=== PATIENT | male | born 1990 | race Hispanic/Latino ===

== ENCOUNTER 2018-09-26 00:15 | Emergency (ER) | payer OTHER ==
[~2018-09-26] VITALS: Ht 167.6 cm; Wt 70.5 kg
[2018-09-26] MEDS ORDERED: DERMABOND TOPICAL SKIN ADHESIVE TOP ONE (02:30)
[2018-09-26 03:08] VITALS: BP 132/82
== END 2018-09-26 03:10 | disposition home or self-care (01) ==
LOC: M ED 00:15
DX: S01.21XA Laceration without foreign body of nose, initial encounter (principal); Y07.9 Unspecified perpetrator of maltreatment and neglect; Y04.8XXA Assault by other bodily force, initial encounter; Y92.018 Other place in single-family (private) house as the place of occurrence of the external cause

== ENCOUNTER 2019-02-16 09:42 | Emergency (ER) | payer OTHER ==
[~2019-02-16] VITALS: Ht 167.6 cm; Wt 67.5 kg
--- NOTE | 2019-02-16 10:18 | REP ---
Left rib series: Five views including PA chest. History: Football injury 6 days prior. Findings: PA chest radiograph is normal. There is no evidence of pneumothorax or hydrothorax. Mediastinum is not widened. Heart size is normal. Lung conley are clear. Multiple views of the left rib cage show no evidence of left rib fracture or incidental bony destructive lesion. Impression: Negative left rib radiographs. Electronically Signed by Mohsen Trejo MD 02/16/2019 10:09 A
[2019-02-16] MEDS ORDERED: KETOROLAC 60 MG/2 ML VIAL (J1885) IM ONE (11:00)
[2019-02-16] MEDS ORDERED: NAPR-837 PO (11:31)
[2019-02-16 11:35] VITALS: BP 133/91
== END 2019-02-16 11:36 | disposition home or self-care (01) ==
LOC: M ED 09:42
DX: S20.20XA Contusion of thorax, unspecified, initial encounter (principal); Y92.9 Unspecified place or not applicable; Y93.61 Activity, american tackle football; Y99.9 Unspecified external cause status
CPT/HCPCS: 71101; 96372; 99283; J1885

== ENCOUNTER 2019-07-17 14:35 | Inpatient (IN) | payer OTHER ==
[~2019-07-17] VITALS: Ht 167.6 cm; Wt 69.8 kg
[~2019-07-17 14:35] MED LIST: NAPR-837 PO
[2019-07-17 16:15] VITALS: BP 161/104
[2019-07-17] MEDS ORDERED: PIPERACILLIN/TAZOBACTAM SOD 4.5 GM in D5W MINI-BAG PLUS 50 ML IV ONE (17:15)
[2019-07-17] MEDS ORDERED: ONDANSETRON 4MG/2ML VIAL IV PRN (17:15)
--- NOTE | 2019-07-17 17:34 | HPEPDOC ---
General Date of Admission Jul 17, 2019 at 16:15 Date of Service: Jul 17, 2019 Chief Complaint The patient is a 29-year-old male admitted with a reason for visit of Choledocholithiasis. 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 He presented there for 3 days history of abdominal pain, nausea and 2 days of diarr hea. He had a CT abdomen done there with contrast which showed acute pancreatitis with CBD dilatation but no cholelithiasis or choledocolithiasis. David says that his pain is constantly present all over the abdomen more in the central part and right upper quadrant , 8/10 in intensity, sensation of tight cramp constantly present with radiation to the back. He was admitted for acute pancreatitis and possible CBD obstruction. Home Medications Scheduled Naproxen (Naprosyn) 500 Mg Tablet, 500 MG PO BID take with food Allergies Coded Allergies: No Known Allergies (Unverified , 09/26/18) Past Medical History Medical History None Surgical History Bilateral mastectomy for gynecomastia Family History Significant Family History: No pertinent family hx discussed with patient Social History * Smoker: Denies Alcohol: heavy (drins 3 to 4 times a week 4 to 6 vodka drinks) Drugs: denies A-FIB/CHADSVASC A-FIB History Current/History of A-Fib/PAF?: No Review of Systems Constitutional: Denies: Chills, Fever, Night Sweats Eyes: Denies: Pain, Vision change ENT: Denies: Head Aches, Ear Pain, Dysphagia Skin: Denies: Rash, Lesions, Breakdown Pulmonary: Denies: Dyspnea, Cough Cardiovascular: Denies: Chest Pain, Palpitations, Orthopnea, Paroxysmal Noc. Dyspnea, Lt Headedness Gastrointestinal: Reports: Nausea, Vomiting, Abdominal Pain, Diarrhea Genitourinary: Denies: Dysuria, Frequency, Incontinence, Retention Hematologic: Denies: Bruising, Bleeding Excessively Musculoskeletal: Reports: Back Pain; Denies: Neck Pain, Joint Pain, Muscle Pain, Spasms Neurological: Denies: Weakness, Numbness, Change in speech, Confusion Physical Examination General Exam: Positive: Alert, Cooperative, No Acute Distress Eye Exam: Positive: PERRLA, Conjunctiva & lids normal, EOMI; Negative: Sclera icteric ENT Exam: Positive: Atraumatic, Mucous membr. moist/pink, Pharynx Normal Neck Exam: Positive: Supple; Negative: JVD, thyromegaly Chest Exam: Positive: Clear to auscultation, Normal air movement Heart Exam: Positive: Rate Normal, Regular Rhythm, Normal S1, Normal S2; Negative: Murmurs, Rubs Abdomen Exam: Positive: BS Hyperactive, Tenderness (in the epigastrium and right upper quadrant, going to the back), Other (guarding in the right upper quadrant.) Extremity Exam: Positive: Normal pulses; Negative: Clubbing, Cyanosis, Edema Skin Exam: Positive: Nl turgor and temperature; Negative: Breakdown, Lesion Neuro Exam: Positive: Normal Speech, Cranial Nerves 3-12 NL, Reflexes 2+ Vital Signs Vital Signs Date Time Temp Pulse Resp B/P (MAP) Pulse Ox O2 Delivery O2 Flow Rate FiO2 07/17/19 16:27 16 07/17/19 16:15 99.2 100 161/104 (123) 98 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 He had a CT abdomen done there with contrast which showed acute pancreatitis with CBD dilatation but no cholelithiasis or choledocolithiasis. Patient says that his pain is constantly present all over the abdomen more in the central part and right upper quadrant , 8/10 in intensity, sensation of tight cramp constantly present with radiation to the back. He was admitted for acute pancreatitis and possible CBD obstruction. Acute pancreatitis significant alcohol use. No Gall stones visualized in CT but CBD is dilated MRCP NPO IVF, morphine, PPI. will give One dose of Zosyn. GI consult. Alcohol use disorder patient on naltrexone to control the craving. has not taken any alcohol for 4 days watch for withdrawal. Plan / VTE VTE Prophylaxis Ordered?: Yes ORQUIDEA HUERTA MD Jul 17, 2019 17:34
[2019-07-17] MEDS ORDERED: EFFE150C2 PO (17:39)
[2019-07-17] MEDS ORDERED: NALT50TA4 PO (17:39)
[2019-07-17] MEDS ORDERED: TRAZ-257 PO (17:39)
[2019-07-17 17:48] LABS: BASO % 0.4 % (0.0-1.0); EOS % 0.3 % (0.0-3.0); HEMATOCRIT 44.1 % (42.0-52.0); HEMOGLOBIN 15.2 g/dl (13.5-17.5); LYMPH # 1.1 10^3/uL (1.5-5.0); LYMPH % 12.3 % (24.0-44.0); MEAN CORPUSCULAR HEMOGLOBIN 32.2 pg (27.0-33.0); MEAN CORPUSCULAR HGB CONC 34.5 g/dl (32.0-36.5); MEAN CORPUSCULAR VOLUME 93.4 fl (80.0-96.0); MONO # 0.5 10^3/uL (0.0-0.8); MONO % 5.1 % (0.0-5.0); NEUTROPHILS # 7.5 10^3/uL (1.5-8.5); NEUTROPHILS % 81.6 % (36.0-66.0); PLATELET COUNT, AUTOMATED 210 10^3/uL (150-450); RED BLOOD COUNT 4.72 10^6/uL (4.30-6.10); WHITE BLOOD COUNT 9.1 10^3/uL (4.0-10.0)
[2019-07-17 18:00] LABS: PROTHROMBIN TIME 12.9 SECONDS (11.8-14.0)
[2019-07-17] MEDS: LR 1,000 ML IV SCH (18:39)
[2019-07-17 18:48] LABS: ALBUMIN 3.8 GM/DL (3.2-5.2); ALT/SGPT 54 U/L (12-78); BILIRUBIN,TOTAL 2.6 MG/DL (0.2-1.0); BLOOD UREA NITROGEN 12 MG/DL (7-18); CALCIUM LEVEL 8.7 MG/DL (8.5-10.1); CARBON DIOXIDE LEVEL 24 MEQ/L (21-32); CHLORIDE LEVEL 100 MEQ/L (98-107); CREATININE FOR GFR 0.96 MG/DL (0.70-1.30); GLOMERULAR FILTRATION RATE > 60.0 (>60); GLUCOSE, FASTING 91 MG/DL (70-100); LIPASE 2987 U/L (73-393); POTASSIUM SERUM 3.9 MEQ/L (3.5-5.1); SODIUM LEVEL 134 MEQ/L (136-145); TOTAL PROTEIN 6.9 GM/DL (6.4-8.2)
--- NOTE | 2019-07-17 18:55 | REPVR ---
PROCEDURE INFORMATION: Exam: MR Abdomen Without Contrast Exam date and time: 07/17/2019 6:28 PM Age: 29 years old Clinical indication: Abdominal pain; Acute; Patient HX: Mrcp; Additional info: Pancreatits, cbd dilatation TECHNIQUE: Imaging protocol: MR of the abdomen without contrast. 3D rendering: MIP and/or 3D reconstructed images were created by the technologist. COMPARISON: No relevant prior studies available. FINDINGS: Liver: No mass. Gallbladder and bile ducts: Unremarkable. No stones. No ductal dilation. Pancreas: There is trace amount of fluid around the pancreatic head Spleen: Unremarkable. No splenomegaly. Adrenals: Unremarkable. No mass. Kidneys and ureters: Unremarkable. No solid mass. No hydronephrosis. Stomach and bowel: Visualized stomach and intestines are unremarkable. Intraperitoneal space: No free fluid. Arteries: No abdominal aortic aneurysm. Bones/joints: Unremarkable. Soft tissues: Unremarkable. IMPRESSION: Trace amount of fluid around the pancreatic head and in right upper quadrant. Findings suspicious for acute pancreatitis. Correlation with lab values. Electronically signed by: Dougie Nation On 07/17/2019 18:54:41 PM
[2019-07-17 19:03] LABS: BILIRUBIN,DIRECT 0.7 MG/DL (0.0-0.2)
[2019-07-17] MEDS: MORPHINE 4 MG/ML 1ML VIAL/SYRINGE (J2270) IV PRN (19:35)
[2019-07-17] MEDS: PANTOPRAZOLE 40MG VIAL (C9113 PER 1) IV SCH (20:16)
[2019-07-17 21:00] VITALS: BP 144/92
[2019-07-17] MEDS ORDERED: OXAZEPAM 10 MG CAP PO PRN (21:30)
[2019-07-17 22:00] VITALS: BP 158/101
[2019-07-17 22:01] VITALS: BP 145/90
[2019-07-18] MEDS: LR 1,000 ML IV SCH ×6 (00:02→23:04)
[2019-07-18] MEDS: PIPERACILLIN/TAZOBACTAM SOD 3.375 GM in D5W MINI-BAG PLUS 50 ML IV SCH ×5 (00:02→23:04)
[2019-07-18] MEDS: MORPHINE 4 MG/ML 1ML VIAL/SYRINGE (J2270) IV PRN ×4 (00:05→18:29)
[2019-07-18 06:00] VITALS: BP 130/80
[2019-07-18 07:08] LABS: BASO % 0.3 % (0.0-1.0); EOS # 0.2 10^3/uL (0.0-0.5); EOS % 2.3 % (0.0-3.0); HEMATOCRIT 37.3 % (42.0-52.0); LYMPH # 0.9 10^3/uL (1.5-5.0); LYMPH % 13.6 % (24.0-44.0); MEAN CORPUSCULAR HEMOGLOBIN 32.9 pg (27.0-33.0); MEAN CORPUSCULAR HGB CONC 34.3 g/dl (32.0-36.5); MEAN CORPUSCULAR VOLUME 95.9 fl (80.0-96.0); MONO # 0.5 10^3/uL (0.0-0.8); NEUTROPHILS # 4.9 10^3/uL (1.5-8.5); NEUTROPHILS % 75.3 % (36.0-66.0); PLATELET COUNT, AUTOMATED 140 10^3/uL (150-450); RED BLOOD COUNT 3.89 10^6/uL (4.30-6.10); WHITE BLOOD COUNT 6.5 10^3/uL (4.0-10.0)
[2019-07-18 07:11] LABS: HEMOGLOBIN 12.8 g/dl (13.5-17.5)
[2019-07-18 07:36] LABS: ALBUMIN 2.9 GM/DL (3.2-5.2); ALT/SGPT 82 U/L (12-78); BILIRUBIN,TOTAL 3.1 MG/DL (0.2-1.0); BLOOD UREA NITROGEN 7 MG/DL (7-18); CALCIUM LEVEL 8.1 MG/DL (8.5-10.1); CARBON DIOXIDE LEVEL 30 MEQ/L (21-32); CHLORIDE LEVEL 101 MEQ/L (98-107); CREATININE FOR GFR 1.12 MG/DL (0.70-1.30); GLOMERULAR FILTRATION RATE > 60.0 (>60); GLUCOSE, FASTING 92 MG/DL (70-100); LIPASE 1751 U/L (73-393); POTASSIUM SERUM 3.6 MEQ/L (3.5-5.1); SODIUM LEVEL 138 MEQ/L (136-145); TOTAL PROTEIN 6.1 GM/DL (6.4-8.2)
--- NOTE | 2019-07-18 09:09 | IPNPDOC ---
Text Note Date of Service The patient was seen on 07/18/19. NOTE Subjective: Continues to have severe abdominal pain and distension. Passing fl atus, Required 3 doses of morphine overnight. Liquids worsening the pain. Low grade fever with Tmax of 100.1 last night. Physical Exam: Vitals: As below. General Exam: Positive: Alert, Cooperative, No Acute Distress Eye Exam: Positive: PERRLA, Conjunctiva & lids normal, EOMI; Negative: Sclera icteric ENT Exam: Positive: Atraumatic, Mucous membr. moist/pink, Pharynx Normal Neck Exam: Positive: Supple; Negative: JVD, thyromegaly Chest Exam: Positive: Clear to auscultation, Normal air movement Heart Exam: Positive: Rate Normal, Regular Rhythm, Normal S1, Normal S2; Negative: Murmurs, Rubs Abdomen Exam: Positive: BS Hyperactive, Tenderness (in the epigastrium and right upper quadrant, going to the back), Other (guarding in the right upper quadrant.) Distended, rebound tenderness present. 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 He had a CT abdomen done there with contrast which showed acute pancreatitis with CBD dilatation but no cholelithiasis or choledocholithiasis. He was transferred here for Possible ERCP for CBD dilatation. Patient says that his pain is constantly present all over the abdomen more in the central part and right upper quadrant , 8/10 in intensity, sensation of tight cramp constantly present with radiation to the back associated with distension. He was admitted for acute pancreatitis and possible CBD obstruction. Acute pancreatitis significant alcohol use. MRCP Normal CBD, no stones, acute pancreatitis. clear liquids. IVF, morphine, PPI. Zosyn GI consult. Transaminitis with elevated total bili indirect hyperbilirubinemia No obstruction visualized. GI eval pending. Alcohol use disorder patient on naltrexone adn trazodone to control the craving and help with sleep. has not taken any alcohol for 5 days watch for withdrawal. will place on PRN Serax. DVT prophylaxis in place. VS,Fishbone, I+O VS, Fishbone, I+O Laboratory Tests 07/17/19 17:32 07/18/19 06:56 Vital Signs Date Time Temp Pulse Resp B/P (MAP) Pulse Ox O2 Delivery O2 Flow Rate FiO2 07/18/19 06:00 98.7 97 17 130/80 (97) 97 Room Air I&O- Last 24 Hours up to 6 AM 07/18/19 06:00 Intake Total 2410 ml Output Total 710 ml Balance 1700 ml ORQUIDEA HUERTA MD Jul 18, 2019 09:09
[2019-07-18 14:00] VITALS: BP 140/82
[2019-07-18] MEDS: PANTOPRAZOLE 40MG VIAL (C9113 PER 1) IV SCH (20:42)
[2019-07-18 21:00] VITALS: BP 126/76
[2019-07-18 22:00] VITALS: BP 145/92
[2019-07-19] MEDS: PIPERACILLIN/TAZOBACTAM SOD 3.375 GM in D5W MINI-BAG PLUS 50 ML IV SCH ×4 (05:16→23:16)
[2019-07-19] MEDS: LR 1,000 ML IV SCH (05:16)
[2019-07-19 06:00] VITALS: BP 138/82
[2019-07-19 07:42] LABS: BASO % 0.5 % (0.0-1.0); EOS # 0.2 10^3/uL (0.0-0.5); EOS % 3.1 % (0.0-3.0); HEMATOCRIT 38.2 % (42.0-52.0); HEMOGLOBIN 12.8 g/dl (13.5-17.5); LYMPH % 15.5 % (24.0-44.0); MEAN CORPUSCULAR HEMOGLOBIN 32.7 pg (27.0-33.0); MEAN CORPUSCULAR HGB CONC 33.5 g/dl (32.0-36.5); MEAN CORPUSCULAR VOLUME 97.7 fl (80.0-96.0); MONO # 0.4 10^3/uL (0.0-0.8); MONO % 6.9 % (0.0-5.0); NEUTROPHILS # 4.7 10^3/uL (1.5-8.5); NEUTROPHILS % 73.7 % (36.0-66.0); PLATELET COUNT, AUTOMATED 153 10^3/uL (150-450); RED BLOOD COUNT 3.91 10^6/uL (4.30-6.10); WHITE BLOOD COUNT 6.4 10^3/uL (4.0-10.0)
[2019-07-19 08:19] LABS: ALT/SGPT 67 U/L (12-78); BLOOD UREA NITROGEN 3 MG/DL (7-18); CALCIUM LEVEL 8.4 MG/DL (8.5-10.1); CARBON DIOXIDE LEVEL 30 MEQ/L (21-32); CHLORIDE LEVEL 102 MEQ/L (98-107); CREATININE FOR GFR 0.76 MG/DL (0.70-1.30); GLOMERULAR FILTRATION RATE > 60.0 (>60); GLUCOSE, FASTING 84 MG/DL (70-100); LIPASE 628 U/L (73-393); POTASSIUM SERUM 3.1 MEQ/L (3.5-5.1); SODIUM LEVEL 138 MEQ/L (136-145); TOTAL PROTEIN 6.5 GM/DL (6.4-8.2)
--- NOTE | 2019-07-19 10:34 | IPNPDOC ---
Text Note Date of Service The patient was seen on 07/19/19. NOTE Subjective: Continues to have abdominal pain and distension but says a little better. Passing flatus, did not require any morphine overnight. Received serax last night and slept well did not have any pain. Starting to feel hungry. Physical Exam: Vitals: As below. General Exam: Positive: Alert, Cooperative, No Acute Distress Eye Exam: Positive: PERRLA, Conjunctiva & lids normal, EOMI; Negative: Sclera icteric ENT Exam: Positive: Atraumatic, Mucous membr. moist/pink, Pharynx Normal Neck Exam: Positive: Supple; Negative: JVD, thyromegaly Chest Exam: Positive: Clear to auscultation, Normal air movement Heart Exam: Positive: Rate Normal, Regular Rhythm, Normal S1, Normal S2; Negative: Murmurs, Rubs Abdomen Exam: Positive: BS Hyperactive, Tenderness (in the epigastrium and right upper quadrant, going to the back), Other (guarding in the right upper quadrant.) Distended, rebound tenderness present. 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 He had a CT abdomen done there with contrast which showed acute pancreatitis with CBD dilatation but no cholelithiasis or choledocholithiasis. He was transferred here for Possible ERCP for CBD dilatation. Patient says that his pain is constantly present all over the abdomen more in the central part and right upper quadrant , 8/10 in intensity, sensation of tight cramp constantly present with radiation to the back associated with distension. He was admitted for acute pancreatitis and possible CBD obstruction. Acute pancreatitis significant alcohol use. MRCP Normal CBD, no stones, acute pancreatitis. Full liquids. advance as tolerated. IVF, morphine, PPI. Zosyn Transaminitis with elevated total bili improving. indirect hyperbilirubinemia No obstruction visualized. Alcohol use disorder patient on naltrexone adn trazodone to control the craving and help with sleep. has not taken any alcohol for 5 days watch for withdrawal. will place on PRN Serax. DVT prophylaxis in place. VS,Fishbone, I+O VS, Fishbone, I+O Laboratory Tests 07/19/19 07:00 Vital Signs Date Time Temp Pulse Resp B/P (MAP) Pulse Ox O2 Delivery O2 Flow Rate FiO2 07/19/19 06:00 99.1 92 18 138/82 (100) 98 Room Air I&O- Last 24 Hours up to 6 AM 07/19/19 06:00 Intake Total 6400 ml Output Total 1990 ml Balance 4410 ml ORQUIDEA HUERTA MD Jul 19, 2019 10:34
[2019-07-19] MEDS: POTASSIUM CHLORIDE INJ 40 MEQ in LR 1,000 ML IV SCH ×2 (13:29→23:16)
[2019-07-19 14:00] VITALS: BP 140/93
[2019-07-19] MEDS: PANTOPRAZOLE 40MG VIAL (C9113 PER 1) IV SCH (20:49)
[2019-07-19 21:00] VITALS: BP 142/78
[2019-07-19 22:00] VITALS: BP 140/90
[2019-07-20] MEDS: PIPERACILLIN/TAZOBACTAM SOD 3.375 GM in D5W MINI-BAG PLUS 50 ML IV SCH (05:19)
[2019-07-20 06:00] VITALS: BP 130/90
[2019-07-20 06:35] LABS: BASO % 0.6 % (0.0-1.0); EOS # 0.2 10^3/uL (0.0-0.5); EOS % 4.2 % (0.0-3.0); HEMATOCRIT 36.5 % (42.0-52.0); HEMOGLOBIN 12.1 g/dl (13.5-17.5); LYMPH % 19.3 % (24.0-44.0); MEAN CORPUSCULAR HEMOGLOBIN 32.3 pg (27.0-33.0); MEAN CORPUSCULAR HGB CONC 33.2 g/dl (32.0-36.5); MEAN CORPUSCULAR VOLUME 97.3 fl (80.0-96.0); MONO # 0.4 10^3/uL (0.0-0.8); MONO % 7.4 % (0.0-5.0); NEUTROPHILS # 3.6 10^3/uL (1.5-8.5); NEUTROPHILS % 68.3 % (36.0-66.0); PLATELET COUNT, AUTOMATED 159 10^3/uL (150-450); RED BLOOD COUNT 3.75 10^6/uL (4.30-6.10); WHITE BLOOD COUNT 5.3 10^3/uL (4.0-10.0)
[2019-07-20 06:59] LABS: ALBUMIN 2.8 GM/DL (3.2-5.2); ALT/SGPT 59 U/L (12-78); BLOOD UREA NITROGEN 3 MG/DL (7-18); CALCIUM LEVEL 8.6 MG/DL (8.5-10.1); CARBON DIOXIDE LEVEL 30 MEQ/L (21-32); CHLORIDE LEVEL 105 MEQ/L (98-107); CREATININE FOR GFR 0.82 MG/DL (0.70-1.30); GLOMERULAR FILTRATION RATE > 60.0 (>60); GLUCOSE, FASTING 105 MG/DL (70-100); POTASSIUM SERUM 3.6 MEQ/L (3.5-5.1); SODIUM LEVEL 142 MEQ/L (136-145)
--- NOTE | 2019-07-20 07:51 | IPNPDOC ---
Text Note Date of Service The patient was seen on 07/20/19. NOTE Subjective: Continues to have abdominal pain and distension but says a little better. Had 3 to 4 loose stools yesterday. Pain a little worse than yesterday. Physical Exam: Vitals: As below. General Exam: Positive: Alert, Cooperative, No Acute Distress Eye Exam: Positive: PERRLA, Conjunctiva & lids normal, EOMI; Negative: Sclera icteric ENT Exam: Positive: Atraumatic, Mucous membr. moist/pink, Pharynx Normal Neck Exam: Positive: Supple; Negative: JVD, thyromegaly Chest Exam: Positive: Clear to auscultation, Normal air movement Heart Exam: Positive: Rate Normal, Regular Rhythm, Normal S1, Normal S2; Negative: Murmurs, Rubs Abdomen Exam: Positive: BS Hyperactive, Tenderness (in the epigastrium and right upper quadrant, going to the back), Other (guarding in the right upper quadrant.) Distended, rebound tenderness present. 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 He had a CT abdomen done there with contrast which showed acute pancreatitis with CBD dilatation but no cholelithiasis or choledocholithiasis. He was transferred here for Possible ERCP for CBD dilatation. Patient says that his pain is constantly present all over the abdomen more in the central part and right upper quadrant , 8/10 in intensity, sensation of tight cramp constantly present with radiation to the back associated with distension. He was admitted for acute pancreatitis and possible CBD obstruction. Acute pancreatitis significant alcohol use. MRCP Normal CBD, no stones, acute pancreatitis. Full liquids. advance as tolerated. IVF, morphine, PPI. will dc zosyn No Stones, no cholangitis. Transaminitis with elevated total bili improved. indirect hyperbilirubinemia No obstruction visualized. Alcohol use disorder patient on naltrexone adn trazodone to control the craving and help with sleep. has not taken any alcohol for 5 days watch for withdrawal. will place on PRN Serax. DVT prophylaxis in place. VS,Fishbone, I+O VS, Fishbone, I+O Laboratory Tests 07/20/19 06:21 Vital Signs Date Time Temp Pulse Resp B/P (MAP) Pulse Ox O2 Delivery O2 Flow Rate FiO2 07/20/19 06:00 98.1 81 18 130/90 (103) 99 Room Air I&O- Last 24 Hours up to 6 AM 07/20/19 06:00 Intake Total 3486 ml Output Total 3250 ml Balance 236 ml ORQUIDEA HUERTA MD Jul 20, 2019 07:51
[2019-07-20] MEDS: POTASSIUM CHLORIDE INJ 40 MEQ in LR 1,000 ML IV SCH ×2 (10:31→22:10)
[2019-07-20] MEDS: MORPHINE 2 MG/ML 1ML VIAL (J2270) IV PRN ×2 (12:33→20:20)
[2019-07-20 14:00] VITALS: BP 130/92
[2019-07-20 20:00] VITALS: BP 152/81
[2019-07-20] MEDS: PANTOPRAZOLE 40MG VIAL (C9113 PER 1) IV SCH (20:19)
[2019-07-21 06:00] VITALS: BP 125/72
[2019-07-21] MEDS: POTASSIUM CHLORIDE INJ 40 MEQ in LR 1,000 ML IV SCH (06:19)
[2019-07-21 07:10] LABS: BASO % 0.5 % (0.0-1.0); EOS # 0.1 10^3/uL (0.0-0.5); EOS % 3.3 % (0.0-3.0); HEMATOCRIT 37.4 % (42.0-52.0); HEMOGLOBIN 12.4 g/dl (13.5-17.5); LYMPH # 1.1 10^3/uL (1.5-5.0); LYMPH % 25.3 % (24.0-44.0); MEAN CORPUSCULAR HEMOGLOBIN 32.4 pg (27.0-33.0); MEAN CORPUSCULAR HGB CONC 33.2 g/dl (32.0-36.5); MEAN CORPUSCULAR VOLUME 97.7 fl (80.0-96.0); MONO # 0.4 10^3/uL (0.0-0.8); MONO % 9.1 % (0.0-5.0); NEUTROPHILS # 2.6 10^3/uL (1.5-8.5); NEUTROPHILS % 61.3 % (36.0-66.0); PLATELET COUNT, AUTOMATED 194 10^3/uL (150-450); RED BLOOD COUNT 3.83 10^6/uL (4.30-6.10); WHITE BLOOD COUNT 4.3 10^3/uL (4.0-10.0)
[2019-07-21] MEDS ORDERED: OMEP1CAP73 PO (07:20)
[2019-07-21 07:43] LABS: BLOOD UREA NITROGEN 7 MG/DL (7-18); CALCIUM LEVEL 8.6 MG/DL (8.5-10.1); CARBON DIOXIDE LEVEL 30 MEQ/L (21-32); CHLORIDE LEVEL 104 MEQ/L (98-107); CREATININE FOR GFR 0.72 MG/DL (0.70-1.30); GLOMERULAR FILTRATION RATE > 60.0 (>60); GLUCOSE, FASTING 97 MG/DL (70-100); POTASSIUM SERUM 3.7 MEQ/L (3.5-5.1); SODIUM LEVEL 140 MEQ/L (136-145)
[2019-07-21 07:44] LABS: ALBUMIN 2.9 GM/DL (3.2-5.2); ALT/SGPT 76 U/L (12-78); BILIRUBIN,TOTAL 0.6 MG/DL (0.2-1.0)
--- NOTE | 2019-07-21 14:28 | DS.PDOC ---
Discharge Summary General Date of Admission Jul 17, 2019 at 16:15 Date of Discharge 07/21/19 Discharge Summary PROCEDURES PERFORMED DURING STAY: [None]. DISCHARGE DIAGNOSES: Acute Alcoholic Pancreatitis. COMPLICATIONS/CHIEF COMPLAINT: Choledocholithiasis. 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 He had a CT abdomen done there with contrast which showed acute pancreatitis with CBD dilatation but no cholelithiasis or choledocholithiasis. He was transferred here for Possible ERCP for CBD dilatation. Patient says that his pain is constantly present all over the abdomen more in the central part and right upper quadrant , 8/10 in intensity, sensation of tight cramp constantly present with radiation to the back associated with distension. He was admitted for acute pancreatitis and possible CBD obstruction. Acute pancreatitis presumed to be due to alcohol. MRCP: Normal CBD, no stones, acute pancreatitis. tolerating low fat diet. Transaminitis with elevated total bili improved. indirect hyperbilirubinemia No obstruction visualized in MRCP. Alcohol use disorder patient on naltrexone and trazodone to control the craving and help with sleep. counselled to abstain from alcohol use. continue DISCHARGE MEDICATIONS: Please see below. ALLERGIES: Please see below. PHYSICAL EXAMINATION ON DISCHARGE: VITAL SIGNS: Please see below. General Exam: Positive: Alert, Cooperative, No Acute Distress Eye Exam: Positive: PERRLA, Conjunctiva & lids normal, EOMI; Negative: Sclera icteric ENT Exam: Positive: Atraumatic, Mucous membr. moist/pink, Pharynx Normal Neck Exam: Positive: Supple; Negative: JVD, thyromegaly Chest Exam: Positive: Clear to auscultation, Normal air movement Heart Exam: Positive: Rate Normal, Regular Rhythm, Normal S1, Normal S2; Negative: Murmurs, Rubs Abdomen Exam: Positive: BS Hyperactive, Tenderness (in the epigastrium and right upper quadrant, going to the back), Other (guarding in the right upper quadrant.) Distended, rebound tenderness present. Extremity Exam: Positive: Normal pulses; Negative: Clubbing, Cyanosis, Edema Skin Exam: Positive: Nl turgor and temperature; Negative: Breakdown, Lesion Neuro Exam: Positive: Normal Speech, Cranial Nerves 3-12 NL, Reflexes 2+ LABORATORY DATA: Please see below. IMAGING: MRCP Liver: No mass. Gallbladder and bile ducts: Unremarkable. No stones. No ductal dilation. Pancreas: There is trace amount of fluid around the pancreatic head Spleen: Unremarkable. No splenomegaly. Adrenals: Unremarkable. No mass. Kidneys and ureters: Unremarkable. No solid mass. No hydronephrosis. Stomach and bowel: Visualized stomach and intestines are unremarkable. Intraperitoneal space: No free fluid. Arteries: No abdominal aortic aneurysm. Bones/joints: Unremarkable. Soft tissues: Unremarkable. IMPRESSION: Trace amount of fluid around the pancreatic head and in right upper quadrant. Findings suspicious for acute pancreatitis. Correlation with lab values. ACTIVITY: [As tolerated]. DIET: Low fat, low cholesterol DISPOSITION: 01 Home, Self-Care. DISCHARGE INSTRUCTIONS: follow up at [facility] DISCHARGE CONDITION: [Stable]. TIME SPENT ON DISCHARGE: 35 minutes. Vital Signs/I&Os Vital Signs Date Time Temp Pulse Resp B/P (MAP) Pulse Ox O2 Delivery O2 Flow Rate FiO2 07/21/19 06:00 98.1 69 16 125/72 (89) 98 Room Air I&O- Last 24 Hours up to 6 AM 07/21/19 07:00 Intake Total 3360 ml Output Total 2550 ml Balance 810 ml Laboratory Data Labs 24H Laboratory Tests 2 07/21/19 06:30: Anion Gap 6L, Glomerular Filtration Rate > 60.0, Calcium Level 8.6, Total Bilirubin 0.6, Aspartate Amino Transf (AST/SGOT) 54H, Alanine Aminotransferase (ALT/SGPT) 76, Alkaline Phosphatase 70, Total Protein 6.0L, Albumin 2.9L, Albumin/Globulin Ratio 0.9 07/21/19 06:31: Immature Granulocyte % (Auto) 0.5, Neutrophils (%) (Auto) 61.3, Lymphocytes (%) (Auto) 25.3, Monocytes (%) (Auto) 9.1H, Eosinophils (%) (Auto) 3.3H, Basophils (%) (Auto) 0.5, Neutrophils # (Auto) 2.6, Lymphocytes # (Auto) 1.1L, Monocytes # (Auto) 0.4, Eosinophils # (Auto) 0.1, Basophils # (Auto) 0.0, Nucleated Red Blood Cells % (auto) 0.0 CBC/BMP Laboratory Tests 07/21/19 06:30 07/21/19 06:31 Discharge Medications Scheduled Naltrexone HCl (Naltrexone HCl) 50 Mg Tablet, 50 MG PO DAILY, (Reported) Naproxen (Naprosyn) 500 Mg Tablet, 500 MG PO BID take with food Omeprazole (Omeprazole) 20 Mg Capsule.dr, 1 CAP PO DAILY Venlafaxine HCl (Effexor Xr) 150 Mg Cap.er.24h, 150 MG PO DAILY, (Reported) Scheduled PRN Trazodone HCl (Trazodone HCl) 100 Mg Tablet, 100 MG PO QHS PRN for SLEEP, (Reported) Allergies Coded Allergies: No Known Allergies (Unverified , 09/26/18) ORQUIDEA HUERTA MD Jul 21, 2019 14:28
== END 2019-07-21 11:15 | disposition home or self-care (01) | DRG 440 ==
LOC: M MS5PR 16:15
PROVIDERS: ADMIT Internal Medicine Nephrology; ATTEND Internal Medicine Nephrology
DX: K85.20 Alcohol induced acute pancreatitis without necrosis or infection (principal); F10.10 Alcohol abuse, uncomplicated; R74.0 Nonspecific elevation of levels of transaminase and lactic acid dehydrogenase [LDH]; Z79.1 Long term (current) use of non-steroidal anti-inflammatories (NSAID)

== ENCOUNTER 2019-08-31 10:01 | Inpatient (IN) | payer OTHER ==
[~2019-08-31] VITALS: Ht 167.6 cm; Wt 71.2 kg
[~2019-08-31 10:01] MED LIST changes: +EFFE150C2 PO; +NALT50TA4 PO; +OMEP1CAP73 PO; +TRAZ-257 PO
[2019-08-31] MEDS ORDERED: NS 1,000 ML IV ONE (11:15)
[2019-08-31] MEDS ORDERED: ONDANSETRON 4MG/2ML VIAL IV ONE (11:15)
[2019-08-31] MEDS ORDERED: MORPHINE 4 MG/ML 1ML VIAL/SYRINGE (J2270) IV ONE (11:30)
[2019-08-31] MEDS ORDERED: ISOVUE-370 76% 100ML VIAL As Ordered ONE (11:35)
[2019-08-31 11:41] LABS: BASO % 0.3 % (0.0-1.0); EOS % 0.3 % (0.0-3.0); HEMATOCRIT 46.9 % (42.0-52.0); HEMOGLOBIN 15.7 g/dl (13.5-17.5); LYMPH # 0.9 10^3/uL (1.5-5.0); LYMPH % 8.2 % (24.0-44.0); MEAN CORPUSCULAR HEMOGLOBIN 32.1 pg (27.0-33.0); MEAN CORPUSCULAR HGB CONC 33.5 g/dl (32.0-36.5); MEAN CORPUSCULAR VOLUME 95.9 fl (80.0-96.0); MONO # 0.9 10^3/uL (0.0-0.8); MONO % 8.3 % (0.0-5.0); NEUTROPHILS # 8.7 10^3/uL (1.5-8.5); NEUTROPHILS % 82.6 % (36.0-66.0); PLATELET COUNT, AUTOMATED 256 10^3/uL (150-450); RED BLOOD COUNT 4.89 10^6/uL (4.30-6.10); WHITE BLOOD COUNT 10.5 10^3/uL (4.0-10.0)
[2019-08-31 12:04] LABS: BILIRUBIN,DIRECT 0.5 MG/DL (0.0-0.2); TOTAL PROTEIN 7.7 GM/DL (6.4-8.2)
--- NOTE | 2019-08-31 12:05 | REP ---
Clinical: Abdominal pain with history of pancreatitis. Technique: Axial contrast enhanced images from the lung bases to the pubic symphysis with coronal and sagittal re-formations using 100 ml Isovue 370 intravenous contrast material. Comparison: 07/17/2019. Findings: Moderate peripancreatic inflammatory stranding and small amount of fluid primarily surrounds the pancreatic head/uncinate process and adjacent duodenum with subtle extension into the surrounding mesentery. Associated scattered reactive mesenteric adenopathy noted. Findings are essentially unchanged as compared to prior examination. A small amount of fluid extends into the pelvis. No drainable collection/abscess or pseudocyst identified. Liver, spleen, gallbladder, bilateral adrenal glands and kidneys are normal. The enteric system is without obstruction or acute inflammatory process. Pelvis demonstrates collapsed normal bladder and age appropriate prostate/seminal vesicles. No free air. Abdominal aorta and vasculature normal. Surrounding musculoskeletal structures are intact. Lung bases are clear. Impression: Findings consistent with pancreatitis and essentially unchanged as compared to 07/17/2019. Electronically Signed by Tano Salazar MD 08/31/2019 11:56 A
[2019-08-31] MEDS ORDERED: KETOROLAC 30 MG/ML 1ML VIAL IV ONE (13:45)
--- NOTE | 2019-08-31 14:30 | REP ---
Clinical: Right-sided pain and swelling. Technique: Real time sandoval scale and color Doppler evaluation using linear high frequency transducer. Findings: 2.7 cm right epididymal head cyst is identified and most likely related to the patient's symptoms. The bilateral testicles are symmetric and normal in appearance and vascularity without intratesticular mass lesion, infectious/inflammatory process, or torsion. Few right-sided intratesticular microcalcifications identified. No hydrocele. No varicocele. Right testicle measures 4.0 x 1.7 x 2.5 cm. Left testicle measures 4.1 x 1.6 x 2.6 cm. Impression: 1. The patient's symptoms are likely related to 2.7 cm right epididymal head cyst. 2. Few right intratesticular microcalcifications are nonspecific. Electronically Signed by Tano Salazar MD 08/31/2019 02:22 P
[2019-08-31] MEDS: NS 1,000 ML IV SCH ×2 (16:10→21:30)
[2019-08-31] MEDS ORDERED: ONDANSETRON 4MG/2ML VIAL IV PRN (16:15)
[2019-08-31] MEDS ORDERED: MORPHINE 2 MG/ML 1ML VIAL (J2270) IV PRN (16:15)
[2019-08-31] MEDS ORDERED: ACETAMINOPHEN TAB 650MG DOSE (2X325MG) PO PRN (16:15)
--- NOTE | 2019-08-31 16:27 | HPEPDOC ---
General Date of Admission 08/31/19 Chief Complaint The patient is a 29-year-old male admitted with a reason for visit of Abdominal Pain. Source: Patient Exam Limitations: No limitations Timing/Duration: Day(s) Severity: Severe Associated Symptoms: Loss of appetite History of Present Illness Patient is 29 years old male with past medical history of pancreatitis with recent admission for it, presented to the hospital with severe abdominal epigastric pain. Patient stated that after 7 shots of vodka 4 days ago he developed epigastric abdominal pain with radiation to the back. For past 2 days his pain became 9 out of 10 and associated with loss of appetite and nausea. In ER patient was found to have elevated lipase around 500, triglycerides 230, total bili 2.0. CT of abdomen and pelvis showed findings consistent with pancreatitis. Home Medications Scheduled Naltrexone HCl (Naltrexone HCl) 50 Mg Tablet, 50 MG PO DAILY, (Reported) Naproxen (Naprosyn) 500 Mg Tablet, 500 MG PO BID take with food Venlafaxine HCl (Effexor Xr) 150 Mg Cap.er.24h, 150 MG PO DAILY, (Reported) Scheduled PRN Trazodone HCl (Trazodone HCl) 100 Mg Tablet, 100 MG PO QHS PRN for SLEEP, (Reported) Allergies Coded Allergies: No Known Allergies (Unverified , 09/26/18) Past Medical History Medical History One episode of acute pancreatitis one month ago Family History Father has diabetes Social History * Smoker: Denies Alcohol: heavy Drugs: denies A-FIB/CHADSVASC A-FIB History Current/History of A-Fib/PAF?: No Current PO Anticoag Therapy: No Review of Systems Constitutional: Reports: Weakness; Denies: Chills, Fever Eyes: Denies: Pain ENT: Denies: Head Aches Skin: Denies: Rash, Lesions Pulmonary: Denies: Dyspnea Cardiovascular: Denies: Chest Pain, Palpitations Gastrointestinal: Reports: Nausea, Abdominal Pain Genitourinary: Denies: Dysuria Hematologic: Denies: Bruising Endocrine: Denies: Polydipsia Musculoskeletal: Denies: Neck Pain Neurological: Denies: Weakness Psych: Reports: Mood Normal Physical Examination General Exam: Positive: Alert, Cooperative Eye Exam: Positive: PERRLA ENT Exam: Positive: Atraumatic Neck Exam: Positive: Supple; Negative: JVD Chest Exam: Positive: Clear to auscultation Heart Exam: Positive: Tachycardic Telemetry: Positive: Sinus Abdomen Exam: Positive: BS Hypoactive, Tenderness (in the epigastric area tenderness and left upper quadrant) Extremity Exam: Negative: Clubbing, Cyanosis Skin Exam: Positive: Nl turgor and temperature Neuro Exam: Positive: Normal Gait, Strength at 5/5 X4 ext, Cranial Nerves 3-12 NL Psych Exam: Positive: Mental status NL Vital Signs Vital Signs Date Time Temp Pulse Resp B/P (MAP) Pulse Ox O2 Delivery O2 Flow Rate FiO2 08/31/19 14:29 98.8 86 16 137/86 (103) 99 Room Air Laboratory Data Labs 24H Laboratory Tests 2 08/31/19 11:26: Immature Granulocyte % (Auto) 0.3, Neutrophils (%) (Auto) 82.6H, Lymphocytes (%) (Auto) 8.2L, Monocytes (%) (Auto) 8.3H, Eosinophils (%) (Auto) 0.3, Basophils (%) (Auto) 0.3, Neutrophils # (Auto) 8.7H, Lymphocytes # (Auto) 0.9L, Monocytes # (Auto) 0.9H, Eosinophils # (Auto) 0.0, Basophils # (Auto) 0.0, Nucleated Red Blood Cells % (auto) 0.0, Urine Color EL, Urine Appearance CLEAR, Urine pH 6.0, Urine Specific Huffman 1.029, Urine Protein 3+H, Urine Glucose (UA) NEGATIVE, Urine Ketones 1+H, Urine Blood NEGATIVE, Urine Nitrite NEGATIVE, Urine Bilirubin NEGATIVE, Urine Urobilinogen 4.0H, Urine Leukocyte Esterase NEGATIVE, Urine WBC (Auto) 7H, Urine RBC (Auto) 3, Urine Hyaline Casts (Auto) 0, Urine Bacteria (Auto) NEGATIVE, Urine Squamous Epithelial Cells 0, Urine Amorphous Sediment SMALLH, Urine Mucus (Auto) SMALL, Urine Sperm (Auto) , Total Bilirubin 2.0H, Direct Bilirubin 0.5H, Aspartate Amino Transf (AST/SGOT) 26, Alanine Aminotransferase (ALT/SGPT) 35, Alkaline Phosphatase 74, Total Creatine Kinase 123, Total Protein 7.7, Albumin 4.0, Albumin/Globulin Ratio 1.1, Triglycerides Level 230H, Amylase Level 86, Lipase 534H 08/31/19 11:28: POC Glucose (Misc Panel) 119H, POC Sodium (Misc Panel) 136, POC Potassium (Misc Panel) 3.4L, POC Chloride (Misc Panel) 97L, POC Total CO2 (Misc Panel) 28.0H, POC Blood Urea Nitrogen (Misc Panel 12, POC Ionized Calcium (Misc Panel) 4.6, POC Creatinine (Misc Panel) 1.0, POC Hematocrit (Misc Panel) 50.0 08/31/19 12:41: Lactic Acid Level 1.1 CBC/BMP Laboratory Tests 08/31/19 11:26 Assessment/Plan Patient is 29 years old male with past medical history of pancreatitis with recent admission for it, presented to the hospital with severe abdominal epigastric pain. Patient stated that after 7 shots of vodka 4 days ago he developed epigastric abdominal pain with radiation to the back. For past 2 days his pain became 9 out of 10 and associated with loss of appetite and nausea. In ER patient was found to have elevated lipase around 500, triglycerides 230, total bili 2.0. CT of abdomen and pelvis showed findings consistent with pancreatitis. 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 We'll proceed with ultrasound of right upper quadrant. Plan / VTE VTE Prophylaxis Ordered?: Yes MAKEDA SHELBY DO Aug 31, 2019 16:27
[2019-08-31] MEDS ORDERED: NAPR-837 PO (17:27)
[2019-08-31 20:00] VITALS: BP 118/82
[2019-08-31] MEDS: HEPARIN SOD (PORCINE) 5000UNITS/ML VIAL (J1644 PER 1000UNITS) SC SCH (21:00)
[2019-08-31] MEDS: KETOROLAC 30 MG/ML 1ML VIAL IV PRN (21:31)
--- NOTE | 2019-08-31 23:16 | REPVR ---
PROCEDURE INFORMATION: Exam: US Abdomen, Limited; Right Upper Quadrant Exam date and time: 08/31/2019 11:00 PM Age: 29 years old Clinical indication: Condition or disease; Pancreatic condition; Pancreatitis; Additional info: Bile duct dilatation, cholecystitis TECHNIQUE: Imaging protocol: US abdomen. Real time ultrasound with image documentation. Limited exam focused on the right upper quadrant. COMPARISON: CT ABD/PEL W/IV CONTRAST ONLY 08/31/2019 11:33 AM FINDINGS: Liver: Unremarkable. Gallbladder: No gallstones. No gallbladder wall thickening. Trace nonspecific pericholecystic fluid. Negative sonographic Lund's sign, as per the performing assembler sandal parts. Common bile duct: No stones. No ductal dilatation. Pancreas: Unremarkable as visualized. Right kidney: No mass. No definite stones. No hydronephrosis. IMPRESSION: Trace nonspecific pericholecystic fluid, likely related to the patient's known pancreatitis. Electronically signed by: Jatin Lyon On 08/31/2019 23:15:54 PM
[2019-09-01] MEDS: NS 1,000 ML IV SCH ×4 (00:10→14:29)
[2019-09-01] MEDS ORDERED: MORPHINE 2 MG/ML 1ML VIAL (J2270) IV ONE (02:00)
[2019-09-01 04:00] VITALS: BP 143/83
[2019-09-01 05:05] LABS: HEMATOCRIT 40.4 % (42.0-52.0); MEAN CORPUSCULAR HEMOGLOBIN 32.8 pg (27.0-33.0); MEAN CORPUSCULAR HGB CONC 33.4 g/dl (32.0-36.5); MEAN CORPUSCULAR VOLUME 98.1 fl (80.0-96.0); PLATELET COUNT, AUTOMATED 220 10^3/uL (150-450); RED BLOOD COUNT 4.12 10^6/uL (4.30-6.10); WHITE BLOOD COUNT 7.7 10^3/uL (4.0-10.0)
[2019-09-01 05:11] LABS: HEMOGLOBIN 13.5 g/dl (13.5-17.5)
[2019-09-01 05:18] LABS: BLOOD UREA NITROGEN 9 MG/DL (7-18); CALCIUM LEVEL 7.8 MG/DL (8.5-10.1); CARBON DIOXIDE LEVEL 27 MEQ/L (21-32); CHLORIDE LEVEL 106 MEQ/L (98-107); CREATININE FOR GFR 0.92 MG/DL (0.70-1.30); GLOMERULAR FILTRATION RATE > 60.0 (>60); GLUCOSE, FASTING 85 MG/DL (70-100); MAGNESIUM LEVEL 1.8 MG/DL (1.8-2.4); POTASSIUM SERUM 3.5 MEQ/L (3.5-5.1); SODIUM LEVEL 141 MEQ/L (136-145)
[2019-09-01] MEDS: MORPHINE 4 MG/ML 1ML VIAL/SYRINGE (J2270) IV PRN ×2 (05:42→13:53)
[2019-09-01] MEDS: KETOROLAC 30 MG/ML 1ML VIAL IV PRN (06:38)
[2019-09-01 08:00] VITALS: BP 130/90
[2019-09-01] MEDS: HEPARIN SOD (PORCINE) 5000UNITS/ML VIAL (J1644 PER 1000UNITS) SC SCH (08:31)
[2019-09-01 12:00] VITALS: BP 130/86
[2019-09-01] MEDS ORDERED: POTASSIUM CHLORIDE 10 MEQ SR TABLET PO ONE (13:45)
[2019-09-01] MEDS ORDERED: GI COCKTAIL 50ML BTL(HYOSCYAMINE/MAALOX/LIDOCAINE VISCOUS)(1:3:1) PO ONE (14:00)
[2019-09-01] MEDS ORDERED: ACET1TAB55 PO (15:07)
--- NOTE | 2019-09-01 15:51 | DS.PDOC ---
Discharge Summary General Date of Admission Aug 31, 2019 at 16:10 Date of Discharge 09/01/19 Discharge Summary PROCEDURES PERFORMED DURING STAY: [None]. ADMITTING DIAGNOSES: Acute pancreatitis DISCHARGE DIAGNOSES: Acute pancreatitis COMPLICATIONS/CHIEF COMPLAINT: Pancreatitis. HISTORY OF PRESENT ILLNESS: Patient is 29 years old male with past medical history of pancreatitis with recent admission for it, presented to the hospital with severe abdominal epigastric pain. Patient stated that after 7 shots of vodka 4 days ago he developed epigastric abdominal pain with radiation to the back. For past 2 days his pain became 9 out of 10 and associated with loss of appetite and nausea. In ER patient was found to have elevated lipase around 500, triglycerides 230, total bili 2.0. CT of abdomen and pelvis showed findings consistent with pancreatitis. HOSPITAL COURSE: During hospital stay patient received treatment with IV fluid and pain management, his markedly improved DISCHARGE MEDICATIONS: Please see below. ALLERGIES: Please see below. PHYSICAL EXAMINATION ON DISCHARGE: VITAL SIGNS: Please see below. GENERAL: awake, alert, NAD HEENT: NCAT, anicteric sclera, HENRI NECK: supple, no JVD CARDIOVASCULAR EXAMINATION: NS1S2, regular rate/rhythm RESPIRATORY EXAMINATION: CTA b/l, no wheezes/rales/rhonchi ABDOMINAL EXAMINATION: positive bowel sounds x 4, NT EXTREMITIES: no cyanosis, clubbing, edema SKIN: warm, no rashes. NEUROLOGICAL EXAMINATION: AAO x 3, no motor/sensory deficits PSYCHIATRIC EXAMINATION: calm, normal affect LABORATORY DATA: Please see below. IMAGING: Technique: Axial contrast enhanced images from the lung bases to the pubic symphysis with coronal and sagittal re-formations using 100 ml Isovue 370 intravenous contrast material. Comparison: 07/17/2019. Findings: Moderate peripancreatic inflammatory stranding and small amount of fluid primarily surrounds the pancreatic head/uncinate process and adjacent duodenum with subtle extension into the surrounding mesentery. Associated scattered reactive mesenteric adenopathy noted. Findings are essentially unchanged as compared to prior examination. A small amount of fluid extends into the pelvis. No drainable collection/abscess or pseudocyst identified. Liver, spleen, gallbladder, bilateral adrenal glands and kidneys are normal. The enteric system is without obstruction or acute inflammatory process. Pelvis demonstrates collapsed normal bladder and age appropriate prostate/seminal vesicles. No free air. Abdominal aorta and vasculature normal. Surrounding musculoskeletal structures are intact. Lung bases are clear. Impression: Findings consistent with pancreatitis and essentially unchanged as compared to 07/17/2019. PROGNOSIS: Fair ACTIVITY: [As tolerated]. DIET: Regular DISCHARGE PLAN: Home DISCHARGE INSTRUCTIONS: Avoid alcohol ITEMS TO FOLLOWUP ON ON OUTPATIENT: Follow-up with PCP DISCHARGE CONDITION: [Stable]. TIME SPENT ON DISCHARGE: Greater than 20 minutes. Vital Signs/I&Os Vital Signs Date Time Temp Pulse Resp B/P (MAP) Pulse Ox O2 Delivery O2 Flow Rate FiO2 09/01/19 14:03 20 09/01/19 12:00 97.7 89 130/86 (101) 100 Room Air I&O- Last 24 Hours up to 6 AM 09/01/19 06:00 Intake Total 1750 ml Output Total 125 ml Balance 1625 ml Laboratory Data Labs 24H Laboratory Tests 2 09/01/19 04:43: Nucleated Red Blood Cells % (auto) 0.0, Anion Gap 8, Glomerular Filtration Rate > 60.0, Calcium Level 7.8L, Magnesium Level 1.8 CBC/BMP Laboratory Tests 09/01/19 04:43 Discharge Medications Scheduled Naltrexone HCl (Naltrexone HCl) 50 Mg Tablet, 50 MG PO DAILY, (Reported) Venlafaxine HCl (Effexor Xr) 150 Mg Cap.er.24h, 150 MG PO DAILY, (Reported) Scheduled PRN Acetaminophen (Acetaminophen) 325 Mg Tablet, 650 MG PO Q4H PRN for PAIN OR FEVER Trazodone HCl (Trazodone HCl) 100 Mg Tablet, 100 MG PO QHS PRN for SLEEP, (Reported) Allergies Coded Allergies: No Known Allergies (Unverified , 09/26/18) MAKEDA SHELBY DO Sep 01, 2019 15:51
[2019-09-01 16:00] VITALS: BP 156/94
[2019-09-02] MEDS ORDERED: PANTOPRAZOLE 40MG TAB (PROTONIX) PO SCH (09:00)
== END 2019-09-01 19:05 | disposition home or self-care (01) | DRG 440 ==
LOC: M ED 10:01 → M ED INP 16:10 → ENRESERV 18:49 → M PCU 19:41
PROVIDERS: ADMIT Internal Medicine; ATTEND Internal Medicine
DX: K85.90 Acute pancreatitis without necrosis or infection, unspecified (principal); Z79.899 Other long term (current) drug therapy

== ENCOUNTER 2019-11-24 09:27 | Inpatient (IN) | payer OTHER ==
[~2019-11-24] VITALS: Ht 167.6 cm; Wt 69.8 kg
[~2019-11-24 09:27] MED LIST changes: +ACET1TAB55 PO
[2019-11-24] MEDS ORDERED: PRAZ1CAP PO (09:56)
[2019-11-24] MEDS ORDERED: NS 1,000 ML IV ONE (10:15)
[2019-11-24 10:21] LABS: BASO % 0.1 % (0.0-1.0); HEMATOCRIT 47.4 % (42.0-52.0); HEMOGLOBIN 15.6 g/dl (13.5-17.5); LYMPH # 0.5 10^3/uL (1.5-5.0); LYMPH % 5.3 % (24.0-44.0); MEAN CORPUSCULAR HEMOGLOBIN 30.8 pg (27.0-33.0); MEAN CORPUSCULAR HGB CONC 32.9 g/dl (32.0-36.5); MEAN CORPUSCULAR VOLUME 93.5 fl (80.0-96.0); MONO # 0.5 10^3/uL (0.0-0.8); MONO % 5.9 % (0.0-5.0); NEUTROPHILS # 7.6 10^3/uL (1.5-8.5); NEUTROPHILS % 88.5 % (36.0-66.0); PLATELET COUNT, AUTOMATED 150 10^3/uL (150-450); RED BLOOD COUNT 5.07 10^6/uL (4.30-6.10); WHITE BLOOD COUNT 8.6 10^3/uL (4.0-10.0)
--- NOTE | 2019-11-24 10:43 | REPVR ---
PROCEDURE INFORMATION: Exam: XR Chest, 1 View Exam date and time: 11/24/2019 10:20 AM Age: 29 years old Clinical indication: Chest pain and other: Back TECHNIQUE: Imaging protocol: XR of the chest Views: 1 view. COMPARISON: CR Ribs uni W-PA CHEST ONLY 02/16/2019 9:55 AM FINDINGS: Lungs: Unremarkable. No consolidation. Pleural space: Unremarkable. No pleural effusion. No pneumothorax. Heart/Mediastinum: Unremarkable. No cardiomegaly. Bones/joints: Unremarkable. IMPRESSION: No acute abnormalities are identified. Electronically signed by: Tano Abbott On 11/24/2019 10:43:33 AM
[2019-11-24] MEDS ORDERED: ISOVUE-370 76% 100ML VIAL As Ordered ONE (10:56)
[2019-11-24] MEDS ORDERED: MORPHINE 2 MG/ML 1ML VIAL (J2270) IV PRN (11:00)
--- NOTE | 2019-11-24 11:50 | REPVR ---
PROCEDURE INFORMATION: Exam: CT Angiography Chest With Contrast Exam date and time: 11/24/2019 11:06 AM Age: 29 years old Clinical indication: Chest pain; Additional info: Chest pain/abdominal pain TECHNIQUE: Imaging protocol: Computed tomographic angiography of the chest with intravenous contrast. 3D rendering (Not supervised by radiologist): MIP and/or 3D reconstructed images were created by the technologist. Radiation optimization: All CT scans at this facility use at least one of these dose optimization techniques: automated exposure control; mA and/or kV adjustment per patient size (includes targeted exams where dose is matched to clinical indication); or iterative reconstruction. Contrast material: ISOVUE 370; Contrast volume: 100 ml; Contrast route: INTRAVENOUS (IV); COMPARISON: CR PORTABLE CHEST X-RAY 11/24/2019 10:15 AM FINDINGS: Pulmonary arteries: Normal. No pulmonary emboli. Aorta: Unremarkable. No aortic aneurysm. No aortic dissection. Lungs: Unremarkable. No consolidation. No masses. Pleural space: There is a subtle air pleural thickening involving the minor fissure measuring 4 x 3 mm on image 401/97. There is no pneumothorax. There is no pleural effusion. Heart: Unremarkable. No cardiomegaly. No pericardial effusion. Lymph nodes: Unremarkable. No enlarged lymph nodes. Pancreas: The abdomen and pelvis will be discussed in a separate dictation. There does appear to be findings of pancreatitis that will be discussed in more detail on that examination. Bones/joints: Unremarkable. No acute fracture. Soft tissues: Unremarkable. IMPRESSION: 1. No acute abnormality in the chest. 2. Please see the abdomen and pelvis dictation. There appears to be findings of acute pancreatitis lb discussed on that dictation. Electronically signed by: Jeevan Price On 11/24/2019 11:50:12 AM
--- NOTE | 2019-11-24 11:55 | REPVR ---
PROCEDURE INFORMATION: Exam: CT Abdomen And Pelvis With Contrast Exam date and time: 11/24/2019 11:06 AM Age: 29 years old Clinical indication: Abdominal pain; Generalized; Additional info: Chest pain/abdominal pain TECHNIQUE: Imaging protocol: Computed tomography of the abdomen and pelvis with intravenous contrast. Radiation optimization: All CT scans at this facility use at least one of these dose optimization techniques: automated exposure control; mA and/or kV adjustment per patient size (includes targeted exams where dose is matched to clinical indication); or iterative reconstruction. Contrast material: ISOVUE 370; Contrast volume: 100 ml; Contrast route: INTRAVENOUS (IV); COMPARISON: CT ABD/PEL W/IV CONTRAST ONLY 08/31/2019 11:33 AM FINDINGS: Liver: Liver is very fatty slightly enlarged 178 mm. Gallbladder and bile ducts: Normal. No calcified stones. No ductal dilation. Pancreas: There is diffuse inflammatory changes surrounding the pancreas with fluid extending into the paracolic gutters. These findings are consistent with acute pancreatitis. The pancreatic head has slightly heterogeneous enhancement. The enhancement is similar to the previous exam. Spleen: Normal. No splenomegaly. Adrenals: Normal. No mass. Kidneys and ureters: Normal. No hydronephrosis. Stomach and bowel: Scattered colonic diverticular seen. Appendix: The appendix appears normal. Intraperitoneal space: The amount of fluid in the pelvis is slightly less than on the previous exam. Vasculature: Unremarkable. No abdominal aortic aneurysm. Lymph nodes: Unremarkable. No enlarged lymph nodes. Urinary bladder: Unremarkable as visualized. Reproductive: Unremarkable as visualized. Bones/joints: Unremarkable. No acute fracture. Soft tissues: Unremarkable. Other findings: The chest was discussed on the chest CT. There is no evidence of an abscess. There is no evidence of a pseudocyst. The amount of inflammatory changes have increased since the previous examination. IMPRESSION: 1. Increasing inflammatory changes around the pancreas with subtle heterogenicity of the pancreatic head enhancement. 2. Increasing fluid in the paracolic gutters with decrease in the amount of pelvic fluid. 3. No evidence of abscess or pseudocyst. 4. Large fatty liver. Electronically signed by: Jeevan Price On 11/24/2019 11:55:36 AM
[2019-11-24 12:03] LABS: ALBUMIN 3.9 GM/DL (3.2-5.2); ALT/SGPT 47 U/L (12-78); BILIRUBIN,DIRECT 0.3 MG/DL (0.0-0.2); BILIRUBIN,TOTAL 2.2 MG/DL (0.2-1.0); CK-MB VALUE MASS 1.1 NG/ML (<3.6); CPK CREATINE PHOSPHOKINASE 318 U/L (39-308); ETHYL ALCOHOL (ETHANOL) < 0.003 % (0.000-0.010); LIPASE 5575 U/L (73-393); MB/CK RELATIVE INDEX 0.35 (< OR =4); TOTAL PROTEIN 7.8 GM/DL (6.4-8.2); TROPONIN I < 0.02 NG/ML (< 0.10)
[2019-11-24] MEDS ORDERED: ACETAMINOPHEN TAB 650MG DOSE (2X325MG) PO PRN (12:45)
[2019-11-24] MEDS ORDERED: ONDANSETRON 4MG/2ML VIAL IV PRN (12:45)
--- NOTE | 2019-11-24 12:51 | HPEPDOC ---
[facility] Medical History & Physical Date of Admission Nov 24, 2019 Date of Service: Nov 24, 2019 History and Physical Chief complaint: Presented to the emergency room with complaints of abdominal pain History of present illness: Patient is a 29-year-old male with a past history of Depression / Insomnia, Hx of EtoH abuse, Hx of Pancreatitis (2/2 EtOH), who presented to the hospital with complaints of abdominal pain. Patient reported that his abdominal pain started yesterday evening, occurring in the centers abdomen radiating to the bases and to his back. Patient reports the pain as a 10/10 improved in the emergency room with morphine aggravated with movement. Patient describes it as burning/aching/throbbing. Patient reports associated nausea and vomiting. Reports 3 episodes of vomiting this morning without any blood in describes it as containing mostly food. Has reported associated diarrhea twice this morning, described as watery. Denies any urinary discomfort. Has not experience any fevers or chills. Patient reports that he does drink alcohol and follows with the substance abuse clinic at [place]. Patients currently on naltrexone, however, reports that he did consume alcohol a Saturday reported release 5 mixed drinks. Patient denies any shortness of breath, cough, and palpitations. Reports lower chest pain. Patient denies any changes in his weight. Is reported that over the last few days his appetite has been poor. 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 [employer] Review of Systems: 10 point review of systems complete, all negative otherwise stated in HPI Physical exam: - Vitals: BP [163/100], HR [83], RR [20], Sat [97%RA], Temp [96.9F] - General: Lying in bed, appears to be in pain, AAOx3 - HEENT: NC, AT, PERRLA - CVS: RRR, +S1S2 - Lungs: Fair air entry bilaterally, No wheezing / rales / rhonchi - Abdomen: Soft, Non-distended, tenderness appreciated at the epigastrium - Extremities: No lower extremity edema, No calf tenderness - Neuro: No focal motor or sensory deficit - Skin: No visible rashes Assessment and Plan: Abdominal pain associated with nausea and vomiting - likely 2/2 acute pancreatitis - likely 2/2 Alcohol abuse - Present[facility] because of abdominal pain associated with nausea and vomiting - Patient reports history of pancreatitis associated with alcohol use; patient attests to consuming alcohol 4 days prior - Physical with epigastric tenderness - Elevated lipase - CT abdomen / pelvis 11/23: 1. Increasing inflammatory changes around the pancreas with subtle heterogenicity of the pancreatic head enhancement. 2. Increasing fluid in the paracolic gutters with decrease in the amount of pelvic fluid. 3. No evidence of abscess or pseudocyst. 4. Large fatty liver. - Will keep patient NPO - Will start aggressive IV fluid hydration, symptomatic control with morphine and Zofran Alcohol abuse - Will start thiamine, folate and multivitamins - c/w Naltrexone from home Chest pain - likely referred pain 2/2 acute pancreatitis - CXR 11/23: No acute abnormalities are identified. - CTA chest 11/23: 1. No acute abnormality in the chest. 2. Please see the abdomen and pelvis dictation. There appears to be findings of acute pancreatitis lb discussed on that dictation. - EKG reviewed; no ischemic changes noted - Troponin negative Depression / Insomnia - c/w Trazodone Venlafaxine / Prazosin Gastrointestinal prophylaxis - Will start Protonix DVT prophylaxis - Will start Lovenox Vital Signs Vital Signs Date Time Temp Pulse Resp B/P (MAP) Pulse Ox O2 Delivery O2 Flow Rate FiO2 11/24/19 11:45 83 163/100 (121) 97 Room Air 11/24/19 11:00 20 11/24/19 09:30 96.9 Laboratory Data Labs 24H Laboratory Tests 2 11/24/19 09:57: Immature Granulocyte % (Auto) 0.2, Neutrophils (%) (Auto) 88.5H, Lymphocytes (%) (Auto) 5.3L, Monocytes (%) (Auto) 5.9H, Eosinophils (%) (Auto) 0.0, Basophils (%) (Auto) 0.1, Neutrophils # (Auto) 7.6, Lymphocytes # (Auto) 0.5L, Monocytes # (Auto) 0.5, Eosinophils # (Auto) 0.0, Basophils # (Auto) 0.0, Nucleated Red Blood Cells % (auto) 0.0, Total Bilirubin 2.2H, Direct Bilirubin 0.3H, Aspartate Amino Transf (AST/SGOT) 53H, Alanine Aminotransferase (ALT/SGPT) 47, Alkaline Phosphatase 77, Total Creatine Kinase 318H, Creatine Kinase MB 1.1, Creatine Kinase MB Relative Index 0.35, Troponin I < 0.02, Total Protein 7.8, Albumin 3.9, Albumin/Globulin Ratio 1.0, Lipase 5575H, Ethyl Alcohol Level < 0.003 CBC/BMP Laboratory Tests 11/24/19 09:57 Home Medications Scheduled Naltrexone HCl (Naltrexone HCl) 50 Mg Tablet, 50 MG PO DAILY Prazosin Hcl (Prazosin HCl) 1 Mg Capsule, 1 MG PO QPM Venlafaxine HCl (Effexor Xr) 150 Mg Cap.er.24h, 150 MG PO DAILY Scheduled PRN Acetaminophen (Acetaminophen) 325 Mg Tablet, 650 MG PO Q4H PRN for PAIN OR FEVER Trazodone HCl (Trazodone HCl) 100 Mg Tablet, 100 MG PO QHS PRN for SLEEP Allergies Coded Allergies: No Known Allergies (Unverified , 09/26/18) ELKIN GERMAN MD Nov 24, 2019 12:51
[2019-11-24] MEDS ORDERED: APAP325T4 PO (13:08)
[2019-11-24 13:22] LABS: TRIGLYCERIDES LEVEL 280 MG/DL (<150)
[2019-11-24 14:00] VITALS: BP 168/110
[2019-11-24 14:11] LABS: AMPHETAMINES LEVEL URINE NEGATIVE (NEGATIVE); BARBITURATES URINE NEGATIVE (NEGATIVE); BENZODIAZEPINES URINE NEGATIVE (NEGATIVE); CANNABINOIDS URINE NEGATIVE (NEGATIVE); COCAINE METABOLITE URINE NEGATIVE (NEGATIVE); METHADONE URINE NEGATIVE (NEGATIVE); OPIATES URINE POSITIVE (NEGATIVE); PHENCYCLIDINE URINE NEGATIVE (NEGATIVE)
[2019-11-24] MEDS: THIAMINE 100 MG TAB PO SCH (14:27)
[2019-11-24] MEDS: NS 1,000 ML IV SCH ×3 (14:27→20:09)
[2019-11-24] MEDS: PANTOPRAZOLE 40MG VIAL (C9113 PER 1) IV SCH (14:27)
[2019-11-24] MEDS: MULTIVITAMINS/MINERALS THERAP 1 TAB PO SCH (14:27)
[2019-11-24] MEDS: FOLIC ACID 1 MG TAB PO SCH (14:27)
[2019-11-24] MEDS: MORPHINE 4 MG/ML 1ML VIAL/SYRINGE (J2270) IV PRN ×2 (15:25→20:09)
[2019-11-24 17:58] LABS: BLOOD UREA NITROGEN 15 MG/DL (7-18); CALCIUM LEVEL 9.2 MG/DL (8.5-10.1); CARBON DIOXIDE LEVEL 24 MEQ/L (21-32); CHLORIDE LEVEL 100 MEQ/L (98-107); CREATININE FOR GFR 0.92 MG/DL (0.70-1.30); GLOMERULAR FILTRATION RATE > 60.0 (>60); GLUCOSE, FASTING 91 MG/DL (70-100); POTASSIUM SERUM 3.9 MEQ/L (3.5-5.1); SODIUM LEVEL 136 MEQ/L (136-145)
--- NOTE | 2019-11-24 20:49 | ECGEPIP ---
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
[2019-11-24 22:00] VITALS: BP 180/110
[2019-11-24 22:13] VITALS: BP 180/110
[2019-11-24 23:10] VITALS: BP 190/120
[2019-11-24] MEDS ORDERED: traMADol 50 MG TAB PO ONE (23:30)
[2019-11-25] VITALS (7 sets, daily range): BP systolic 142–194; BP diastolic 80–118
[2019-11-25] MEDS: MORPHINE 10 MG/ML 1ML VIAL (J2270) IV PRN ×4 (00:04→23:54)
[2019-11-25] MEDS ORDERED: LABETALOL 100 MG TAB PO ONE ×2 (01:00)
[2019-11-25] MEDS ORDERED: **hydrALAZINE** 10 MG TAB PO ONE ×2 (01:00→02:00)
[2019-11-25] MEDS ORDERED: CAPTOpril 6.25 MG PER 1/2 TABLET PO ONE (02:15)
[2019-11-25] MEDS: NS 1,000 ML IV SCH ×3 (03:53→18:32)
[2019-11-25 06:56] LABS: BASO % 0.2 % (0.0-1.0); EOS % 0.5 % (0.0-3.0); HEMATOCRIT 40.3 % (42.0-52.0); LYMPH # 0.6 10^3/uL (1.5-5.0); LYMPH % 9.5 % (24.0-44.0); MEAN CORPUSCULAR HEMOGLOBIN 31.2 pg (27.0-33.0); MEAN CORPUSCULAR HGB CONC 33.5 g/dl (32.0-36.5); MEAN CORPUSCULAR VOLUME 93.1 fl (80.0-96.0); MONO # 0.5 10^3/uL (0.0-0.8); MONO % 8.5 % (0.0-5.0); NEUTROPHILS # 4.7 10^3/uL (1.5-8.5); NEUTROPHILS % 80.8 % (36.0-66.0); PLATELET COUNT, AUTOMATED 139 10^3/uL (150-450); RED BLOOD COUNT 4.33 10^6/uL (4.30-6.10); WHITE BLOOD COUNT 5.8 10^3/uL (4.0-10.0)
[2019-11-25 06:57] LABS: HEMOGLOBIN 13.5 g/dl (13.5-17.5)
[2019-11-25 07:20] LABS: ALBUMIN 3.2 GM/DL (3.2-5.2); ALT/SGPT 30 U/L (12-78); BILIRUBIN,TOTAL 1.2 MG/DL (0.2-1.0); BLOOD UREA NITROGEN 9 MG/DL (7-18); CALCIUM LEVEL 8.3 MG/DL (8.5-10.1); CARBON DIOXIDE LEVEL 27 MEQ/L (21-32); CHLORIDE LEVEL 102 MEQ/L (98-107); GLOMERULAR FILTRATION RATE > 60.0 (>60); GLUCOSE, FASTING 83 MG/DL (70-100); MAGNESIUM LEVEL 1.9 MG/DL (1.8-2.4); POTASSIUM SERUM 3.5 MEQ/L (3.5-5.1); SODIUM LEVEL 136 MEQ/L (136-145); TOTAL PROTEIN 6.1 GM/DL (6.4-8.2)
[2019-11-25] MEDS: ENOXAPARIN 40MG/0.4ML SYRINGE (J1650 PER 10MG) SC SCH (09:05)
[2019-11-25] MEDS: THIAMINE 100 MG TAB PO SCH (09:05)
[2019-11-25] MEDS: MULTIVITAMINS/MINERALS THERAP 1 TAB PO SCH (09:05)
[2019-11-25] MEDS: FOLIC ACID 1 MG TAB PO SCH (09:05)
--- NOTE | 2019-11-25 10:58 | IPNPDOC ---
Text Note Date of Service The patient was seen on 11/25/19. NOTE Subjective: Patient is a 29-year-old male with a past history of Depression / Insomnia, Hx of EtoH abuse, Hx of Pancreatitis (2/2 EtOH), who presented to the hospital with complaints of abdominal pain. Patient was found to have pancreatitis suspected to be from alcohol and was admitted to the hospital service for further evaluation and treatment. Patient was seen and examined at the bedside. Patient reports that his abdominal pain is slightly improved. Patient denies any nausea, vomiting, denies chest pain, shortness breath or palpitations. Has not experience any further diarrhea. Denies any urinary discomfort. Objective: Vitals (See below) General: Lying in bed, reporting some abdominal pain, AAOx3 HEENT: NC, AT CVS: RRR, +S1S2 Lungs: Fair air entry b/l, auscultation is without rhonchi, wheezing or crackles Abdomen: Soft, ND, tenderness appreciated epigastrium Extremities: No evidence of edema, - Calf tenderness Assessment and plan: Abdominal pain associated with nausea and vomiting - likely 2/2 acute pancreatitis - likely 2/2 Alcohol abuse - Presented to [facility] ER because of abdominal pain associated with nausea and vomiting - Patient reports history of pancreatitis associated with alcohol use; patient attests to consuming alcohol 4 mixed drinks on Saturday11/21/2019 - Physical still reveals persistent epigastric tenderness - Elevated lipase - CT abdomen / pelvis 11/23: 1. Increasing inflammatory changes around the pancreas with subtle heterogenicity of the pancreatic head enhancement. 2. Increasing fluid in the paracolic gutters with decrease in the amount of pelvic fluid. 3. No evidence of abscess or pseudocyst. 4. Large fatty liver. - c/w NPO; consider advancing diet later this afternoon - c/w IV fluid hydration and symptomatic control with morphine and Zofran Alcohol abuse - c/w thiamine, folate and multivitamins - Hold Naltrexone while on Morphine s/p Chest pain - likely referred pain 2/2 acute pancreatitis - CXR 11/23: No acute abnormalities are identified. - CTA chest 11/23: 1. No acute abnormality in the chest. 2. Please see the abdomen and pelvis dictation. There appears to be findings of acute pancreatitis lb discussed on that dictation. - EKG reviewed; no ischemic changes noted - Troponin negative Depression / Insomnia - c/w Trazodone, Venlafaxine / Prazosin Gastrointestinal prophylaxis - c/w Protonix DVT prophylaxis - c/w Lovenox Disposition: - Will consider advancing diet later this afternoon VS,Gavin, I+O VS, Alyshae, I+O Laboratory Tests 11/25/19 06:35 Vital Signs Date Time Temp Pulse Resp B/P (MAP) Pulse Ox O2 Delivery O2 Flow Rate FiO2 11/25/19 09:16 18 11/25/19 06:00 98.4 95 148/96 (113) 96 Room Air I&O- Last 24 Hours up to 6 AM 11/25/19 06:00 Intake Total 8800 ml Output Total 475 ml Balance 8325 ml ELKIN GERMAN MD Nov 25, 2019 10:58
[2019-11-25] MEDS ORDERED: traZODone 100 MG TAB PO PRN (11:00)
[2019-11-25 11:21] LABS: LIPASE 3358 U/L (73-393)
[2019-11-25] MEDS: VENLAFAXINE **XR** 75MG CAPSULE PO SCH (11:52)
[2019-11-25] MEDS: PANTOPRAZOLE 40MG VIAL (C9113 PER 1) IV SCH (16:05)
[2019-11-25] MEDS ORDERED: PRAZOSIN 1 MG CAP PO SCH (21:00)
[2019-11-26] MEDS: NS 1,000 ML IV SCH (01:15)
[2019-11-26 06:00] VITALS: BP 146/88
[2019-11-26 06:07] LABS: BASO % 0.2 % (0.0-1.0); EOS # 0.2 10^3/uL (0.0-0.5); EOS % 2.5 % (0.0-3.0); HEMATOCRIT 38.3 % (42.0-52.0); HEMOGLOBIN 12.3 g/dl (13.5-17.5); MEAN CORPUSCULAR HEMOGLOBIN 30.4 pg (27.0-33.0); MEAN CORPUSCULAR HGB CONC 32.1 g/dl (32.0-36.5); MEAN CORPUSCULAR VOLUME 94.8 fl (80.0-96.0); MONO # 0.6 10^3/uL (0.0-0.8); MONO % 10.4 % (0.0-5.0); NEUTROPHILS # 4.3 10^3/uL (1.5-8.5); NEUTROPHILS % 70.6 % (36.0-66.0); PLATELET COUNT, AUTOMATED 137 10^3/uL (150-450); RED BLOOD COUNT 4.04 10^6/uL (4.30-6.10); WHITE BLOOD COUNT 6.1 10^3/uL (4.0-10.0)
[2019-11-26 06:27] LABS: ALT/SGPT 22 U/L (12-78); BILIRUBIN,TOTAL 1.4 MG/DL (0.2-1.0); BLOOD UREA NITROGEN 6 MG/DL (7-18); CALCIUM LEVEL 8.2 MG/DL (8.5-10.1); CARBON DIOXIDE LEVEL 27 MEQ/L (21-32); CHLORIDE LEVEL 103 MEQ/L (98-107); CREATININE FOR GFR 0.68 MG/DL (0.70-1.30); GLOMERULAR FILTRATION RATE > 60.0 (>60); GLUCOSE, FASTING 66 MG/DL (70-100); MAGNESIUM LEVEL 2.1 MG/DL (1.8-2.4); POTASSIUM SERUM 3.8 MEQ/L (3.5-5.1); SODIUM LEVEL 138 MEQ/L (136-145)
[2019-11-26] MEDS ORDERED: THIA100TA PO (07:53)
[2019-11-26] MEDS ORDERED: FOLI1TAB11 PO (07:53)
[2019-11-26] MEDS ORDERED: VITMTA PO (07:53)
[2019-11-26] MEDS ORDERED: PROT1TAB2 PO (07:53)
[2019-11-26] MEDS ORDERED: PERCOCET 5MG/325MG TAB PO PRN (08:00)
[2019-11-26] MEDS: THIAMINE 100 MG TAB PO SCH (08:28)
[2019-11-26] MEDS: MULTIVITAMINS/MINERALS THERAP 1 TAB PO SCH (08:28)
[2019-11-26] MEDS: FOLIC ACID 1 MG TAB PO SCH (08:28)
[2019-11-26] MEDS: VENLAFAXINE **XR** 75MG CAPSULE PO SCH (08:28)
[2019-11-26] MEDS: ENOXAPARIN 40MG/0.4ML SYRINGE (J1650 PER 10MG) SC SCH (08:29)
--- NOTE | 2019-11-26 09:22 | DS.PDOC ---
Discharge Summary General Date of Admission Nov 24, 2019 at 12:31 Date of Discharge 11/26/2019 Discharge Summary PROCEDURES PERFORMED DURING STAY: [None]. ADMITTING DIAGNOSES / DISCHARGE DIAGNOSES: Abdominal pain associated with nausea and vomiting - likely 2/2 acute pancreatitis - likely 2/2 Alcohol abuse Alcohol abuse s/p Chest pain - likely referred pain 2/2 acute pancreatitis Depression / Insomnia Gastrointestinal prophylaxis DVT prophylaxis COMPLICATIONS/CHIEF COMPLAINT: Abdominal pain HISTORY OF PRESENT ILLNESS: Patient is a 29-year-old male with a past history of Depression / Insomnia, Hx of EtoH abuse, Hx of Pancreatitis (2/2 EtOH), who presented to the hospital with complaints of abdominal pain. Patient was found to have pancreatitis suspected to be from alcohol and was admitted to the hospital service for further evaluation and treatment. HOSPITAL COURSE: Abdominal pain associated with nausea and vomiting - likely 2/2 acute pancreatitis - likely 2/2 Alcohol abuse - Presented to [facility] ER because of abdominal pain associated with nausea and vomiting; currently reports significant improvement of abdominal pain - Patient reports history of pancreatitis associated with alcohol use; patient attests to consuming alcohol 4 mixed drinks on Saturday11/21/2019 - Physical without any significant abdominal tenderness - Elevated lipase - CT abdomen / pelvis 11/23: 1. Increasing inflammatory changes around the pancreas with subtle heterogenicity of the pancreatic head enhancement. 2. Increasing fluid in the paracolic gutters with decrease in the amount of pelvic fluid. 3. No evidence of abscess or pseudocyst. 4. Large fatty liver. - Patient will have diet advanced as tolerated. Will be discharged later today - Will DC IV fluid hydration and morphine IV; c/w Zofran - Advised patient to remain abstinent of alcohol use - Patient has been advised to follow-up with his primary care provider within the next 7 days Alcohol abuse - c/w thiamine, folate and multivitamins - Will resume Naltrexone on discharge s/p Chest pain - likely referred pain 2/2 acute pancreatitis - CXR 11/23: No acute abnormalities are identified. - CTA chest 11/23: 1. No acute abnormality in the chest. 2. Please see the abdomen and pelvis dictation. There appears to be findings of acute pancreatitis lb discussed on that dictation. - EKG reviewed; no ischemic changes noted - Troponin negative Depression / Insomnia - c/w Trazodone, Venlafaxine / Prazosin Gastrointestinal prophylaxis - c/w Protonix DVT prophylaxis - c/w Lovenox DISCHARGE MEDICATIONS: Please see below. ALLERGIES: Please see below. PHYSICAL EXAMINATION ON DISCHARGE: Vitals (See below) General: Lying in bed, appears comfortable, in no acute distress, AAOx3 HEENT: NC, AT CVS: +S1S2 Lungs: Air entry is fair bilaterally without evidence of rhonchi, crackles or wheezing Abdomen: Remains soft without any distention, no appreciable tenderness. This morning Extremities: Lower extremities are without any edema, - Calf tenderness LABORATORY DATA: Please see below. ACTIVITY: [As tolerated]. DISCHARGE PLAN: Follow-up with primary care provider within the next 7 days Remain compliant with treatment plan and medications Return to the ER if you experience any problems DISPOSITION: Home DISCHARGE CONDITION: [Stable]. TIME SPENT ON DISCHARGE: 35 minutes. Vital Signs/I&Os Vital Signs Date Time Temp Pulse Resp B/P (MAP) Pulse Ox O2 Delivery O2 Flow Rate FiO2 11/26/19 06:00 98.3 107 16 146/88 (107) 97 Room Air I&O- Last 24 Hours up to 6 AM 11/26/19 05:59 Intake Total 7850 ml Output Total 500 ml Balance 7350 ml Laboratory Data Labs 24H Laboratory Tests 2 11/26/19 05:40: Immature Granulocyte % (Auto) 0.3, Neutrophils (%) (Auto) 70.6H, Lymphocytes (%) (Auto) 16.0L, Monocytes (%) (Auto) 10.4H, Eosinophils (%) (Auto) 2.5, Basophils (%) (Auto) 0.2, Neutrophils # (Auto) 4.3, Lymphocytes # (Auto) 1.0L, Monocytes # (Auto) 0.6, Eosinophils # (Auto) 0.2, Basophils # (Auto) 0.0, Nucleated Red Blood Cells % (auto) 0.0, Anion Gap 8, Glomerular Filtration Rate > 60.0, Calcium Level 8.2L, Magnesium Level 2.1, Total Bilirubin 1.4H, Aspartate Amino Transf (AST/SGOT) 20, Alanine Aminotransferase (ALT/SGPT) 22, Alkaline Phosphatase 57, Total Protein 6.0L, Albumin 3.0L, Albumin/Globulin Ratio 1.0 CBC/BMP Laboratory Tests 11/26/19 05:40 Discharge Medications Scheduled Folic Acid (Folic Acid) 1 Mg Tablet, 1 MG PO DAILY Multivitamins (Thera M Plus Tablet) 1 Each Tablet, 1 TAB PO DAILY Naltrexone HCl (Naltrexone HCl) 50 Mg Tablet, 50 MG PO QHS, (Reported) Pantoprazole Sodium (Protonix) 40 Mg Tablet.dr, 1 TAB PO DAILY Prazosin Hcl (Prazosin HCl) 1 Mg Capsule, 1 MG PO QPM, (Reported) Thiamine Hcl (Vitamin B-1) 100 Mg Tablet, 100 MG PO DAILY Venlafaxine HCl (Effexor Xr) 150 Mg Cap.er.24h, 150 MG PO DAILY, (Reported) Scheduled PRN Acetaminophen (Acetaminophen) 325 Mg Tablet, 650 MG PO Q4H PRN for PAIN / FEVER, (Reported) Trazodone HCl (Trazodone HCl) 100 Mg Tablet, 100 MG PO QHS PRN for SLEEP, (Reported) Allergies Coded Allergies: No Known Allergies (Unverified , 09/26/18) ELKIN GERMAN MD Nov 26, 2019 09:22
[2019-11-26 14:00] VITALS: BP 142/80
[2019-11-26] MEDS: PANTOPRAZOLE 40MG VIAL (C9113 PER 1) IV SCH (16:42)
[2019-11-26] MEDS ORDERED: OXYC1TAB23 PO (16:57)
== END 2019-11-26 17:43 | disposition home or self-care (01) | DRG 440 ==
LOC: M ED 09:27 → M ED INP 12:31 → ENRESERV 13:21 → M MSPAV 13:53
PROVIDERS: ADMIT Internal Medicine; ATTEND Internal Medicine
DX: K85.20 Alcohol induced acute pancreatitis without necrosis or infection (principal); F10.10 Alcohol abuse, uncomplicated; F32.9 Major depressive disorder, single episode, unspecified; G47.00 Insomnia, unspecified; Z79.899 Other long term (current) drug therapy

== ENCOUNTER 2020-01-22 16:05 | Emergency (ER) | payer OTHER ==
[~2020-01-22] VITALS: Ht 167.6 cm; Wt 72.7 kg
[~2020-01-22 16:05] MED LIST changes: +APAP325T4 PO; +FOLI1TAB11 PO; +OXYC1TAB23 PO; +PRAZ1CAP PO; +PROT1TAB2 PO; +THIA100TA PO; +VITMTA PO
[2020-01-22] MEDS ORDERED: SILD100T PO (16:38)
[2020-01-22 17:32] LABS: HEMATOCRIT 47.3 % (42.0-52.0); HEMOGLOBIN 15.6 g/dl (13.5-17.5); MEAN CORPUSCULAR HEMOGLOBIN 31.3 pg (27.0-33.0); PLATELET COUNT, AUTOMATED 304 10^3/uL (150-450); RED BLOOD COUNT 4.98 10^6/uL (4.30-6.10); WHITE BLOOD COUNT 5.7 10^3/uL (4.0-10.0)
[2020-01-22] MEDS ORDERED: IBUPROFEN 600MG TAB PO ONE (18:00)
[2020-01-22 18:06] LABS: ACETAMINOPHEN LEVEL < 2.0 UG/ML (10.0-30.0); ALT/SGPT 56 U/L (12-78); BILIRUBIN,DIRECT 0.2 MG/DL (0.0-0.2); BILIRUBIN,TOTAL 0.4 MG/DL (0.2-1.0); BLOOD UREA NITROGEN 18 MG/DL (7-18); CARBON DIOXIDE LEVEL 30 MEQ/L (21-32); CHLORIDE LEVEL 105 MEQ/L (98-107); CREATININE FOR GFR 1.05 MG/DL (0.70-1.30); ETHYL ALCOHOL (ETHANOL) 0.421 % (0.000-0.010); GLOMERULAR FILTRATION RATE > 60.0 (>60); GLUCOSE, FASTING 97 MG/DL (70-100); POTASSIUM SERUM 4.1 MEQ/L (3.5-5.1); SALICYLATE LEVEL < 1.7 MG/DL (5.0-30.0); SODIUM LEVEL 142 MEQ/L (136-145); THYROID STIMULATING HORMONE 0.229 uIU/ML (0.358-3.740); TOTAL PROTEIN 7.6 GM/DL (6.4-8.2)
[2020-01-22] MEDS ORDERED: LORazepam 2 MG TAB PO PRN (18:30)
[2020-01-22 19:22] LABS: AMPHETAMINES LEVEL URINE NEGATIVE (NEGATIVE); BARBITURATES URINE NEGATIVE (NEGATIVE); BENZODIAZEPINES URINE NEGATIVE (NEGATIVE); CANNABINOIDS URINE NEGATIVE (NEGATIVE); COCAINE METABOLITE URINE NEGATIVE (NEGATIVE); METHADONE URINE NEGATIVE (NEGATIVE); OPIATES URINE NEGATIVE (NEGATIVE); PHENCYCLIDINE URINE NEGATIVE (NEGATIVE)
[2020-01-22] MEDS: THIAMINE 100 MG TAB PO SCH (20:51)
[2020-01-23] MEDS ORDERED: MULTIVITAMINS/MINERALS THERAP 1 TAB PO SCH (09:00)
[2020-01-23] MEDS ORDERED: FOLIC ACID 1 MG TAB PO SCH (09:00)
[2020-01-23] MEDS: THIAMINE 100 MG TAB PO SCH (10:00)
[2020-01-23 12:42] VITALS: BP 159/82
== END 2020-01-23 13:23 | disposition home or self-care (01) ==
LOC: M ED 16:05
DX: F10.129 Alcohol abuse with intoxication, unspecified (principal); Z79.899 Other long term (current) drug therapy
CPT/HCPCS: 36415; 80048; 80076; 80307; 84443; 85027; 99284; G0480

== ENCOUNTER 2020-10-25 10:08 | Inpatient (IN) | payer OTHER ==
[~2020-10-25] VITALS: Ht 167.6 cm; Wt 77.1 kg
[~2020-10-25 10:08] MED LIST changes: +SILD100T PO
[2020-10-25] MEDS ORDERED: FAMOTIDINE IV BAG 20 MG in IV 1 EA IV ONE (15:10)
[2020-10-25] MEDS ORDERED: MORPHINE 4 MG/ML 1ML VIAL/SYRINGE (J2270) IV PRN (15:10)
[2020-10-25] MEDS ORDERED: NS 1,000 ML IV ONE (15:10)
[2020-10-25] MEDS ORDERED: PANTOPRAZOLE 40MG VIAL (C9113 PER 1) IV ONE (15:10)
[2020-10-25] MEDS ORDERED: ONDANSETRON 4MG/2ML VIAL IV ONE (15:10)
[2020-10-25 15:51] LABS: BASO # 0.1 10^3/uL (0.0-0.2); BASO % 0.6 % (0.0-1.0); EOS # 0.3 10^3/uL (0.0-0.5); EOS % 2.7 % (0.0-3.0); HEMATOCRIT 42.6 % (42.0-52.0); HEMOGLOBIN 13.6 g/dl (13.5-17.5); LYMPH # 1.5 10^3/uL (1.5-5.0); LYMPH % 12.2 % (24.0-44.0); MEAN CORPUSCULAR HGB CONC 31.9 g/dl (32.0-36.5); MONO # 0.6 10^3/uL (0.0-0.8); MONO % 5.2 % (2.0-8.0); NEUTROPHILS # 9.6 10^3/uL (1.5-8.5); NEUTROPHILS % 78.4 % (36.0-66.0); PLATELET COUNT, AUTOMATED 578 10^3/uL (150-450); RED BLOOD COUNT 4.53 10^6/uL (4.30-6.10); WHITE BLOOD COUNT 12.2 10^3/uL (4.0-10.0)
[2020-10-25 16:15] LABS: ALBUMIN 3.3 GM/DL (3.2-5.2); ALT/SGPT 40 U/L (12-78); BILIRUBIN,DIRECT 0.1 MG/DL (0.0-0.2); BILIRUBIN,TOTAL 0.3 MG/DL (0.2-1.0); BLOOD UREA NITROGEN 8 MG/DL (7-18); C REACTIVE PROTEIN QUANTITATIV 1.66 MG/DL (0.00-0.30); CALCIUM LEVEL 9.3 MG/DL (8.5-10.1); CARBON DIOXIDE LEVEL 29 MEQ/L (21-32); CHLORIDE LEVEL 102 MEQ/L (98-107); CREATININE FOR GFR 0.85 MG/DL (0.70-1.30); GLOMERULAR FILTRATION RATE > 60.0 (>60); GLUCOSE, FASTING 100 MG/DL (70-100); LIPASE 1096 U/L (73-393); POTASSIUM SERUM 3.9 MEQ/L (3.5-5.1); SODIUM LEVEL 139 MEQ/L (136-145); TOTAL PROTEIN 6.9 GM/DL (6.4-8.2)
[2020-10-25 16:57] LABS: RSV AMPLIFICATION NEGATIVE (NEGATIVE)
[2020-10-25 16:59] LABS: ERYTHROCYTE SEDIMENTATION RATE 16 mm/hr (0-15)
[2020-10-25] MEDS ORDERED: QUET1TAB17 PO (17:31)
[2020-10-25] MEDS ORDERED: PRAZ2CAP PO (17:31)
[2020-10-25] MEDS ORDERED: TRAZ-252 PO (17:31)
[2020-10-25] MEDS ORDERED: ONDA4TAB6 PO (17:31)
[2020-10-25] MEDS ORDERED: HYOS1TAB PO (17:31)
[2020-10-25] MEDS ORDERED: OXYC1TAB23 PO (17:31)
[2020-10-25] MEDS ORDERED: HOME MED LIST COMPLETE! XX SCH (17:35)
[2020-10-25] MEDS: NS 1,000 ML IV SCH ×2 (18:00→22:00)
[2020-10-25] MEDS ORDERED: ONDANSETRON 4MG/2ML VIAL IV PRN (18:00)
[2020-10-25] MEDS ORDERED: ISOVUE-370 76% 100ML VIAL As Ordered ONE (18:18)
--- NOTE | 2020-10-25 18:53 | HPEPDOC ---
[facility] Medical History & Physical Date of Admission Oct 25, 2020 Date of Service: Oct 25, 2020 Attending Physician: ALLIE CARMICHAEL MD History and Physical CHIEF COMPLAINT: Abdominal pain HISTORY OF PRESENT ILLNESS: 30-year-old M with a past history of Depression / Insomnia, Hx of EtoH abuse, Hx of Pancreatitis (2/2 EtOH), who presented to the hospital with complaints of abdominal pain. He reports that he has greatly reduced his alcohol intake and it is no longer daily, but reports recurring episodes of pancreatitis ever since he had the first one a few years ago. This time, his symptoms began 3w ago for which he went to [place] and he was admitted for pancreatitis and after 1 week was transferred to [place] for reasons unclear to me and ED provider was unsure and I asked them to get records from [facility] for a cohesive story because she initially postulated that it may have been for GI and thus I asked about complicated possible choledocholithiasis with gallstone pancreatitis or even possible pseudocysts/necrosis history that was unclear and he has had no imaging in the ED. From [place], he was discharged 3d ago and 2d ago he presented [place] again where he was given percocet and discharged and is now presenting here reporting that he has not been able to tolerate the PO percocet and any PO. In the ED, he is hemodynamically stable, was given IV morphine and fluids and 1l NS bolus. Workup was notable for mild luekocytosis to 12.2, lipase of 1096, CRP 1.66, ESR 16, hgb 13.6, platelets 578, na 139, K 3.9, Cr 0.85. I have requested data from [facility] and imaging for completion of triage for severity of pancreatitis. He otherwise denies fever, chills, hematemesis, hematochezia, melena, recent alcohol intake. Past Medical History: Depression / Insomnia, Hx of EtoH abuse, Hx of Pancreatitis (2/2 EtOH) Past Surgical History: Bilateral mastectomy for gynecomastia Allergies: NKA Family History: Father with a history of diabetes Social History: Denies the use of tobacco or illicit drugs; patient reports that he drinks alcohol Review of Systems: 10 point review of systems complete, all negative otherwise stated in HPI Physical exam: Vitals: see below General: Lying in bed, NAD, reports abdominal pain, AAOx3 HEENT: NC, AT, PERRLA, EOMI, MMM CVS: RRR, +S1S2, no m/r/g Pulm: CTAB, No wheezing / rales / rhonchi Abdomen: Soft, Non-distended, tenderness in epigastrium, no rebound tenderness or involuntary guarding Extremities: No lower extremity edema, No calf tenderness, WWP, 2+ DP pulses Neuro: No focal motor or sensory deficit, CN 3-12 intact Labs and Imaging: As detailed above, with pending CT A/P Assessment: 30-year-old M with a past history of Depression / Insomnia, Hx of EtoH abuse, Hx of Pancreatitis (2/2 EtOH), who presented to the hospital with complaints of abdominal pain, with multiple recent hospitalization in the [facility] for pancreatitis, now being admitted for the same. Abdominal pain associated with nausea and vomiting - likely 2/2 acute pancreatitis - Elevated lipase - Requested CT abdomen / pelvis given history of requiring transfer from [place] to [place] for GI eval? - Will keep patient NPO - Will start aggressive IV fluid hydration, symptomatic control with morphine NH N and Zofran - Check daily CMP, CBC, lipase, will also check triglycerides with AM labs History of alcohol abuse - Will start thiamine, folate and multivitamins - Will place on CIWA if he starts to withdraw but reports significant reduction in alcohol and no alcohol in recent days - tox screen Depression / Insomnia - c/w Trazodone Venlafaxine / Prazosin DVT prophylaxis - Lovenox 40 SC Vital Signs Vital Signs Date Time Temp Pulse Resp B/P (MAP) Pulse Ox O2 Delivery O2 Flow Rate FiO2 10/25/20 17:28 18 10/25/20 16:16 10/25/20 10:08 97.3 89 98 Room Air Laboratory Data Labs 24H Laboratory Tests 2 10/25/20 12:52: Immature Granulocyte % (Auto) 0.9, Neutrophils (%) (Auto) 78.4H, Lymphocytes (%) (Auto) 12.2L, Monocytes (%) (Auto) 5.2, Eosinophils (%) (Auto) 2.7, Basophils (%) (Auto) 0.6, Neutrophils # (Auto) 9.6H, Lymphocytes # (Auto) 1.5, Monocytes # (Auto) 0.6, Eosinophils # (Auto) 0.3, Basophils # (Auto) 0.1, Nucleated Red Blood Cells % (auto) 0.0, Erythrocyte Sedimentation Rate 16H, Anion Gap 8, Glomerular Filtration Rate > 60.0, Calcium Level 9.3, Total Bilirubin 0.3, Direct Bilirubin 0.1, Aspartate Amino Transf (AST/SGOT) 15, Alanine Aminotransferase (ALT/SGPT) 40, Alkaline Phosphatase 94, C-Reactive Protein, Quantitative 1.66H, Total Protein 6.9, Albumin 3.3, Albumin/Globulin Ratio 0.9, Lipase 1096H 10/25/20 15:08: Lactic Acid Level 1.0 10/25/20 16:02: Coronavirus (COVID-19)(PCR) NEGATIVE, Influenza Type A (RT-PCR) NEGATIVE, Influenza Type B (RT-PCR) NEGATIVE, Respiratory Syncytial Virus (PCR) NEGATIVE CBC/BMP Laboratory Tests 10/25/20 12:52 Home Medications Scheduled Hyoscyamine Sulfate (Hyoscyamine Sulfate) 0.125 Mg Tab.rapdis, 0.125 MG PO QID Prazosin Hcl (Prazosin HCl) 2 Mg Capsule, 2 MG PO DAILY Quetiapine Fumarate (Quetiapine Fumarate) 25 Mg Tablet, 25 MG PO DAILY Venlafaxine HCl (Effexor Xr) 150 Mg Cap.er.24h, 150 MG PO DAILY Scheduled PRN Ondansetron (Ondansetron Odt) 4 Mg Tab.rapdis, 4 MG PO TID PRN for NAUSEA OR VOMITING Oxycodone HCl/Acetaminophen (Oxycodone-Acetaminophen 5-325) 1 Each Tablet, 1 TAB PO QID PRN for PAIN LEVEL 5-10 Sildenafil Citrate (Sildenafil Citrate) 100 Mg Tablet, 1 TAB PO ASDIRECTED PRN for ERECTILE DYSFUNCTION Trazodone HCl (Trazodone HCl) 50 Mg Tablet, 50 MG PO QHS PRN for INSOMNIA Allergies Coded Allergies: No Known Allergies (Unverified , 09/26/18) A-FIB/CHADSVASC A-FIB History Current/History of A-Fib/PAF?: No Current PO Anticoag Therapy: No Age/Risk Factor Scoring CHADSVASC: CHADSVASC Response (Comments) Value Age Risk Factor Age < 65 years old 0 Gender Risk Factor Male 0 Hx of CHF Yes 1 Hx of HTN Yes 1 Hx of Stroke/TIA/or VTE Yes 2 Hx of Diabetes Yes 1 Hx of Vascular Disease Yes 1 Total 6 Treatment Treatment ordered: NONE Reason Anticoagulant not given: Not indicated/[id number] ALLIE CARMICHAEL MD Oct 25, 2020 18:23
--- NOTE | 2020-10-25 19:25 | REPVR ---
PROCEDURE INFORMATION: Exam: CT Abdomen And Pelvis With Contrast Exam date and time: 10/25/2020 6:23 PM Age: 30 years old Clinical indication: Abdominal pain; Additional info: Elev. Lipase, not improving pancreatitis TECHNIQUE: Imaging protocol: Computed tomography of the abdomen and pelvis with contrast. Radiation optimization: All CT scans at this facility use at least one of these dose optimization techniques: automated exposure control; mA and/or kV adjustment per patient size (includes targeted exams where dose is matched to clinical indication); or iterative reconstruction. Contrast material: ISOUVE 370; Contrast volume: 100 ml; Contrast route: INTRAVENOUS (IV); COMPARISON: CT ABD/PEL W/IV CONTRAST ONLY 11/24/2019 11:03 AM FINDINGS: Pleural spaces: Moderate sized transudate density dependent left pleural effusion with adjacent atelectasis and possible pneumonia. Liver: Liver appears normal with no focal abnormality. Gallbladder and bile ducts: Gallbladder is present and shows no evidence of gallstone. Pancreas: Pancreas is abnormal. There is non organized peripancreatic fluid and an edematous appearance of the pancreas without evidence of duct dilatation, stone or mass. No evidence of pancreatic necrosis. Edematous appearance of the proximal duodenum, likely related to the pancreatitis changes. No evidence of small-bowel obstruction. Nodular areas of soft tissue attenuation within the left pericolic gutter adjacent to the colon, in an area of prior fluid from previous pancreatitis. Spleen: Spleen appears homogeneous without focal mass. Adrenal glands: Adrenal glands are normal in appearance. Kidneys and ureters: Kidneys appear normal, with no stone, solid mass or hydronephrosis. Stomach and bowel: Diverticular changes are present within the colon without inflammation. Appendix: Normal caliber appendix is identified, with no adjacent inflammation. Intraperitoneal space: No pneumoperitoneum. Vasculature: No aortic aneurysm. Main portal and splenic veins enhance normally. Lymph nodes: No enlarged lymph nodes. Urinary bladder: Urinary bladder appears normal. Reproductive: No overt enlargement of the prostate gland. Bones/joints: Bony structures show no acute fracture or destructive process. Soft tissues: No concerning focal abnormality of the extra-abdominal and pelvic soft tissues. IMPRESSION: 1. Apparent recurrent acute pancreatitis with non organized peripancreatic fluid and edema but no duct stone or necrosis. Left pericolic gutter soft tissue nodularity likely related to the prior pancreatitis and fluid on the prior scan in that location. 2. Secondary inflammatory changes suggested involving the distal gastric antrum and proximal duodenum adjacent to the inflamed pancreatic head. I cannot exclude superimposed peptic ulcer disease involving the proximal duodenum. 3. Left pleural effusion and atelectasis or left basilar pneumonia Electronically signed by: Nathan Quan On 10/25/2020 19:25:20 PM
[2020-10-25 20:34] VITALS: BP 139/90
[2020-10-25] MEDS: MORPHINE 4 MG/ML 1ML VIAL/SYRINGE (J2270) IV PRN (21:37)
[2020-10-26] MEDS: traZODone 50 MG TAB PO PRN ×2 (01:56→22:18)
[2020-10-26] MEDS: NS 1,000 ML IV SCH ×6 (03:43→20:33)
[2020-10-26] MEDS: PANTOPRAZOLE 40MG VIAL (C9113 PER 1) IV SCH ×2 (03:43→13:51)
[2020-10-26] MEDS: MORPHINE 4 MG/ML 1ML VIAL/SYRINGE (J2270) IV PRN ×3 (05:46→22:14)
[2020-10-26 06:00] VITALS: BP 132/80
[2020-10-26 06:16] LABS: HEMATOCRIT 39.8 % (42.0-52.0); HEMOGLOBIN 12.7 g/dl (13.5-17.5); MEAN CORPUSCULAR HEMOGLOBIN 30.2 pg (27.0-33.0); MEAN CORPUSCULAR HGB CONC 31.9 g/dl (32.0-36.5); MEAN CORPUSCULAR VOLUME 94.5 fl (80.0-96.0); RED BLOOD COUNT 4.21 10^6/uL (4.30-6.10); WHITE BLOOD COUNT 5.9 10^3/uL (4.0-10.0)
[2020-10-26 06:31] LABS: PLATELET COUNT, AUTOMATED 462 10^3/uL (150-450)
[2020-10-26 07:02] LABS: ALBUMIN 2.5 GM/DL (3.2-5.2); ALT/SGPT 29 U/L (12-78); AMYLASE 220 U/L (25-115); BILIRUBIN,TOTAL 0.4 MG/DL (0.2-1.0); BLOOD UREA NITROGEN 6 MG/DL (7-18); CALCIUM LEVEL 8.2 MG/DL (8.5-10.1); CARBON DIOXIDE LEVEL 26 MEQ/L (21-32); CHLORIDE LEVEL 107 MEQ/L (98-107); GLOMERULAR FILTRATION RATE > 60.0 (>60); GLUCOSE, FASTING 82 MG/DL (70-100); LIPASE 1348 U/L (73-393); MAGNESIUM LEVEL 1.9 MG/DL (1.8-2.4); POTASSIUM SERUM 3.4 MEQ/L (3.5-5.1); SODIUM LEVEL 141 MEQ/L (136-145); TOTAL PROTEIN 5.6 GM/DL (6.4-8.2); TRIGLYCERIDES LEVEL 180 MG/DL (<150)
[2020-10-26] MEDS: QUEtiapine FUMARATE 25 MG TAB PO SCH (08:11)
[2020-10-26] MEDS: VENLAFAXINE **XR** 75MG CAPSULE PO SCH (08:12)
[2020-10-26] MEDS: ENOXAPARIN 40MG/0.4ML SYRINGE (J1650 PER 10MG) SC SCH (08:13)
[2020-10-26] MEDS: KETOROLAC 30 MG/ML 1ML VIAL IV PRN ×2 (08:18→20:33)
[2020-10-26] MEDS ORDERED: POTASSIUM CHLORIDE 10MEQ SR TABLET PO ONE (08:30)
[2020-10-26] MEDS ORDERED: KCL 10MEQ/100ML SWI (KRUN) 10 MEQ in IV 1 EA IV SCH (09:00)
--- NOTE | 2020-10-26 12:49 | IPNPDOC ---
Text Note Date of Service The patient was seen on 10/26/20. NOTE Subjective: -No complaints overnight, afebrile, abdominal pain is well managed with morphine Objective: Vitals: see below General: Lying in bed, NAD, reports abdominal pain, AAOx3 HEENT: NC, AT, PERRLA, EOMI, MMM CVS: RRR, +S1S2, no m/r/g Pulm: CTAB, No wheezing / rales / rhonchi Abdomen: Soft, Non-distended, tenderness in epigastrium, no rebound tenderness or involuntary guarding Extremities: No lower extremity edema, No calf tenderness, WWP, 2+ DP pulses Neuro: No focal motor or sensory deficit, CN 3-12 intact Labs: WBC 5.9 Hgb 12.7 platelets 462 na 141 K 3.4 Cr 0.8 Lipase 1348 triglycerides 180 amylase 220 AST 15 ALT 29 Alk phos 76 Imaging: CT ABD/PEL W/IV CONTRAST ONLY 11/24/2019 11:03 AM FINDINGS: Pleural spaces: Moderate sized transudate density dependent left pleural effusion with adjacent atelectasis and possible pneumonia. Liver: Liver appears normal with no focal abnormality. Gallbladder and bile ducts: Gallbladder is present and shows no evidence of gallstone. Pancreas: Pancreas is abnormal. There is non organized peripancreatic fluid and an edematous appearance of the pancreas without evidence of duct dilatation, stone or mass. No evidence of pancreatic necrosis. Edematous appearance of the proximal duodenum, likely related to the pancreatitis changes. No evidence of small-bowel obstruction. Nodular areas of soft tissue attenuation within the left pericolic gutter adjacent to the colon, in an area of prior fluid from previous pancreatitis. Spleen: Spleen appears homogeneous without focal mass. Adrenal glands: Adrenal glands are normal in appearance. Kidneys and ureters: Kidneys appear normal, with no stone, solid mass or hydronephrosis. Stomach and bowel: Diverticular changes are present within the colon without inflammation. Appendix: Normal caliber appendix is identified, with no adjacent inflammation. Intraperitoneal space: No pneumoperitoneum. Vasculature: No aortic aneurysm. Main portal and splenic veins enhance normally. Lymph nodes: No enlarged lymph nodes. Urinary bladder: Urinary bladder appears normal. Reproductive: No overt enlargement of the prostate gland. Bones/joints: Bony structures show no acute fracture or destructive process. Soft tissues: No concerning focal abnormality of the extra-abdominal and pelvic soft tissues. IMPRESSION: 1. Apparent recurrent acute pancreatitis with non organized peripancreatic fluid and edema but no duct stone or necrosis. Left pericolic gutter soft tissue nodularity likely related to the prior pancreatitis and fluid on the prior scan in that location. 2. Secondary inflammatory changes suggested involving the distal gastric antrum and proximal duodenum adjacent to the inflamed pancreatic head. I cannot exclude superimposed peptic ulcer disease involving the proximal duodenum. 3. Left pleural effusion and atelectasis or left basilar pneumonia Assessment: 30-year-old M with a past history of Depression / Insomnia, Hx of EtoH abuse, Hx of Pancreatitis (2/2 EtOH), who presented to the hospital with complaints of abdominal pain, with multiple recent hospitalization in the area hospitals for pancreatitis, now admitted for the same. Abdominal pain associated with nausea and vomiting 2/2 acute pancreatitis - Elevated lipase this AM - CT abdomen / pelvis showing acute pancreatitis with non organized peripancreatic fluid and edema but no duct stone or necrosis - NPO - NS at 250cc/hr - Pain control with morphine PRN, will dc toradol and Zofran - Daily CMP, CBC, lipase GERD with possible peptic ulcer disease involving the proximal duodenum: -pantoprazole 40 IV BID History of alcohol abuse - Will start thiamine, folate and multivitamins - Will place on CIWA if he starts to withdraw but reports significant reduction in alcohol and no alcohol in recent days - tox screen Depression / Insomnia - c/w Trazodone Venlafaxine / Prazosin DVT prophylaxis - Lovenox 40 SC VS,Fishbone, I+O VS, Fishbone, I+O Laboratory Tests 10/25/20 12:52 10/26/20 06:04 Vital Signs Date Time Temp Pulse Resp B/P (MAP) Pulse Ox O2 Delivery O2 Flow Rate FiO2 10/26/20 06:22 18 10/26/20 06:00 97.4 56 132/80 (97) 94 Room Air I&O- Last 24 Hours up to 6 AM 10/26/20 06:00 Intake Total 3250 ml Output Total 150 ml Balance 3100 ml ALLIE CARMICHAEL MD Oct 26, 2020 08:21
[2020-10-26 14:00] VITALS: BP 129/83
[2020-10-26 22:00] VITALS: BP 146/102
[2020-10-26] MEDS: PRAZOSIN 1 MG CAP PO SCH (22:18)
[2020-10-27] MEDS: NS 1,000 ML IV SCH ×3 (01:09→09:11)
[2020-10-27] MEDS: PANTOPRAZOLE 40MG VIAL (C9113 PER 1) IV SCH ×2 (03:18→14:34)
[2020-10-27] MEDS: KETOROLAC 30 MG/ML 1ML VIAL IV PRN ×3 (05:07→21:17)
[2020-10-27] MEDS ORDERED: HYDROMORPHONE HCL 0.5 MG/ 0.5 ML SYRINGE (J1170 PER 1) IV ONE (05:15)
[2020-10-27 06:00] VITALS: BP 136/85
[2020-10-27 06:18] LABS: HEMATOCRIT 41.4 % (42.0-52.0); HEMOGLOBIN 13.2 g/dl (13.5-17.5); MEAN CORPUSCULAR HEMOGLOBIN 29.8 pg (27.0-33.0); MEAN CORPUSCULAR HGB CONC 31.9 g/dl (32.0-36.5); MEAN CORPUSCULAR VOLUME 93.5 fl (80.0-96.0); PLATELET COUNT, AUTOMATED 424 10^3/uL (150-450); RED BLOOD COUNT 4.43 10^6/uL (4.30-6.10); WHITE BLOOD COUNT 4.5 10^3/uL (4.0-10.0)
[2020-10-27 07:00] LABS: ALBUMIN 2.6 GM/DL (3.2-5.2); ALT/SGPT 26 U/L (12-78); BILIRUBIN,TOTAL 0.4 MG/DL (0.2-1.0); BLOOD UREA NITROGEN 4 MG/DL (7-18); CALCIUM LEVEL 8.3 MG/DL (8.5-10.1); CARBON DIOXIDE LEVEL 27 MEQ/L (21-32); CHLORIDE LEVEL 102 MEQ/L (98-107); CREATININE FOR GFR 0.68 MG/DL (0.70-1.30); GLOMERULAR FILTRATION RATE > 60.0 (>60); GLUCOSE, FASTING 68 MG/DL (70-100); POTASSIUM SERUM 4.4 MEQ/L (3.5-5.1); SODIUM LEVEL 139 MEQ/L (136-145); TOTAL PROTEIN 5.5 GM/DL (6.4-8.2)
[2020-10-27] MEDS: QUEtiapine FUMARATE 25 MG TAB PO SCH (09:11)
[2020-10-27] MEDS: VENLAFAXINE **XR** 75MG CAPSULE PO SCH (09:11)
[2020-10-27] MEDS: ENOXAPARIN 40MG/0.4ML SYRINGE (J1650 PER 10MG) SC SCH (09:12)
[2020-10-27] MEDS: MORPHINE 4 MG/ML 1ML VIAL/SYRINGE (J2270) IV PRN (09:13)
[2020-10-27 09:49] LABS: LIPASE 880 U/L (73-393)
[2020-10-27] MEDS: D5W/0.9% SODIUM CHLORIDE 1,000 ML IV SCH ×2 (10:07→17:54)
--- NOTE | 2020-10-27 12:39 | IPNPDOC ---
Text Note Date of Service The patient was seen on 10/27/20. NOTE Subjective: -No complaints overnight, afebrile -Require dilaudid overnight? Taking every dose of morphine that is ordered PRN, declining toradol and told nursing that dilaudid is the only thing that worked? Objective: Vitals: see below General: Lying in bed, NAD, reports abdominal pain, AAOx3 HEENT: NC, AT, PERRLA, EOMI, MMM CVS: RRR, +S1S2, no m/r/g Pulm: CTAB, No wheezing / rales / rhonchi Abdomen: Soft, Non-distended, tenderness in epigastrium, no rebound tenderness o r involuntary guarding Extremities: No lower extremity edema, No calf tenderness, WWP, 2+ DP pulses Neuro: No focal motor or sensory deficit, CN 3-12 intact Labs: WBC 4.5 Hgb 13.2 platelets 4424 K 4.4 Cr 0.68 Imaging: CT ABD/PEL W/IV CONTRAST ONLY 11/24/2019 11:03 AM FINDINGS: Pleural spaces: Moderate sized transudate density dependent left pleural effusion with adjacent atelectasis and possible pneumonia. Liver: Liver appears normal with no focal abnormality. Gallbladder and bile ducts: Gallbladder is present and shows no evidence of gallstone. Pancreas: Pancreas is abnormal. There is non organized peripancreatic fluid and an edematous appearance of the pancreas without evidence of duct dilatation, stone or mass. No evidence of pancreatic necrosis. Edematous appearance of the proximal duodenum, likely related to the pancreatitis changes. No evidence of small-bowel obstruction. Nodular areas of soft tissue attenuation within the left pericolic gutter adjacent to the colon, in an area of prior fluid from previous pancreatitis. Spleen: Spleen appears homogeneous without focal mass. Adrenal glands: Adrenal glands are normal in appearance. Kidneys and ureters: Kidneys appear normal, with no stone, solid mass or hydronephrosis. Stomach and bowel: Diverticular changes are present within the colon without inflammation. Appendix: Normal caliber appendix is identified, with no adjacent inflammation. Intraperitoneal space: No pneumoperitoneum. Vasculature: No aortic aneurysm. Main portal and splenic veins enhance normally. Lymph nodes: No enlarged lymph nodes. Urinary bladder: Urinary bladder appears normal. Reproductive: No overt enlargement of the prostate gland. Bones/joints: Bony structures show no acute fracture or destructive process. Soft tissues: No concerning focal abnormality of the extra-abdominal and pelvic soft tissues. IMPRESSION: 1. Apparent recurrent acute pancreatitis with non organized peripancreatic fluid and edema but no duct stone or necrosis. Left pericolic gutter soft tissue nodularity likely related to the prior pancreatitis and fluid on the prior scan in that location. 2. Secondary inflammatory changes suggested involving the distal gastric antrum and proximal duodenum adjacent to the inflamed pancreatic head. I cannot exclude superimposed peptic ulcer disease involving the proximal duodenum. 3. Left pleural effusion and atelectasis or left basilar pneumonia Assessment: 30-year-old M with a past history of Depression / Insomnia, Hx of EtoH abuse, Hx of Pancreatitis (2/2 EtOH), who presented to the hospital with complaints of abdominal pain, with multiple recent hospitalization in the area hospitals for pancreatitis, now admitted for the same. Abdominal pain associated with nausea and vomiting 2/2 acute pancreatitis - f/u lipase this AM - CT abdomen / pelvis showing acute pancreatitis with non organized peripancreatic fluid and edema but no duct stone or necrosis - NPO - Switch fluids to D5NS at 150cc/hr - Pain control with toradol PRN. Will dc morphine at this time, and please no dilaudid doses - On PRN Zofran - Daily CMP, CBC GERD with possible peptic ulcer disease involving the proximal duodenum: -pantoprazole 40 PO BID History of alcohol abuse - thiamine, folate and multivitamins Depression / Insomnia - c/w Trazodone Venlafaxine / Prazosin DVT prophylaxis - Lovenox 40 SC VS,Fishbone, I+O VS, Fishbone, I+O Laboratory Tests 10/27/20 06:03 Vital Signs Date Time Temp Pulse Resp B/P (MAP) Pulse Ox O2 Delivery O2 Flow Rate FiO2 10/27/20 09:13 20 10/27/20 06:00 98.5 68 136/85 (102) 97 Room Air I&O- Last 24 Hours up to 6 AM 10/27/20 06:00 Intake Total 0 ml Output Total 5225 ml Balance -5225 ml ALLIE CARMICHAEL MD Oct 27, 2020 09:36
[2020-10-27 14:00] VITALS: BP_SYST 138; BP_SYST 148; BP_DIAS 102; BP_DIAS 98
[2020-10-27] MEDS: PRAZOSIN 1 MG CAP PO SCH (21:17)
[2020-10-27] MEDS: traZODone 50 MG TAB PO PRN (21:17)
[2020-10-27 22:00] VITALS: BP 140/98
[2020-10-28] MEDS: PANTOPRAZOLE 40MG VIAL (C9113 PER 1) IV SCH (03:52)
[2020-10-28] MEDS: D5W/0.9% SODIUM CHLORIDE 1,000 ML IV SCH ×3 (03:52→23:08)
[2020-10-28 06:00] VITALS: BP 129/89
[2020-10-28 06:31] LABS: HEMATOCRIT 39.5 % (42.0-52.0); HEMOGLOBIN 13.1 g/dl (13.5-17.5); MEAN CORPUSCULAR HEMOGLOBIN 30.3 pg (27.0-33.0); MEAN CORPUSCULAR HGB CONC 33.2 g/dl (32.0-36.5); MEAN CORPUSCULAR VOLUME 91.2 fl (80.0-96.0); PLATELET COUNT, AUTOMATED 458 10^3/uL (150-450); RED BLOOD COUNT 4.33 10^6/uL (4.30-6.10)
[2020-10-28 06:57] LABS: ALBUMIN 2.6 GM/DL (3.2-5.2); ALT/SGPT 23 U/L (12-78); BILIRUBIN,TOTAL 0.3 MG/DL (0.2-1.0); BLOOD UREA NITROGEN 3 MG/DL (7-18); CALCIUM LEVEL 8.4 MG/DL (8.5-10.1); CARBON DIOXIDE LEVEL 28 MEQ/L (21-32); CHLORIDE LEVEL 106 MEQ/L (98-107); CREATININE FOR GFR 0.68 MG/DL (0.70-1.30); GLOMERULAR FILTRATION RATE > 60.0 (>60); GLUCOSE, FASTING 107 MG/DL (70-100); POTASSIUM SERUM 3.8 MEQ/L (3.5-5.1); SODIUM LEVEL 138 MEQ/L (136-145); TOTAL PROTEIN 5.7 GM/DL (6.4-8.2)
[2020-10-28 08:15] LABS: LIPASE 678 U/L (73-393)
[2020-10-28] MEDS: PANTOPRAZOLE 40MG TAB (PROTONIX) PO SCH ×2 (08:18→20:29)
[2020-10-28] MEDS: VENLAFAXINE **XR** 75MG CAPSULE PO SCH (08:18)
[2020-10-28] MEDS: QUEtiapine FUMARATE 25 MG TAB PO SCH (08:18)
[2020-10-28] MEDS: KETOROLAC 30 MG/ML 1ML VIAL IV PRN ×2 (08:19→16:58)
[2020-10-28] MEDS: ENOXAPARIN 40MG/0.4ML SYRINGE (J1650 PER 10MG) SC SCH (08:19)
--- NOTE | 2020-10-28 10:44 | IPNPDOC ---
Text Note Date of Service The patient was seen on 10/28/20. NOTE Subjective: -No complaints overnight, afebrile -Pain is improved, actually declined overnight toradol, is now off narcotic therapies Objective: Vitals: see below General: Lying in bed, NAD, reports abdominal pain, AAOx3 HEENT: NC, AT, PERRLA, EOMI, MMM CVS: RRR, +S1S2, no m/r/g Pulm: CTAB, No wheezing / rales / rhonchi Abdomen: Soft, Non-distended, mild tenderness in epigastrium, no rebound tenderness or involuntary guarding Extremities: No lower extremity edema, No calf tenderness, WWP, 2+ DP pulses Neuro: No focal motor or sensory deficit, CN 3-12 intact Labs: Reviewed Imaging: CT ABD/PEL W/IV CONTRAST ONLY 11/24/2019 11:03 AM FINDINGS: Pleural spaces: Moderate sized transudate density dependent left pleural effusion with adjacent atelectasis and possible pneumonia. Liver: Liver appears normal with no focal abnormality. Gallbladder and bile ducts: Gallbladder is present and shows no evidence of gallstone. Pancreas: Pancreas is abnormal. There is non organized peripancreatic fluid and an edematous appearance of the pancreas without evidence of duct dilatation, stone or mass. No evidence of pancreatic necrosis. Edematous appearance of the proximal duodenum, likely related to the pancreatitis changes. No evidence of small-bowel obstruction. Nodular areas of soft tissue attenuation within the left pericolic gutter adjacent to the colon, in an area of prior fluid from previous pancreatitis. Spleen: Spleen appears homogeneous without focal mass. Adrenal glands: Adrenal glands are normal in appearance. Kidneys and ureters: Kidneys appear normal, with no stone, solid mass or hydronephrosis. Stomach and bowel: Diverticular changes are present within the colon without inflammation. Appendix: Normal caliber appendix is identified, with no adjacent inflammation. Intraperitoneal space: No pneumoperitoneum. Vasculature: No aortic aneurysm. Main portal and splenic veins enhance normally. Lymph nodes: No enlarged lymph nodes. Urinary bladder: Urinary bladder appears normal. Reproductive: No overt enlargement of the prostate gland. Bones/joints: Bony structures show no acute fracture or destructive process. Soft tissues: No concerning focal abnormality of the extra-abdominal and pelvic soft tissues. IMPRESSION: 1. Apparent recurrent acute pancreatitis with non organized peripancreatic fluid and edema but no duct stone or necrosis. Left pericolic gutter soft tissue nodularity likely related to the prior pancreatitis and fluid on the prior scan in that location. 2. Secondary inflammatory changes suggested involving the distal gastric antrum and proximal duodenum adjacent to the inflamed pancreatic head. I cannot exclude superimposed peptic ulcer disease involving the proximal duodenum. 3. Left pleural effusion and atelectasis or left basilar pneumonia Assessment: 30-year-old M with a past history of Depression / Insomnia, Hx of EtoH abuse, Hx of Pancreatitis (2/2 EtOH), who presented to the hospital with complaints of abdominal pain, with multiple recent hospitalization in the [facility] for pancreatitis, now admitted for the same. Abdominal pain associated with nausea and vomiting 2/2 acute pancreatitis - f/u lipase this AM, downtrending - CT abdomen / pelvis showing acute pancreatitis with non organized peripancreatic fluid and edema but no duct stone or necrosis - Will start clear liquid diet - Continue D5NS at 100cc/hr, to dc if tolerating diet well and advancing - Pain control with toradol PRN. - On PRN Zofran - Daily CMP, CBC GERD with possible peptic ulcer disease involving the proximal duodenum: -pantoprazole 40 PO BID, will make PO History of alcohol abuse - thiamine, folate and multivitamins Depression / Insomnia - c/w Trazodone Venlafaxine / Prazosin DVT prophylaxis - Lovenox 40 SC VS,Fishbone, I+O VS, Fishbone, I+O Laboratory Tests 10/28/20 06:09 Vital Signs Date Time Temp Pulse Resp B/P (MAP) Pulse Ox O2 Delivery O2 Flow Rate FiO2 10/28/20 06:00 97.6 73 18 129/89 (102) 95 Room Air I&O- Last 24 Hours up to 6 AM 10/28/20 06:00 Intake Total 1272 ml Output Total 4275 ml Balance -3003 ml ALLIE CARMICHAEL MD Oct 28, 2020 07:49
[2020-10-28 14:00] VITALS: BP 127/84
[2020-10-28] MEDS: PRAZOSIN 1 MG CAP PO SCH (20:29)
[2020-10-28 22:00] VITALS: BP 149/98
[2020-10-29] MEDS: traZODone 50 MG TAB PO PRN ×2 (00:30→20:55)
[2020-10-29 06:00] VITALS: BP 121/65
[2020-10-29 06:37] LABS: HEMATOCRIT 39.9 % (42.0-52.0); HEMOGLOBIN 13.1 g/dl (13.5-17.5); MEAN CORPUSCULAR HEMOGLOBIN 30.3 pg (27.0-33.0); MEAN CORPUSCULAR HGB CONC 32.8 g/dl (32.0-36.5); MEAN CORPUSCULAR VOLUME 92.1 fl (80.0-96.0); PLATELET COUNT, AUTOMATED 438 10^3/uL (150-450); RED BLOOD COUNT 4.33 10^6/uL (4.30-6.10); WHITE BLOOD COUNT 3.1 10^3/uL (4.0-10.0)
[2020-10-29 07:06] LABS: ALBUMIN 2.6 GM/DL (3.2-5.2); ALT/SGPT 25 U/L (12-78); BILIRUBIN,TOTAL 0.3 MG/DL (0.2-1.0); BLOOD UREA NITROGEN 3 MG/DL (7-18); CALCIUM LEVEL 8.3 MG/DL (8.5-10.1); CARBON DIOXIDE LEVEL 27 MEQ/L (21-32); CHLORIDE LEVEL 106 MEQ/L (98-107); CREATININE FOR GFR 0.73 MG/DL (0.70-1.30); GLOMERULAR FILTRATION RATE > 60.0 (>60); GLUCOSE, FASTING 115 MG/DL (70-100); POTASSIUM SERUM 3.9 MEQ/L (3.5-5.1); SODIUM LEVEL 142 MEQ/L (136-145); TOTAL PROTEIN 5.5 GM/DL (6.4-8.2)
[2020-10-29] MEDS: VENLAFAXINE **XR** 75MG CAPSULE PO SCH (08:51)
[2020-10-29] MEDS: PANTOPRAZOLE 40MG TAB (PROTONIX) PO SCH ×2 (08:51→20:52)
[2020-10-29] MEDS: D5W/0.9% SODIUM CHLORIDE 1,000 ML IV SCH ×2 (08:51→20:52)
[2020-10-29] MEDS: ENOXAPARIN 40MG/0.4ML SYRINGE (J1650 PER 10MG) SC SCH (08:51)
[2020-10-29] MEDS: QUEtiapine FUMARATE 25 MG TAB PO SCH (08:51)
[2020-10-29 10:20] LABS: LIPASE 581 U/L (73-393)
--- NOTE | 2020-10-29 12:31 | IPNPDOC ---
Text Note Date of Service The patient was seen on 10/29/20. NOTE Subjective: -No complaints overnight, afebrile -Pain is stably improved, will cautiously advance to full liquid Objective: Vitals: see below General: Lying in bed, NAD, reports abdominal pain, AAOx3 HEENT: NC, AT, PERRLA, EOMI, MMM CVS: RRR, +S1S2, no m/r/g Pulm: CTAB, No wheezing / rales / rhonchi Abdomen: Soft, Non-distended, mild tenderness in epigastrium, no rebound t enderness or involuntary guarding Extremities: No lower extremity edema, No calf tenderness, WWP, 2+ DP pulses Neuro: No focal motor or sensory deficit, CN 3-12 intact Labs: Reviewed Imaging: CT ABD/PEL W/IV CONTRAST ONLY 11/24/2019 11:03 AM FINDINGS: Pleural spaces: Moderate sized transudate density dependent left pleural effusion with adjacent atelectasis and possible pneumonia. Liver: Liver appears normal with no focal abnormality. Gallbladder and bile ducts: Gallbladder is present and shows no evidence of gallstone. Pancreas: Pancreas is abnormal. There is non organized peripancreatic fluid and an edematous appearance of the pancreas without evidence of duct dilatation, stone or mass. No evidence of pancreatic necrosis. Edematous appearance of the proximal duodenum, likely related to the pancreatitis changes. No evidence of small-bowel obstruction. Nodular areas of soft tissue attenuation within the left pericolic gutter adjacent to the colon, in an area of prior fluid from previous pancreatitis. Spleen: Spleen appears homogeneous without focal mass. Adrenal glands: Adrenal glands are normal in appearance. Kidneys and ureters: Kidneys appear normal, with no stone, solid mass or hydronephrosis. Stomach and bowel: Diverticular changes are present within the colon without inflammation. Appendix: Normal caliber appendix is identified, with no adjacent inflammation. Intraperitoneal space: No pneumoperitoneum. Vasculature: No aortic aneurysm. Main portal and splenic veins enhance normally. Lymph nodes: No enlarged lymph nodes. Urinary bladder: Urinary bladder appears normal. Reproductive: No overt enlargement of the prostate gland. Bones/joints: Bony structures show no acute fracture or destructive process. Soft tissues: No concerning focal abnormality of the extra-abdominal and pelvic soft tissues. IMPRESSION: 1. Apparent recurrent acute pancreatitis with non organized peripancreatic fluid and edema but no duct stone or necrosis. Left pericolic gutter soft tissue nodularity likely related to the prior pancreatitis and fluid on the prior scan in that location. 2. Secondary inflammatory changes suggested involving the distal gastric antrum and proximal duodenum adjacent to the inflamed pancreatic head. I cannot exclude superimposed peptic ulcer disease involving the proximal duodenum. 3. Left pleural effusion and atelectasis or left basilar pneumonia Assessment: 30-year-old M with a past history of Depression / Insomnia, Hx of EtoH abuse, Hx of Pancreatitis (2/2 EtOH), who presented to the hospital with complaints of abdominal pain, with multiple recent hospitalization in the [facility] for pancreatitis, now admitted for the same. Abdominal pain associated with nausea and vomiting 2/2 acute pancreatitis - f/u lipase this AM, downtrending - CT abdomen / pelvis showing acute pancreatitis with non organized peripancreatic fluid and edema but no duct stone or necrosis - Will advance to full liquid diet - Continue D5NS at 100cc/hr, to dc if tolerating diet well and advancing - Pain control with toradol PRN. - On PRN Zofran - Daily CMP, CBC GERD with possible peptic ulcer disease involving the proximal duodenum: -pantoprazole 40 PO BID History of alcohol abuse - thiamine, folate and multivitamins Depression / Insomnia - c/w Trazodone Venlafaxine / Prazosin DVT prophylaxis - Lovenox 40 SC VS,Fishbone, I+O VS, Fishbone, I+O Laboratory Tests 10/29/20 06:21 Vital Signs Date Time Temp Pulse Resp B/P (MAP) Pulse Ox O2 Delivery O2 Flow Rate FiO2 10/29/20 06:00 97.3 78 16 121/65 (83) 94 Room Air I&O- Last 24 Hours up to 6 AM 10/29/20 06:00 Intake Total 3040 ml Output Total 1750 ml Balance 1290 ml ALLIE CARMICHAEL MD Oct 29, 2020 09:58
[2020-10-29 14:00] VITALS: BP 130/86
[2020-10-29] MEDS: PRAZOSIN 1 MG CAP PO SCH (20:52)
[2020-10-29 22:00] VITALS: BP 131/93
[2020-10-30] MEDS ORDERED: MORPHINE 2 MG/ML 1ML VIAL (J2270) IV ONE (05:00)
[2020-10-30 06:00] VITALS: BP 137/94
[2020-10-30 06:32] LABS: HEMATOCRIT 40.8 % (42.0-52.0); HEMOGLOBIN 13.5 g/dl (13.5-17.5); MEAN CORPUSCULAR HEMOGLOBIN 29.9 pg (27.0-33.0); MEAN CORPUSCULAR HGB CONC 33.1 g/dl (32.0-36.5); MEAN CORPUSCULAR VOLUME 90.5 fl (80.0-96.0); PLATELET COUNT, AUTOMATED 434 10^3/uL (150-450); RED BLOOD COUNT 4.51 10^6/uL (4.30-6.10); WHITE BLOOD COUNT 7.6 10^3/uL (4.0-10.0)
[2020-10-30 06:55] LABS: ALT/SGPT 44 U/L (12-78); BILIRUBIN,TOTAL 0.3 MG/DL (0.2-1.0); BLOOD UREA NITROGEN 4 MG/DL (7-18); CALCIUM LEVEL 8.8 MG/DL (8.5-10.1); CARBON DIOXIDE LEVEL 28 MEQ/L (21-32); CHLORIDE LEVEL 106 MEQ/L (98-107); CREATININE FOR GFR 0.82 MG/DL (0.70-1.30); GLOMERULAR FILTRATION RATE > 60.0 (>60); GLUCOSE, FASTING 107 MG/DL (70-100); POTASSIUM SERUM 3.6 MEQ/L (3.5-5.1); SODIUM LEVEL 140 MEQ/L (136-145); TOTAL PROTEIN 6.3 GM/DL (6.4-8.2)
[2020-10-30] MEDS ORDERED: PANT40TA29 PO (08:39)
[2020-10-30] MEDS ORDERED: TRAM50TA2 PO (08:39)
[2020-10-30 08:48] LABS: LIPASE 938 U/L (73-393)
[2020-10-30] MEDS: PANTOPRAZOLE 40MG TAB (PROTONIX) PO SCH ×2 (08:52→20:23)
[2020-10-30] MEDS: QUEtiapine FUMARATE 25 MG TAB PO SCH (08:52)
[2020-10-30] MEDS: VENLAFAXINE **XR** 75MG CAPSULE PO SCH (08:52)
[2020-10-30] MEDS: ENOXAPARIN 40MG/0.4ML SYRINGE (J1650 PER 10MG) SC SCH (08:52)
[2020-10-30] MEDS: KETOROLAC 30 MG/ML 1ML VIAL IV PRN (08:53)
--- NOTE | 2020-10-30 08:55 | DS.PDOC ---
Discharge Summary General Date of Admission Oct 25, 2020 at 17:57 Date of Discharge 10/30/2020 Attending Physician: ALLIE CARMICHAEL MD Discharge Summary PROCEDURES PERFORMED DURING STAY: None ADMITTING DIAGNOSES: Pancreatitis DISCHARGE DIAGNOSES: Acute recurrent pancreatitis Insomnia Hx of EtoH abuse, in remission Hx of Pancreatitis 2/2 EtOH COMPLICATIONS/CHIEF COMPLAINT: Pancreatitis. HISTORY OF PRESENT ILLNESS: 30-year-old M with a past history of Depression / Insomnia, Hx of EtoH abuse, Hx of Pancreatitis (2/2 EtOH), who presented to the hospital with complaints of abdominal pain. He reports that he has greatly reduced his alcohol intake and it is no longer daily, but reports recurring episodes of pancreatitis ever since he had the first one a few years ago. This time, his symptoms began 3w prior to presentation for which he went to [facility] and he was admitted for pancreatitis and after 1 week was transferred to [facility] [facility] for reasons unclear to me and ED provider was unsure and I asked them to get records from [facility] for a cohesive story because she initially postulated that it may have been for GI and thus I asked about complicated possible choledocholithiasis with gallstone pancreatitis or even possible pseudocysts/necrosis history that was unclear and he has had no imaging in the ED. From [place], he was discharged 3d prior to this presentation and 2d prior to presentation he presented [facility] again where he was given percocet and discharged and now presented to [facility] reporting that he has not been able to tolerate the PO percocet and any PO. ED provider got back to me about [facility] history and reported that the transfer had been for GI evaluation because he also at that time had rising LFTs with concern for biliary tree pathology that may have warranted an ERCP. He confirmed not having had an procedures at [facility] and not seeing GI while there. HOSPITAL COURSE In the ED, he was hemodynamically stable, was given IV morphine and fluids and 1L NS bolus. Workup was notable for mild leukocytosis to 12.2, lipase of 1096, CRP 1.66, ESR 16, hgb 13.6, platelets 578, na 139, K 3.9, Cr 0.85. He otherwise denies fever, chills, hematemesis, hematochezia, melena, recent alcohol intake. CT A/P eventually revealed a recurrent acute pancreatitis with non organized peripancreatic fluid and edema but no duct stone or necrosis as well as inflammatory changes involving the distal gastric antrum and proximal duodenum adjacent to the inflamed pancreatic head c/f superimposed peptic ulcer disease involving the proximal duodenum and a left pleural effusion and atelectasis vs left basilar pneumonia. His clinical picture did not support an active PNA and was not treated for one. He was started on aggressive fluids, made NPO and had antiemetics and pain control. His symptoms slowly improved until a diet could be slowly re-introduced. He is now being discharged home with PRN tramadol and encouraged to absolutely quit alcohol altogether given his recurrent pancreatitis and to follow up with his PCP. I have also started him on daily Protonix for GERD. DISCHARGE MEDICATIONS: Please see below. ALLERGIES: Please see below. PHYSICAL EXAMINATION ON DISCHARGE: VITAL SIGNS: Please see below. Vitals: see below General: Lying in bed, NAD, AAOx3 HEENT: NC, AT, PERRLA, EOMI, MMM CVS: RRR, +S1S2, no m/r/g Pulm: CTAB, No wheezing / rales / rhonchi Abdomen: Soft, Non-distended, no tenderness at this time, no rebound tenderness or involuntary guarding Extremities: No lower extremity edema, No calf tenderness, WWP, 2+ DP pulses Neuro: No focal motor or sensory deficit, CN 3-12 intact LABORATORY DATA: Please see below. IMAGING: CT ABD/PEL W/IV CONTRAST ONLY 11/24/2019 11:03 AM FINDINGS: Pleural spaces: Moderate sized transudate density dependent left pleural effusion with adjacent atelectasis and possible pneumonia. Liver: Liver appears normal with no focal abnormality. Gallbladder and bile ducts: Gallbladder is present and shows no evidence of gallstone. Pancreas: Pancreas is abnormal. There is non organized peripancreatic fluid and an edematous appearance of the pancreas without evidence of duct dilatation, stone or mass. No evidence of pancreatic necrosis. Edematous appearance of the proximal duodenum, likely related to the pancreatitis changes. No evidence of small-bowel obstruction. Nodular areas of soft tissue attenuation within the left pericolic gutter adjacent to the colon, in an area of prior fluid from previous pancreatitis. Spleen: Spleen appears homogeneous without focal mass. Adrenal glands: Adrenal glands are normal in appearance. Kidneys and ureters: Kidneys appear normal, with no stone, solid mass or hydronephrosis. Stomach and bowel: Diverticular changes are present within the colon without inflammation. Appendix: Normal caliber appendix is identified, with no adjacent inflammation. Intraperitoneal space: No pneumoperitoneum. Vasculature: No aortic aneurysm. Main portal and splenic veins enhance normally. Lymph nodes: No enlarged lymph nodes. Urinary bladder: Urinary bladder appears normal. Reproductive: No overt enlargement of the prostate gland. Bones/joints: Bony structures show no acute fracture or destructive process. Soft tissues: No concerning focal abnormality of the extra-abdominal and pelvic soft tissues. IMPRESSION: 1. Apparent recurrent acute pancreatitis with non organized peripancreatic fluid and edema but no duct stone or necrosis. Left pericolic gutter soft tissue nodularity likely related to the prior pancreatitis and fluid on the prior scan in that location. 2. Secondary inflammatory changes suggested involving the distal gastric antrum and proximal duodenum adjacent to the inflamed pancreatic head. I cannot exclude superimposed peptic ulcer disease involving the proximal duodenum. 3. Left pleural effusion and atelectasis or left basilar pneumonia PROGNOSIS: Good if he refrains from alcohol use ACTIVITY: As tolerated DIET: As tolerated. Would start with full liquid and slowly return to regular diet as tolerated DISCHARGE PLAN: Home with tramadol PRN and daily protonix, with close PCP follow up DISPOSITION: Home DISCHARGE INSTRUCTIONS: Home with tramadol PRN and daily protonix, with close PCP follow up. Please refrain from any alcohol intake. ITEMS TO FOLLOWUP ON ON OUTPATIENT: Resolution of pancreatitis Alcohol abstinence DISCHARGE CONDITION: Stable. TIME SPENT ON DISCHARGE: 44 minutes. Vital Signs/I&Os Vital Signs Date Time Temp Pulse Resp B/P (MAP) Pulse Ox O2 Delivery O2 Flow Rate FiO2 10/30/20 06:19 17 10/30/20 06:00 97.4 74 137/94 (108) 96 Room Air I&O- Last 24 Hours up to 6 AM 10/30/20 06:00 Intake Total 800 ml Output Total 1400 ml Balance -600 ml Laboratory Data Labs 24H Laboratory Tests 2 10/30/20 06:11: Nucleated Red Blood Cells % (auto) 0.0, Anion Gap 6L, Glomerular Filtration Rate > 60.0, Calcium Level 8.8, Total Bilirubin 0.3, Aspartate Amino Transf (AST/SGOT) 31, Alanine Aminotransferase (ALT/SGPT) 44, Alkaline Phosphatase 77, Total Protein 6.3L, Albumin 3.0L, Albumin/Globulin Ratio 0.9 CBC/BMP Laboratory Tests 10/30/20 06:11 Discharge Medications Scheduled Hyoscyamine Sulfate (Hyoscyamine Sulfate) 0.125 Mg Tab.rapdis, 0.125 MG PO QID, (Reported) Pantoprazole Sodium (Pantoprazole Sodium) 40 Mg Tablet.dr, 1 TAB PO DAILY Prazosin Hcl (Prazosin HCl) 2 Mg Capsule, 2 MG PO QHS, (Reported) Quetiapine Fumarate (Quetiapine Fumarate) 25 Mg Tablet, 25 MG PO DAILY, (Reported) Venlafaxine HCl (Effexor Xr) 150 Mg Cap.er.24h, 150 MG PO DAILY, (Reported) Scheduled PRN Ondansetron (Ondansetron Odt) 4 Mg Tab.rapdis, 4 MG PO TID PRN for NAUSEA OR VOMITING, (Reported) Oxycodone HCl/Acetaminophen (Oxycodone-Acetaminophen 5-325) 1 Each Tablet, 1 TAB PO QID PRN for PAIN LEVEL 5-10, (Reported) Sildenafil Citrate (Sildenafil Citrate) 100 Mg Tablet, 1 TAB PO ASDIRECTED PRN for ERECTILE DYSFUNCTION, (Reported) Trazodone HCl (Trazodone HCl) 50 Mg Tablet, 50 MG PO QHS PRN for INSOMNIA, (Reported) Allergies Coded Allergies: No Known Allergies (Unverified , 09/26/18) ALLIE CARMICHAEL MD Oct 30, 2020 08:55
[2020-10-30] MEDS: NS 1,000 ML IV SCH ×3 (09:19→23:22)
[2020-10-30] MEDS: traMADol 50 MG TAB PO PRN ×3 (10:21→20:23)
--- NOTE | 2020-10-30 11:10 | IPNPDOC ---
Text Note Date of Service The patient was seen on 10/30/20. NOTE Subjective: -I had been planning to discharge him today but at 9am he developed abdominal pain with some emesis x 2, will therefore cancel plan for discharge, restart fluids, and de-escalate diet back to clears. Objective: Vitals: see below General: Lying in bed, NAD, reports abdominal pain, AAOx3 HEENT: NC, AT, PERRLA, EOMI, MMM CVS: RRR, +S1S2, no m/r/g Pulm: CTAB, No wheezing / rales / rhonchi Abdomen: Soft, Non-distended, tenderness in epigastrium, no rebound tenderness or involuntary guarding Extremities: No lower extremity edema, No calf tenderness, WWP, 2+ DP pulses Neuro: No focal motor or sensory deficit, CN 3-12 intact Labs: Reviewed Pending AM lipase Imaging: CT ABD/PEL W/IV CONTRAST ONLY 11/24/2019 11:03 AM FINDINGS: Pleural spaces: Moderate sized transudate density dependent left pleural effusion with adjacent atelectasis and possible pneumonia. Liver: Liver appears normal with no focal abnormality. Gallbladder and bile ducts: Gallbladder is present and shows no evidence of gallstone. Pancreas: Pancreas is abnormal. There is non organized peripancreatic fluid and an edematous appearance of the pancreas without evidence of duct dilatation, stone or mass. No evidence of pancreatic necrosis. Edematous appearance of the proximal duodenum, likely related to the pancreatitis changes. No evidence of small-bowel obstruction. Nodular areas of soft tissue attenuation within the left pericolic gutter adjacent to the colon, in an area of prior fluid from previous pancreatitis. Spleen: Spleen appears homogeneous without focal mass. Adrenal glands: Adrenal glands are normal in appearance. Kidneys and ureters: Kidneys appear normal, with no stone, solid mass or hydronephrosis. Stomach and bowel: Diverticular changes are present within the colon without inflammation. Appendix: Normal caliber appendix is identified, with no adjacent inflammation. Intraperitoneal space: No pneumoperitoneum. Vasculature: No aortic aneurysm. Main portal and splenic veins enhance normally. Lymph nodes: No enlarged lymph nodes. Urinary bladder: Urinary bladder appears normal. Reproductive: No overt enlargement of the prostate gland. Bones/joints: Bony structures show no acute fracture or destructive process. Soft tissues: No concerning focal abnormality of the extra-abdominal and pelvic soft tissues. IMPRESSION: 1. Apparent recurrent acute pancreatitis with non organized peripancreatic fluid and edema but no duct stone or necrosis. Left pericolic gutter soft tissue nodularity likely related to the prior pancreatitis and fluid on the prior scan in that location. 2. Secondary inflammatory changes suggested involving the distal gastric antrum and proximal duodenum adjacent to the inflamed pancreatic head. I cannot exclude superimposed peptic ulcer disease involving the proximal duodenum. 3. Left pleural effusion and atelectasis or left basilar pneumonia Assessment: 30-year-old M with a past history of Depression / Insomnia, Hx of EtoH abuse, Hx of Pancreatitis (2/2 EtOH), who presented to the hospital with complaints of abdominal pain, with multiple recent hospitalization in the area hospitals for p ancreatitis, now admitted for the same. Abdominal pain associated with nausea and vomiting 2/2 acute pancreatitis - f/u lipase this AM, had been downtrending - CT abdomen / pelvis showing acute pancreatitis with non organized peripancreatic fluid and edema but no duct stone or necrosis - De-escalate diet back to clears from soft - Restart NS at 150cc/hr - Pain control with toradol IV PRN and tramadol for moderate pain - On PRN Zofran - Daily CMP, CBC and lipase GERD with possible peptic ulcer disease involving the proximal duodenum: -pantoprazole 40 PO BID History of alcohol abuse - thiamine, folate and multivitamins Depression / Insomnia - c/w Trazodone Venlafaxine / Prazosin DVT prophylaxis - Lovenox 40 SC VS,Fishbone, I+O VS, Fishbone, I+O Laboratory Tests 10/30/20 06:11 Vital Signs Date Time Temp Pulse Resp B/P (MAP) Pulse Ox O2 Delivery O2 Flow Rate FiO2 10/30/20 06:19 17 10/30/20 06:00 97.4 74 137/94 (108) 96 Room Air I&O- Last 24 Hours up to 6 AM 10/30/20 06:00 Intake Total 800 ml Output Total 1400 ml Balance -600 ml ALLIE CARMICHAEL MD Oct 30, 2020 09:09
[2020-10-30] MEDS: ACETAMINOPHEN TAB 650MG DOSE (2X325MG) PO PRN (13:41)
[2020-10-30] MEDS: PRAZOSIN 1 MG CAP PO SCH (20:23)
[2020-10-30 22:00] VITALS: BP 136/94
[2020-10-30] MEDS: traZODone 50 MG TAB PO PRN (23:22)
[2020-10-31 06:00] VITALS: BP 130/90
[2020-10-31] MEDS: NS 1,000 ML IV SCH ×3 (06:17→22:03)
[2020-10-31] MEDS: ENOXAPARIN 40MG/0.4ML SYRINGE (J1650 PER 10MG) SC SCH (10:18)
[2020-10-31] MEDS: PANTOPRAZOLE 40MG TAB (PROTONIX) PO SCH ×2 (10:18→22:04)
[2020-10-31] MEDS: QUEtiapine FUMARATE 25 MG TAB PO SCH (10:18)
[2020-10-31] MEDS: VENLAFAXINE **XR** 75MG CAPSULE PO SCH (10:23)
[2020-10-31] MEDS: traMADol 50 MG TAB PO PRN ×3 (10:23→22:56)
[2020-10-31] MEDS ORDERED: ISOVUE-370 76% 100ML VIAL As Ordered ONE (10:27)
--- NOTE | 2020-10-31 12:31 | REP ---
INDICATION: known pancreatitis, worsening abd pain. 1. COMPARISON: Multiple the latest 10/25/2020 TECHNIQUE: Standard helical technique after the intravenous administration of 100 cc Isovue 370 FINDINGS: The small left pleural effusion is unchanged. Patchy left lower lobe opacities are noted status quo. The fluid seen previously in the left anterior pararenal space is essentially unchanged. The small amount of fluid seen previously in the left pericolic gutter with thickening of the left lateraoconal fascia is all unchanged. No well-defined pseudocyst or phlegmon has developed. The small amount of free fluid seen previously in the pelvis has decreased. No free intraperitoneal air has developed. The liver, gallbladder, spleen, adrenal glands, and kidneys are unchanged. There is some irregularity, thickening, enhancement involving the cordero of the descending duodenum abutting the pancreatic head region. The osseous structures are stable and intact. IMPRESSION: 1. Unchanged left pleural effusion and subsegmental atelectatic change in the left lower lobe. Certainly, pneumonia should be clinically evaluated for. 2. Essentially no change in appearance of the findings consistent with pancreatitis as described above. 3. Findings involving the descending duodenum suggestive of duodenitis likely secondary to pancreatitis. 4. Decreased free fluid in the pelvis. 5. Other findings as described above. <Electronically signed by Clayton Palma > 10/31/20 [id number]
--- NOTE | 2020-10-31 12:49 | IPNPDOC ---
Text Note Date of Service The patient was seen on 10/31/20. NOTE Subjective: -Abd pain improved with de-escalation of diet back to clears yesterday Objective: Vitals: see below General: Lying in bed, NAD, reports abdominal pain, AAOx3 HEENT: NC, AT, PERRLA, EOMI, MMM CVS: RRR, +S1S2, no m/r/g Pulm: CTAB, No wheezing / rales / rhonchi Abdomen: Soft, Non-distended, tenderness in epigastrium, no rebound tenderness or involuntary guarding Extremities: No lower extremity edema, No calf tenderness, WWP, 2+ DP pulses Neuro: No focal motor or sensory deficit, CN 3-12 intact Labs: Reviewed Lipase now 938 Imaging: CT ABD/PEL W/IV CONTRAST ONLY 11/24/2019 11:03 AM FINDINGS: Pleural spaces: Moderate sized transudate density dependent left pleural effusion with adjacent atelectasis and possible pneumonia. Liver: Liver appears normal with no focal abnormality. Gallbladder and bile ducts: Gallbladder is present and shows no evidence of gallstone. Pancreas: Pancreas is abnormal. There is non organized peripancreatic fluid and an edematous appearance of the pancreas without evidence of duct dilatation, stone or mass. No evidence of pancreatic necrosis. Edematous appearance of the proximal duodenum, likely related to the pancreatitis changes. No evidence of small-bowel obstruction. Nodular areas of soft tissue attenuation within the left pericolic gutter adjacent to the colon, in an area of prior fluid from previous pancreatitis. Spleen: Spleen appears homogeneous without focal mass. Adrenal glands: Adrenal glands are normal in appearance. Kidneys and ureters: Kidneys appear normal, with no stone, solid mass or hydronephrosis. Stomach and bowel: Diverticular changes are present within the colon without inflammation. Appendix: Normal caliber appendix is identified, with no adjacent inflammation. Intraperitoneal space: No pneumoperitoneum. Vasculature: No aortic aneurysm. Main portal and splenic veins enhance normally. Lymph nodes: No enlarged lymph nodes. Urinary bladder: Urinary bladder appears normal. Reproductive: No overt enlargement of the prostate gland. Bones/joints: Bony structures show no acute fracture or destructive process. Soft tissues: No concerning focal abnormality of the extra-abdominal and pelvic soft tissues. IMPRESSION: 1. Apparent recurrent acute pancreatitis with non organized peripancreatic fluid and edema but no duct stone or necrosis. Left pericolic gutter soft tissue nodularity likely related to the prior pancreatitis and fluid on the prior scan in that location. 2. Secondary inflammatory changes suggested involving the distal gastric antrum and proximal duodenum adjacent to the inflamed pancreatic head. I cannot exclude superimposed peptic ulcer disease involving the proximal duodenum. 3. Left pleural effusion and atelectasis or left basilar pneumonia 10/31 CT A/P: The small left pleural effusion is unchanged. Patchy left lower lobe opacities are noted status quo. The fluid seen previously in the left anterior pararenal space is essentially unchanged. The small amount of fluid seen previously in the left pericolic gutter with thickening of the left lateraoconal fascia is all unchanged. No well- defined pseudocyst or phlegmon has developed. The small amount of free fluid seen previously in the pelvis has decreased. No free intraperitoneal air has developed. The liver, gallbladder, spleen, adrenal glands, and kidneys are unchanged. There is some irregularity, thickening, enhancement involving the cordero of the descending duodenum abutting the pancreatic head region. The osseous structures are stable and intact. IMPRESSION: 1. Unchanged left pleural effusion and subsegmental atelectatic change in the left lower lobe. Certainly, pneumonia should be clinically evaluated for. 2. Essentially no change in appearance of the findings consistent with pancreatitis as described above. 3. Findings involving the descending duodenum suggestive of duodenitis likely secondary to pancreatitis. 4. Decreased free fluid in the pelvis. 5. Other findings as described above. Assessment: 30-year-old M with a past history of Depression / Insomnia, Hx of EtoH abuse, Hx of Pancreatitis (2/2 EtOH), who presented to the hospital with complaints of abdominal pain, with multiple recent hospitalization in the area hospitals for pancreatitis, now admitted for the same. Abdominal pain associated with nausea and vomiting 2/2 acute pancreatitis - CT abdomen / pelvis showing acute pancreatitis with non organized peripancreatic fluid and edema but no duct stone or necrosis. Given persisting symptoms despite bowel rest and aggressive fluids and so re-introduction of diet, pain worsens with any PO, will do a f/u CT A/P to monitor for development of complicated pancreatitis - Clear liquid diet - NS at 150cc/hr - Pain control with toradol IV PRN and tramadol for moderate pain - On PRN Zofran - Daily CMP, CBC and lipase - will check procal and CRP given the radiologic evidence suggestive of PNA with no clinical symptoms of. GERD with possible peptic ulcer disease involving the proximal duodenum: -pantoprazole 40 PO BID History of alcohol abuse - thiamine, folate and multivitamins Depression / Insomnia - c/w Trazodone Venlafaxine / Prazosin DVT prophylaxis - Lovenox 40 SC VS,Fishbone, I+O VS, Fishbone, I+O Vital Signs Date Time Temp Pulse Resp B/P (MAP) Pulse Ox O2 Delivery O2 Flow Rate FiO2 10/31/20 06:00 98.2 71 18 130/90 (103) 95 Room Air I&O- Last 24 Hours up to 6 AM 10/31/20 06:00 Intake Total 1000 ml Balance 1000 ml ALLIE CARMICHAEL MD Oct 31, 2020 09:42
[2020-10-31 14:00] VITALS: BP 146/99
[2020-10-31] MEDS: ACETAMINOPHEN TAB 650MG DOSE (2X325MG) PO PRN (18:29)
[2020-10-31 22:00] VITALS: BP 150/100
[2020-10-31] MEDS: traZODone 50 MG TAB PO PRN (22:03)
[2020-10-31] MEDS: PRAZOSIN 1 MG CAP PO SCH (22:06)
[2020-11-01] MEDS: NS 1,000 ML IV SCH ×4 (05:42→21:07)
[2020-11-01 06:00] VITALS: BP 124/95
[2020-11-01] MEDS: QUEtiapine FUMARATE 25 MG TAB PO SCH (09:31)
[2020-11-01] MEDS: ENOXAPARIN 40MG/0.4ML SYRINGE (J1650 PER 10MG) SC SCH (09:31)
[2020-11-01] MEDS: VENLAFAXINE **XR** 75MG CAPSULE PO SCH (09:31)
[2020-11-01] MEDS: SUCRALFATE 1 GM TAB PO SCH ×4 (09:31→21:06)
[2020-11-01] MEDS: PANTOPRAZOLE 40MG TAB (PROTONIX) PO SCH ×2 (09:31→21:07)
[2020-11-01] MEDS: traMADol 50 MG TAB PO PRN ×2 (09:35→18:03)
[2020-11-01 10:28] LABS: HEMATOCRIT 40.6 % (42.0-52.0); HEMOGLOBIN 13.3 g/dl (13.5-17.5); MEAN CORPUSCULAR HEMOGLOBIN 30.4 pg (27.0-33.0); MEAN CORPUSCULAR HGB CONC 32.8 g/dl (32.0-36.5); MEAN CORPUSCULAR VOLUME 92.7 fl (80.0-96.0); PLATELET COUNT, AUTOMATED 344 10^3/uL (150-450); RED BLOOD COUNT 4.38 10^6/uL (4.30-6.10); WHITE BLOOD COUNT 3.5 10^3/uL (4.0-10.0)
[2020-11-01 10:54] LABS: BLOOD UREA NITROGEN 2 MG/DL (7-18); CALCIUM LEVEL 8.7 MG/DL (8.5-10.1); CARBON DIOXIDE LEVEL 28 MEQ/L (21-32); CHLORIDE LEVEL 106 MEQ/L (98-107); CREATININE FOR GFR 0.74 MG/DL (0.70-1.30); GLOMERULAR FILTRATION RATE > 60.0 (>60); GLUCOSE, FASTING 83 MG/DL (70-100); LIPASE 1113 U/L (73-393); POTASSIUM SERUM 3.8 MEQ/L (3.5-5.1); SODIUM LEVEL 140 MEQ/L (136-145)
--- NOTE | 2020-11-01 11:52 | IPNPDOC ---
Text Note Date of Service The patient was seen on 11/01/20. NOTE Subjective: -Abd pain stable, no extra pain medications, while on clears Objective: Vitals: see below General: Lying in bed, NAD, reports abdominal pain, AAOx3 HEENT: NC, AT, PERRLA, EOMI, MMM CVS: RRR, +S1S2, no m/r/g Pulm: CTAB, No wheezing / rales / rhonchi Abdomen: Soft, Non-distended, tenderness in epigastrium, no rebound tenderness or involuntary guarding Extremities: No lower extremity edema, No calf tenderness, WWP, 2+ DP pulses Neuro: No focal motor or sensory deficit, CN 3-12 intact Labs: Reviewed, pending AM labs Imagin/14: CT ABD/PEL W/IV CONTRAST ONLY 11/24/2019 11:03 AM FINDINGS: Pleural spaces: Moderate sized transudate density dependent left pleural effusion with adjacent atelectasis and possible pneumonia. Liver: Liver appears normal with no focal abnormality. Gallbladder and bile ducts: Gallbladder is present and shows no evidence of gallstone. Pancreas: Pancreas is abnormal. There is non organized peripancreatic fluid and an edematous appearance of the pancreas without evidence of duct dilatation, stone or mass. No evidence of pancreatic necrosis. Edematous appearance of the proximal duodenum, likely related to the pancreatitis changes. No evidence of small-bowel obstruction. Nodular areas of soft tissue attenuation within the left pericolic gutter adjacent to the colon, in an area of prior fluid from previous pancreatitis. Spleen: Spleen appears homogeneous without focal mass. Adrenal glands: Adrenal glands are normal in appearance. Kidneys and ureters: Kidneys appear normal, with no stone, solid mass or hydronephrosis. Stomach and bowel: Diverticular changes are present within the colon without inflammation. Appendix: Normal caliber appendix is identified, with no adjacent inflammation. Intraperitoneal space: No pneumoperitoneum. Vasculature: No aortic aneurysm. Main portal and splenic veins enhance normally. Lymph nodes: No enlarged lymph nodes. Urinary bladder: Urinary bladder appears normal. Reproductive: No overt enlargement of the prostate gland. Bones/joints: Bony structures show no acute fracture or destructive process. Soft tissues: No concerning focal abnormality of the extra-abdominal and pelvic soft tissues. IMPRESSION: 1. Apparent recurrent acute pancreatitis with non organized peripancreatic fluid and edema but no duct stone or necrosis. Left pericolic gutter soft tissue nodularity likely related to the prior pancreatitis and fluid on the prior scan in that location. 2. Secondary inflammatory changes suggested involving the distal gastric antrum and proximal duodenum adjacent to the inflamed pancreatic head. I cannot exclude superimposed peptic ulcer disease involving the proximal duodenum. 3. Left pleural effusion and atelectasis or left basilar pneumonia 10/31: CT A/P: The small left pleural effusion is unchanged. Patchy left lower lobe opacities are noted status quo. The fluid seen previously in the left anterior pararenal space is essentially unchanged. The small amount of fluid seen previously in the left pericolic gutter with thickening of the left lateraoconal fascia is all unchanged. No well- defined pseudocyst or phlegmon has developed. The small amount of free fluid seen previously in the pelvis has decreased. No free intraperitoneal air has developed. The liver, gallbladder, spleen, adrenal glands, and kidneys are unchanged. There is some irregularity, thickening, enhancement involving the cordero of the descending duodenum abutting the pancreatic head region. The osseous structures are stable and intact. IMPRESSION: 1. Unchanged left pleural effusion and subsegmental atelectatic change in the left lower lobe. Certainly, pneumonia should be clinically evaluated for. 2. Essentially no change in appearance of the findings consistent with pancreatitis as described above. 3. Findings involving the descending duodenum suggestive of duodenitis likely secondary to pancreatitis. 4. Decreased free fluid in the pelvis. 5. Other findings as described above. Assessment: 30-year-old M with a past history of Depression / Insomnia, Hx of EtoH abuse, Hx of Pancreatitis (2/2 EtOH), who presented to the hospital with complaints of abdominal pain, with multiple recent hospitalization in the area hospitals for pancreatitis, now admitted for the same. Abdominal pain associated with nausea and vomiting 2/2 acute pancreatitis - CT abdomen / pelvis showing acute pancreatitis with non organized peripancreatic fluid and edema but no duct stone or necrosis. Given persisting symptoms despite bowel rest and aggressive fluids and so re-introduction of diet, pain worsens with any PO. Repeated CT A/P to monitor for development of complicated pancreatitis and it was essentially stable without pseudocysts or necrosis. - Clear liquid diet being advanced to full liquid diet today - NS at 150cc/hr - Pain control with toradol IV PRN and tramadol for moderate pain - On PRN Zofran - Daily CMP, CBC and lipase - Procal was negative despite radiologic evidence suggestive of PNA with no clinical symptoms of. So, will not give abx GERD with possible peptic ulcer disease involving the proximal duodenum: -pantoprazole 40 PO BID -will start sucralfate ACHS History of alcohol abuse - thiamine, folate and multivitamins Depression / Insomnia - c/w Trazodone Venlafaxine / Prazosin DVT prophylaxis - Lovenox 40 SC VS,Fishbone, I+O VS, Fishbone, I+O Vital Signs Date Time Temp Pulse Resp B/P (MAP) Pulse Ox O2 Delivery O2 Flow Rate FiO2 11/01/20 06:00 97.4 79 18 124/95 (105) 95 Room Air I&O- Last 24 Hours up to 6 AM 11/01/20 06:00 Intake Total 0 ml Output Total 1025 ml Balance -1025 ml ALLIE CARMICHAEL MD Nov 01, 2020 09:00
[2020-11-01] MEDS: KETOROLAC 30 MG/ML 1ML VIAL IV PRN ×2 (13:02→21:10)
[2020-11-01] MEDS: ACETAMINOPHEN TAB 650MG DOSE (2X325MG) PO PRN ×2 (13:02→21:10)
[2020-11-01 14:00] VITALS: BP 123/43
[2020-11-01 21:07] VITALS: BP 154/106
[2020-11-01] MEDS: traZODone 50 MG TAB PO PRN (21:07)
[2020-11-01] MEDS: PRAZOSIN 1 MG CAP PO SCH (21:07)
[2020-11-01 22:00] VITALS: BP 152/106
[2020-11-02] MEDS: NS 1,000 ML IV SCH ×2 (04:01→11:20)
[2020-11-02 06:00] VITALS: BP 125/88
[2020-11-02 06:08] LABS: HEMATOCRIT 38.1 % (42.0-52.0); HEMOGLOBIN 12.3 g/dl (13.5-17.5); MEAN CORPUSCULAR HEMOGLOBIN 29.8 pg (27.0-33.0); MEAN CORPUSCULAR HGB CONC 32.3 g/dl (32.0-36.5); MEAN CORPUSCULAR VOLUME 92.3 fl (80.0-96.0); PLATELET COUNT, AUTOMATED 325 10^3/uL (150-450); RED BLOOD COUNT 4.13 10^6/uL (4.30-6.10); WHITE BLOOD COUNT 2.8 10^3/uL (4.0-10.0)
[2020-11-02 06:31] LABS: BLOOD UREA NITROGEN 2 MG/DL (7-18); CALCIUM LEVEL 8.2 MG/DL (8.5-10.1); CARBON DIOXIDE LEVEL 28 MEQ/L (21-32); CHLORIDE LEVEL 106 MEQ/L (98-107); CREATININE FOR GFR 0.78 MG/DL (0.70-1.30); GLOMERULAR FILTRATION RATE > 60.0 (>60); GLUCOSE, FASTING 79 MG/DL (70-100); LIPASE 906 U/L (73-393); POTASSIUM SERUM 3.5 MEQ/L (3.5-5.1); SODIUM LEVEL 142 MEQ/L (136-145)
[2020-11-02] MEDS: SUCRALFATE 1 GM TAB PO SCH ×2 (08:30→12:00)
[2020-11-02] MEDS: ENOXAPARIN 40MG/0.4ML SYRINGE (J1650 PER 10MG) SC SCH (08:30)
[2020-11-02] MEDS: QUEtiapine FUMARATE 25 MG TAB PO SCH (08:31)
[2020-11-02] MEDS: VENLAFAXINE **XR** 75MG CAPSULE PO SCH (08:31)
[2020-11-02] MEDS: PANTOPRAZOLE 40MG TAB (PROTONIX) PO SCH (08:31)
[2020-11-02] MEDS: traMADol 50 MG TAB PO PRN (08:33)
[2020-11-02] MEDS: ACETAMINOPHEN TAB 650MG DOSE (2X325MG) PO PRN (08:34)
[2020-11-02] MEDS ORDERED: SUCR1TA PO (09:51)
== END 2020-11-02 13:53 | disposition home or self-care (01) | DRG 440 ==
LOC: M ED 10:08 → M ED INP 17:57 → M MSPAV 20:34
PROVIDERS: ADMIT Internal Medicine; ATTEND Internal Medicine
DX: K85.90 Acute pancreatitis without necrosis or infection, unspecified (principal); G47.00 Insomnia, unspecified; F10.11 Alcohol abuse, in remission; K21.9 Gastro-esophageal reflux disease without esophagitis; F32.9 Major depressive disorder, single episode, unspecified; Z20.822 Contact with and (suspected) exposure to COVID-19; Z79.899 Other long term (current) drug therapy; Z90.13 Acquired absence of bilateral breasts and nipples

== ENCOUNTER 2021-01-16 11:53 | Day surgery (SDC) | payer OTHER ==
[~2021-01-16] VITALS: Ht 167.6 cm; Wt 70.8 kg
[~2021-01-16 11:53] MED LIST changes: +HYOS1TAB PO; +NS 1,000 ML IV ONE; +ONDA4TAB6 PO; +PANT40TA29 PO; +PRAZ2CAP PO; +QUET1TAB17 PO; +SUCR1TA PO; +TRAM50TA2 PO; +TRAZ-252 PO
--- OUTSIDE RECORDS SUMMARY | 2021-01-16 12:01 | CCD | Summary of Care ---
Author Author [facility] Organization [facility] Services Address Unknown Phone Unavailable Care Team Providers Care Cadd Manager Name Role Phone System, Provider Not In PP Unavailable Gloria Hoffmann RN [phone] Unavailable Encounter Details Care Team Description Date Type Department Gloria Hoffmann, wool dyer Management 10/24/2020 Patient [facility] [address] [place] [address] Allergies No known active allergiesdocumented as of this encounter (statuses as of 10/24/2020) Medications End Date Status Medication Sig Dispensed Refills Start Date Active venlafaxine XR Take 150 mg 0 (EFFEXOR-XR) 150 mg 24 hr by mouth 1 capsule (one) time each day. Do not crush or chew. Active traZODone (DESYREL) 50 mg Take 50 mg by 0 tablet mouth every night. 10/29/2020 Active ciprofloxacin (CIPRO) 500 Take 1 tablet 14 tablet 0 mg tablet by mouth 2 1 times a day for 7 days. 11/20/2020 Active hyoscyamine (LEVSIN) Take 1 tablet 30 tablet 0 0.125 mg SL tablet by mouth 1 every 4 hours if needed for cramping. 10/29/2020 Active metroNIDAZOLE (FLAGYL) Take 1 tablet 21 tablet 0 0 500 mg tablet by mouth 1 every 8 hours for 7 days. 11/05/2020 Active pantoprazole (PROTONIX) Take 1 tablet 14 tablet 0 40 mg EC tablet by mouth 1 1 time each day before breakfast for 14 days. Swallow whole. Do not crush, chew, or split. 11/18/2020 Active simethicone (MYLICON) 80 Chew 1 tablet 30 tablet 0 mg chewable tablet by mouth 4 1 times a day if needed for flatulence documented as of this encounter (statuses as of 10/24/2020) Active Problems Problem Noted Date Colitis 10/22/2020 Elevated blood pressure reading without diagnosis of hypertension 10/22/2020 Pancreatitis 10/16/2020 documented as of this encounter (statuses as of 10/24/2020) Social History Date Tobacco Use Types Packs/Day Years Used Never Smoker Smokeless Tobacco: Never Used Sex Assigned at Date Recorded Male 10/17/2020 2:25 PM EDT Date Recorded COVID-19 Exposure Response 10/17/2020 5:29 AM EDT In the last month, have you been in contact with Yes someone who was confirmed or suspected to have Coronavirus / COVID-19? documented as of this encounter Miscellaneous Notes * Significant Event - Gloria Hoffmann RN - 10/24/2020 10:58 AM EDT Unable to complete TCM. Attempted to call patient. Some one picked up and then hung up documented in this encounter Plan of Treatment Health Maintenance Due Date Last Done Comments HIV Screening 1991 MMR Vaccines (1 of - 1992 Standard series) Varicella Vaccines (1 of 1992 2 - 2-dose childhood series) Pneumococcal Vaccine: 1997 Pediatrics (0 to 5 Years) and At-Risk Patients (6 to 64 Years) (1 of 2 - PPSV23) DTaP,Tdap,and Td Vaccines 1998 (1 - Tdap) Diabetes Screening 2009 Influenza Vaccine (#1) 2020 Hepatitis C Screening Completed 10/17/2020 HIB Vaccines Aged Out No longer eligible based on patient's age to complete this topic HPV Vaccines Aged Out No longer eligible based on patient's age to complete this topic Hepatitis A Vaccines Aged Out No longer eligibl e based on patient's age to complete this topic Hepatitis B Vaccines Aged Out No longer eligibl e based on patient's age to complete this topic IPV Vaccines Aged Out No longer eligible based on patient's age to complete this topic Meningococcal Vaccine Aged Out No longer eligib le based on patient's age to complete this topic documented as of this encounter Results Not on filedocumented in this encounter Insurance Type Payer Benefit Subscriber ID Effective Phone Address Plan / Dates Group [employer] [id number] 2020-P [address] [place] [address] documented as of this encounter Advance Directives Patient Patient Care Coordinator Explanation Type Date Recorded Advance Directives and Living Will Power of Truck Spotter Date Inactivated Comments Code Status Date Activated 10/22/2020 1:57 PM Full Code 10/16/2020 6:42 PM Care Teams Start Date End Date Cadd Manager Relationship Specialty 10/15/20 System, Provider Not In PCP - General [id number] 10/24/20 10/24/20 Gloria Hoffmann, home health rnMedical Lab Scientist Care Coordination documented as of this encounter
--- OUTSIDE RECORDS SUMMARY | 2021-01-16 12:01 | CCD | Continuity of Care Document ---
Author Author Rohan PEÑA Organization Unknown Address [address] [place] [address] Phone [phone] Care Team Providers Care Split Leather Mosser Name Role Phone Steve Alvarez AUTM [phone] Problems Active Problems Provider Date Acute pancreatitis Juaquin Peña M.D. Onset: 12/07/19 21 Social History Type Date Description Comments Sex Unknown ETOH Use Denies alcohol use Tobacco Use Start: Unknown Patient has never smoked Allergies and adverse reactions Description No Known Drug Allergies Medications Active Medications SIG Qnty Indications Ordering Provide r Date Quetiapine Fumarate 50mg Tablets Unknown Ciprofloxacin HCL 500mg Tablets Unknown Metronidazole 500mg Tablets Unknown Cephalexin 500mg Capsules Barbara Gonzalez PA Venlafaxine HCL ER 75mg Caps ER 24HR Unknown Nortriptyline HCL 25mg Capsules Unknown Venlafaxine HCL ER 225mg Tablets E R 24HR Unknown Trazodone HCL 50mg Tablets Unknown Sildenafil Citrate 100mg Tablets Unknown Tramadol HCL 50mg Tablets 1 tab by mouth every 6 hours as needed pain istop # [id number] 120tabs Juaquin Peña M.D. Quetiapine Fumarate 25mg Tablets Unknown Prazosin HCL 2mg Capsules Unknown Hyoscyamine Sulfate 0.125mg Tablets Sub Unknown Oxycodone-Acetaminophen 5-325mg Tablets Steve Alvarez PA Pantoprazole Sodium 40mg Tablets D R 1 cap by mouth every morning 90tabs Juaquin Peña M.D. Ondansetron 4mg Tablets Dispers 1 tab by mouth every 4 hours as needed 60tabs Juaquin julio M.D. Sucralfate 1gm Tablets Take 1 Tablet By Mouth Before Meals And AT Bedtime Unknown Immunizations Description No Information Available Vital Signs Date Vital Result Comment 12/06/2020 1:54pm Height 66 inches 5'6" Weight 162.00 lb BP Systolic 134 mmHg BP Diastolic 88 mmHg Heart Rate 81 /min BMI (Body Mass Index) 26.1 kg/m2 Weight 73.483 kg Body Temperature 97.0 F Results Description No Information Available Procedures Description No Information Available Medical Devices Description No Information Available Encounters Description No Information Available Assessments Date Code Description Provider 12/06/2020 K86.1 Other chronic pancreatitis Nellie Peña M.D. Plan of Treatment Future Appointment(s):* 01/16/2021 2:15 pm - Juaquin Peña M.D. at Main Office 12/06/2020 - Juaquin Peña M.D.* K86.1 Other chronic pancreatitis* New Xrays:* MRI Abdomen W Contrast, Ordered: 12/06/20 * Comments:* 30 yo ADS who presents for a h/o multiple episodes of relapsing pancreatitis. Pt has an alcohol intake history. Now c/o abdominal pain, weight loss, no change in bowel habits, or rectal bleeding.On a ppi + meds for nausea. Has chronic pain. Has had at least 4 severe episodes of pancreatitis, which has required hospitalizations. Started 07/2019. Was drinking vodka. Plan:1. Advised zero alcohol intake.2. Mri of hepatobilary-pancreatic system - r/o biled uct stones, and r/o pancreas divisum.3. Egd4. Maintain ppi meds. Functional Status Description No Information Available Mental Status Description No Information Available Referrals Refer to Reason for Referral Status Appt Date Juaquin Peña M.D. Scheduled [address] [place] [address] [phone]
--- OUTSIDE RECORDS SUMMARY | 2021-01-16 12:01 | CCD | Continuity of Care Document ---
Author Author Rohan PEÑA Organization Unknown Address [address] [place] [address] Phone [phone] Care Team Providers Care Molder Trimmer Name Role Phone Steve Alvarez AUTM [phone] Problems Active Problems Provider Date Acute pancreatitis [...] 6 hours as needed pain istop # [id number] 120tabs Juaquin Peña M.D. Quetiapine Fumarate 25mg [...] Date Juaquin Peña M.D. Scheduled [address] [place] [address] [phone]
--- OUTSIDE RECORDS SUMMARY | 2021-01-16 12:01 | CCD | Continuity of Care Document ---
Author Author Rohan PEÑA Organization Unknown Address [address] [place] [address] Phone [phone] Care Team Providers Care Fish Roe Technician Name Role Phone Steve Alvarez AUTM Problems Active Problems Provider Date Acute pancreatitis [...] 6 hours as needed pain istop # [id number] 120tabs Juaquin Peña M.D. Quetiapine Fumarate 25mg [...] Date Juaquin Peña M.D. Scheduled [address] [place] [address] [phone]
[2021-01-16] MEDS ORDERED: propofoL 200 MG/20 ML VIAL As Ordered ONE ×2 (12:02→12:58)
[2021-01-16] MEDS ORDERED: LIDOCAINE 2% 100MG/5ML SDV (FOR ANES.) As Ordered ONE (12:02)
--- OUTSIDE RECORDS SUMMARY | 2021-01-16 12:02 | CCD | Summary of Care ---
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 Phone System, Provider Not In PP Unavailable Reason for Visit * Auth/Cert Diagnoses / Procedures Referred By Contact Referred To Conta ct Specialty Diagnoses Pancreatitis Pancreatitis Procedures ip auth pending via web [place] [address] [address] [id number] [place] [address] Referral ID Status Reason Start Date Expiration Visits Vi sits Date Requested Authorized [id number] 1 1 Encounter Details Care Team Description Date Type [place] [address] Jasper Robb MD [phone] [address] 10/16/2020 [facility] 10/22/2020 [place] [address] Discharge Summary - Jasper Robb MD - 10/22/2020 9:33 AM EDT Inpatient Discharge Summary Patient Name: Rohan Cyr Age: 2 1990 30 y.o. Patient Admitting Provider: Riki Man MD Discharging Provider: MD JASPER Shirley MD Primary Care Physician at Discharge: Provider Not In System None Admission Date: 10/16/2020 LOS: 6 Days Discharge Date: 10/22/2020 Admission Diagnoses: Pancreatitis [K85.90] Discharge Diagnoses: Active Problems: Pancreatitis Colitis Elevated blood pressure reading without diagnosis of hypertension Assessment and Plan: Assessment/Plan Medical Problems Problem List Pancreatitis Colitis Elevated blood pressure reading without diagnosis of hypertension A & P Notes: Acute pancreatitis likely alcohol induced, vs idiopathic Duodenitis and mild colitis, Mild transaminitis. Normocytic anemia. elevated blood pressure readings Patient is symptomatically improving with the decreased abdominal pain, and has tolerated oral intake in the last 1 to 2 days. He is clinically stable. CAT scan showed he will be discharged on oral ciprofloxacin 500 mg twice daily, and oral Flagyl 500 mg 3 times daily for 1 week, with PPI for 2 weeks. This is his third pancreatitis within last 1.5 yrs, and inpatient work-up was showed normal triglycerides, IgG4 levels, and bladder sludge without stones. C diff negative, Fecal leukocytes are positive, but calprotectin is still pending. He continues to binge drink which may be precipitating the events and he was advised to avoid alcohol consumption. He needs to follow-up with PCP and gastroenterolog y for further work-up and evaluation. Patient had patiently elevated blood pressure readings, and and endorses previous similar readings in his doctor's office as well. Advised about low-salt diet, and lifestyle modifications. He may need treatment for hypertension if continues to have elevated blood pressure recordings. Discharge Instructions and Follow-Ups: Activity: activity as tolerated Diet: regular diet Recommended follow ups: The patient should follow up with PCP within 1 week(s) of discharge. Future Appts: No future appointments. 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 He was transferred from [facility] where he was admitted on 10/12/2020 for acute pancreatitis that was not improving. He had a CT abdomen and pelvis with IV contrast in [place] on 10/12/2020 and 10/14/2020 with the same findings of pancreatitis without pseudocyst or necrosis. The patient states that he has been tremendously decreasing his alcohol intake for the past year with only few drinks on the weekends. Current episode of pancreatitis started 2 days after last alcohol intake (5 glasses of vodka and 3-5 beers), and a few hours after large meal. He was started back on a regular diet on 10/16/2020 and admitted to [facility]. His labs revealed an anemia at 11.9, and elevated CRP at 25.4, AST 102 and ALT 140. Triglycerides were mildly elevated at 220. A liver ultrasound on admission revealed no biliary ductal dilation, CBD at 5 mm, unremarkable gallbladder. The pancreas was poorly seen, however it looks heterogeneous suggesting an underlying parenchymal disease. There were also bilateral pleural effusions. The etiology of the acute pancreatitis is likely idiopathic as there are no gallstones, AST/ALT ratio less than 1 (unikely alcohol induced) and triglycerides only marginally elevated. IgG4 levels were obtained, results are pending. During the course of hospitalization , the patient was still complaining of acute epigastric pain temporally resolved with pain medication (fentanyl, Roxicodone, antispasmodics) . He occasionally tolerated low-fat regular diet without nausea or vomiting but mostly could not eat because of the pain. His SpO2 dropped to 89 to 92% on room air on day 2 of hospitalization , chest x-ray showed cephalization's of the vessels as well as a blunted left costophrenic angle and the patient received a dose of IV Lasix with subsequent improvement and resolution of respiratory symptoms. Given the persistence of abdominal pain, a repeat CT abdomen and pelvis without IV contrast on 10/19/2020 showed acute pancreatitis, inflammation of the duodenum, proximal small bowel and large bowel with no abscess detected. The patient was therefore started on IV antibiotics with ciprofloxacin 400 mg every 12 hours and Flagyl 500 mg every 6 hours. C. difficile molecular test was negative, and fecal leukocytes were detected. Fecal calprotectin was obtained, results are pending. Allergies: No Known Allergies Discharge Medications: Your medication list START taking these medications Instructions Last Dose Given Next Dose Due ciprofloxacin 500 mg tablet Commonly known as: CIPRO Take 1 tablet by mouth 2 times a day for 7 days. hyoscyamine 0.125 mg SL tablet Commonly known as: LEVSIN Take 1 tablet by mouth every 4 hours if needed for cramping. metroNIDAZOLE 500 mg tablet Commonly known as: FLAGYL Take 1 tablet by mouth every 8 hours for 10 days pantoprazole 40 mg EC tablet Commonly known as: PROTONIX Take 1 tablet by mouth 1 time each day before breakfast for 14 days. Swallow whole. Do not crush, chew, or split. simethicone 80 mg chewable tablet Commonly known as: MYLICON Chew 1 tablet by mouth 4 times a day if needed for flatulence CONTINUE taking these medications Instructions Last Dose Given Next Dose Due traZODone 50 mg tablet Commonly known as: DESYREL venlafaxine XR 150 mg 24 hr capsule Commonly known as: EFFEXOR-XR Where to Get Your Medications These medications were sent to [facility] [place] [address] Hours: 7AM-7PM Mon-Fri, 7AM-330PM Sat-Sun ciprofloxacin 500 mg tablet hyoscyamine 0.125 mg SL tablet metroNIDAZOLE 500 mg tablet pantoprazole 40 mg EC tablet simethicone 80 mg chewable tablet Consults: IP CONSULT TO NUTRITION SERVICES IP CONSULT TO NUTRITION SERVICES IP CONSULT TO NUTRITION SERVICES Laboratory Results: Recent Results (from the past 24 hour(s)) Comprehensive metabolic panel Collection Time: 10/22/20 4:40 AM Result Value Ref Range Sodium 137 135 - 146 mmol/L Potassium 4.0 3.5 - 5.3 mmol/L Chloride 97 (L) 98 - 107 mmol/L CO2 31 21 - 32 mmol/L Anion Gap 9 5 - 15 BUN 9 7 - 23 mg/dL Creatinine 0.9 0.7 - 1.3 mg/dL BUN/Creatinine Ratio 10 Glucose 87 65 - 99 mg/dL Calcium 9.1 8.4 - 10.4 mg/dL AST 31 <59 U/L ALT (SGPT) 45 <50 U/L Alkaline Phosphatase 98 38 - 126 U/L Total Protein 5.7 (L) 6.3 - 8.2 g/dL Albumin 3.0 (L) 3.5 - 5.0 g/dL A/G Ratio 1.11 Total Bilirubin 0.4 0.1 - 1.3 mg/dL eGFR >60 >60 mL/min/1.73m*2 CBC w/ auto diff (Lab Performable) Collection Time: 10/22/20 4:40 AM Result Value Ref Range Auto WBC 6.6 4.0 - 10.5 10*3/uL RBC 4.13 4.00 - 5.80 10*6/ L Hemoglobin 12.4 (L) 13.0 - 18.0 g/dL Hematocrit 38.5 37.0 - 50.0 % MCV 93.2 77.0 - 100.0 fL MCH 30.0 26.0 - 33.0 pg MCHC 32.2 31.0 - 36.0 g/dL RDW 12.8 12.0 - 17.0 % MPV 8.6 8.0 - 12.0 fL Platelets 579 (H) 125 - 425 10*3/uL Manual Differential Collection Time: 10/22/20 4:40 AM Result Value Ref Range Neutrophils % 67 40 - 75 % Bands % 1 <=12 % Lymphocytes % 20 20 - 42 % Monocytes % 4 2 - 11 % Eosinophils % 5 <=10 % Myelocytes % 3 (H) <=0 % Manual nRBC % 1 (H) <=0 % Total Counted 100 Absolute Neutrophil Count 4.5 1.4 - 8.0 10*3/uL Lymphocytes Absolute 1.3 (L) 1.4 - 4.0 10*3/uL Monocytes Absolute 0.3 0.0 - 1.0 10*3/uL Eosinophils Absolute 0.3 <=0.7 10*3/uL Myelocytes Absolute 0 10*3/uL Smear Review Collection Time: 10/22/20 4:40 AM Result Value Ref Range RBC Morphology Normal WBC Morphology Normal Platelet Estimate Increased C-reactive protein Collection Time: 10/22/20 4:40 AM Result Value Ref Range CRP 6.4 (H) <=0.9 mg/dL Procedures: Radiology Studies: XR Chest 1 View Narrative: -REPORT: PROCEDURE: XR CHEST 1 VIEW DATE AND TIME: 10/19/2020 9:26 AM EDT HISTORY: Shortness of breath and hypoxia. COMPARISON: None TECHNIQUE: Portable lordotic projection obtained AP FINDINGS:Infil trate at the left lung base consistent with pneumonia and/or atelectasis. Associated pleural effusion cannot be excluded. Right lung is grossly clear. Given the lordotic projection of the film, the cardiac and mediastinal silhouettes are grossly within normal limits. Impression: Left lower lobe atelectasis and/or pneumonia, +/- associated left pleural effusion. Follow-up to complete radiographic clearing is recommended in the next 6-8 weeks. DWS: HMI1 ELECTRONIC SIGNATURE: Jose Alberto Silva MD CT abdomen pelvis w IV contrast Narrative: -REPORT: PROCEDURES: CT ABDOMEN PELVIS W CONTRAST DATE AND TIME: 10/19/2020 1:20 PM EDT HISTORY: CLINICAL: Abdominal abscess/infecti on suspected CT OF THE ABDOMEN AND PELVIS WITH CONTRAST 10/16/2020 5:47 PM EDT: TECHNIQUE: Helical CT scan is obtained from the lung bases through the ischial tuberosities. The patient receives contrast intravenously. Auto Exposure Controls are utilized during the CT exam to meet ALARA standards for radiation dose reduction. This CT exam is performed using one or more of the following dose reduction techniques: automated exposure control, adjustment of the mA and/or kV according to patient size, and/or use iterative reconstruction techniques. COMPARISON STUDY: None available ABDOMEN/PELVIS FINDINGS LUNG BASES: There is left lower lobe atelectasis or infiltrate. There is a moderate left pleural effusion. There is a small right pleural effusion. LIVER: No significant abnormality. GALLBLADDER / BILE DUCTS: No significant abnormality. RIGHT KIDNEY / URETER: No significant abnormality. LEFT KIDNEY / URETER: No significant abnormality. PANCREAS: There is peripancreatic inflammation. SPLEEN: No significant abnormality. ADRENAL GLANDS: No significant abnormality. GI TRACT: There is inflammation of the duodenum and proximal small bowel distal to the ligament of Treitz. There is no intestinal dilatation. There is possible inflammation of the large bowel at the splenic flexure and proximal descending colon. There is possible inflammation of the sigmoid colon. There is possible inflammation of the ascending colon. There is no intestinal dilatation. AORTA: No significant abnormality. BLADDER: No significant abnormality. REPRODUCTIVE: No significant abnormality. ADENOPATHY: None. ASCITES: There is a small amount of pelvic ascites. There is a small amount of ascites within the left paracolic gutter. BONES: No significant abnormality. Impression: 1. Acute pancreatitis. 2. Inflammation of the duodenum, proximal small bowel and large bowel could be secondary to pancreatitis. Additional infectious/infl ammatory processes are not excluded. 3. Left lower lobe atelectasis or infiltrate with moderate pleural effusion. There is small right pleural effusion. 4. There is no CT evidence of intra-abdominal or intrapelvic abscess. DWS: HMI13 ELECTRONIC SIGNATURE: Tramaine Diaz DO Pending Labs: Pending Labs Order Current Status FECAL CALPROTECTIN In process Discharge Disposition: Final discharge disposition not confirmed Code Status at Discharge: FULL Objective Physical Examination: Physical Exam Constitutional: Appearance: Normal appearance. HENT: Head: Normocephalic and atraumatic. Cardiovascular : Rate and Rhythm: Normal rate and regular rhythm. Pulses: Normal pulses. Heart sounds: Normal heart sounds. Pulmonary: Effort: Pulmonary effort is normal. Breath sounds: Normal breath sounds. Abdominal: General: Bowel sounds are normal. Palpations: Abdomen is soft. Tenderness: There is no guarding or rebound. Comments: Mild epigastric tenderness Musculoskeletal : General: Normal range of motion. Skin: General: Skin is warm. Capillary Refill: Capillary refill takes less than 2 seconds. Neurological: General: No focal deficit present. Mental Status: He is alert. Psychiatric: Mood and Affect: Mood normal. Physical Exam at Discharge: Condition of Patient on Discharge: Stable Visit Vitals BP 127/83 (BP Location: Lt Upper Arm, Patient Position: Supine) Pulse 75 Temp 36.3 C (97.3 F) (Oral) Resp 16 Ht 5' 6" Wt 180 lb 5.4 oz (81.8 kg) SpO2 96% BMI 29.11 kg/m Smoking Status Never Smoker BSA 1.95 m Attendings Time: Total discharge planning, communication/d iscussion and coordination of care today was greater than 30 min JASPER ROBB MD Allergies No known active allergiesdocumented as of this encounter (statuses as of 10/22/2020) Medications End Date Status Medication Sig Dispensed [...] as of this encounter (statuses as of 10/22/2020) Active Problems Problem Noted Date Colitis 10/22/2020 Elevated blood pressure reading without diagnosis of hypertension 10/22/2020 Pancreatitis 10/16/2020 documented as of this encounter (statuses as of 10/22/2020) Social History Date Tobacco Use Types Packs/Day Years Used Never Smoker Smokeless Tobacco: Never Used Sex Assigned at Date Recorded Male 10/17/2020 2:25 PM EDT Date Recorded COVID-19 Exposure Response 10/17/2020 5:29 AM EDT In the last month, have you been in contact with Yes someone who was confirmed or suspected to have Coronavirus / COVID-19? documented as of this encounter Last Filed Vital Signs Reading Time Taken Comments Vital Sign 127/83 10/22/2020 8:03 AM EDT Blood Pressure 75 10/22/2020 8:03 AM EDT Pulse 36.3 C (97.3 F) 10/22/2020 8:03 AM EDT Temperature 16 10/22/2020 8:03 AM EDT Respiratory Rate 96% 10/22/2020 8:03 AM EDT Oxygen Saturation - - Inhaled Oxygen Concentration 81.8 kg (180 lb 5.4 oz) 10/16/2020 5:51 PM EDT Weight 167.6 cm (5' 6") 10/16/2020 5:51 PM EDT Height 29.11 10/16/2020 5:51 PM EDT Body Mass Index documented in this encounter Discharge Summaries * Jasper Robb MD - 10/22/2020 9:33 AM EDT Inpatient Discharge Summary Patient Name: Rohan ROMO Age: 2 1990 30 y.o. Patient Admitting Provider: Riki Man MD Discharging Provider: MD JASPER Shirley MD Primary Care Physician at Discharge: Provider Not In System None Admission Date: 10/16/2020 LOS: 6 Days Discharge Date: 10/22/2020 Admission Diagnoses: Pancreatitis [K85.90] Discharge Diagnoses: Active Problems: Pancreatitis Colitis Elevated blood pressure reading without diagnosis of hypertension Assessment and Plan: Assessment/Plan Medical Problems Problem List Pancreatitis Colitis Elevated blood pressure reading without diagnosis of hypertension A & P Notes: Acute pancreatitis likely alcohol induced, vs idiopathic Duodenitis and mild colitis, Mild transaminitis. Normocytic anemia. elevated blood pressure readings Patient is symptomatically improving with the decreased abdominal pain, and has tolerated oral intake in the last 1 to 2 days. He is clinically stable. CAT sc an showed he will be discharged on oral ciprofloxacin 500 mg twice daily, and or al Flagyl 500 mg 3 times daily for 1 week, with PPI for 2 weeks. This is his th ird pancreatitis within last 1.5 yrs, and inpatient work-up was showed normal tr iglycerides, IgG4 levels, and bladder sludge without stones. C diff negative, Fecal leukocytes are positive, but calprotectin is still pending. He continues to binge drink which may be precipitating the events and he was advised to avoid alcohol consumption. He needs to follow-up with PCP and gastroenterology for further work-up and eval uation. Patient had patiently elevated blood pressure readings, and and endorses previou s similar readings in his doctor's office as well. Advised about low-salt diet, and lifestyle modifications. He may need treatment for hypertension if continues to have elevated blood pressure recordings. Discharge Instructions and Follow-Ups: Activity: activity as tolerated Diet: regular diet Recommended follow ups: The patient should follow up with PCP within 1 week(s) of discharge. Future Appts: No future appointments. Follow-up Provider: Primary care provider (PCP) Provider Not In System [id number] Gastroenterology 20[address]40 [facility] [address] recuurent pancreatitis Subjective HPI: HPI Hospital Course: The patient is an 30-year-old male with a past medical history of alcohol induce d pancreatitis 1 year ago. He was transferred from [facility] where he was admitted on 10/12/2020 for acute pancreatitis that was not improving. He had a CT abdomen and pelvis with IV contrast in [place] on 10/12/2020 and with the same findings of pancreatitis without pseudocyst or necrosis. The patient states that he has been tremendously decreasing his alcohol intake f or the past year with only few drinks on the weekends. Current episode of pancr eatitis started 2 days after last alcohol intake (5 glasses of vodka and 3-5 bee rs), and a few hours after large meal. He was started back on a regular diet on 10/16/2020 and admitted to [facility]. His labs revealed an anemia at 11.9, and elevated CRP at 25.4, AST 102 and ALT 1 40. Triglycerides were mildly elevated at 220. A liver ultrasound on admission revealed no biliary ductal dilation, CBD at 5 mm , unremarkable gallbladder. The pancreas was poorly seen, however it looks hete rogeneous suggesting an underlying parenchymal disease. There were also bilater al pleural effusions. The etiology of the acute pancreatitis is likely idiopathic as there are no gall stones, AST/ALT ratio less than 1 (unikely alcohol induced) and triglycerides on ly marginally elevated. IgG4 levels were obtained, results are pending. During the course of hospitalization, the patient was still complaining of acute epigastric pain temporally resolved with pain medication (fentanyl, Roxicodone, antispasmodics). He occasionally tolerated low-fat regular diet without nausea or vomiting but mostly could not eat because of the pain. His SpO2 dropped to 89 to 92% on room air on day 2 of hospitalization, chest x-r ay showed cephalization's of the vessels as well as a blunted left costophrenic angle and the patient received a dose of IV Lasix with subsequent improvement an d resolution of respiratory symptoms. Given the persistence of abdominal pain, a repeat CT abdomen and pelvis without IV contrast on 10/19/2020 showed acute pancreatitis, inflammation of the duodenum, proximal small bowel and large bowel with no abscess detected. The patient was therefore started on IV antibiotics with ciprofloxacin 400 mg every 12 hours an d Flagyl 500 mg every 6 hours. C. difficile molecular test was negative, and fecal leukocytes were detected. Fecal calprotectin was obtained, results are pending. Allergies: No Known Allergies Discharge Medications: Your medication list START taking these medications Instructions Last Dose Given Next Dose Due ciprofloxacin 500 mg tablet Commonly known as: CIPRO Take 1 tablet by mouth 2 times a day for 7 days. hyoscyamine 0.125 mg SL tablet Commonly known as: LEVSIN Take 1 tablet by mouth every 4 hours if needed for cramping. metroNIDAZOLE 500 mg tablet Commonly known as: FLAGYL Take 1 tablet by mouth every 8 hours for 10 days pantoprazole 40 mg EC tablet Commonly known as: PROTONIX Take 1 tablet by mouth 1 time each day before breakfast for 14 days. Swallow wh ole. Do not crush, chew, or split. simethicone 80 mg chewable tablet Commonly known as: MYLICON Chew 1 tablet by mouth 4 times a day if needed for flatulence CONTINUE taking these medications Instructions Last Dose Given Next Dose Due traZODone 50 mg tablet Commonly known as: DESYREL venlafaxine XR 150 mg 24 hr capsule Commonly known as: EFFEXOR-XR Where to Get Your Medications These medications were sent to [facility] [place] [address] [place] [address] Paige Michelle te [address] [id number] Hours: 7AM-7PM Mon-Fri, 7AM-330PM Sat-Sun ciprofloxacin 500 mg tablet hyoscyamine 0.125 mg SL tablet metroNIDAZOLE 500 mg tablet pantoprazole 40 mg EC tablet simethicone 80 mg chewable tablet Consults: IP CONSULT TO NUTRITION SERVICES IP CONSULT TO NUTRITION SERVICES IP CONSULT TO NUTRITION SERVICES Laboratory Results: Recent Results (from the past 24 hour(s)) Comprehensive metabolic panel Collection Time: 10/22/20 4:40 AM Result Value Ref Range Sodium 137 135 - 146 mmol/L Potassium 4.0 3.5 - 5.3 mmol/L Chloride 97 (L) 98 - 107 mmol/L CO2 31 21 - 32 mmol/L Anion Gap 9 5 - 15 BUN 9 7 - 23 mg/dL Creatinine 0.9 0.7 - 1.3 mg/dL BUN/Creatinine Ratio 10 Glucose 87 65 - 99 mg/dL Calcium 9.1 8.4 - 10.4 mg/dL AST 31 <59 U/L ALT (SGPT) 45 <50 U/L Alkaline Phosphatase 98 38 - 126 U/L Total Protein 5.7 (L) 6.3 - 8.2 g/dL Albumin 3.0 (L) 3.5 - 5.0 g/dL A/G Ratio 1.11 Total Bilirubin 0.4 0.1 - 1.3 mg/dL eGFR >60 >60 mL/min/1.73m*2 CBC w/ auto diff (Lab Performable) Collection Time: 10/22/20 4:40 AM Result Value Ref Range Auto WBC 6.6 4.0 - 10.5 10*3/uL RBC 4.13 4.00 - 5.80 10*6/L Hemoglobin 12.4 (L) 13.0 - 18.0 g/dL Hematocrit 38.5 37.0 - 50.0 % MCV 93.2 77.0 - 100.0 fL MCH 30.0 26.0 - 33.0 pg MCHC 32.2 31.0 - 36.0 g/dL RDW 12.8 12.0 - 17.0 % MPV 8.6 8.0 - 12.0 fL Platelets 579 (H) 125 - 425 10*3/uL Manual Differential Collection Time: 10/22/20 4:40 AM Result Value Ref Range Neutrophils % 67 40 - 75 % Bands % 1 <=12 % Lymphocytes % 20 20 - 42 % Monocytes % 4 2 - 11 % Eosinophils % 5 <=10 % Myelocytes % 3 (H) <=0 % Manual nRBC % 1 (H) <=0 % Total Counted 100 Absolute Neutrophil Count 4.5 1.4 - 8.0 10*3/uL Lymphocytes Absolute 1.3 (L) 1.4 - 4.0 10*3/uL Monocytes Absolute 0.3 0.0 - 1.0 10*3/uL Eosinophils Absolute 0.3 <=0.7 10*3/uL Myelocytes Absolute 0 10*3/uL Smear Review Collection Time: 10/22/20 4:40 AM Result Value Ref Range RBC Morphology Normal WBC Morphology Normal Platelet Estimate Increased C-reactive protein Collection Time: 10/22/20 4:40 AM Result Value Ref Range CRP 6.4 (H) <=0.9 mg/dL Procedures: Radiology Studies: XR Chest 1 View Narrative: -REPORT: PROCEDURE: XR CHEST 1 VIEW DATE AND TIME: 10/19/2020 9:26 AM EDT HISTORY: Shortness of breath and hypoxia. COMPARISON: None TECHNIQUE: Portable lordotic projection obtained AP FINDINGS:Infiltrate at the left lung base consistent with pneumonia and/or atelectasis. Associated pleural effusion cannot be excluded. Right lung is grossly clear. Given the lordotic projection of the film, the cardiac and mediastinal silhouettes are grossly within normal limits. Impression: Left lower lobe atelectasis and/or pneumonia, +/- associated left pleural effusion. Follow-up to complete radiographic clearing is recommended in the next 6-8 weeks. DWS: HMI1 ELECTRONIC SIGNATURE: Jose Alberto Silva MD CT abdomen pelvis w IV contrast Narrative: -REPORT: PROCEDURES: CT ABDOMEN PELVIS W CONTRAST DATE AND TIME: 10/19/2020 1:20 PM EDT HISTORY: CLINICAL: Abdominal abscess/infection suspected CT OF THE ABDOMEN AND PELVIS WITH CONTRAST 10/16/2020 5:47 PM EDT: TECHNIQUE: Helical CT scan is obtained from the lung bases through the ischial tuberosities. The patient receives contrast intravenously. Auto Exposure Controls are utilized during the CT exam to meet ALARA standards for radiation dose reduction. This CT exam is performed using one or more of the following dose reduction techniques: automated exposure control, adjustment of the mA and/or kV according to patient size, and/or use iterative reconstruction techniques. COMPARISON STUDY: None available ABDOMEN/PELVIS FINDINGS LUNG BASES: There is left lower lobe atelectasis or infiltrate. There is a moderate left pleural effusion. There is a small right pleural effusion. LIVER: No significant abnormality. GALLBLADDER / BILE DUCTS: No significant abnormality. RIGHT KIDNEY / URETER: No significant abnormality. LEFT KIDNEY / URETER: No significant abnormality. PANCREAS: There is peripancreatic inflammation. SPLEEN: No significant abnormality. ADRENAL GLANDS: No significant abnormality. GI TRACT: There is inflammation of the duodenum and proximal small bowel distal to the ligament of Treitz. There is no intestinal dilatation. There is possible inflammation of the large bowel at the splenic flexure and proximal descending colon. There is possible inflammation of the sigmoid colon. There is possible inflammation of the ascending colon. There is no intestinal dilatation. AORTA: No significant abnormality. BLADDER: No significant abnormality. REPRODUCTIVE: No significant abnormality. ADENOPATHY: None. ASCITES: There is a small amount of pelvic ascites. There is a small amount of ascites within the left paracolic gutter. BONES: No significant abnormality. Impression: 1. Acute pancreatitis. 2. Inflammation of the duodenum, proximal small bowel and large bowel could be secondary to pancreatitis. Additional infectious/inflammatory processes are not excluded. 3. Left lower lobe atelectasis or infiltrate with moderate pleural effusion. There is small right pleural effusion. 4. There is no CT evidence of intra-abdominal or intrapelvic abscess. DWS: HMI13 ELECTRONIC SIGNATURE: Tramaine Diaz DO Pending Labs: Pending Labs Order Current Status FECAL CALPROTECTIN In process Discharge Disposition: Final discharge disposition not confirmed Code Status at Discharge: FULL Objective Physical Examination: Physical Exam Constitutional: Appearance: Normal appearance. HENT: Head: Normocephalic and atraumatic. Cardiovascular: Rate and Rhythm: Normal rate and regular rhythm. Pulses: Normal pulses. Heart sounds: Normal heart sounds. Pulmonary: Effort: Pulmonary effort is normal. Breath sounds: Normal breath sounds. Abdominal: General: Bowel sounds are normal. Palpations: Abdomen is soft. Tenderness: There is no guarding or rebound. Comments: Mild epigastric tenderness Musculoskeletal: General: Normal range of motion. Skin: General: Skin is warm. Capillary Refill: Capillary refill takes less than 2 seconds. Neurological: General: No focal deficit present. Mental Status: He is alert. Psychiatric: Mood and Affect: Mood normal. Physical Exam at Discharge: Condition of Patient on Discharge: Stable Visit Vitals BP 127/83 (BP Location: Lt Upper Arm, Patient Position: Supine) Pulse 75 Temp 36.3 C (97.3 F) (Oral) Resp 16 Ht 5' 6" Wt 180 lb 5.4 oz (81.8 kg) SpO2 96% BMI 29.11 kg/m Smoking Status Never Smoker BSA 1.95 m Attendings Time: Total discharge planning, communication/discussion and coordination of care che[place]i woods was greater than 30 min JASPER ROBB MD documented in this encounter Discharge Instructions * Attachments The following attachments cannot be sent through Care Everywhere.* Acute Pancreatitis [id number] (Latvian) documented in this encounter Progress Notes * Lucy Ambrose MD - 10/21/2020 7:50 AM EDT PROGRESS NOTE Patient Name: Rohan Cyr Patient Admission Date: 10/16/2020 5:47 PM Date of Service: 10/21/20 Attending Provider: Jasper Robb MD Length of Stay in Days: 5 Room and Bed: G640/G640-B Assessment/Plan: Assessment/Plan Medical Problems Problem List Pancreatitis A & P Notes: Acute pancreatitislikely idiopathic, not improving Patient was admitted for acute pancreatitis that did not improve after 5 days [facility]. Repeat liver ultrasound (10/17/2020) showed an unremarkable gallbladder, no biliar y ductal dilation and a poorly seen pancreas that looks heterogeneous suggesting underlying parenchymal disease,as well as bilateral pleural effusions. Repeat CT abdomen and pelvis with IV contrast (10/19/2020) revealed acute pancreat itis, inflammation of the duodenum, proximal small bowel and large bowel that co uld be secondary to the pancreatitis however additional infectious/inflammatory processes are not excluded. There is also LLE atelectasis or infiltrate with mo derate pleural effusion and a small right pleural effusion. There was no CT candice dence of intra-abdominal or intrapelvic abscess. We are on day 10 after onset of symptoms. The patient is still in pain with an exquisitely tender epigastrium that is only temporarily relieved by fentanyl and Roxicodone. He is tolerating his meals we ll. On PE, BP 126/84 to 142/91, HR 80-85, RR 16-18, SPO2 93 to 95% on RA, afebrile, I/Os +555 mL with a urine output of 1150 mL. There is generalized abdominal tenderness more pronounced over the epigastrium w ithout guarding or rigidity and slightly decreased bibasilar breath sounds. CRP 14.3 (down from 17.0), Hb 12.0, HCT 36.6,albumin 3.1, ALP 117, AST 24 (down from 43), ALT 54 (down from 80), total bilirubin 0.6. The patient presents with no gallstones, in AST/ALT ratio unlikely to be alcohol hepatitis and triglycerides marginally elevated at 220. The patient was started on IV antibiotics on 10/19/[address] findin gs. Plan: We will continue with IV ciprofloxacin 400 mg every 12 hours and IV Flagyl 500 mg every 6 hours (day 3) We will continue with a low-fat diet and evaluate his tolerance We will continue pain management with fentanyl 50mcgevery 4 hours a s needed, [id number] every 4 hours as needed, Levsin 125 mcg every 4 hours as needed We will manage his nausea with Zofran 4 mg every 6 hours as needed We willcontinue oralpantoprazole 40 mg twice daily We will follow-up on IgG4 level to rule out autoimmune pancreatitis Persistent abdominal pain with CT findings of small and large bowel inflammation secondary to pancreatitis versus infective colitis versus inflammatory bowel di sease The patient has ongoing exquisite abdominal pain 10 days after onset of pancreat itis symptoms. He had 2 episodes of loose stools over the last [address] abdomen and pelvis with IV contrast (10/19/2020) revealed acute pancreat itis, inflammation of the duodenum, proximal small bowel and large bowel. CRP 14.3, WBC 7.4 C. difficile toxin is negative. Fecal leukocytes were detected. Plan: We will continue with IV antibiotics as mentioned above for possible infect alonzo colitis We will follow up on fecal calprotectin for possible IBD Acute hypoxic respiratory distress in the setting of nonimproving acute pancreat itis, resolved The patient developed hypoxia on 10/19/2020 with an SpO2 of 89 to 92% on RA and ep isodes shortness of breath at rest Chest x-ray showed cephalization of the vessels and blunted left costophrenic an gle. The patient received a dose of Lasix 40 mg IV with subsequent improvement. He currently has no respiratory symptoms, he saturates well on RA and does not h ave any difficulty speaking or excessive use of his accessory muscles. We willmonitor his respiratory status closely Wewill give O2 supplementation as needed for goal of SpO2 equal or more than 92% We will continue encouraging incentive spirometry Acute mild transaminitispossibly due to CASTELLON, improving AST 24 (down from 102), ALT 54 (down from 140), ALP 117, AST/ALT ratio 0.44< 1(possibly nonalcoholic steatohepatitis), glucose 109 Hepatitis B surface antigen and hepatitis C antibody are negative IgM hepatitis A and HBc IgM antibody are negative We will monitor LFTs We will monitor for signs of liver failure Acute thrombocytosis likely reactive Platelet 504 The patient has ongoing inflammation and possible infection We will monitor platelet count We will monitor for of thrombosis Chronic normocytic normochromic anemia in the setting of alcohol use The patient states he has not been drinking regularly for the past year. However , he drinks every weekend around 5 glasses of hard liquor. Hb 12.0, HCT 36.6, MCV 93.1, MCH 30.5 We will monitor CBC We will monitor vitals and signs of external bleeding History of depression and anxiety We will continue home medication [id number] mg daily and traz odone 50 mg nightly GI prophylaxis We willcontinue oralProtonix 40 mg twice daily DVT prophylaxis We will continue heparin 5000 units twice daily CODE STATUS Full code Subjective/Objective: Subjective No acute events overnight. The patient states that he remains in the same level of pain especially an intense epigastric pain. He has had 2 loose bowel moveme nts over the last 24 hours. The patient has a decreased appetite due to pain an d eats less than 50% of his meals however he tolerates oral intake without nause a or vomiting. He has been ambulating without difficulty. On physical examination, his BP ranged from 126/84 to 142/91, HR 80-85, RR 16-18 , SPO2 93 to 95% on RA, afebrile, I/Os +555 mL with a urine output of 1150 mL. On physical examination, the only significant finding is generalized abdominal t enderness more pronounced over the epigastrium without guarding or rigidity and slightly decreased bibasilar breath sounds. The patient is on fentanyl and Roxicodone as needed for pain management as well as Levsin. C. difficile toxin came back negative. Fecal leukocytes were detected. IgM hepatitis A negative and HBc IgM antibody negative. CRP is trending down to 14.3 from 17.0 and LFTs are improving with a normal AST at 24 and ALT at 54 (down from 80). The patient developed thrombocytosis at 504 , possibly reactive in the setting of intense inflammation and possible infectio n. The patient is currently on day 3 of IV ciprofloxacin 400 mg every 12 hours and IV Flagyl 500 mg every 6 hours. We will increase the pantoprazole dose to 40 mg twice a day. HPI: HPI Review of Systems: Review of Systems Constitutional: Positive for appetite change. Negative for activity change, chil ls, diaphoresis, fatigue and fever. HENT: Negative for congestion, dental problem, drooling, ear discharge, ear pain , facial swelling, hearing loss, mouth sores, nosebleeds, rhinorrhea, sneezing, sore throat, tinnitus, trouble swallowing and voice change. Eyes: Negative for photophobia, discharge, redness and visual disturbance. Respiratory: Negative for apnea, cough, choking, chest tightness, shortness of b reath, wheezing and stridor. Cardiovascular: Negative for chest pain, palpitations and leg swelling. Gastrointestinal: Positive for abdominal pain (generalized, more epigastric) and diarrhea (2 episodes of loose stools). Negative for abdominal distention, blood in stool, constipation, nausea and vomiting. Genitourinary: Negative for difficulty urinating, dysuria, flank pain, frequency , hematuria and urgency. Musculoskeletal: Negative for arthralgias, back pain, gait problem, joint swelli ng, myalgias, neck pain and neck stiffness. Skin: Negative for color change, pallor, rash and wound. Neurological: Positive for headaches (mild). Negative for dizziness, tremors, se izures, syncope, facial asymmetry, speech difficulty, weakness, light-headedness and numbness. Psychiatric/Behavioral: Positive for sleep disturbance. Negative for agitation, confusion and decreased concentration. The patient is nervous/anxious. Allergies: No Known Allergies Medications: Scheduled Medications: ciprofloxacin, 400 mg, intravenous, q12h dicyclomine, 10 mg, oral, 4x daily heparin (porcine) SubQ, 5,000 Units, subcutaneous, q12h AYLA ketorolac, 30 mg, intravenous, q8h metroNIDAZOLE, 500 mg, intravenous, q6h pantoprazole, 40 mg, oral, BID traZODone, 50 mg, oral, Nightly venlafaxine XR, 150 mg, oral, Daily PRN Medications: fentaNYL, hyoscyamine, ondansetron OR ondansetron ODT, oxyCODONE, simethicon e, Insert peripheral IV AND Maintain IV access AND Saline lock IV AND* * sodium chloride Infusion Medications: Objective Physical Examination: Physical Exam Constitutional: General: He is in acute distress (intense abdominal pain). Appearance: He is not ill-appearing, toxic-appearing or diaphoretic. HENT: Head: Normocephalic and atraumatic. Right Ear: External ear normal. There is no impacted cerumen. Left Ear: External ear normal. There is no impacted cerumen. Nose: Nose normal. No congestion or rhinorrhea. Mouth/Throat: Mouth: Mucous membranes are moist. Pharynx: Oropharynx is clear. No oropharyngeal exudate or posterior oropharyn geal erythema. Eyes: General: No scleral icterus. Right eye: No discharge. Left eye: No discharge. Extraocular Movements: Extraocular movements intact. Conjunctiva/sclera: Conjunctivae normal. Neck: Vascular: No carotid bruit. Cardiovascular: Rate and Rhythm: Normal rate and regular rhythm. Pulses: Normal pulses. Heart sounds: Normal heart sounds. No murmur heard. No friction rub. No gallop. Pulmonary: Effort: Pulmonary effort is normal. No respiratory distress. Breath sounds: No stridor. Rales (decreased bibasilar breath sounds) present. No wheezing or rhonchi. Chest: Chest wall: No tenderness. Abdominal: General: Abdomen is flat. Bowel sounds are normal. There is no distension. Palpations: There is no mass. Tenderness: There is abdominal tenderness (generalized, more intense over epi gastrium). There is no right CVA tenderness, left CVA tenderness or guarding. Musculoskeletal: General: No swelling, tenderness, deformity or signs of injury. Normal range of motion. Cervical back: Normal range of motion and neck supple. No rigidity or tendern ess. Right lower leg: No edema. Left lower leg: No edema. Lymphadenopathy: Cervical: No cervical adenopathy. Skin: General: Skin is warm. Capillary Refill: Capillary refill takes less than 2 seconds. Coloration: Skin is not jaundiced. Findings: No bruising, erythema, lesion or rash. Neurological: General: No focal deficit present. Mental Status: He is alert and oriented to person, place, and time. Mental st atus is at baseline. Cranial Nerves: No cranial nerve deficit. Motor: No weakness. Psychiatric: Mood and Affect: Mood normal. Thought Content: Thought content normal. Judgment: Judgment normal. Last Recorded Vitals: Visit Vitals BP 136/89 (BP Location: Lt Upper Arm) Pulse 86 Temp 36.9 C (98.4 F) (Oral) Resp 16 Ht 5' 6" Wt 180 lb 5.4 oz (81.8 kg) SpO2 95% BMI 29.11 kg/m Smoking Status Never Smoker BSA 1.95 m Intake/Output Summary (Last 24 hours) at 10/21/2020 1419 Last data filed at 10/21/2020 1327 Gross per 24 hour Intake 1460 ml Output 1150 ml Net 310 ml Laboratory Studies: Recent Results (from the past 24 hour(s)) Fecal leukocytes Collection Time: 10/20/20 6:28 PM Specimen: Per Rectum; Stool Result Value Ref Range Fecal Leukocytes by OIA Detected (A) Not Detected C.DIFFICILE MOLECULAR Collection Time: 10/20/20 6:28 PM Specimen: Stool Result Value Ref Range C. difficile Toxin DNA by Molecular Assay Negative Negative C. diff Strain 027 Presumptive Negative Presumptive Negative Comprehensive metabolic panel Collection Time: 10/21/20 3:56 AM Result Value Ref Range Sodium 135 135 - 146 mmol/L Potassium 3.6 3.5 - 5.3 mmol/L Chloride 95 (L) 98 - 107 mmol/L CO2 30 21 - 32 mmol/L Anion Gap 10 5 - 15 BUN 7 7 - 23 mg/dL Creatinine 0.8 0.7 - 1.3 mg/dL BUN/Creatinine Ratio 9 Glucose 109 (H) 65 - 99 mg/dL Calcium 8.9 8.4 - 10.4 mg/dL AST 24 <59 U/L ALT (SGPT) 57 (H) <50 U/L Alkaline Phosphatase 117 38 - 126 U/L Total Protein 5.8 (L) 6.3 - 8.2 g/dL Albumin 3.1 (L) 3.5 - 5.0 g/dL A/G Ratio 1.15 Total Bilirubin 0.5 0.1 - 1.3 mg/dL eGFR >60 >60 mL/min/1.73m*2 C-reactive protein Collection Time: 10/21/20 3:56 AM Result Value Ref Range CRP 14.3 (H) <=0.9 mg/dL CBC w/ auto diff (Lab Performable) Collection Time: 10/21/20 3:56 AM Result Value Ref Range Auto WBC 7.4 4.0 - 10.5 10*3/uL RBC 3.93 (L) 4.00 - 5.80 10*6/L Hemoglobin 12.0 (L) 13.0 - 18.0 g/dL Hematocrit 36.6 (L) 37.0 - 50.0 % MCV 93.1 77.0 - 100.0 fL MCH 30.5 26.0 - 33.0 pg MCHC 32.8 31.0 - 36.0 g/dL RDW 12.8 12.0 - 17.0 % MPV 8.7 8.0 - 12.0 fL Neutrophils Relative 62.6 35.0 - 78.0 % Lymphocytes Relative 19.3 (L) 20.0 - 42.0 % Monocytes Relative 9.7 0.0 - 15.0 % Eosinophils Relative 4.5 <=10.0 % Basophils Relative 0.8 <=2.0 % Neutrophils Absolute 4.63 1.40 - 8.40 10*3/uL Lymphocytes Absolute 1.43 1.00 - 4.00 10*3/uL Monocytes Absolute 0.72 0.00 - 1.50 10*3/uL Eosinophils Absolute 0.33 <=0.70 10*3/uL Basophils Absolute 0.06 <=0.10 10*3/uL Platelets 504 (H) 125 - 425 10*3/uL Immature Neutrophils Relative 3.1 (H) <=0.5 % Immature Neutrophils Absolute 0.23 <=0.40 10*3/uL Imaging and Other Studies: XR Chest 1 View Narrative: -REPORT: PROCEDURE: XR CHEST 1 VIEW DATE AND TIME: 10/19/2020 9:26 AM EDT HISTORY: Shortness of breath and hypoxia. COMPARISON: None TECHNIQUE: Portable lordotic projection obtained AP FINDINGS:Infiltrate at the left lung base consistent with pneumonia and/or atelectasis. Associated pleural effusion cannot be excluded. Right lung is grossly clear. Given the lordotic projection of the film, the cardiac and mediastinal silhouettes are grossly within normal limits. Impression: Left lower lobe atelectasis and/or pneumonia, +/- associated left pleural effusion. Follow-up to complete radiographic clearing is recommended in the next 6-8 weeks. DWS: HMI1 ELECTRONIC SIGNATURE: Jose Alberto Silva MD CT abdomen pelvis w IV contrast Narrative: -REPORT: PROCEDURES: CT ABDOMEN PELVIS W CONTRAST DATE AND TIME: 10/19/2020 1:20 PM EDT HISTORY: CLINICAL: Abdominal abscess/infection suspected CT OF THE ABDOMEN AND PELVIS WITH CONTRAST 10/16/2020 5:47 PM EDT: TECHNIQUE: Helical CT scan is obtained from the lung bases through the ischial tuberosities. The patient receives contrast intravenously. Auto Exposure Controls are utilized during the CT exam to meet ALARA standards for radiation dose reduction. This CT exam is performed using one or more of the following dose reduction techniques: automated exposure control, adjustment of the mA and/or kV according to patient size, and/or use iterative reconstruction techniques. COMPARISON STUDY: None available ABDOMEN/PELVIS FINDINGS LUNG BASES: There is left lower lobe atelectasis or infiltrate. There is a moderate left pleural effusion. There is a small right pleural effusion. LIVER: No significant abnormality. GALLBLADDER / BILE DUCTS: No significant abnormality. RIGHT KIDNEY / URETER: No significant abnormality. LEFT KIDNEY / URETER: No significant abnormality. PANCREAS: There is peripancreatic inflammation. SPLEEN: No significant abnormality. ADRENAL GLANDS: No significant abnormality. GI TRACT: There is inflammation of the duodenum and proximal small bowel distal to the ligament of Treitz. There is no intestinal dilatation. There is possible inflammation of the large bowel at the splenic flexure and proximal descending colon. There is possible inflammation of the sigmoid colon. There is possible inflammation of the ascending colon. There is no intestinal dilatation. AORTA: No significant abnormality. BLADDER: No significant abnormality. REPRODUCTIVE: No significant abnormality. ADENOPATHY: None. ASCITES: There is a small amount of pelvic ascites. There is a small amount of ascites within the left paracolic gutter. BONES: No significant abnormality. Impression: 1. Acute pancreatitis. 2. Inflammation of the duodenum, proximal small bowel and large bowel could be secondary to pancreatitis. Additional infectious/inflammatory processes are not excluded. 3. Left lower lobe atelectasis or infiltrate with moderate pleural effusion. There is small right pleural effusion. 4. There is no CT evidence of intra-abdominal or intrapelvic abscess. DWS: HMI13 ELECTRONIC SIGNATURE: DO Lucy Kohli MD Associated attestation - Jasper Robb MD - 10/21/2020 4:17 PM EDT Pt seen in f/u, gradually improving but c/o persistent pain. His appetite is bet ter but he is not eating as much. C diff negative, start him toradol for pain c ontrol, to decrease opioid use. Continue antibiotics and antispasmodics. * Lucy Ambrose MD - 10/20/2020 9:10 AM EDT PROGRESS NOTE Patient Name: Rohan Cyr Patient Admission Date: 10/16/2020 5:47 PM Date of Service: 10/20/20 Attending Provider: Jasper Robb MD Length of Stay in Days: 4 Room and Bed: G640/G640-B Assessment/Plan: Assessment/Plan Medical Problems Problem List Pancreatitis A & P Notes: Acute pancreatitis likely idiopathic, not improving Patient was admitted for acute pancreatitis that did not improve after 5 days [facility]. Repeat liver ultrasound (10/17/2020) showed an unremarkable gallbladder, no biliar y ductal dilation and a poorly seen pancreas that looks heterogeneous suggesting underlying parenchymal disease,as well as bilateral pleural effusions. Repeat CT abdomen and pelvis with IV contrast (10/19/2020) revealed acute pancreat itis, inflammation of the duodenum, proximal small bowel and large bowel that co uld be secondary to the pancreatitis however additional infectious/inflammatory processes are not excluded. There is also LLE atelectasis or infiltrate with mo derate pleural effusion and a small right pleural effusion. There was no CT candice dence of intra-abdominal or intrapelvic abscess. We are on day 9 after onset of symptoms. The patient is still in pain with an exquisitely tender epigastrium and right ab domen that is only temporarily relieved by fentanyl and Roxicodone. He is rene ating his meals well. On PE, BP 130/84 to 146/104, HR 89-91, RR 16-18, SpO2 91 to 95% on RA, afebril e. He has acute epigastric, RUQ and RLQ tenderness on palpation, no guarding or rigidity. Cardiopulmonary auscultation is significant for bibasilar decreased br eath sounds. CRP 17.0 (down from 21.2), Hb 11.8, HCT 35.9, albumin 3.2, ALP 132, AST 43, ALT 80 with an AST/ALT ratio of 0.52, total bilirubin 0.6. The patient presents with no gallstones, in AST/ALT ratio unlikely to be alcohol hepatitis and triglycerides marginally elevated at 220. The patient was started on IV antibiotics on 10/19/[address] findin gs. Plan: We will continue with IV ciprofloxacin 400 mg every 12 hours and IV Flagyl 500 mg every 6 hours (day 2) We will continue with a low-fat diet and evaluate his tolerance We will continue pain management with fentanyl 50mcgevery 2 hours a s needed, [id number] every 4 hours as needed We will manage his nausea with Zofran 4 mg every 6 hours as needed We will continue oral pantoprazole 40 mg daily We will follow-up on IgG4 level to rule out autoimmune pancreatitis Persistent abdominal pain with CT findings of small and large bowel inflammation secondary to pancreatitis versus infective colitis versus inflammatory bowel di sease The patient has ongoing exquisite abdominal pain 9 days after onset of pancreati tis symptoms. Repeat CT abdomen and pelvis with IV contrast (10/19/2020) revealed acute pancreat itis, inflammation of the duodenum, proximal small bowel and large bowel. CRP 17.0, WBC 7.9 Plan: We will continue with IV antibiotics as mentioned above for possible infect alonzo colitis We will follow up on fecal calprotectin and fecal leukocytes for possible I BD We will follow up on C. difficile molecular test as the patient reported so ft stools and has an increased CRP Acute hypoxic respiratory distress in the setting of nonresolving acute pancreat itis, resolved The patient developed hypoxia on 10/19/2020 with an SpO2 of 89 to 92% on RA and ep isodes shortness of breath at rest Chest x-ray showed cephalization of the vessels and blunted left costophrenic an gle. The patient received a dose of Lasix 40 mg IV with subsequent improvement. He currently has no respiratory symptoms, he saturates well on RA and does not h ave any difficulty speaking or excessive use of his accessory muscles. We will monitor his respiratory status closely We will give O2 supplementation as needed for goal of SpO2 equal or more th an 92% Acute mild transaminitis possibly due to CASTELLON, improving AST 43 (down from 102), ALT 80 (down from 140), ALP 132, AST/ALT ratio 0.53< 1(possibly nonalcoholic steatohepatitis), glucose 87 Hepatitis B surface antigen and hepatitis C antibody are negative We will monitor LFTs We will monitor for signs of liver failure Chronic normocytic normochromic anemia in the setting of alcohol use The patient states he has not been drinking regularly for the past year. However , he drinks every weekend around 5 glasses of hard liquor. Hb 11.8, HCT 35.9, MCV 93.5, MCH 30.7 We will monitor CBC We will monitor vitals and signs of external bleeding History of depression and anxiety We will continue home medication [id number] mg daily and traz odone 50 mg nightly GI prophylaxis We will continue oral Protonix 40 mg once daily DVT prophylaxis We will continue heparin 5000 units twice daily CODE STATUS Full code Subjective/Objective: Subjective No acute events overnight, however the patient remains in pain with acute epigas tric and right abdominal pain that is only temporarily relieved by pain medicati on as well as a mild headache. The patient had one episode of soft stools over the last 24 hours with no blood or mucus noticed in it. He denies dizziness, vi sual disturbances, chest pain, shortness of breath, LE swelling or tenderness, n ausea or vomiting, fever or chills. He tolerated well his last meal. He remained afebrile, BP 130/84 to 146/104, HR 89-91, RR 16-18. Physical examin ation reveals a patient lying in his bed, in pain and uncomfortable, abdominal p alpation causes tenderness in the epigastrium, RUQ and RLQ with no rigidity or g uarding. There is mildly decreased bibasilar breath sounds and no other signifi cant findings. CT abdomen and pelvis with contrast on 10/19/2020 revealed acute pancreatitis, inf lammation of the duodenum, proximal small bowel and large bowel that could be se condary to the pancreatitis however additional infectious/inflammatory processes are not excluded. There is also LLE atelectasis or infiltrate with moderate pl eural effusion and a small right pleural effusion. There was no CT evidence of intra-abdominal or intrapelvic abscess. CRP 17 down from 21.2, WBC 7.9. The patient was started on 10/20/2019 on IV Ciprofloxacin 400 mg every 12 hours an d IV Flagyl 500 mg every 6 hours. We obtained fecal calprotectin, fecal leukocytes and a C. difficile molecular te st for further investigation of new intra-abdominal lesions and ongoing intense pain. HPI: HPI Review of Systems: Review of Systems Constitutional: Positive for appetite change. Negative for activity change, chil ls, diaphoresis, fatigue and fever. HENT: Negative for congestion, dental problem, ear pain, facial swelling, hearin g loss, mouth sores, nosebleeds, rhinorrhea, sneezing, sore throat, tinnitus and trouble swallowing. Eyes: Negative for photophobia, discharge, redness and visual disturbance. Respiratory: Negative for apnea, cough, choking, chest tightness, shortness of b reath, wheezing and stridor. Cardiovascular: Negative for chest pain, palpitations and leg swelling. Gastrointestinal: Positive for abdominal pain (acute, epigastric and RUQ/RLQ) an d diarrhea (1 episode of soft stools). Negative for abdominal distention, blood in stool, constipation, nausea and vomiting. Genitourinary: Negative for difficulty urinating, dysuria, flank pain, frequency , hematuria and urgency. Musculoskeletal: Negative for arthralgias, back pain, gait problem, joint swelli ng, myalgias, neck pain and neck stiffness. Skin: Positive for pallor. Negative for rash and wound. Neurological: Positive for headaches (mild). Negative for dizziness, tremors, se izures, syncope, facial asymmetry, speech difficulty, weakness, light-headedness and numbness. Psychiatric/Behavioral: Positive for sleep disturbance. Negative for agitation, behavioral problems, confusion and decreased concentration. The patient is nervo us/anxious. Allergies: No Known Allergies Medications: Scheduled Medications: ciprofloxacin, 400 mg, intravenous, q12h heparin (porcine) SubQ, 5,000 Units, subcutaneous, q12h AYLA metroNIDAZOLE, 500 mg, intravenous, q6h pantoprazole, 40 mg, oral, PRE BREAKFAST traZODone, 50 mg, oral, Nightly venlafaxine XR, 150 mg, oral, Daily PRN Medications: fentaNYL, ondansetron OR ondansetron ODT, oxyCODONE, simethicone, Insert per ipheral IV AND Maintain IV access AND Saline lock IV AND sodium chlo ride Infusion Medications: Objective Physical Examination: Physical Exam Constitutional: General: He is in acute distress (in acute pain). Appearance: He is not toxic-appearing or diaphoretic. HENT: Head: Normocephalic and atraumatic. Right Ear: External ear normal. There is no impacted cerumen. Left Ear: External ear normal. There is no impacted cerumen. Nose: Nose normal. No congestion or rhinorrhea. Mouth/Throat: Mouth: Mucous membranes are moist. Pharynx: Oropharynx is clear. No oropharyngeal exudate or posterior oropharyn geal erythema. Eyes: General: No scleral icterus. Right eye: No discharge. Left eye: No discharge. Extraocular Movements: Extraocular movements intact. Cardiovascular: Rate and Rhythm: Regular rhythm. Tachycardia present. Pulses: Normal pulses. Heart sounds: Normal heart sounds. Pulmonary: Effort: Pulmonary effort is normal. No respiratory distress. Breath sounds: No stridor. Rales (decreased bibasilar breath sounds) present. No wheezing or rhonchi. Chest: Chest wall: No tenderness. Abdominal: General: Bowel sounds are normal. There is no distension. Palpations: There is no mass. Tenderness: There is abdominal tenderness (intense, epigastric, RUQ and RLQ). There is no right CVA tenderness, left CVA tenderness, guarding or rebound. Hernia: No hernia is present. Musculoskeletal: General: No swelling, tenderness, deformity or signs of injury. Normal range of motion. Cervical back: Normal range of motion and neck supple. No rigidity or tendern ess. Right lower leg: No edema. Left lower leg: No edema. Lymphadenopathy: Cervical: No cervical adenopathy. Skin: General: Skin is warm. Capillary Refill: Capillary refill takes less than 2 seconds. Coloration: Skin is pale. Skin is not jaundiced. Findings: No bruising, erythema, lesion or rash. Neurological: General: No focal deficit present. Mental Status: He is alert and oriented to person, place, and time. Mental st atus is at baseline. Psychiatric: Mood and Affect: Mood normal. Behavior: Behavior normal. Thought Content: Thought content normal. Judgment: Judgment normal. Last Recorded Vitals: Visit Vitals BP 130/84 (BP Location: Lt Upper Arm) Pulse 89 Temp 36.9 C (98.4 F) (Oral) Resp 18 Ht 5' 6" Wt 180 lb 5.4 oz (81.8 kg) SpO2 94% BMI 29.11 kg/m Smoking Status Never Smoker BSA 1.95 m Intake/Output Summary (Last 24 hours) at 10/20/2020 1402 Last data filed at 10/20/2020 1314 Gross per 24 hour Intake 1550 ml Output 1750 ml Net -200 ml Laboratory Studies: Recent Results (from the past 24 hour(s)) ciValue Collection Time: 10/19/20 2:12 PM Result Value Ref Range Extra Tube Hold for add-on Comprehensive metabolic panel Collection Time: 10/20/20 4:04 AM Result Value Ref Range Sodium 135 135 - 146 mmol/L Potassium 3.3 (L) 3.5 - 5.3 mmol/L Chloride 92 (L) 98 - 107 mmol/L CO2 32 21 - 32 mmol/L Anion Gap 11 5 - 15 BUN 8 7 - 23 mg/dL Creatinine 0.8 0.7 - 1.3 mg/dL BUN/Creatinine Ratio 10 Glucose 87 65 - 99 mg/dL Calcium 8.8 8.4 - 10.4 mg/dL AST 43 <59 U/L ALT (SGPT) 80 (H) <50 U/L Alkaline Phosphatase 132 (H) 38 - 126 U/L Total Protein 5.9 (L) 6.3 - 8.2 g/dL Albumin 3.2 (L) 3.5 - 5.0 g/dL A/G Ratio 1.19 Total Bilirubin 0.6 0.1 - 1.3 mg/dL eGFR >60 >60 mL/min/1.73m*2 CBC w/ auto diff (Lab Performable) Collection Time: 10/20/20 4:04 AM Result Value Ref Range Auto WBC 7.9 4.0 - 10.5 10*3/uL RBC 3.84 (L) 4.00 - 5.80 10*6/L Hemoglobin 11.8 (L) 13.0 - 18.0 g/dL Hematocrit 35.9 (L) 37.0 - 50.0 % MCV 93.5 77.0 - 100.0 fL MCH 30.7 26.0 - 33.0 pg MCHC 32.9 31.0 - 36.0 g/dL RDW 13.1 12.0 - 17.0 % MPV 8.6 8.0 - 12.0 fL Neutrophils Relative 60.4 35.0 - 78.0 % Lymphocytes Relative 18.0 (L) 20.0 - 42.0 % Monocytes Relative 12.5 0.0 - 15.0 % Eosinophils Relative 4.4 <=10.0 % Basophils Relative 0.9 <=2.0 % Neutrophils Absolute 4.80 1.40 - 8.40 10*3/uL Lymphocytes Absolute 1.43 1.00 - 4.00 10*3/uL Monocytes Absolute 0.99 0.00 - 1.50 10*3/uL Eosinophils Absolute 0.35 <=0.70 10*3/uL Basophils Absolute 0.07 <=0.10 10*3/uL Platelets 439 (H) 125 - 425 10*3/uL Immature Neutrophils Relative 3.8 (H) <=0.5 % Immature Neutrophils Absolute 0.30 <=0.40 10*3/uL C-reactive protein Collection Time: 10/20/20 4:04 AM Result Value Ref Range CRP 17.0 (H) <=0.9 mg/dL ECG 12 lead Collection Time: 10/20/20 7:08 AM Result Value Ref Range Diagnosis Class Normal Ventricular Heart Rate 84 BPM Atrial Heart Rate 84 BPM WV Interval 140 ms QRSD Interval 82 ms QT Interval 398 ms QTC Interval 470 ms P [place] 36 degrees QRS [place] 10 degrees T Wave [place] 21 degrees Imaging and Other Studies: XR Chest 1 View Narrative: -REPORT: PROCEDURE: XR CHEST 1 VIEW DATE AND TIME: 10/19/2020 9:26 AM EDT HISTORY: Shortness of breath and hypoxia. COMPARISON: None TECHNIQUE: Portable lordotic projection obtained AP FINDINGS:Infiltrate at the left lung base consistent with pneumonia and/or atelectasis. Associated pleural effusion cannot be excluded. Right lung is grossly clear. Given the lordotic projection of the film, the cardiac and mediastinal silhouettes are grossly within normal limits. Impression: Left lower lobe atelectasis and/or pneumonia, +/- associated left pleural effusion. Follow-up to complete radiographic clearing is recommended in the next 6-8 weeks. DWS: HMI1 ELECTRONIC SIGNATURE: Jose Alberto Silva MD CT abdomen pelvis w IV contrast Narrative: -REPORT: PROCEDURES: CT ABDOMEN PELVIS W CONTRAST DATE AND TIME: 10/19/2020 1:20 PM EDT HISTORY: CLINICAL: Abdominal abscess/infection suspected CT OF THE ABDOMEN AND PELVIS WITH CONTRAST 10/16/2020 5:47 PM EDT: TECHNIQUE: Helical CT scan is obtained from the lung bases through the ischial tuberosities. The patient receives contrast intravenously. Auto Exposure Controls are utilized during the CT exam to meet ALARA standards for radiation dose reduction. This CT exam is performed using one or more of the following dose reduction techniques: automated exposure control, adjustment of the mA and/or kV according to patient size, and/or use iterative reconstruction techniques. COMPARISON STUDY: None available ABDOMEN/PELVIS FINDINGS LUNG BASES: There is left lower lobe atelectasis or infiltrate. There is a moderate left pleural effusion. There is a small right pleural effusion. LIVER: No significant abnormality. GALLBLADDER / BILE DUCTS: No significant abnormality. RIGHT KIDNEY / URETER: No significant abnormality. LEFT KIDNEY / URETER: No significant abnormality. PANCREAS: There is peripancreatic inflammation. SPLEEN: No significant abnormality. ADRENAL GLANDS: No significant abnormality. GI TRACT: There is inflammation of the duodenum and proximal small bowel distal to the ligament of Treitz. There is no intestinal dilatation. There is possible inflammation of the large bowel at the splenic flexure and proximal descending colon. There is possible inflammation of the sigmoid colon. There is possible inflammation of the ascending colon. There is no intestinal dilatation. AORTA: No significant abnormality. BLADDER: No significant abnormality. REPRODUCTIVE: No significant abnormality. ADENOPATHY: None. ASCITES: There is a small amount of pelvic ascites. There is a small amount of ascites within the left paracolic gutter. BONES: No significant abnormality. Impression: 1. Acute pancreatitis. 2. Inflammation of the duodenum, proximal small bowel and large bowel could be secondary to pancreatitis. Additional infectious/inflammatory processes are not excluded. 3. Left lower lobe atelectasis or infiltrate with moderate pleural effusion. There is small right pleural effusion. 4. There is no CT evidence of intra-abdominal or intrapelvic abscess. DWS: HMI13 ELECTRONIC SIGNATURE: DO Lucy Kohli MD Associated attestation - Jasper Robb MD - 10/20/2020 3:58 PM EDT Pt seen at bedside, admitted with acute abd pain and pancreatitis, due to persis tent symptoms, CT scan done yesterday showing colitis, and duodenal inflammation . On IV abx day # 2, still have ongoing abd pain however tolerating oral intake. Awaiting stool studies to r/o infectious and inflammatory etiology. Optimize pa in control. Otherwise as above. * Lucy Ambrose MD - 10/19/2020 8:30 AM EDT PROGRESS NOTE Patient Name: Rohan Cyr Patient Admission Date: 10/16/2020 5:47 PM Date of Service: 10/19/20 Attending Provider: Jasper Robb MD Length of Stay in Days: 3 Room and Bed: G640/G640-B Assessment/Plan: Assessment/Plan Medical Problems Problem List Pancreatitis A & P Notes: Acute pancreatitis likely idiopathic, not improving Patient was admitted for acute pancreatitis that did not improve after 5 days in [facility]. Repeat liver ultrasound showed an unremarkable gallbladder, no biliary ductal di lation and a poorly seen pancreas that looks heterogeneous suggesting underlying parenchymal disease, as well as bilateral pleural effusions. The patient is still in pain with an exquisitely tender epigastrium that is only temporarily relieved by fentanyl and Roxicodone. We are on day 8 after onset of symptoms. On PE, BP of 124/75-146/95, HR 91-99, RR 16-20, SPO2 89 to 92% on RA, afebrile. I/Os over the last 24 hours were + 320 cc with a urine output of 400 cc. He has acute diffuse abdominal tenderness on palpation, no guarding or rigidity. Cardio pulmonary auscultation is significant for bibasilar decreased breath sounds. Labs (10/18/2020): CRP of 21.2, Hb 10.8, HCT 33.6, albumin 2.8, ALP 150, AST 36, A LT 69 with an AST/ALT ratio of 0.52, total bilirubin 0.6. The patient presents with no gallstones, in AST/ALT ratio unlikely to be alcohol hepatitis and triglycerides marginally elevated at 220. Plan: We will obtain a CT abdomen and pelvis with IV contrast to rule out complic ations like abscess or walled off infected necrosis We will continue with a low-fat diet and evaluate his tolerance We will continue pain management with fentanyl 50 mcg every 2 hours as need ed, Roxicodone 5 mg every 6 hours as needed We will manage his nausea with Zofran 4 mg every 6 hours as needed We will continue oral pantoprazole 40 mg daily We will obtain an IgG4 level to rule out autoimmune pancreatitis Acute hypoxic respiratory distress in the setting of nonresolving acute pancreat itis The patient developed hypoxia over the last 24 hours with an SPO2 of 89 to 92% o n RA and episodes shortness of breath at rest Chest x-ray showed cephalization of the vessels and blunted left costophrenic an gle. We will give a dose of Lasix 40 mg IV We will monitor his respiratory status closely We will give O2 supplementation as needed for goal of SpO2 equal or more th an 92% Acute mild transaminitis possibly due to CASTELLON, improving AST 36 (down from 102), ALT 69 (down from 140), ALP 150, AST/ALT ratio 0.52<1 (possibly nonalcoholic steatohepatitis), glucose 81 Hepatitis B surface antigen and hepatitis C antibody are negative We will monitor LFTs We will monitor for signs of liver failure Chronic normocytic normochromic anemia in the setting of alcohol use The patient states he has not been drinking regularly for the past year. However , he drinks every weekend around 5 glasses of hard liquor. Hb 10.8, HCT 33.6, MCV 94.1, MCH 30.3 We will monitor CBC We will monitor vitals and signs of external bleeding History of depression and anxiety We will continue home medication venlafaxine XR 150 mg daily and trazodone 50 mg nightly GI prophylaxis We will continue oral Protonix 40 mg once daily DVT prophylaxis We will continue heparin 5000 units twice daily CODE STATUS Full code Subjective/Objective: Subjective Overnight, the patient complained of difficulty sleeping and inability to eat hi s dinner because of intense epigastric pain. He also reports episodes of shortn ess of breath at rest with a concomitant drop in his SpO2 between 89 and 92% on RA. He denies nausea or vomiting, fever or chills, diarrhea or dysuria, chest p ain. Over the last 24 hours, his BP ranged from 124/75-146/95, HR 91-99, RR 16-20, SP O2 89 to 92% on RA, temperature 37 to 37.3 C. On examination, the patient i s in acute distress lying in his bed and complaining of an intense epigastric pa in. Abdominal examination reveals tenderness on palpation of the epigastrium, n o guarding or rigidity, no mass was palpated. Pulmonary auscultation revealed d ecreased bibasilar breath sounds. There were no other significant findings. A chest x-ray was done and revealed cephalization of the vessels with blunted le ft costophrenic angle. A dose of IV Lasix 40 mg was given. We will obtain a CT of the abdomen and pelvis with IV contrast to rule out a com plication of the pancreatitis (abscess, necrosis with superimposed infection) as well as an IgG4 level. If there is any significant change in imaging, will con sult GI for further recommendations. HPI: HPI Review of Systems: Review of Systems Constitutional: Positive for appetite change and fatigue. Negative for activity change, chills, diaphoresis and fever. HENT: Negative for congestion, dental problem, drooling, ear discharge, ear pain , facial swelling, mouth sores, nosebleeds, rhinorrhea, sinus pressure, sneezing , sore throat, tinnitus and trouble swallowing. Eyes: Negative for photophobia, discharge, redness and visual disturbance. Respiratory: Positive for shortness of breath (mild, at rest). Negative for apne a, cough, choking, chest tightness, wheezing and stridor. Cardiovascular: Negative for chest pain, palpitations and leg swelling. Gastrointestinal: Positive for abdominal pain (intense diffuse abdominal pain). Negative for abdominal distention, blood in stool, constipation, diarrhea, nause a and vomiting. Genitourinary: Negative for difficulty urinating, dysuria, flank pain, frequency , hematuria and urgency. Musculoskeletal: Negative for arthralgias, back pain, gait problem, joint swelli ng, myalgias, neck pain and neck stiffness. Skin: Positive for pallor. Negative for color change, rash and wound. Neurological: Positive for headaches. Negative for dizziness, tremors, seizures, syncope, facial asymmetry, speech difficulty, weakness, light-headedness and nu mbness. Hematological: Negative for adenopathy. Does not bruise/bleed easily. Psychiatric/Behavioral: Positive for sleep disturbance (due to pain). Negative f or agitation, behavioral problems, confusion and decreased concentration. Allergies: No Known Allergies Medications: Scheduled Medications: heparin (porcine) SubQ, 5,000 Units, subcutaneous, q12h AYLA [START ON 10/20/2020] pantoprazole, 40 mg, oral, PRE BREAKFAST pantoprazole, 40 mg, intravenous, q24h AYLA traZODone, 50 mg, oral, Nightly venlafaxine XR, 150 mg, oral, Daily PRN Medications: PRN medications: fentaNYL, ondansetron OR ondansetron ODT, oxyCODONE, Insert peripheral IV AND Maintain IV access AND Saline lock IV AND sodium chloride Infusion Medications: Objective Physical Examination: Physical Exam Constitutional: General: He is in acute distress (intense abdominal pain). Appearance: He is diaphoretic. HENT: Head: Normocephalic and atraumatic. Right Ear: External ear normal. Left Ear: External ear normal. Nose: Nose normal. Mouth/Throat: Mouth: Mucous membranes are moist. Pharynx: Oropharynx is clear. Eyes: General: No scleral icterus. Right eye: No discharge. Left eye: No discharge. Neck: Vascular: No carotid bruit. Cardiovascular: Rate and Rhythm: Regular rhythm. Tachycardia present. Pulses: Normal pulses. Heart sounds: Normal heart sounds. Pulmonary: Effort: Pulmonary effort is normal. No respiratory distress. Breath sounds: No stridor. Rales (decreased bibasilar breath sounds) present. No wheezing or rhonchi. Chest: Chest wall: No tenderness. Abdominal: General: Bowel sounds are normal. There is no distension. Palpations: There is no mass. Tenderness: There is abdominal tenderness (epigastric). There is no right CVA tenderness, left CVA tenderness, guarding or rebound. Musculoskeletal: General: No swelling, tenderness, deformity or signs of injury. Normal range of motion. Cervical back: Normal range of motion and neck supple. No rigidity or tendern ess. Right lower leg: No edema. Left lower leg: No edema. Lymphadenopathy: Cervical: No cervical adenopathy. Skin: General: Skin is warm. Capillary Refill: Capillary refill takes less than 2 seconds. Coloration: Skin is pale. Skin is not jaundiced. Findings: No bruising, erythema or lesion. Neurological: General: No focal deficit present. Mental Status: He is alert and oriented to person, place, and time. Cranial Nerves: No cranial nerve deficit. Motor: No weakness. Psychiatric: Mood and Affect: Mood normal. Behavior: Behavior normal. Thought Content: Thought content normal. Judgment: Judgment normal. Last Recorded Vitals: Visit Vitals BP (!) 137/94 (BP Location: Lt Upper Arm) Pulse 91 Temp 37.1 C (98.8 F) (Oral) Resp 20 Ht 5' 6" Wt 180 lb 5.4 oz (81.8 kg) SpO2 92% BMI 29.11 kg/m Smoking Status Never Smoker BSA 1.95 m Intake/Output Summary (Last 24 hours) at 10/19/2020 1325 Last data filed at 10/19/2020 1311 Gross per 24 hour Intake 1320 ml Output 750 ml Net 570 ml Laboratory Studies: No results found for this or any previous visit (from the past 24 hour(s)). Imaging and Other Studies: US abdomen limited liver Narrative: -REPORT: PROCEDURE: US ABDOMEN LIMITED LIVER DATE AND TIME: 10/17/2020 10:15 AM EDT HISTORY: Alcoholic pancreatitis, not improving. Evaluating for gallstone or choledocholithiasis.. COMPARISON: None Technique: Multiple real-time sonographic images were obtained using grayscale and color Doppler. FINDINGS: The hepatic echotexture is grossly homogeneous without evidence of intra or extrahepatic biliary ductal dilatation. Common bile duct is 5 mm which is within normal limits. Portal vein diameter 1.1 cm with normal blood flow towards liver. Gallbladder is unremarkable without evidence of stones or wall thickening. Gallbladder wall thickness 2.6 mm which is within normal limits. No evidence of pericholecystic fluid or pain with transducer pressure over the gallbladder. Pancreas poorly seen due to overlying bowel gas. What can be seen looks heterogeneous suggesting underlying parenchymal disease. Abdominal aorta of normal caliber with a maximal diameter seen proximally measuring 1.9 cm. Inferior vena cava is grossly unremarkable. Right kidney in its expected location measuring 10.9 x 5.4 cm. No evidence of hydronephrosis. Incidental note is made of bilateral pleural effusions. Impression: 1. No evidence of intra or extrahepatic biliary ductal dilatation. 2. Gallbladder grossly unremarkable. 3. Pancreas poorly seen due to midline bowel gas, however, what can be seen is heterogeneous in appearance suggesting parenchymal disease. 4. Bilateral pleural effusions are noted. 5. See above for details. DWS: HMI4 ELECTRONIC SIGNATURE: MD Lucy Lau MD Associated attestation - Jasper Robb MD - 10/19/2020 4:20 PM EDT Patient seen and examined at bedside. Discussed with resident and nursing staff . Overnight continues to complain of worsening abdominal pain and intermittent shortness of breath. Morning x-ray showed mild pulmonary congestion. CT abdome n shows inflammation of small and large bowel with pancreatic inflammation. Sta rted on IV ciprofloxacin and Flagyl. Optimize pain control. Will obtain furthe r work-up to rule out an inflammatory bowel disease. Otherwise as above * Lucy Ambrose MD - 10/18/2020 8:40 AM EDT PROGRESS NOTE Patient Name: Rohan Cyr Patient Admission Date: 10/16/2020 5:47 PM Date of Service: 10/18/20 Attending Provider: Jasper Robb MD Length of Stay in Days: 2 Room and Bed: G640/G640-B Assessment/Plan: Assessment/Plan Medical Problems Problem List Pancreatitis A & P Notes: Acute alcoholic pancreatitis Patient was admitted for acute pancreatitis that did not improve after 5 days in [facility]. Repeat liver ultrasound showed an unremarkable gallbladder, no biliary ductal di lation and a poorly seen pancreas that looks heterogeneous suggesting underlying parenchymal disease, as well as bilateral pleural effusions. Currently, he still complains of nausea after eating as well as an intense epiga stric and left upper quadrant pain that is only temporarily relieved by fentanyl and Roxicodone. On PE, BP of 125/82-144/94, HR 89-97, RR 16-18, SPO2 6% on RA, afebrile. I/Os ov er the last 24 hours were +1175 cc with a urine output of 800 cc. He has acute e pigastric, LUQ Q and LLQ tenderness on palpation, no guarding or rigidity. Cardi opulmonary auscultation is significant for bibasilar decreased breath sounds. Labs: CRP of 21.2 (down from 25.4), Hb 10.8, HCT 33.6 (down from 34.2), albumin 2.8, ALP 150, AST 36, ALT 69 with an AST/ALT ratio of 0.52, total bilirubin 0.6. Plan: We will continue with a low-fat diet and evaluate his tolerance We will continue pain management with fentanyl 50 mcg every 2 hours as need ed, Roxicodone 5 mg every 6 hours as needed We will manage his nausea with Zofran 4 mg every 6 hours as needed We will initiate IV pantoprazole 40 mg daily and switch to p.o. once oral i ntake will be more tolerated We will encourage the patient to abstain from alcohol Acute mild transaminitis in the setting of alcohol intake, improving Patient had an increased alcohol intake 2 days prior to the onset of symptoms. 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 However , he drinks every weekend around 5 glasses of hard liquor. Hb 10.8, HCT 33.6, MCV 94.1, MCH 30.3 We will monitor CBC We will monitor vitals and signs of external bleeding History of depression and anxiety We will continue home medication venlafaxine XR 150 mg daily and trazodone 50 mg nightly GI prophylaxis We will start him on IV Protonix 40 mg once daily and will switch to p.o. o nce oral intake is more tolerated DVT prophylaxis We will continue heparin 5000 units twice daily CODE STATUS Full code Subjective/Objective: Subjective No acute events overnight. Patient remained afebrile. He reports feeling nauseat ed after his dinner yesterday but did not vomit. He could not finish his meal. H e complains of intense epigastric and left upper quadrant pain that is temporari ly relieved by pain medication. He denies fever or chills, diarrhea, vomiting, s hortness of breath or chest pain. His labs revealed a CRP of 21.2 (down from 25.4), Hb 10.8, HCT 33.6 (down from 3 4.2), albumin 2.8, ALP 150, AST 36, ALT 69 with an AST/ALT ratio of 0.52, total bilirubin 0.6. Patient is currently on a low-fat diet. Will discharge home once diet will be to lerated. Patient was started on IV Protonix 40 mg daily today. HPI: HPI Review of Systems: Review of Systems Constitutional: Negative for activity change, appetite change, chills, diaphores is, fatigue and fever. HENT: Negative for congestion, drooling, ear discharge, ear pain, mouth sores, n osebleeds, sore throat, tinnitus and trouble swallowing. Eyes: Negative for photophobia, redness and visual disturbance. Respiratory: Negative for apnea, cough, choking, chest tightness, shortness of b reath, wheezing and stridor. Cardiovascular: Negative for palpitations and leg swelling. Gastrointestinal: Positive for abdominal pain (epigastric, LUQ and LLQ) and naus ea (postprandial). Negative for abdominal distention, blood in stool, constipati on, diarrhea and vomiting. Genitourinary: Negative for difficulty urinating, dysuria, flank pain and hematu ameya. Musculoskeletal: Negative for arthralgias, joint swelling, myalgias, neck pain a nd neck stiffness. Skin: Positive for pallor. Negative for color change, rash and wound. Neurological: Negative for dizziness, tremors, seizures, syncope, facial asymmet ry, speech difficulty, weakness, light-headedness, numbness and headaches. Psychiatric/Behavioral: Negative for agitation, behavioral problems, confusion a nd decreased concentration. Allergies: No Known Allergies Medications: Scheduled Medications: heparin (porcine) SubQ, 5,000 Units, subcutaneous, q12h AYLA pantoprazole, 40 mg, intravenous, q24h AYLA traZODone, 50 mg, oral, Nightly venlafaxine XR, 150 mg, oral, Daily PRN Medications: PRN medications: fentaNYL, ondansetron OR ondansetron ODT, oxyCODONE, Insert peripheral IV AND Maintain IV access AND Saline lock IV AND sodium chloride Infusion Medications: Objective Physical Examination: Physical Exam Constitutional: General: He is not in acute distress. Appearance: He is not ill-appearing, toxic-appearing or diaphoretic. HENT: Head: Normocephalic and atraumatic. Right Ear: External ear normal. Left Ear: External ear normal. Nose: Nose normal. Mouth/Throat: Pharynx: Oropharynx is clear. No oropharyngeal exudate. Eyes: General: No scleral icterus. Right eye: No discharge. Left eye: No discharge. Cardiovascular: Rate and Rhythm: Normal rate and regular rhythm. Pulses: Normal pulses. Heart sounds: Normal heart sounds. Pulmonary: Effort: Pulmonary effort is normal. No respiratory distress. Breath sounds: No stridor. Rales (Decreased bibasilar breath sounds) present. No wheezing or rhonchi. Chest: Chest wall: No tenderness. Abdominal: General: Abdomen is flat. Bowel sounds are normal. There is no distension. Palpations: There is no mass. Tenderness: There is abdominal tenderness (acute on epigastric, LUQ and LLQ p alpation). There is no right CVA tenderness, left CVA tenderness, guarding or re bound. Musculoskeletal: General: No swelling, tenderness, deformity or signs of injury. Normal range of motion. Cervical back: Normal range of motion and neck supple. No rigidity or tendern ess. Right lower leg: No edema. Left lower leg: No edema. Lymphadenopathy: Cervical: No cervical adenopathy. Skin: General: Skin is warm. Capillary Refill: Capillary refill takes less than 2 seconds. Coloration: Skin is pale. Skin is not jaundiced. Findings: No bruising, erythema, lesion or rash. Neurological: General: No focal deficit present. Mental Status: He is alert and oriented to person, place, and time. Motor: No weakness. Psychiatric: Mood and Affect: Mood normal. Behavior: Behavior normal. Thought Content: Thought content normal. Judgment: Judgment normal. Last Recorded Vitals: Visit Vitals BP 125/82 (BP Location: Lt Upper Arm) Pulse 96 Temp 36.9 C (98.4 F) (Oral) Resp 16 Ht 5' 6" Wt 180 lb 5.4 oz (81.8 kg) SpO2 90% BMI 29.11 kg/m Smoking Status Never Smoker BSA 1.95 m Intake/Output Summary (Last 24 hours) at 10/18/2020 1405 Last data filed at 10/18/2020 1335 Gross per 24 hour Intake 1140 ml Output 1200 ml Net -60 ml Laboratory Studies: Recent Results (from the past 24 hour(s)) CBC Collection Time: 10/18/20 4:31 AM Result Value Ref Range Auto WBC 8.2 4.0 - 10.5 10*3/uL RBC 3.57 (L) 4.00 - 5.80 10*6/L Hemoglobin 10.8 (L) 13.0 - 18.0 g/dL Hematocrit 33.6 (L) 37.0 - 50.0 % MCV 94.1 77.0 - 100.0 fL MCH 30.3 26.0 - 33.0 pg MCHC 32.1 31.0 - 36.0 g/dL RDW 13.1 12.0 - 17.0 % Platelets 401 125 - 425 10*3/uL MPV 9.2 8.0 - 12.0 fL Comprehensive metabolic panel Collection Time: 10/18/20 4:31 AM Result Value Ref Range Sodium 137 135 - 146 mmol/L Potassium 3.7 3.5 - 5.3 mmol/L Chloride 98 98 - 107 mmol/L CO2 29 21 - 32 mmol/L Anion Gap 10 5 - 15 BUN 6 (L) 7 - 23 mg/dL Creatinine 0.7 0.7 - 1.3 mg/dL BUN/Creatinine Ratio 9 Glucose 81 65 - 99 mg/dL Calcium 8.5 8.4 - 10.4 mg/dL AST 36 <59 U/L ALT (SGPT) 69 (H) <50 U/L Alkaline Phosphatase 150 (H) 38 - 126 U/L Total Protein 5.5 (L) 6.3 - 8.2 g/dL Albumin 2.8 (L) 3.5 - 5.0 g/dL A/G Ratio 1.04 Total Bilirubin 0.6 0.1 - 1.3 mg/dL eGFR >60 >60 mL/min/1.73m*2 C-reactive protein Collection Time: 10/18/20 4:31 AM Result Value Ref Range CRP 21.2 (H) <=0.9 mg/dL Imaging and Other Studies: US abdomen limited liver Narrative: -REPORT: PROCEDURE: US ABDOMEN LIMITED LIVER DATE AND TIME: 10/17/2020 10:15 AM EDT HISTORY: Alcoholic pancreatitis, not improving. Evaluating for gallstone or choledocholithiasis.. COMPARISON: None Technique: Multiple real-time sonographic images were obtained using grayscale and color Doppler. FINDINGS: The hepatic echotexture is grossly homogeneous without evidence of intra or extrahepatic biliary ductal dilatation. Common bile duct is 5 mm which is within normal limits. Portal vein diameter 1.1 cm with normal blood flow towards liver. Gallbladder is unremarkable without evidence of stones or wall thickening. Gallbladder wall thickness 2.6 mm which is within normal limits. No evidence of pericholecystic fluid or pain with transducer pressure over the gallbladder. Pancreas poorly seen due to overlying bowel gas. What can be seen looks heterogeneous suggesting underlying parenchymal disease. Abdominal aorta of normal caliber with a maximal diameter seen proximally measuring 1.9 cm. Inferior vena cava is grossly unremarkable. Right kidney in its expected location measuring 10.9 x 5.4 cm. No evidence of hydronephrosis. Incidental note is made of bilateral pleural effusions. Impression: 1. No evidence of intra or extrahepatic biliary ductal dilatation. 2. Gallbladder grossly unremarkable. 3. Pancreas poorly seen due to midline bowel gas, however, what can be seen is heterogeneous in appearance suggesting parenchymal disease. 4. Bilateral pleural effusions are noted. 5. See above for details. DWS: HMI4 ELECTRONIC SIGNATURE: MD Lucy Lau MD Associated attestation - Jasper Robb MD - 10/18/2020 3:48 PM EDT Pt seen and examined at bedside. Agree with resident findings. Young male with acute pancreatitis, likely idiopathic etiology as no GB stone, and AST/ALT ratio unlikey to be alcohol induced. TG marginally elevated. Will ch k IGG4 levels. Overall improving however has persistent abdominal pain. Plan to advance diet and decrease use of narcotics. Likely d/c in the morning. * Riki Man MD - 10/17/2020 11:11 AM EDT Images from the original note were not included. [facility] HOSPITALIST PROGRESS NOTE: Author: RIKI MAN MD Date of Service: 10/17/2020 at: 11:11 AM Patient Name: Rohan Cyr Patient Admission Date: 10/16/2020 5:47 PM Attending Provider: Riki Man MD Length of Stay in Days: 1 ISOLATION: CODE STATUS: FULL Subjective: Pt was seen and examined today, case discussed with nursing, chart reviewed, no acute events overnight still with abdominal pain Review of Systems: Review of Systems HENT: Negative. Eyes: Negative. Respiratory: Negative. Cardiovascular: Negative. Gastrointestinal: Positive for abdominal pain and nausea. Inatke/ Output Intake/Output Summary (Last 24 hours) at 10/17/2020 1111 Last data filed at 10/17/2020 1010 Gross per 24 hour Intake 2152.5 ml Output 350 ml Net 1802.5 ml Objective: Vital Signs: Vitals 10/16/2020 10/16/2020 10/17/2020 Systolic 122 126 133 Diastolic 80 82 83 Pulse 108 96 97 Temp 98.3 100.1 98.9 Resp 20 16 16 Height (in) 66 - - Weight (lb) 180.34 - - BMI (kg/m2) 29.11 kg/m2 - - BSA (m2) 1.95 m2 - - Tmax:Temp (24hrs), Av.3 C (99.1 F), Min:36.8 C (98.3 F), Max :37.8 C (100.1 F) Physical Examination: Physical Exam Vitals and nursing note reviewed. Constitutional: Appearance: Normal appearance. He is normal weight. HENT: Head: Normocephalic and atraumatic. Mouth/Throat: Mouth: Mucous membranes are moist. Pharynx: Oropharynx is clear. Eyes: Extraocular Movements: Extraocular movements intact. Cardiovascular: Rate and Rhythm: Normal rate and regular rhythm. Pulmonary: Effort: Pulmonary effort is normal. No respiratory distress. Abdominal: Palpations: Abdomen is soft. Tenderness: There is abdominal tenderness. There is no guarding. Musculoskeletal: General: Normal range of motion. Cervical back: Normal range of motion and neck supple. Skin: General: Skin is warm and dry. Neurological: General: No focal deficit present. Mental Status: He is alert and oriented to person, place, and time. Psychiatric: Mood and Affect: Mood normal. Behavior: Behavior normal. Labortary Data: Results from last 7 days Lab Units 10/17/2043410/16/20 1905 HEMOGLOBIN g/dL 11.0* 11.9* HEMATOCRIT % 34.2* 36.5* WBC AUTO 10*3/uL 8.2 8.6 PLATELETS AUTO 10*3/uL 365 346 Lab Results Component Value Date NEUTOPHILPCT 67.3 10/17/2020 LYMPHOPCT 14.0 (L) 10/17/2020 MONOPCT 13.1 10/17/2020 EOSPCT 4.5 10/17/2020 Results from last 7 days Lab Units 10/17/20 0435 10/16/20 1905 SODIUM mmol/L 138 138 POTASSIUM mmol/L 3.6 3.6 CHLORIDE mmol/L 99 100 GLUCOSE mg/dL 86 88 BUN mg/dL 7 8 CREATININE mg/dL 0.8 0.8 CALCIUM mg/dL 8.4 8.9 Results from last 7 days Lab Units 10/16/20 1905 CRP mg/dL 25.4* Lab Results Component Value Date PROT 5.6 (L) 10/17/2020 ALBUMIN 2.9 (L) 10/17/2020 AST 52 10/17/2020 ALT 100 (H) 10/17/2020 ALKPHOS 153 (H) 10/17/2020 No results found for: LDH No results found for: INR, PROTIME, PTT Scheduled Medications: heparin (porcine) SubQ, 5,000 Units, subcutaneous, q12h AYLA traZODone, 50 mg, oral, Nightly venlafaxine XR, 150 mg, oral, Daily PRN Medications: PRN medications: fentaNYL, ondansetron OR ondansetron ODT, Insert peripheral IV AND Maintain IV access AND Saline lock IV AND sodium chloride Infusion Medications: Lactated Ringers (LR) infusion, 150 mL/hr, Last Rate: 150 mL/hr (10/17/20 1010) Objective Lines & Catheters: Peripheral IV 10/16/20 Right Antecubital (Active) Site Assessment Intact 10/17/20 0300 Dressing Type Transparent 10/17/20 0300 Line Status Infusing 10/17/20 0300 Dressing Status Clean;Dry;Intact 10/17/20 0300 Number of days: 1 Assesment 30-year-old male with history of alcohol abuse 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 Imaging and Other Studies: Subjective US abdomen limited liver Narrative: -REPORT: PROCEDURE: US ABDOMEN LIMITED LIVER DATE AND TIME: 10/17/2020 10:15 AM EDT HISTORY: Alcoholic pancreatitis, not improving. Evaluating for gallstone or choledocholithiasis.. COMPARISON: None Technique: Multiple real-time sonographic images were obtained using grayscale and color Doppler. FINDINGS: The hepatic echotexture is grossly homogeneous without evidence of intra or extrahepatic biliary ductal dilatation. Common bile duct is 5 mm which is within normal limits. Portal vein diameter 1.1 cm with normal blood flow towards liver. Gallbladder is unremarkable without evidence of stones or wall thickening. Gallbladder wall thickness 2.6 mm which is within normal limits. No evidence of pericholecystic fluid or pain with transducer pressure over the gallbladder. Pancreas poorly seen due to overlying bowel gas. What can be seen looks heterogeneous suggesting underlying parenchymal disease. Abdominal aorta of normal caliber with a maximal diameter seen proximally measuring 1.9 cm. Inferior vena cava is grossly unremarkable. Right kidney in its expected location measuring 10.9 x 5.4 cm. No evidence of hydronephrosis. Incidental note is made of bilateral pleural effusions. Impression: 1. No evidence of intra or extrahepatic biliary ductal dilatation. 2. Gallbladder grossly unremarkable. 3. Pancreas poorly seen due to midline bowel gas, however, what can be seen is heterogeneous in appearance suggesting parenchymal disease. 4. Bilateral pleural effusions are noted. 5. See above for details. DWS: HMI4 ELECTRONIC SIGNATURE: Jose Alberto Silva MD Consults: IP CONSULT TO GASTROENTEROLOGY Procedures: Author: RIKI MAN MD Note created: 10/17/2020 at: 11:11 AM documented in this encounter H&P Notes * Sarah Hua MD - 10/16/2020 6:42 PM EDT H&P Patient Name: Rohan Cyr Patient Admission Date: 10/16/2020 Attending Provider: Riki Man MD ISOLATION: CODE STATUS: FULL ASSESSMENT/PLAN: Assessment/Plan A & P Notes: Acute pancreatitis likely alcohol induced, not resolving. Mild transaminitis. Normocytic anemia. Plan: Acute pancreatitis likely alcohol induced, patient was started on clear liquid d iet on 10/14 and was placed on full liquid diet on 10/15. His symptoms continue to get worse. He had a CT scan done on 10/14 that was similar to the CAT scan done o n 10/12. Ultrasound showed gallbladder sludge otherwise was unremarkable. Will c heck triglyceride levels. We will do a repeat ultrasound here right upper quadr ant to evaluate for gallstones or choledocholithiasis or any CBD dilation. We w ill keep n.p.o. along with IV fluids. IV Zofran for nausea. Pain control. We will consider getting GI team on board in the morning. Mild transaminitis, unclear etiology. Will check acute hepatitis panel. Normocytic anemia, monitor for now. Full code. Heparin subcutaneous for DVT prophylaxis N.p.o. for now. SUBJECTIVE/OBJECTIVE: Subjective Chief Complaint: No chief complaint on file. HPI: He is 30-year-old male with history of possible alcohol induced pancreatitis a y ear ago came as a transfer from [facility] where he was admitted on 10/12 with acute episode of alcoholic pancreatitis. He was transferred over here as he was not getting better. History was taken from the patient along with the chart review. Per patient, he drank 3-4 shots of vodka on Saturday night 10/07. He started having some abdominal pain on 10/09 associated with nausea but no vomi ting. He was tolerating the pain until Thursday 10/12 when pain was so severe th at he was not able to tolerate and he decided to come to the hospital. Pain was severe in intensity epigastric in location radiating towards the back associated with nausea vomiting multiple times. He was admitted to [facility] where he was managed conservatively with hydration, pain control and keeping n .p.o. He mentioned he was started on clear liquid diet 2 [address] and was place d on full liquid diet yesterday but his symptoms continued to get worse. Per chart review, he had a CT scan with IV contrast done on 10/12 as well as 10/14 that showed pancreatitis without pseudocyst or pancreatic necrosis. He also had a right upper quadrant ultrasound done at [facility] that showed gallbla dder sludge but otherwise was unremarkable. He was evaluated by general surgery over there and were not convinced if the cause of pancreatitis is gallstone. On arrival at [facility], patient was hemodynamically stable. Patient was still compla ining of abdominal pain in the epigastric area radiating towards the back modera te intensity associated with intermittent nausea but no vomiting. His labs show ed normocytic anemia 11.9 with CRP 25.4. His LFTs showed transaminitis with AST 102 and ALT 140. Past Medical and Surgical Histories: No past medical history on file. No past surgical history on file. Family History: No family history on file. Social History: Social History Socioeconomic History Marital status: Not on file Spouse name: Not on file Number of children: Not on file Years of education: Not on file Highest education level: Not on file Occupational History Not on file Tobacco Use Smoking status: Not on file Substance and Sexual Activity Alcohol use: Not on file Drug use: Not on file Sexual activity: Not on file Other Topics Concern Not on file Social History Narrative Not on file Social Determinants of Health Financial Resource Strain: Difficulty of Paying Living Expenses: Not on file Food Insecurity: Worried About Running Out of Food in the Last Year: Not on file Ran Out of Food in the Last Year: Not on file Transportation Needs: Lack of Transportation (Medical): Not on file Lack of Transportation (Non-Medical): Not on file Physical Activity: Days of Exercise per Week: Not on file Minutes of Exercise per Session: Not on file Stress: Feeling of Stress : Not on file Social Connections: Frequency of Communication with Friends and Family: Not on file Frequency of Social Gatherings with Friends and Family: Not on file Attends Christianity Services: Not on file Active Member of Clubs or Organizations: Not on file Attends Club or Organization Meetings: Not on file Marital Status: Not on file Intimate Partner Violence: Fear of Current or Ex-Partner: Not on file Emotionally Abused: Not on file Physically Abused: Not on file Sexually Abused: Not on file Allergies: Not on File Home Medications: Prior to Admission medications Not on File Review of Systems: Review of Systems All other systems reviewed and are negative. Objective Laboratory Results: No results found for this or any previous visit (from the past 24 hour(s)). Imaging Results and Other Studies: No image results found. Physical Exam: Visit Vitals BP 122/80 (BP Location: Lt Upper Arm, Patient Position: Supine) Pulse (!) 108 Temp 36.8 C (98.3 F) (Oral) Resp 20 Ht 5' 6" Wt 180 lb 5.4 oz (81.8 kg) SpO2 96% BMI 29.11 kg/m BSA 1.95 m Physical Exam Vitals reviewed. Constitutional: General: He is not in acute distress. Appearance: He is well-developed. He is not diaphoretic. HENT: Head: Normocephalic and atraumatic. Nose: Nose normal. No congestion or rhinorrhea. Eyes: General: No scleral icterus. Pupils: Pupils are equal, round, and reactive to light. Neck: Thyroid: No thyromegaly. Vascular: No JVD. Cardiovascular: Rate and Rhythm: Normal rate and regular rhythm. Heart sounds: Normal heart sounds. No murmur heard. No friction rub. No gallop. Pulmonary: Effort: Pulmonary effort is normal. No respiratory distress. Breath sounds: Normal breath sounds. No wheezing or rales. Chest: Chest wall: No tenderness. Abdominal: General: Bowel sounds are normal. There is no distension. Palpations: Abdomen is soft. There is no mass. Tenderness: There is no abdominal tenderness. There is no rebound. Musculoskeletal: General: No tenderness. Normal range of motion. Cervical back: Normal range of motion and neck supple. No rigidity. No muscul ar tenderness. Lymphadenopathy: Cervical: No cervical adenopathy. Skin: General: Skin is warm and dry. Coloration: Skin is not jaundiced. Findings: No rash. Neurological: Mental Status: He is alert and oriented to person, place, and time. Deep Tendon Reflexes: Reflexes normal. SARAH HUA MD 10/16/2020 documented in this encounter Consult Notes * Ruth Ann Raphael RD - 10/21/2020 2:58 PM EDT Pt. continues on a low fat diet, intakes remain fair with 25% of meals consumed and not meeting nutritional needs. No current wts., labs this AM glucose 109, al bumin 3.1, ALT 57, CRP 14.3. Note Pt. with colitis, duodenal inflamation, report s poor intakes due to abdominal pain. GI-loose BMs. Pt. declines any needs re: m easharmila at this time, is agreeable to trying Ensure Clear TID with meals (each prov iding 240 kcal, 8 gms protein). May need to consider alternat means of nutrition support if PO intakes do not improve. Our Service will continue to follow. * Ruth Ann Raphael RD - 10/18/2020 10:48 AM EDT Consult received re: Epic, record reveiwed and Low Fat diet ordered. Current wt. 81.8 kg, BMI 29.11 and meets criteria for overweight. Labs /-CRP 25.4, elevat ed AST/ALT. Pt. states he is aware of Low Fat diet and declines education needs. Pt. ordering adequate calories and protein, reports fair appetite due to abdomi nal discomfort. Pt. declines any particular needs re: meals, our Service will co ntinue to follow. documented in this encounter Nursing Notes * Che Cole RN - 10/22/2020 11:15 AM EDT Pt A&Ox4. +BS, tolerating diet, no c/o N/V. Pt able to consume 100% of breakfast without N/V, or increased pain. Pt stating "I feel much better" and expressing interest for discharged. Pain has been tolerable at a 4/10-5/10 overnight. Provider updated. Discharge paperwork completed with patient with understanding and pt is agreeable to discharge. VSS. Pt will be transported off unit via W/C when private vehicle arrives. * Loni Connelly RN - 10/21/2020 1:59 PM EDT Pt alert and oriented times 3. Pt c/o pain on and off through out the day. Pt me dicated for pain per MAR. Pt's appetite poor. Pt ate no breakfast at all and not much lunch. Abdomen tender., bowel sounds present in all 4 quadrants. See flows heet for full assessment. Cont with POC. * Joie Bynum RN - 10/20/2020 8:57 PM EDT Patient is alert and oriented x 3. Circulation movement sensation + to all four extremities. Pain to right lower quadrant, patient states pain comes in spasms. Patient requesting anti-spasm medication. md notified, order received. Patient o ut of bed independent in room, avoids ambulation due to pain. Patient has loose watery bm, once this shift, sample sent to lab per MD order. Patient tolerating oral solids, states that eating does not increase his pain. Patient has shilpa co ncentrated urine, encouraged increased oral fluids. IV fluids infused per MD ord er. Patient now resting with call deleon in reach, will continue to monitor. * Che Cole RN - 10/20/2020 1:21 PM EDT Pt A&Ox4. +BS, tolerating diet. Minimal appetite related to pain. Tenderness with palpation to mid upper right abdomen. Pain intermittently controlled with PRN. Pt with loose stool this afternoon. Pt updated a stool sample is needed. Pt voiding dark shilpa urine, encouraged oral intake. Pt independent in room. VSS. Will continue to monitor. * Vinicio Braden RN - 10/19/2020 8:10 PM EDT Patient alert and oriented x4. Moderate-severe pain controlled with IV and oral analgesics to moderate effect. Provider notified of inadequate pain control, crystal quency of administrations increased. Abdomen soft, distended, tender. Bowel soun ds hypoactive. Patient reports pain has moved from primarily to left abdomen and flank to right abdomen. Patient ambulates independently. Voiding clear shilpa ur ine in bathroom. Patient to CT for imaging of abdomen and pelvis this shift. Con tinue plan of care. * Minda Vega RN - 10/19/2020 7:00 AM EDT Slept most of night. Med for pain and slept. Pt was having lot of abdominal pain . Will continue to monitor and follow plan of care. * Lilly Espinosa RN - 10/18/2020 10:26 PM EDT Patient alert and oriented, patient complaints of pain medicated per MAR. Franny t also provided warm blanket for abdomen pain. Patient independent ambulating in his room and hallway. Patient tolerated ambulating fairly well. Patient voiding without issue, IV patent. Call deleno within reach, will continue plan of care. S ee flow sheet for assessment details. * Lilly Espinosa RN - 10/17/2020 11:07 PM EDT Patient alert and oriented, patient complaints of pain and nausea. Patient medic ated per APR. Patient's nausea persisted notified provider and received a one ti me does of medication. Administered per APR. Patient stated improvement in nause a. Patient independent in his room using the urinal and bathroom. Urine at begin khushbu of my shift was a dark shilpa and had improved to a light yellow at the end of my shift. Patient's abdomen is tender to touch, rounded, and distended. Last bowel movement 10/16/20. Call deleon within reach, will continue plan of care. See f low sheet for assessment details. * Vinicio Braden RN - 10/17/2020 3:39 PM EDT Patient alert and oriented x4. Late in shift sustained mild oxygen desaturation noted, 2L O2 applied by nasal cannula, provider notified. Patient reports diffic ulty taking deep breaths due to abdominal pain. Patient having uncontrolled pain early in shift- provider notified, order obtained for oral analgesics. Administ ered to good effect. Patient to ultrasound this shift, awaiting results. Fluids administered as ordered. Diet advanced to regular from NPO, tolerating well. Pat ient resting in bed with call deleon in reach. Continue plan of care. documented in this encounter Miscellaneous Notes * Care Plan - Che Cole RN - 10/22/2020 11:50 AM EDT Goals: Identify possible barriers to meeting goals/advancing plan of care: Stability of the patient: Stable End of Shift Summary: * Care Plan - Che Cole RN - 10/22/2020 9:15 AM EDT Problem: Pain - Adult Goal: Verbalizes/displays adequate comfort level or baseline comfort level Outcome: Progressing Flowsheets (Taken 10/22/2020913) Verbalizes/displays adequate comfort level or baseline comfort level: Encourage patient to monitor pain and request assistance Assess pain using appropriate pain scale Administer analgesics based on type and severity of pain and evaluate response Problem: Infection - Adult Goal: Absence of infection during hospitalization Outcome: Progressing Flowsheets (Taken 10/22/2020913) Absence of infection during hospitalization: Assess and monitor for signs and symptoms of infection Monitor lab/diagnostic results Problem: Skin/Tissue Integrity Goal: Skin integrity remains intact Outcome: Progressing Flowsheets (Taken 10/22/2020913) Skin integrity remains intact: EVERY SHIFT: Monitor for areas of redness and/or skin breakdown EVERY SHIFT: Assess and document skin integrity Goal: Oral mucous membranes remain intact Outcome: Progressing Flowsheets (Taken 10/22/2020913) Oral mucous membranes remain intact: Assess oral mucosa and hygiene practices Problem: Safety Adult - Fall Goal: Free from fall injury Outcome: Progressing Flowsheets (Taken 10/22/2020913) Free from fall injury: Assess patient frequently for physical needs [place] fall precautions as indicated by assessment Identify cognitive and physical deficits and behaviors that affect risk of fall s Problem: Discharge Planning Goal: Discharge to home or other facility with appropriate resources Outcome: Progressing Flowsheets (Taken 10/22/2020913) Discharge to home or other facility with appropriate resources: Identify barriers to discharge with patient and caregiver Identify discharge learning needs (meds, wound care, etc) Problem: Chronic Conditions and Co-morbidities Goal: Patient's chronic conditions and co-morbidity symptoms are monitored and m aintained or improved Flowsheets (Taken 10/22/2020 0914) Patient's chronic conditions are monitored and maintained or improved: Monitor a nd assess patient's chronic conditions and comorbid symptoms for stability, dete rioration, or improvement Goals: Tolerate diet, decrease pain, potential discharge Identify possible barriers to meeting goals/advancing plan of care: intermittent pain Stability of the patient: Stable End of Shift Summary: pt expressing interest in going home today. Discussed with provider. Will update patient on PoC * Care Plan - Rochelle Guerin RN - 10/22/2020 1:30 AM EDT Goals: Identify possible barriers to meeting goals/advancing plan of care: Stability of the patient: Moderately Stable - Low risk of patient condition decl ining or worsening End of Shift Summary: - * Care Plan - Loni Connelly RN - 10/21/2020 11:11 AM EDT Goals: Problem: Pain - Adult Goal: Verbalizes/displays adequate comfort level or baseline comfort level Outcome: Progressing Flowsheets (Taken 10/21/2020 1111) Verbalizes/displays adequate comfort level or baseline comfort level: Assess amanda n using appropriate pain scale Problem: Infection - Adult Goal: Absence of infection during hospitalization Outcome: Progressing Problem: Skin/Tissue Integrity Goal: Skin integrity remains intact Outcome: Progressing Goal: Oral mucous membranes remain intact Outcome: Progressing Problem: Safety Adult - Fall Goal: Free from fall injury Outcome: Progressing Problem: Discharge Planning Goal: Discharge to home or other facility with appropriate resources Outcome: Progressing Identify possible barriers to meeting goals/advancing plan of care: decrease amanda n Stability of the patient: Moderately Stable - Low risk of patient condition decl ining or worsening End of Shift Summary: see nurse note * Case Management - Karla Sargent RN - 10/21/2020 7:52 AM EDT Continued stay - Abdominal pain continues. Fecal leukocytes detected. CT indicat ed colitis and duodenal inflammation. IVABX, pain control, and lab monitoring continued. * Care Plan - Che Cole RN - 10/20/2020 10:46 AM EDT Problem: Pain - Adult Goal: Verbalizes/displays adequate comfort level or baseline comfort level Outcome: Progressing Flowsheets (Taken 10/20/2020 1045) Verbalizes/displays adequate comfort level or baseline comfort level: Encourage patient to monitor pain and request assistance Assess pain using appropriate pain scale Administer analgesics based on type and severity of pain and evaluate response Problem: Infection - Adult Goal: Absence of infection during hospitalization Outcome: Progressing Flowsheets (Taken 10/20/2020 1045) Absence of infection during hospitalization: Assess and monitor for signs and symptoms of infection Monitor lab/diagnostic results Problem: Skin/Tissue Integrity Goal: Skin integrity remains intact Outcome: Progressing Flowsheets (Taken 10/20/2020 1045) Skin integrity remains intact: EVERY SHIFT: Assess and document skin integrity EVERY SHIFT: Monitor for areas of redness and/or skin breakdown Goal: Oral mucous membranes remain intact Outcome: Progressing Flowsheets (Taken 10/20/2020 1045) Oral mucous membranes remain intact: Assess oral mucosa and hygiene practices Problem: Safety Adult - Fall Goal: Free from fall injury Outcome: Progressing Flowsheets (Taken 10/20/2020 1045) Free from fall injury: Assess patient frequently for physical needs Identify cognitive and physical deficits and behaviors that affect risk of fall s [place] fall precautions as indicated by assessment Problem: Discharge Planning Goal: Discharge to home or other facility with appropriate resources Outcome: Progressing Flowsheets (Taken 10/20/2020 1045) Discharge to home or other facility with appropriate resources: Arrange for needed discharge resources and transportation as appropriate Identify barriers to discharge with patient and caregiver Problem: Chronic Conditions and Co-morbidities Goal: Patient's chronic conditions and co-morbidity symptoms are monitored and m aintained or improved Outcome: Progressing Flowsheets (Taken 10/20/2020 1045) Patient's chronic conditions are monitored and maintained or improved: Monitor a nd assess patient's chronic conditions and comorbid symptoms for stability, dete rioration, or improvement Goals: Decrease abdominal pain Identify possible barriers to meeting goals/advancing plan of care: intermittent pain increases Stability of the patient: Stable End of Shift Summary: see note * Care Plan - Minda Vega RN - 10/19/2020 8:36 PM EDT Goals: pain control Identify possible barriers to meeting goals/advancing plan of care: Stability of the patient: Moderately Stable - Low risk of patient condition decl ining or worsening End of Shift Summary: * Case Management - Karla Sargent RN - 10/19/2020 12:01 PM EDT Continued stay - Patient experiencing abdominal pain requiring doses of IV fenta nyl. CT Abdomen/pelvis and CXR pending. 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 He was transferred from [facility] where he was admitted on 10/12/2020 for acute pancreatitis that was not improving. He had a CT abdomen and pelvis with IV contrast in [place] on 10/12/2020 and with the same findings of pancreatitis without pseudocyst or necrosis. The patient states that he has been tremendously decreasing his alcohol intake f or the past year with only few drinks on the weekends. Current episode of pancr eatitis started 2 days after last alcohol intake (5 glasses of vodka and 3-5 bee rs), and a few hours after large meal. He was started back on a regular diet on 10/16/2020 and admitted to [facility]. His labs revealed an anemia at 11.9, and elevated CRP at 25.4, AST 102 and ALT 1 40. Triglycerides were mildly elevated at 220. A liver ultrasound on admission revealed no biliary ductal dilation, CBD at 5 mm , unremarkable gallbladder. The pancreas was poorly seen, however it looks hete rogeneous suggesting an underlying parenchymal disease. There were also bilater al pleural effusions. The etiology of the acute pancreatitis is likely idiopathic as there are no gall stones, AST/ALT ratio less than 1 (unikely alcohol induced) and triglycerides on ly marginally elevated. IgG4 levels were obtained, results are pending. During the course of hospitalization, the patient was still complaining of acute epigastric pain temporally resolved with pain medication (fentanyl, Roxicodone, antispasmodics). He occasionally tolerated low-fat regular diet without nausea or vomiting but mostly could not eat because of the pain. His SpO2 dropped to 89 to 92% on room air on day 2 of hospitalization, chest x-r ay showed cephalization's of the vessels as well as a blunted left costophrenic angle and the patient received a dose of IV Lasix with subsequent improvement an d resolution of respiratory symptoms. Given the persistence of abdominal pain, a repeat CT abdomen and pelvis without IV contrast on 10/19/2020 showed acute pancreatitis, inflammation of the duodenum, proximal small bowel and large bowel with no abscess detected. The patient was therefore started on IV antibiotics with ciprofloxacin 400 mg every 12 hours and Flagyl 500 mg every 6 hours. C. difficile molecular test was negative, and fecal leukocytes were detected. Fecal calprotectin was obtained, results are pending. * Care Plan - Minda Vega RN - 10/19/2020 2:00 AM EDT Goals: discharge Identify possible barriers to meeting goals/advancing plan of care: Stability of the patient: Moderately Stable - Low risk of patient condition decl ining or worsening End of Shift Summary: * Care Plan - Lilly Espinosa RN - 10/18/2020 3:45 PM EDT Goals: Problem: Pain - Adult Goal: Verbalizes/displays adequate comfort level or baseline comfort level Outcome: Progressing Flowsheets (Taken 10/18/2020 5395) Verbalizes/displays adequate comfort level or baseline comfort level: Assess pain using appropriate pain scale Encourage patient to monitor pain and request assistance Problem: Infection - Adult Goal: Absence of infection during hospitalization Outcome: Progressing Flowsheets (Taken 10/18/2020 1544) Absence of infection during hospitalization: Assess and monitor for signs and symptoms of infection Monitor lab/diagnostic results Monitor all insertion sites i.e., indwelling lines, tubes and drains Problem: Skin/Tissue Integrity Goal: Skin integrity remains intact Outcome: Progressing Problem: Safety Adult - Fall Goal: Free from fall injury Outcome: Progressing Flowsheets (Taken 10/18/2020 1544) Free from fall injury: Assess patient frequently for physical needs [place] fall precautions as indicated by assessment Modify environment to reduce risk of injury Problem: Discharge Planning Goal: Discharge to home or other facility with appropriate resources Outcome: Progressing Flowsheets (Taken 10/18/2020 1544) Discharge to home or other facility with appropriate resources: Identify barriers to discharge with patient and caregiver Refer to discharge planning if patient needs post-hospital services based on ph ysician order or complex needs related to functional status, cognitive ability o r social support system Problem: Chronic Conditions and Co-morbidities Goal: Patient's chronic conditions and co-morbidity symptoms are monitored and m aintained or improved Outcome: Progressing Flowsheets (Taken 10/18/2020 1544) Patient's chronic conditions are monitored and maintained or improved: Monitor a nd assess patient's chronic conditions and comorbid symptoms for stability, dete rioration, or improvement Identify possible barriers to meeting goals/advancing plan of care: Pain Stability of the patient: Moderately Stable - Low risk of patient condition decl ining or worsening End of Shift Summary: See Nursing Note. * Case Management - Tiara Gama RN - 10/18/2020 3:13 PM EDT Continued stay for pancreatitis. Continue IV protonix, IV Zofran, Pain control with fentanyl IV, Roxicodone po. Continue to monitor LFT's. Anticipate dc to h ome once low fat diet is tolerated. * Care Plan - Renea Raphael RN - 10/18/2020 11:46 AM EDT Goals: tolerate diet, pain control Identify possible barriers to meeting goals/advancing plan of care: pain Stability of the patient: Moderately Stable - Low risk of patient condition decl ining or worsening End of Shift Summary: Problem: Pain - Adult Goal: Verbalizes/displays adequate comfort level or baseline comfort level Outcome: Progressing Problem: Infection - Adult Goal: Absence of infection during hospitalization Outcome: Progressing Problem: Skin/Tissue Integrity Goal: Skin integrity remains intact Outcome: Progressing Goal: Oral mucous membranes remain intact Outcome: Progressing Problem: Safety Adult - Fall Goal: Free from fall injury Outcome: Progressing Problem: Discharge Planning Goal: Discharge to home or other facility with appropriate resources Outcome: Progressing Problem: Chronic Conditions and Co-morbidities Goal: Patient's chronic conditions and co-morbidity symptoms are monitored and m aintained or improved Outcome: Progressing * Care Plan - Rochelle Guerin RN - 10/18/2020 12:45 AM EDT Goals: Identify possible barriers to meeting goals/advancing plan of care: Stability of the patient: Moderately Stable - Low risk of patient condition decl ining or worsening End of Shift Summary: - * Care Plan - Lilly Espinosa RN - 10/17/2020 7:39 PM EDT Goals: Problem: Pain - Adult Goal: Verbalizes/displays adequate comfort level or baseline comfort level Outcome: Progressing Flowsheets (Taken 10/17/20201937) Verbalizes/displays adequate comfort level or baseline comfort level: Encourage patient to monitor pain and request assistance Assess pain using appropriate pain scale Administer analgesics based on type and severity of pain and evaluate response Problem: Infection - Adult Goal: Absence of infection during hospitalization Outcome: Progressing Flowsheets (Taken 10/17/20201937) Absence of infection during hospitalization: Assess and monitor for signs and symptoms of infection Monitor lab/diagnostic results Monitor all insertion sites i.e., indwelling lines, tubes and drains Problem: Skin/Tissue Integrity Goal: Skin integrity remains intact Outcome: Progressing Problem: Safety Adult - Fall Goal: Free from fall injury Outcome: Progressing Flowsheets (Taken 10/17/20201937) Free from fall injury: Assess patient frequently for physical needs Modify environment to reduce risk of injury Instruct patient to call for assistance with activity based on assessment Problem: Discharge Planning Goal: Discharge to home or other facility with appropriate resources Outcome: Progressing Flowsheets (Taken 10/17/20201937) Discharge to home or other facility with appropriate resources: Identify barriers to discharge with patient and caregiver Refer to discharge planning if patient needs post-hospital services based on ph ysician order or complex needs related to functional status, cognitive ability o r social support system Problem: Chronic Conditions and Co-morbidities Goal: Patient's chronic conditions and co-morbidity symptoms are monitored and m aintained or improved Outcome: Progressing Flowsheets (Taken 10/17/20201937) Patient's chronic conditions are monitored and maintained or improved: Monitor a nd assess patient's chronic conditions and comorbid symptoms for stability, dete rioration, or improvement Identify possible barriers to meeting goals/advancing plan of care: Nausea, pain Stability of the patient: Moderately Stable - Low risk of patient condition decl ining or worsening End of Shift Summary: See Nursing Note. * Case Management - Tiara Gama RN - 10/17/2020 7:59 AM EDT IP: Pancreatitis possible alcohol induced.. IVF, IV Zofran, pain control. GI consult. Patient NPO. Patient was transfer from [facility] admitte d 10/12 received ivfs, pain control, npo - advanced diet but was not improving. C M to follow for need. NCM met with patient at bedside to discuss dc needs. Patient lives alone indepe ndently in apartment setting. [place] in the [employer] [place] Patient unsure of transportation back as was transferred from [facility]. No dc needs identified at this time. CM to follow. * Care Plan - Rochelle Guerin RN - 10/17/2020 3:10 AM EDT Goals: Identify possible barriers to meeting goals/advancing plan of care: Stability of the patient: Moderately Stable - Low risk of patient condition decl ining or worsening End of Shift Summary: - documented in this encounter Plan of Treatment Date/Time Name Type Priority Associated Diag noses 10/20/2020 6:28 PM EDT FECAL CALPROTECTIN Lab Routine Health Maintenance Due Date Last Done Comments HIV Screening 1991 MMR Vaccines (1 of 1 - 1992 Standard series) Varicella Vaccines (1 [...] this topic documented as of this encounter Procedures Comments Procedure Name Priority Date/Time Associated Diag nosis CBC AUTO DIFF Routine 10/22/2020 4:40 AM EDT SMEAR REVIEW Routine 10/22/2020 4:40 AM EDT CBC WITH AUTO Routine 10/22/2020 DIFFERENTIAL 4:40 AM EDT MANUAL DIFFERENTIAL Routine 10/22/2020 4:40 AM EDT C-REACTIVE PROTEIN Add-On 10/22/2020 4:40 AM EDT COMPREHENSIVE METABOLIC Routine 10/22/2020 PANEL 4:40 AM EDT CBC AUTO DIFF Routine 10/21/2020 3:56 AM EDT CBC WITH AUTO Routine 10/21/2020 DIFFERENTIAL 3:56 AM EDT C-REACTIVE PROTEIN Routine 10/21/2020 3:56 AM EDT COMPREHENSIVE METABOLIC Routine 10/21/2020 PANEL 3:56 AM EDT C.DIFFICILE MOLECULAR Routine 10/20/2020 6:28 PM EDT FECAL LEUKOCYTES Routine 10/20/2020 6:28 PM EDT ECG 12-LEAD Routine 10/20/2020 7:08 AM EDT CBC AUTO DIFF Routine 10/20/2020 4:04 AM EDT CBC WITH AUTO Routine 10/20/2020 DIFFERENTIAL 4:04 AM EDT C-REACTIVE PROTEIN Add-On 10/20/2020 4:04 AM EDT COMPREHENSIVE METABOLIC Routine 10/20/2020 PANEL 4:04 AM EDT IGG SUBCLASS 4 Routine 10/19/2020 2:12 PM EDT EXTRA TUBES Routine 10/19/2020 2:12 PM EDT LAVENDER TOP Routine 10/19/2020 2:[address] ABDOMEN PELVIS W Routine 10/19/2020 CONTRAST 1:31 PM EDT XR CHEST 1 VIEW Routine 10/19/2020 9:46 AM EDT CBC NO DIFFERENTIAL Routine 10/18/2020 4:31 AM EDT C-REACTIVE PROTEIN Routine 10/18/2020 4:31 AM EDT COMPREHENSIVE METABOLIC Routine 10/18/2020 PANEL 4:31 AM EDT US ABDOMEN LIMITED LIVER Routine 10/17/2020 10:36 AM EDT CBC AUTO DIFF Routine 10/17/2020 4:35 AM EDT CBC WITH AUTO Routine 10/17/2020 DIFFERENTIAL 4:35 AM EDT HEPATITIS C ANTIBODY Add-On 10/17/2020 4:35 AM EDT HEPATITIS A ANTIBODY, IGM Add-On 10/17/2020 4:35 AM EDT HEPATITIS B CORE Add-On 10/17/2020 ANTIBODY, IGM 4:35 AM EDT HEPATITIS B SURFACE Add-On 10/17/2020 ANTIGEN 4:35 AM EDT COMPREHENSIVE METABOLIC Routine 10/17/2020 PANEL 4:35 AM EDT EXTRA TUBES Routine 10/16/2020 7:08 PM EDT YELLOW TOP Routine 10/16/2020 7:08 PM EDT LIGHT BLUE TOP Routine 10/16/2020 7:08 PM EDT TRIGLYCERIDES Add-On 10/16/2020 7:08 PM EDT CBC AUTO DIFF Routine 10/16/2020 7:05 PM EDT CBC WITH AUTO Routine 10/16/2020 DIFFERENTIAL 7:05 PM EDT C-REACTIVE PROTEIN Routine 10/16/2020 7:05 PM EDT LIPASE Routine 10/16/2020 7:05 PM EDT COMPREHENSIVE METABOLIC Routine 10/16/2020 PANEL 7:05 PM EDT documented in this encounter Results * C-reactive protein (10/22/2020 4:40 AM EDT) Pathologist [facility] CRP 6.4 (H) <=0.9 mg/dL [facility] Specimen Blood - Blood, Venous Performing Organization Address [facility] P woody Number [facility] [place] [address] * Smear Review (10/22/2020 4:40 AM EDT) Pathologist [facility] RBC Morphology Normal [facility] WBC Morphology Normal [facility] Platelet Increased [facility] Estimate GENERAL Specimen Blood - Blood, Venous Performing Organization Address [facility] P woody Number [facility] [place] [address] * Manual Differential (10/22/2020 4:40 AM EDT) [facility] Neutrophils % 67 40 - 75 % [facility] Bands % 1 <=12 % [facility] Lymphocytes % 20 20 - 42 % [facility] Monocytes % 4 2 - 11 % [facility] Eosinophils % 5 <=10 % [facility] Myelocytes % 3 (H) <=0 % [facility] Manual nRBC % 1 (H) <=0 % [facility] Total Counted 100 [facility] Absolute 4.5 1.4 - 8.0 10*3/uL [facility] Neutrophil GENERAL Count Lymphocytes 1.3 (L) 1.4 - 4.0 10*3/uL [facility] Absolute GENERAL Monocytes 0.3 0.0 - 1.0 10*3/uL [facility] GENERAL Eosinophils 0.3 <=0.7 10*3/uL [facility] Absolute GENERAL Myelocytes 0 10*3/uL [facility] GENERAL Specimen Blood - Blood, Venous Performing Organization Address [facility] P woody Number [facility] [place] [address] * CBC w/ auto diff (Lab Performable) (10/22/2020 4:40 AM EDT) [facility] Auto WBC 6.6 4.0 - 10.5 10*3/uL [facility] RBC 4.13 4.00 - 5.80 10*6/ [facility] L GENERAL Hemoglobin 12.4 (L) 13.0 - 18.0 g/dL [facility] GENERAL Hematocrit 38.5 37.0 - 50.0 % [facility] MCV 93.2 77.0 - 100.0 fL [facility] MCH 30.0 26.0 - 33.0 pg [facility] MCHC 32.2 31.0 - 36.0 g/dL [facility] RDW 12.8 12.0 - 17.0 % [facility] MPV 8.6 8.0 - 12.0 fL [facility] Platelets 579 (H) 125 - 425 10*3/uL [facility] ON GENERAL Specimen Blood - Blood, Venous Performing Organization Address City/State/ZIP Code P woody Number [facility] [address] [place] [address] * Comprehensive metabolic panel (10/22/2020 4:40 AM EDT) [facility] Sodium 137 135 - 146 mmol/L [facility] Potassium 4.0 3.5 - 5.3 mmol/L [facility] GENERAL Chloride 97 (L) 98 - 107 mmol/L [facility] CO2 31 21 - 32 mmol/L [facility] Anion Gap 9 5 - 15 [facility] BUN 9 7 - 23 mg/dL [facility] Creatinine 0.9 0.7 - 1.3 mg/dL [facility] BUN/Creatinine 10 [facility] GENERAL Glucose 87 65 - 99 mg/dL [facility] Calcium 9.1 8.4 - 10.4 mg/dL [facility] GENERAL AST 31 <59 U/L [facility] ALT (SGPT) 45 <50 U/L [facility] Alkaline 98 38 - 126 U/L [facility] Phosphatase GENERAL Total Protein 5.7 (L) 6.3 - 8.2 g/dL [facility] Albumin 3.0 (L) 3.5 - 5.0 g/dL [facility] A/G Ratio 1.11 [facility] Total Bilirubin 0.4 0.1 - 1.3 mg/dL [facility] eGFR >60 >60 mL/min/1.73m*2 [facility] Specimen Blood - Blood, Venous Performing Organization Address City/State/ZIP Code P woody Number [facility] [address] [place] [address] * CBC w/ auto diff (Lab Performable) (10/21/2020 3:56 AM EDT) Auto WBC 7.4 4.0 - 10.5 10*3/uL [facility] RBC 3.93 (L) 4.00 - 5.80 10*6/ [facility] L GENERAL Hemoglobin 12.0 (L) 13.0 - 18.0 g/dL [facility] GENERAL Hematocrit 36.6 (L) 37.0 - 50.0 % [facility] MCV 93.1 77.0 - 100.0 fL [facility] MCH 30.5 26.0 - 33.0 pg [facility] MCHC 32.8 31.0 - 36.0 g/dL [facility] GENERAL RDW 12.8 12.0 - 17.0 % [facility] MPV 8.7 8.0 - 12.0 fL [facility] Neutrophils 62.6 35.0 - 78.0 % [facility] GENERAL Lymphocytes 19.3 (L) 20.0 - 42.0 % [facility] GENERAL Monocytes 9.7 0.0 - 15.0 % [facility] Relative GENERAL Eosinophils 4.5 <=10.0 % [facility] Relative GENERAL Basophils 0.8 <=2.0 % [facility] Relative GENERAL Neutrophils 4.63 1.40 - 8.40 10*3/uL [facility] Absolute GENERAL Lymphocytes 1.43 1.00 - 4.00 10*3/uL [facility] Absolute GENERAL Monocytes 0.72 0.00 - 1.50 10*3/uL [facility] Absolute GENERAL Eosinophils 0.33 <=0.70 10*3/uL [facility] Absolute GENERAL Basophils 0.06 <=0.10 10*3/uL [facility] Absolute GENERAL Platelets 504 (H) 125 - 425 10*3/uL [facility] ON GENERAL Immature 3.1 (H) <=0.5 % [facility] Neutrophils GENERAL Relative Immature 0.23 <=0.40 10*3/uL [facility] Neutrophils GENERAL Absolute Specimen Blood - Blood, Venous Performing Organization Address [facility] P woody Number [facility] [place] [address] * C-reactive protein (10/21/2020 3:56 AM EDT) Pathologist [facility] CRP 14.3 (H) <=0.9 mg/dL [facility] Specimen Blood - Blood, Venous Performing Organization Address [facility] P woody Number [facility] [place] [address] * Comprehensive metabolic panel (10/21/2020 3:56 AM EDT) [facility] Sodium 135 135 - 146 mmol/L [facility] GENERAL Potassium 3.6 3.5 - 5.3 mmol/L [facility] GENERAL Chloride 95 (L) 98 - 107 mmol/L [facility] CO2 30 21 - 32 mmol/L [facility] Anion Gap 10 5 - 15 [facility] BUN 7 7 - 23 mg/dL [facility] Creatinine 0.8 0.7 - 1.3 mg/dL [facility] BUN/Creatinine 9 [facility] GENERAL Glucose 109 (H) 65 - 99 mg/dL [facility] GENER[facility] Calcium 8.9 8.4 - 10.4 mg/dL [facility] GENERAL AST 24 <59 U/L [facility] ALT (SGPT) 57 (H) <50 U/L [facility] Alkaline 117 38 - 126 U/L [facility] Phosphatase GENERAL Total Protein 5.8 (L) 6.3 - 8.2 g/dL [facility] Albumin 3.1 (L) 3.5 - 5.0 g/dL [facility] A/G Ratio 1.15 [facility] Total Bilirubin 0.5 0.1 - 1.3 mg/dL [facility] eGFR >60 >60 mL/min/1.73m*2 [facility] Specimen Blood - Blood, Venous Performing Organization Address [facility] P woody Number [facility] [address] [place] [address] * C.DIFFICILE MOLECULAR (10/20/2020 6:28 PM EDT) Pathologist [facility] C. difficile Negative Negative [facility] Toxin DNA by [facility] Molecular Assay C. diff Strain Presumptive Negative Presumptive Negative [address] Specimen Stool - Stool Narrative [facility] - 10/20/2020 9:39 PM EDT PLEASE NOTE: C. DIFFICILE MOLECULAR TESTS ARE HIGHLY SENSITIVE AND SHOULD NOT BE USED A TEST OF CURE. REPEAT TESTING IS NOT INDICATED FOR 7 DAYS. Performing Organization Address [facility] P woody Number [facility] [address] [place] [address] * Fecal leukocytes (10/20/2020 6:28 PM EDT) Pathologist [facility] Fecal Detected (A) Not Detected [facility] Leukocytes by [facility] OIA Specimen Stool - Per Rectum Performing Organization Address City/[facility] P woody Number [facility] [address] [place] [address] * ECG 12 lead (10/20/2020 7:08 AM EDT) Pathologist [facility] Diagnosis Class Normal MUSE Ventricular 84 BPM MUSE Heart Rate Atrial Heart 84 BPM MUSE Rate WV Interval 140 ms MUSE QRSD Interval 82 ms MUSE QT Interval 398 ms MUSE QTC Interval 470 ms MUSE P [place] 36 degrees MUSE QRS [place] 10 degrees MUSE T Wave [place] 21 degrees MUSE Specimen Impressions MUSE - 10/20/2020 7:08 AM EDT Normal sinus rhythm Normal ECG No previous ECGs available Confirmed by Edson Mesa ([id number]) on 10/20/2020 9:52:37 AM Narrative Procedure Note Edson Mesa MD - 10/20/2020 IMPRESSION: Normal sinus rhythm Normal ECG No previous ECGs available Confirmed by Edson Mesa ([id number]) on 10/20/2020 9:52:37 AM Performing Organization Address City/[facility]/ZIP [facility] P woody Number MUSE [address] [place] [id number] * C-reactive protein (10/20/2020 4:04 AM EDT) [facility] CRP 17.0 (H) <=0.9 mg/dL [facility] Specimen Blood - Blood, Venous Performing Organization Address [facility] P woody Number [facility] [address] [place] [address] * CBC w/ auto diff (Lab Performable) (10/20/2020 4:04 AM EDT) [facility] Auto WBC 7.9 4.0 - 10.5 10*3/uL [facility] RBC 3.84 (L) 4.00 - 5.80 10*6/ [facility] L GENERAL Hemoglobin 11.8 (L) 13.0 - 18.0 g/dL [facility] Hematocrit 35.9 (L) 37.0 - 50.0 % [facility] MCV 93.5 77.0 - 100.0 fL [facility] MCH 30.7 26.0 - 33.0 pg [facility] MCHC 32.9 31.0 - 36.0 g/dL [facility] RDW 13.1 12.0 - 17.0 % [facility] MPV 8.6 8.0 - 12.0 fL [facility] Neutrophils 60.4 35.0 - 78.0 % [facility] Relative GENERAL Lymphocytes 18.0 (L) 20.0 - 42.0 % [facility] Relative GENERAL Monocytes 12.5 0.0 - 15.0 % [facility] Relative GENERAL Eosinophils 4.4 <=10.0 % [facility] Relative GENERAL Basophils 0.9 <=2.0 % [facility] Relative GENERAL Neutrophils 4.80 1.40 - 8.40 10*3/uL [facility] Absolute GENERAL Lymphocytes 1.43 1.00 - 4.00 10*3/uL [facility] GENERAL Monocytes 0.99 0.00 - 1.50 10*3/uL [facility] GENERAL Eosinophils 0.35 <=0.70 10*3/uL [facility] Absolute GENERAL Basophils 0.07 <=0.10 10*3/uL [facility] Absolute GENERAL Platelets 439 (H) 125 - 425 10*3/uL [facility] ON GENERAL Immature 3.8 (H) <=0.5 % [facility] Neutrophils GENERAL Relative Immature 0.30 <=0.40 10*3/uL [facility] Neutrophils GENERAL Absolute Specimen Blood - Blood, Venous Performing Organization Address City/State/ZIP Code P woody Number [facility] [address] [place] [address] * Comprehensive metabolic panel (10/20/2020 4:04 AM EDT) Sodium 135 135 - 146 mmol/L [facility] GENER[facility] Potassium 3.3 (L) 3.5 - 5.3 mmol/L [facility] Chloride 92 (L) 98 - 107 mmol/L [facility] CO2 32 21 - 32 mmol/L [facility] Anion Gap 11 5 - 15 [facility] BUN 8 7 - 23 mg/dL [facility] Creatinine 0.8 0.7 - 1.3 mg/dL [facility] GENER[facility] BUN/Creatinine 10 [facility] GENERAL Glucose 87 65 - 99 mg/dL [facility] Calcium 8.8 8.4 - 10.4 mg/dL [facility] GENERAL AST 43 <59 U/L [facility] ALT (SGPT) 80 (H) <50 U/L [facility] Alkaline 132 (H) 38 - 126 U/L [facility] Phosphatase GENERAL Total Protein 5.9 (L) 6.3 - 8.2 g/dL [facility] Albumin 3.2 (L) 3.5 - 5.0 g/dL [facility] A/G Ratio 1.19 [facility] Total Bilirubin 0.6 0.1 - 1.3 mg/dL [facility] N GENERAL eGFR >60 >60 mL/min/1.73m*2 [facility] GENERAL Specimen Blood - Blood, Venous Performing Organization Address [facility] P woody Number [facility] [address] [place] [address] * Lavender Top (10/19/2020 2:12 PM EDT) Pathologist [facility] Extra Tube Hold for add-onComment: Auto [facility] GENERAL Specimen Blood - Blood, Venous Performing Organization Address [facility] P woody Number [facility] [address] [place] [address] * IGG SUBCLASS 4 (10/19/2020 2:12 PM EDT) IGG Subclass 4 23.2 2.4 - 121.0 mg/dL [facility] Comment: LABORATORIES Test Performed by: [facility] [place] [address] Geodetic Surveyor Technologist: Harish De Los Santos M.D. Ph.D.; CLIA# [id number] Specimen Blood - Blood, Venous Performing Organization Address [facility] P woody Number [facility] LABORATORIES * CT abdomen pelvis w IV contrast (10/19/2020 1:31 PM EDT) Modality Anatomical Region Laterality Computed Tomography Body N/A Specimen Impressions IMAGING - 10/19/2020 2:07 PM EDT 1. Acute pancreatitis. 2. Inflammation of the duodenum, proximal small bowel and large bowel could be secondary to pancreatitis. Additional infectious/inflammatory processes are not excluded. 3. Left lower lobe atelectasis or infiltrate with moderate pleural effusion. There is small right pleural effusion. 4. There is no CT evidence of intra-abdominal or intrapelvic abscess. DWS: [email or web address] ELECTRONIC SIGNATURE: Tramaine Diaz DO Narrative IMAGING - 10/19/2020 2:07 PM EDT -REPORT: PROCEDURES: CT ABDOMEN PELVIS W CONTRAST DATE AND TIME: 10/19/2020 1:20 PM EDT HISTORY: CLINICAL: Abdominal abscess/infection suspected CT OF THE ABDOMEN AND PELVIS WITH CONTRAST 10/16/2020 5:47 PM EDT: TECHNIQUE: Helical CT scan is obtained from the lung bases through the ischial tuberosities. The patient receives contrast intravenously. Auto Exposure Controls are utilized during the CT exam to meet ALARA standards for radiation dose reduction. This CT exam is performed using one or more of the following dose reduction techniques: automated exposure control, adjustment of the mA and/or kV according to patient size, and/or use iterative reconstruction techniques. COMPARISON STUDY: None available ABDOMEN/PELVIS FINDINGS LUNG BASES: There is left lower lobe atelectasis or infiltrate. There is a moderate left pleural effusion. There is a small right pleural effusion. LIVER: No significant abnormality. GALLBLADDER / BILE DUCTS: No significant abnormality. RIGHT KIDNEY / URETER: No significant abnormality. LEFT KIDNEY / URETER: No significant abnormality. PANCREAS: There is peripancreatic inflammation. SPLEEN: No significant abnormality. ADRENAL GLANDS: No significant abnormality. GI TRACT: There is inflammation of the duodenum and proximal small bowel distal to the ligament of Treitz. There is no intestinal dilatation. There is possible inflammation of the large bowel at the splenic flexure and proximal descending colon. There is possible inflammation of the sigmoid colon. There is possible inflammation of the ascending colon. There is no intestinal dilatation. AORTA: No significant abnormality. BLADDER: No significant abnormality. REPRODUCTIVE: No significant abnormality. ADENOPATHY: None. ASCITES: There is a small amount of pelvic ascites. There is a small amount of ascites within the left paracolic gutter. BONES: No significant abnormality. Procedure Note Tramaine Diaz DO - 10/19/2020 -REPORT: PROCEDURES: CT ABDOMEN PELVIS W CONTRAST DATE AND TIME: 10/19/2020 1:20 PM EDT HISTORY: CLINICAL: Abdominal abscess/infection suspected CT OF THE ABDOMEN AND PELVIS WITH CONTRAST 10/16/2020 5:47 PM EDT: TECHNIQUE: Helical CT scan is obtained from the lung bases through the ischial tuberosities. The patient receives contrast intravenously. Auto Exposure Controls are utilized during the CT exam to meet ALARA standards for radiation dose reduction. This CT exam is performed using one or more of the following dose reduction techniques: automated exposure control, adjustment of the mA and/or kV according to patient size, and/or use iterative reconstruction techniques. COMPARISON STUDY: None available ABDOMEN/PELVIS FINDINGS LUNG BASES: There is left lower lobe atelectasis or infiltrate. There is a moderate left pleural effusion. There is a small right pleural effusion. LIVER: No significant abnormality. GALLBLADDER / BILE DUCTS: No significant abnormality. RIGHT KIDNEY / URETER: No significant abnormality. LEFT KIDNEY / URETER: No significant abnormality. PANCREAS: There is peripancreatic inflammation. SPLEEN: No significant abnormality. ADRENAL GLANDS: No significant abnormality. GI TRACT: There is inflammation of the duodenum and proximal small bowel distal to the ligament of Treitz. There is no intestinal dilatation. There is possible inflammation of the large bowel at the splenic flexure and proximal descending colon. There is possible inflammation of the sigmoid colon. There is possible inflammation of the ascending colon. There is no intestinal dilatation. AORTA: No significant abnormality. BLADDER: No significant abnormality. REPRODUCTIVE: No significant abnormality. ADENOPATHY: None. ASCITES: There is a small amount of pelvic ascites. There is a small amount of ascites within the left paracolic gutter. BONES: No significant abnormality. IMPRESSION: 1. Acute pancreatitis. 2. Inflammation of the duodenum, proxim al small bowel and large bowel could be secondary to pancreatitis. Additional infectious/inflammatory processes are not excluded. 3. Left lower lobe atelectasis or infil trate with moderate pleural effusion. There is small right pleural effusion. 4. There is no CT evidence of intra-abd ominal or intrapelvic abscess. DWS: [email or web address] ELECTRONIC SIGNATURE: Tramaine Diaz DO Performing Organization Address City/State/ZIP Code P woody Number IMAGING * XR Chest 1 View (10/19/2020 9:46 AM EDT) Modality Anatomical Region Laterality Computed Radiography Body N/A Specimen Impressions IMAGING - 10/19/2020 2:34 PM EDT Left lower lobe atelectasis and/or pneumonia, +/- associated left pleural effusion. Follow-up to complete radiographic clearing is recommended in the next 6-8 weeks. DWS: HMI1 ELECTRONIC SIGNATURE: Jose Alberto Silva MD Narrative IMAGING - 10/19/2020 2:34 PM EDT -REPORT: PROCEDURE: XR CHEST 1 VIEW DATE AND TIME: 10/19/2020 9:26 AM EDT HISTORY: Shortness of breath and hypoxia. COMPARISON: None TECHNIQUE: Portable lordotic projection obtained AP FINDINGS:Infiltrate at the left lung base consistent with pneumonia and/or atelectasis. Associated pleural effusion cannot be excluded. Right lung is grossly clear. Given the lordotic projection of the film, the cardiac and mediastinal silhouettes are grossly within normal limits. Procedure Note Jose Alberto Silva MD - 10/19/2020 -REPORT: PROCEDURE: XR CHEST 1 VIEW DATE AND TIME: 10/19/2020 9:26 AM EDT HISTORY: Shortness of breath and hypoxia. COMPARISON: None TECHNIQUE: Portable lordotic projection obtained AP FINDINGS:Infiltrate at the left lung base consistent with pneumonia and/or atelectasis. Associated pleural effusion cannot be excluded. Right lung is grossly clear. Given the lordotic projection of the film, the cardiac and mediastinal silhouettes are grossly within normal limits. IMPRESSION: Left lower lobe atelectasis and/or pneumonia, +/- associated left pleural effusion. Follow-up to complete radiographic clearing is recommended in the next 6-8 weeks. DWS: HMI1 ELECTRONIC SIGNATURE: Jose Alberto Silva MD Performing Organization Address City/[facility] P woody Number IMAGING * C-reactive protein (10/18/2020 4:31 AM EDT) Pathologist [facility] CRP 21.2 (H) <=0.9 mg/dL [facility] Specimen Blood - Blood, Venous Performing Organization Address [facility] P woody Number [facility] [address] [place] [address] * Comprehensive metabolic panel (10/18/2020 4:31 AM EDT) Pathologist [facility] Sodium 137 135 - 146 mmol/L [facility] Potassium 3.7 3.5 - 5.3 mmol/L [facility] Chloride 98 98 - 107 mmol/L [facility] CO2 29 21 - 32 mmol/L [facility] Anion Gap 10 5 - 15 [facility] BUN 6 (L) 7 - 23 mg/dL [facility] Creatinine 0.7 0.7 - 1.3 mg/dL [facility] BUN/Creatinine 9 [facility] GENERAL Glucose 81 65 - 99 mg/dL [facility] Calcium 8.5 8.4 - 10.4 mg/dL [facility] AST 36 <59 U/L [facility] ALT (SGPT) 69 (H) <50 U/L [facility] Alkaline 150 (H) 38 - 126 U/L [facility] Phosphatase GENERAL Total Protein 5.5 (L) 6.3 - 8.2 g/dL [facility] Albumin 2.8 (L) 3.5 - 5.0 g/dL [facility] A/G Ratio 1.04 [facility] Total Bilirubin 0.6 0.1 - 1.3 mg/dL [facility] eGFR >60 >60 mL/min/1.73m*2 [facility] Specimen Blood - Blood, Venous Performing Organization Address City/State/ZIP Code P woody Number [facility] [address] [place] [address] * CBC (10/18/2020 4:31 AM EDT) Auto WBC 8.2 4.0 - 10.5 10*3/uL [facility] RBC 3.57 (L) 4.00 - 5.80 10*6/ [facility] GENERAL Hemoglobin 10.8 (L) 13.0 - 18.0 g/dL [facility] Hematocrit 33.6 (L) 37.0 - 50.0 % [facility] MCV 94.1 77.0 - 100.0 fL [facility] MCH 30.3 26.0 - 33.0 pg [facility] MCHC 32.1 31.0 - 36.0 g/dL [facility] RDW 13.1 12.0 - 17.0 % [facility] Platelets 401 125 - 425 10*3/uL [facility] ON GENERAL MPV 9.2 8.0 - 12.0 fL [facility] Specimen Blood - Blood, Venous Performing Organization Address City/State/ZIP Code P woody Number [facility] [address] [place] [address] * US abdomen limited liver (10/17/2020 10:36 AM EDT) Modality Anatomical Region Laterality Ultrasound Body N/A Specimen Impressions IMAGING - 10/17/2020 10:40 AM EDT 1. No evidence of intra or extrahepatic biliary ductal dilatation. 2. Gallbladder grossly unremarkable. 3. Pancreas poorly seen due to midline b owel gas, however, what can be seen is heterogeneous in appearance suggesting parenchymal disease. 4. Bilateral pleural effusions are noted . 5. See above for details. DWS: HMI4 ELECTRONIC SIGNATURE: Jose Alberto Silva MD Narrative IMAGING - 10/17/2020 10:40 AM EDT -REPORT: PROCEDURE: US ABDOMEN LIMITED LIVER DATE AND TIME: 10/17/2020 10:15 AM EDT HISTORY: Alcoholic pancreatitis, not improving. Evaluating for gallstone or choledocholithiasis.. COMPARISON: None Technique: Multiple real-time sonographic images were obtained using grayscale and color Doppler. FINDINGS: The hepatic echotexture is grossly homogeneous without evidence of intra or extrahepatic biliary ductal dilatation. Common bile duct is 5 mm which is within normal limits. Portal vein diameter 1.1 cm with normal blood flow towards liver. Gallbladder is unremarkable without evidence of stones or wall thickening. Gallbladder wall thickness 2.6 mm which is within normal limits. No evidence of pericholecystic fluid or pain with transducer pressure over the gallbladder. Pancreas poorly seen due to overlying bowel gas. What can be seen looks heterogeneous suggesting underlying parenchymal disease. Abdominal aorta of normal caliber with a maximal diameter seen proximally measuring 1.9 cm. Inferior vena cava is grossly unremarkable. Right kidney in its expected location measuring 10.9 x 5.4 cm. No evidence of hydronephrosis. Incidental note is made of bilateral pleural effusions. Procedure Note Jose Alberto Silva MD - 10/17/2020 -REPORT: PROCEDURE: US ABDOMEN LIMITED LIVER DATE AND TIME: 10/17/2020 10:15 AM EDT HISTORY: Alcoholic pancreatitis, not improving. Evaluating for gallstone or choledocholithiasis.. COMPARISON: None Technique: Multiple real-time sonographic images were obtained using grayscale and color Doppler. FINDINGS: The hepatic echotexture is grossly homogeneous without evidence of intra or extrahepatic biliary ductal dilatation. Common bile duct is 5 mm which is within normal limits. Portal vein diameter 1.1 cm with normal blood flow towards liver. Gallbladder is unremarkable without evidence of stones or wall thickening. Gallbladder wall thickness 2.6 mm which is within normal limits. No evidence of pericholecystic fluid or pain with transducer pressure over the gallbladder. Pancreas poorly seen due to overlying bowel gas. What can be seen looks heterogeneous suggesting underlying parenchymal disease. Abdominal aorta of normal caliber with a maximal diameter seen proximally measuring 1.9 cm. Inferior vena cava is grossly unremarkable. Right kidney in its expected location measuring 10.9 x 5.4 cm. No evidence of hydronephrosis. Incidental note is made of bilateral pleural effusions. IMPRESSION: 1. No evidence of intra or extrahepatic biliary ductal dilatation. 2. Gallbladder grossly unremarkable. 3. Pancreas poorly seen due to midline b owel gas, however, what can be seen is heterogeneous in appearance suggesting parenchymal disease. 4. Bilateral pleural effusions are noted . 5. See above for details. DWS: [id number] ELECTRONIC SIGNATURE: Jose Alberto Silva MD Performing Organization Address City/State/ZIP Code P woody Number IMAGING * Hepatitis C antibody (10/17/2020 4:35 AM EDT) Hepatitis C Ab Negative Negative [facility] Specimen Blood - Blood, Venous Narrative [facility] - 10/17/2020 6:52 PM EDT Reference Range: Negative: Anti-HCV IgG not detected. Patient is presumed not to be infected with HCV. Reactive: Anti-HCV IgG detected. Patient is presumed to be infected with HCV, state or associated disease not determined. Specimen sent for confirmatory testing. Results to follow. Hepatitis screening test results should only be used and interpreted in the context of the overall clinical picture. Due to method variability, Hepatitis screening results obtained with this assay may not be used interchangeably with values obtained with different multi punch operator's assay methods. Hepatitis testing was performed on the kSARIA System using a chemiluminescent immunometric assay. Performing Organization Address City/State/ZIP Code P woody Number [facility] [phone] [place] [address] * Hepatitis B core antibody, IgM (10/17/2020 4:35 AM EDT) [facility] HBc IgM Ab, S Negative Negative [facility] Comment: LABORATORIES Test Performed by: [facility] [place] [address] Geodetic Surveyor Technologist: Harish De Los Santos M.D. Ph.D.; CLIA# [id number] Specimen Blood - Blood, Venous Performing Organization Address City/[facility] P woody Number [facility]ORATORIES * Hepatitis B surface antigen (10/17/2020 4:35 AM EDT) [facility] Hepatitis B Negative Negative [facility] Specimen Blood - Blood, Venous Narrative [facility] - 10/17/2020 6:35 PM EDT Reference Range: Negative: Negative for Hepatitis B Surface Antigen. Reactive: Preliminary results, specimen sent for confirmatory testing. Results to follow. Positive: Positive for Hepatitis B Surface Antigen. Specimen sent for confirmatory testing. Results to follow. Hepatitis screening test results should only be used and interpreted in the context of the overall clinical picture. Due to method variability, Hepatitis screening results obtained with this assay may not be used interchangeably with values obtained with different multi punch operator's assay methods. Hepatitis testing was performed on the kSARIA System using a chemiluminescent immunometric assay. Performing Organization Address City/[facility] P [facility] Number [facility] [address] [address] * Hepatitis A antibody, IgM (10/17/2020 4:35 AM EDT) [facility] Hepatitis A IgM Negative Negative [facility] Ab, S Comment: LABORATORIES Result does not exclude the possibility of exposure to hepatitis A virus. Antibody level during early infection stage may be below the limit of detection of the assay. Test Performed by: [facility] [place] [address] Geodetic Surveyor Technologist: Harish De Los Santos M.D. Ph.D.; CLIA# [id number] Specimen Blood - Blood, Venous Performing Organization Address City/[facility] P woody Number [facility]IES * CBC w/ auto diff (Lab Performable) (10/17/2020 4:35 AM EDT) Auto WBC 8.2 4.0 - 10.5 10*3/uL [facility] RBC 3.62 (L) 4.00 - 5.80 10*6/ [facility] Hemoglobin 11.0 (L) 13.0 - 18.0 g/dL [facility] Hematocrit 34.2 (L) 37.0 - 50.0 % [facility] MCV 94.5 77.0 - 100.0 fL [facility] MCH 30.4 26.0 - 33.0 pg [facility] MCHC 32.2 31.0 - 36.0 g/dL [facility] RDW 13.3 12.0 - 17.0 % [facility] MPV 9.1 8.0 - 12.0 fL [facility] Neutrophils 67.3 35.0 - 78.0 % [facility] Relative GENERAL Lymphocytes 14.0 (L) 20.0 - 42.0 % [facility] Relative GENERAL Monocytes 13.1 0.0 - 15.0 % [facility] Relative GENERAL Eosinophils 4.5 <=10.0 % [facility] Relative GENERAL Basophils 0.6 <=2.0 % [facility] Relative GENERAL Neutrophils 5.51 1.40 - 8.40 10*3/uL [facility] GENERAL Lymphocytes 1.15 1.00 - 4.00 10*3/uL [facility] GENERAL Monocytes 1.07 0.00 - 1.50 10*3/uL [facility] GENERAL Eosinophils 0.37 <=0.70 10*3/uL [facility] GENERAL Basophils 0.05 <=0.10 10*3/uL [facility] Absolute GENERAL Platelets 365 125 - 425 10*3/uL [facility] Immature 0.5 <=0.5 % [facility] Neutrophils GENERAL Relative Immature 0.04 <=0.40 10*3/uL [facility] Neutrophils GENERAL Absolute Specimen Blood - Blood, Venous Performing Organization Address City/State/ZIP Code P woody Number [facility] [phone] [place] [address] * Comprehensive metabolic panel (10/17/2020 4:35 AM EDT) Sodium 138 135 - 146 mmol/L [facility] Potassium 3.6 3.5 - 5.3 mmol/L [facility] Chloride 99 98 - 107 mmol/L [facility] CO2 30 21 - 32 mmol/L [facility] Anion Gap 9 5 - 15 [facility] BUN 7 7 - 23 mg/dL [facility] Creatinine 0.8 0.7 - 1.3 mg/dL [facility] BUN/Creatinine 9 [facility] GENERAL Glucose 86 65 - 99 mg/dL [facility] Calcium 8.4 8.4 - 10.4 mg/dL [facility] AST 52 <59 U/L [facility] ALT (SGPT) 100 (H) <50 U/L [facility] Alkaline 153 (H) 38 - 126 U/L [facility] Phosphatase GENERAL Total Protein 5.6 (L) 6.3 - 8.2 g/dL [facility] Albumin 2.9 (L) 3.5 - 5.0 g/dL [facility] A/G Ratio 1.07 [facility] Total Bilirubin 0.9 0.1 - 1.3 mg/dL [facility] eGFR >60 >60 mL/min/1.73m*2 [facility] Specimen Blood - Blood, Venous Performing Organization Address City/State/ZIP Code P woody Number [facility] [address] [place] [address] * Triglycerides (10/16/2020 7:08 PM EDT) Triglycerides 220 (H) <200 mg/dL [facility] Specimen Blood - Blood, Venous Performing Organization Address City/State/ZIP Code P woody Number [facility] [phone] [place] [address] * Yellow Top (10/16/2020 7:08 PM EDT) Extra Tube Hold for add-onComment: Auto [facility] resulted GENERAL Specimen Blood - Blood, Venous Performing Organization Address City/[facility]/ZIP Code P woody Number [facility] [place] [address] * Light Blue Top (10/16/2020 7:08 PM EDT) Extra Tube Hold for add-onComment: Auto [facility][1] resulted GENERAL Specimen Blood - Blood, Venous Performing Organization Address [facility] P woody Number [facility] [place] [address] * CBC w/ auto diff (Lab Performable) (10/16/2020 7:05 PM EDT) Auto WBC 8.6 4.0 - 10.5 10*3/uL [facility] RBC 3.90 (L) 4.00 - 5.80 10*6/ S [facility] L GENERAL Hemoglobin 11.9 (L) 13.0 - 18.0 g/dL [facility] Hematocrit 36.5 (L) 37.0 - 50.0 % [facility] MCV 93.6 77.0 - 100.0 fL [facility] MCH 30.5 26.0 - 33.0 pg [facility] MCHC 32.6 31.0 - 36.0 g/dL [facility] RDW 13.4 12.0 - 17.0 % [facility] MPV 8.7 8.0 - 12.0 fL [facility] Neutrophils 69.8 35.0 - 78.0 % [facility] Relative GENERAL Lymphocytes 13.1 (L) 20.0 - 42.0 % [facility] Relative GENERAL Monocytes 11.6 0.0 - 15.0 % [facility] Relative GENERAL Eosinophils 4.4 <=10.0 % [facility] GENERAL Basophils 0.5 <=2.0 % [facility] Relative GENERAL Neutrophils 6.02 1.40 - 8.40 10*3/uL [facility] Absolute GENERAL Lymphocytes 1.13 1.00 - 4.00 10*3/uL [facility] Absolute GENERAL Monocytes 1.00 0.00 - 1.50 10*3/uL [facility] Absolute GENERAL Eosinophils 0.38 <=0.70 10*3/uL [facility] Absolute GENERAL Basophils 0.04 <=0.10 10*3/uL [facility] Absolute GENERAL Platelets 346 125 - 425 10*3/uL [facility] ON GENERAL Immature 0.6 (H) <=0.5 % [facility] Neutrophils GENERAL Relative Immature 0.05 <=0.40 10*3/uL [facility] Neutrophils GENERAL Absolute Specimen Blood - Blood, Venous Performing Organization Address [facility] P woody Number [facility] [place] [address] * Lipase (10/16/2020 7:05 PM EDT) [facility] Lipase 87 <300 U/L [facility] Specimen Blood - Blood, Venous Performing Organization Address [facility] P woody Number [facility] [place] [address] * C-reactive protein (10/16/2020 7:05 PM EDT) [facility] CRP 25.4 (H) <=0.9 mg/dL [facility] Specimen Blood - Blood, Venous Performing Organization Address [facility] P woody Number [facility] [place] [address] * Comprehensive metabolic panel (10/16/2020 7:05 PM EDT) [facility] Sodium 138 135 - 146 mmol/L [facility] Potassium 3.6 3.5 - 5.3 mmol/L [facility] Chloride 100 98 - 107 mmol/L [facility] CO2 28 21 - 32 mmol/L [facility] Anion Gap 10 5 - 15 [facility] BUN 8 7 - 23 mg/dL [facility] Creatinine 0.8 0.7 - 1.3 mg/dL [facility] BUN/Creatinine 10 [facility] Ratio GENERAL Glucose 88 65 - 99 mg/dL [facility] Calcium 8.9 8.4 - 10.4 mg/dL [facility] AST 102 (H) <59 U/L [facility] ALT (SGPT) 140 (H) <50 U/L [facility] Alkaline 173 (H) 38 - 126 U/L [facility] Phosphatase GENERAL Total Protein 6.9 6.3 - 8.2 g/dL [facility] Albumin 3.5 3.5 - 5.0 g/dL [facility] A/G Ratio 1.03 [facility] Total Bilirubin 0.9 0.1 - 1.3 mg/dL [facility] eGFR >60 >60 mL/min/1.73m*2 [facility] Specimen Blood - Blood, Venous Performing Organization Address City/State/[facility] Code P woody Number [facility] [address] [place] [address] documented in this encounter Visit Diagnoses Diagnosis Pancreatitis Acute pancreatitis Colitis Other and unspecified noninfectious gas troenteritis and colitis Elevated blood pressure reading without diagnosis of hypertension documented in this encounter Administered Medications Action Date Dose Rate Site Medication Order MAR Action 10/22/2020 8:08 AM EDT 5 mg amLODIPine (NORVASC) tablet 5 mg Given 5 mg, oral, Daily, First dose on Sat10/22/20 at 0900, For 30 days 10/22/2020 3:09 AM EDT 400 mg 200 mL/hr ciprofloxacin (CIPRO) IVPB 400 mg New Bag 400 mg, intravenous, at 200 mL/hr, Administer over 60 Minutes, Every 12 hours, First dose on Sat10/19/20 at 1530 , For 14 days, premix bag, Indication: Abdominal Infection 400 mg 200 mL/hr New Bag 10/21/2020 3:31 PM EDT 400 mg 200 mL/hr New Bag 10/21/2020 3:03 AM EDT ciprofloxacin (CIPRO) tablet 750 mg 750 mg, oral, 2 times daily - 06;1999 , First dose on 10/22/20 at 1100, For 14 days, Give 2 hours before or 4 hours after calcium/magnesim/aluminum/iron., Indication: Abdominal Infection 10/22/2020 8:08 AM EDT 10 mg dicyclomine (BENTYL) capsule 10 mg Given 10 mg, oral, 4 times daily, First dose on Melanie 10/20/20 at 2100, For 30 days 10 mg Given 10/21/2020 9:18 PM EDT 10 mg Given 10/21/2020 5:16 PM EDT 10/16/2020 8:57 PM EDT 25 mcg fentaNYL (SUBLIMAZE) injection 25 mcg Given 25 mcg, intravenous, Every 4 hours PRN, severe pain (8-10), Starting on Sat10/16/20 at 2012, For 7 days 10/17/2020 12:13 AM EDT 50 mcg fentaNYL (SUBLIMAZE) injection 50 mcg Given 50 mcg, intravenous, Once, On Sat 1 at 0015, For 1 dose 10/21/2020 3:10 AM EDT 50 mcg fentaNYL (SUBLIMAZE) injection 50 mcg Given 50 mcg, intravenous, Every 2 hour PRN, severe pain (8-10), Starting on Sat10/17/20 at 0020, For 168 hours 50 mcg Given 10/20/2020 7:55 PM EDT 50 mcg Given 10/20/2020 4:10 PM EDT 10/21/2020 9:17 PM EDT 50 mcg fentaNYL (SUBLIMAZE) injection 50 mcg Given 50 mcg, intravenous, Every 4 hours PRN, severe pain (8-10), Starting on Sat10/21/20 at 1015, For 72 hours 50 mcg Given 10/21/2020 3:30 PM EDT 50 mcg Given 10/21/2020 10:30 AM EDT 10/19/2020 11:46 AM EDT 40 mg furosemide (LASIX) injection 40 mg Given 40 mg, intravenous, Once, On Sat10/19/20 at 1100, For 1 dose, Hold if SBP <90 10/22/2020 8:08 AM EDT 5,000 Units Right Lo wer Abdomen heparin (porcine) SubQ injection 5,000 Given Units 5,000 Units, subcutaneous, Every 12 hours scheduled, First dose on Sat10/16/20 at 2100, For 30 days 5,000 Units Right Upper Arm (Prashant k) Given 10/21/2020 9:18 PM EDT 5,000 Units Right Lower Abdomen Given 10/21/2020 8:34 AM EDT 10/21/2020 11:56 AM EDT 125 mcg hyoscyamine (LEVSIN) SL tablet 125 mcg Given 125 mcg, sublingual, Every 4 hours PRN, cramping, Starting on Sat10/21/20 at 1015, For 30 days 10/19/2020 1:32 PM EDT 100 mL iohexoL (OMNIPAQUE-350) 350 mg iodine/mL Given injection 100 mL 100 mL, intravenous, Once in imaging, Starting on Sat10/19/20 at 1332, For 1 dose 10/22/2020 5:56 AM EDT 30 mg ketorolac (TORADOL) injection 30 mg Given 30 mg, intravenous, Every 8 hours, Firs t dose on Sat10/21/20 at 1400, For 1 day 30 mg Given 10/21/2020 9:17 PM EDT 10/17/2020 10:10 AM EDT 150 mL/hr 150 mL/hr Lactated Ringers (LR) infusion New Bag 150 mL/hr, intravenous, at 150 mL/hr, Continuous, Starting on Sat10/16/20 at 1900 150 mL/hr 150 mL/hr New Bag 10/17/2020 3:00 AM EDT 150 mL/hr 150 mL/hr New Bag 10/16/2020 7:48 PM EDT metroNIDAZOLE (FLAGYL) tablet 500 mg 500 mg, oral, Every 8 hours, First dose on Sat10/22/20 at 1300, For 10 days, Indication: Abdominal Infection 10/22/2020 4:48 AM EDT 500 mg 100 mL/hr metroNIDAZOLE/NaCl (iso-os) (FLAGYL) New Bag IVPB 500 mg 500 mg, intravenous, at 100 mL/hr, Administer over 60 Minutes, Every 6 hours, First dose on Sat10/19/20 at 1600 , For 14 days, premix bag, Indication: Abdominal Infection 500 mg 100 mL/hr New Bag 10/21/2020 9:18 PM EDT 500 mg 100 mL/hr New Bag 10/21/2020 5:15 PM EDT 10/17/2020 4:57 PM EDT 4 mg ondansetron (ZOFRAN) injection 4 mg Given 4 mg, intravenous, Every 6 hours PRN, nausea, vomiting, Starting on Sat 1 at 2010, Give only if patient unable to take orally ondansetron ODT (ZOFRAN-ODT) dispersibl e tablet 4 mg 4 mg, oral, Every 6 hours PRN, nausea, vomiting, Starting on Sat10/16/20 at 2010, ODT (Orally disintegrating tablet). Place on tongue and allow to dissolve ODT (Orally disintegrating tablet). Place on tongue and allow to dissolve. 10/18/2020 11:42 AM EDT 10 mg oxyCODONE (ROXICODONE) immediate release Given tablet 10 mg 10 mg, oral, Every 6 hours PRN, severe pain (8-10), Starting on Sat10/17/20 at 1127, For 3 days, Use IV if unable to tolerate PO or if unrelieved by PO 10 mg Given 10/18/2020 5:20 AM EDT 10 mg Given 10/17/2020 9:02 PM EDT 10/19/2020 8:54 AM EDT 5 mg oxyCODONE (ROXICODONE) immediate release Given tablet 5 mg 5 mg, oral, Every 6 hours PRN, mild amanda n (1-3), moderate pain (4-7), Starting on Sat10/18/20 at 1151, For 24 hours, Use I V if unable to tolerate PO or if unrelieved by PO 5 mg Given 10/19/2020 12:35 AM EDT 5 mg Given 10/18/2020 4:31 PM EDT 10/20/2020 10:45 AM EDT 5 mg oxyCODONE (ROXICODONE) immediate release Given tablet 5 mg 5 mg, oral, Every 4 hours PRN, mild amanda n (1-3), moderate pain (4-7), Starting on Sat10/19/20 at 1247, For 24 hours, Use I V if unable to tolerate PO or if unrelieved by PO 5 mg Given 10/20/2020 1:20 AM EDT 5 mg Given 10/19/2020 9:08 PM EDT 10/21/2020 8:32 AM EDT 5 mg oxyCODONE (ROXICODONE) immediate release Given tablet 5 mg 5 mg, oral, Every 6 hours PRN, mild amanda n (1-3), moderate pain (4-7), Starting on Sat10/20/20 at 1310, For 2 days 5 mg Given 10/20/2020 11:20 PM EDT 5 mg Given 10/20/2020 5:31 PM EDT 10/22/2020 4:50 AM EDT 5 mg oxyCODONE (ROXICODONE) immediate release Given tablet 5 mg 5 mg, oral, Every 4 hours PRN, mild amanda n (1-3), moderate pain (4-7), Starting on Sat10/21/20 at 1407, For 24 hours 5 mg Given 10/21/2020 10:52 PM EDT 5 mg Given 10/21/2020 6:52 PM EDT 10/18/2020 11:40 AM EDT 40 mg pantoprazole (PROTONIX) EC tablet 40 mg Given 40 mg, oral, Every morning before breakfast, First dose on Sat10/18/20 at 1000, For 30 days, Swallow whole. Do not crush, chew, or split. 10/21/2020 8:33 AM EDT 40 mg pantoprazole (PROTONIX) EC tablet 40 mg Given 40 mg, oral, Every morning before breakfast, First dose on Sat10/20/20 at 0730, For 30 days, Swallow whole. Do not crush, chew, or split. 40 mg Given 10/20/2020 8:27 AM EDT 10/22/2020 8:08 AM EDT 40 mg pantoprazole (PROTONIX) EC tablet 40 mg Given 40 mg, oral, 2 times daily, First dose (after last modification) on Sat 1 at 2100, Swallow whole. Do not crush, chew, or split. 40 mg Given 10/21/2020 9:18 PM EDT 10/19/2020 8:58 AM EDT 40 mg pantoprazole (PROTONIX) injection 40 mg Given 40 mg, intravenous, Administer over 2 Minutes, Every 24 hours scheduled, Firs t dose on Sat10/18/20 at 1145, For 2 days, For IV push, mix with 10 mL NS and give over 2 minutes. 10/20/2020 10:02 AM EDT 40 mEq potassium chloride (Klor-Con) ER tablet Given 40 mEq 40 mEq, oral, Once, On Melanie 10/20/20 at 0845, For 1 dose, Do not crush or chew. Do not crush or chew. 10/17/2020 9:02 PM EDT 5 mg prochlorperazine (COMPAZINE) injection 5 Given mg 5 mg, intravenous, Once, On 10/17/20 at 2030, For 1 dose 10/20/2020 6:35 PM EDT 80 mg simethicone (MYLICON) chewable tablet 80 Given mg 80 mg, oral, 4 times daily PRN, flatulence, Starting on Sat10/19/20 at 1654, For 30 days 80 mg Given 10/19/2020 8:24 PM EDT 10/20/2020 4:24 AM EDT 1,000 mL sodium chloride 0.9 % infusion - ADS New Bag Override Pull Starting on Melanie 10/20/20 at 0420, For 1 dose, Created by cabinet override 10/22/2020 5:56 AM EDT 1,000 mL sodium chloride 0.9 % infusion - ADS New Bag Override Pull Starting on 10/22/20 at 0550, For 1 dose, Created by cabinet override sodium chloride flush 2 mL 2 mL, intravenous, As needed, line care , Starting on 10/16/20 at 1841, 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 D o not crush or chew. 150 mg Given 10/21/2020 8:34 AM EDT 150 mg Given 10/20/2020 9:00 AM EDT documented in this encounter Active and Recently Administered Medications Times are shown in EDT. 10/21/2020 10/22/2020 Medication Order 10/20/2020 0808 (Given - Provider: Gokul Wolfe) amLODIPine (NORVASC) tablet 5 mg 5 mg, oral, Daily, First dose on Sat10/22/20 at 0900, For 30 days 0303 (New Bag - Provider: Minda willasm RN)0403 (Stopped - Provider: Minda Vega RN)1531 (New Bag - Provider: Joie Bynum, KAIN)1631 (Stopped - Provider: Loly Cash, RN) 0309 (New Bag - Provider: Rochelle mendiola RN)0409 (Stopped - Provider: Rochelle Guerin RN) ciprofloxacin (CIPRO) IVPB 400 mg 0549 (New Bag - (CANCELED) Provider: Minda Myers 400 mg, intravenous, at 200 mL/hr, KAIN Vega)0649 Administer over 60 Minutes, Every 12 (Stopped - Prov ider: hours, First dose on Sat10/19/20 at 1530, Che Alvarenga opeggy, For 14 days, premix bag, Indication: RN)1450 (New Ba g - Abdominal Infection Provider: Joie Bynum RN)1550 (Stopped - Provider: Joie Bynum RN) 1100 (Not Given - Provider: Che woods RN - Reason: Other - Comment: pt being discharged) ciprofloxacin (CIPRO) tablet 750 mg 750 mg, oral, 2 times daily - 0600;1999 , First dose on Sat10/22/20 at 1100, For 14 days, Give 2 hours before or 4 hours after calcium/magnesim/aluminum/iron., Indication: Abdominal Infection 0834 (Given - Provider: Linda Salinas, KAIN)1200 (Given - Provider: Loni Connelly, KAIN)1716 (Given - Provider: Loly Cash, RN)2118 (Given - Provider: Loly Cash, RN) 0808 (Given - Provider: Gokul Wolfe)1300 (Canceled Entry - Provider: Automatic Discharge Provider - Comment: Automatically canceled at discontinue of medication order) dicyclomine (BENTYL) capsule 10 mg 1836 (Given - 10 mg, oral, 4 times daily, First dose Provider: Stew villegas on Melanie 10/20/20 at 2100, For 30 days KAIN Bynum)2100 (Canceled Entry - Provider: Joie Bynum RN) 0834 (Given - Provider: Linda Salinas, RN)211 (Given - Provider: Loly Cash, RN) 0808 (Given - Provider: Gokul Wolfe) heparin (porcine) SubQ injection 5,000 0943 (Given - Units Provider: Linda 5,000 Units, subcutaneous, Every 12 KAIN Salinas)20 00 hours scheduled, First dose on Sat (Given - Provider : 10/16/20 at 2100, For 30 days Joie Bynum RN) 1400 (Refused - Provider: Joie Bynum , RN)2117 (Given - Provider: Loly Cash, KAIN) 0556 (Given - Provider: Rochelle walker RN) ketorolac (TORADOL) injection 30 mg 30 mg, intravenous, Every 8 hours, Firs t dose on Sat10/21/20 at 1400, For 1 day 1300 (Canceled Entry - Provider: Automat ic Discharge Provider - Comment: Automatically canceled at discontinue of medication order) metroNIDAZOLE (FLAGYL) tablet 500 mg 500 mg, oral, Every 8 hours, First dose on 10/22/20 at 1300, For 10 days, Indication: Abdominal Infection 0438 (New Bag - Provider: Minda willams RN)0538 (Stopped - Provider: Minda Vega RN)1029 (New Bag - Provider: Loni Connelly RN)1129 (Stopped - Provider: Loni Connelly, KAIN)1715 (New Bag - Provider: Loly Cash, KAIN - Comment: had another abx infusing)181 (Stopped - Provider: Loly Cash, KAIN)211 (New Bag - Provider: Loly Cash RN)2218 (Stopped - Provider: Rochelle Guerin, RN) 0448 (New Bag - Provider: Rochelle mendiola RN)0548 (Stopped - Provider: Rochelle Guerin RN) metroNIDAZOLE/NaCl (iso-os) (FLAGYL) 0424 (New Bag - IVPB 500 mg (CANCELED) Provider: Minda Myers 500 mg, intravenous, at 100 mL/hr, KAIN Vega)0524 Administer over 60 Minutes, Every 6 (Stopped - Provi marcella: hours, First dose on Sat10/19/20 at 1600, Minda Walker nyder, For 14 days, premix bag, Indication: RN)0943 (New Ba g - Abdominal Infection Provider: Linda Salinas RN)1043 (Stopped - Provider: Che Cole RN)1610 (New Bag - Provider: Joie Bynum RN)1710 (Stopped - Provider: Joie Bynum RN)2151 (New Bag - Provider: Joie Bynum RN)2251 (Stopped - Provider: Minda Vega RN) 0833 (Given - Provider: Linda Salinas RN) pantoprazole (PROTONIX) EC tablet 40 mg 0827 (Given - (CANCELED) Provider: Che Dugan 40 mg, oral, Every morning before KAIN Cole) breakfast, First dose on Sat10/20/20 at 0730, For 30 days, Swallow whole. Do not crush, chew, or split. 2117 (Given - Provider: Loly Cash RN) 08 (Given - Provider: Che Cole, R N) pantoprazole (PROTONIX) EC tablet 40 mg 40 mg, oral, 2 times daily, First dose (after last modification) on Sat 1 at 2100, Swallow whole. Do not crush, chew, or split. potassium chloride (Klor-Con) ER tablet 1002 (Given - 40 mEq (COMPLETED) Provider: Linda 40 mEq, oral, Once, On Melanie 10/20/20 at KAIN Salinas) 0845, For 1 dose, Do not crush or chew. Do not crush or chew. 2117 (Given - Provider: Loly Cash RN) traZODone (DESYREL) tablet 50 mg 1958 (Given - 50 mg, oral, Nightly, First dose on Sun Provider: Ananya hernandez 10/16/20 at 2200, For 30 days KAIN Bynum - Comment: pt request)2200 (Canceled Entry - Provider: Joie Bynum RN) 0834 (Given - Provider: Linda Salinas RN) 0808 (Given - Provider: Gokul Wolfe) venlafaxine XR (EFFEXOR-XR) 24 hr 0900 (Given - capsule 150 mg Provider: Linda 150 mg, oral, Daily, First dose on Mon KAIN Salinas ) 10/17/20 at 0900, For 30 days, Capsule ma y be swallowed whole, or may be opened an d its contents sprinkled on applesauce if consumed immediately without chewing. D o not crush or chew. 10/21/2020 10/22/2020 Medication Order 10/20/2020 0310 (Given - Provider: Minda Vega RN) fentaNYL (SUBLIMAZE) injection 50 mcg 0418 (Given - (CANCELED) Provider: Minda Myers 50 mcg, intravenous, Every 2 hour PRN, KAIN Vega)08 33 severe pain (8-10), Starting on Mon (Given - Provide r: 10/17/20 at 0020, For 168 hours Che Cole RN)1350 (Given - Provider: Che Cole RN)1610 (Given - Provider: Joie Bynum RN)1955 (Given - Provider: Joie Bynum RN) 1030 (Given - Provider: Loni Connelly , KAIN)1530 (Given - Provider: Joie Bynum, KAIN)2117 (Given - Provider: Loly Cash RN) fentaNYL (SUBLIMAZE) injection 50 mcg 50 mcg, intravenous, Every 4 hours PRN, severe pain (8-10), Starting on Sat10/21/20 at 1015, For 72 hours 1156 (Given - Provider: Loni Connelly , KAIN) hyoscyamine (LEVSIN) SL tablet 125 mcg 125 mcg, sublingual, Every 4 hours PRN, cramping, Starting on Sat10/21/20 at 1015, For 30 days ondansetron (ZOFRAN) injection 4 mg(Linked Group 1) 4 mg, intravenous, Every 6 hours PRN, nausea, vomiting, Starting on Sat 1 at 2010, Give only if patient unable to take orally ondansetron ODT (ZOFRAN-ODT) dispersibl e tablet 4 mg(Linked Group 1) 4 mg, oral, Every 6 hours PRN, nausea, vomiting, Starting on Sat10/16/20 at 2011, ODT (Orally disintegrating tablet). Place on tongue and allow to dissolve ODT (Orally disintegrating tablet). Place on tongue and allow to dissolve. oxyCODONE (ROXICODONE) immediate release 0120 (Given - tablet 5 mg (CANCELED) Provider: Minda Myers 5 mg, oral, Every 4 hours PRN, mild pain KAIN Vega) 1045 (1-3), moderate pain (4-7), Starting on (Given - Pro vider: Sat10/19/20 at 1247, For 24 hours, Use IV Linda doshi RN) if unable to tolerate PO or if unrelieved by PO 0832 (Given - Provider: Linda Salinas RN)1345 (Not Given - Provider: Loni Connelly RN - Reason: Other - Comment: see new order for frequency) oxyCODONE (ROXICODONE) immediate release 1731 (Given - tablet 5 mg (CANCELED) Provider: Joie 5 mg, oral, Every 6 hours PRN, mild pain KAIN Bynum)2 320 (1-3), moderate pain (4-7), Starting on (Given - Pro vider: Melanie 10/20/20 at 1310, For 2 days Minda Vega RN) 1414 (Given - Provider: Loni Connelly RN)1852 (Given - Provider: Loly Cash RN)2252 (Given - Provider: Rochelle Guerin, KAIN) 0450 (Given - Provider: Rochelle walker, KAIN) oxyCODONE (ROXICODONE) immediate releas e tablet 5 mg 5 mg, oral, Every 4 hours PRN, mild amanda n (1-3), moderate pain (4-7), Starting on Sat10/21/20 at 1407, For 24 hours simethicone (MYLICON) chewable tablet 80 1835 (Given - mg Provider: Joie 80 mg, oral, 4 times daily PRN, KAIN Bynum) flatulence, Starting on Sat10/19/20 at 1654, For 30 days sodium chloride flush 2 mL(Linked Group 2) 2 mL, intravenous, As needed, line care , Starting on 10/16/20 at 1841, 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
Give only if patient unable to take orally
Or ondansetron ODT (ZOFRAN-ODT) dispersibl e tablet 4 mgJump to med 4 mg, oral, Every 6 hours PRN, nausea, vomiting, Starting on 10/16/20 at 2010
ODT (Orally disintegrating tablet). Place on tongue and allow to dissolve ODT (Orally disintegrating tablet). Place on tongue and allow to d issolve.
Group 2: Insert peripheral IV (CANCELED) Once, On 10/16/20 at 1842, For 1 [facility], [facility] Performed And Maintain IV access (CANCELED) Until discontinued, Starting on Sun 10/16 at 1842, Until Specified And Saline lock IV (CANCELED) Once, On 10/16/20 at 1842, For 1 [facility], [facility] Performed And sodium chloride flush 2 mLJump to med 2 mL, intravenous, As needed, line care , Starting on 10/16/20 at 1841
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
documented in this encounter Additional Health Concerns Onset Date Resolved Time Infection Last Indicated 10/20/2020 10/20/2020 9:39 PM EDT C. 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
--- OUTSIDE RECORDS SUMMARY | 2021-01-16 12:02 | CCD | Summary of Care ---
Author Author [facility] Organization [facility] Address Unknown Phone Unavailable Care Team Providers Care University Counselor Name Role Phone System, Provider Not In PP Unavailable Encounter Details Care Team Description Date Type Department Abstraction, MD Jailyn 10/19/2020 Abstract S Abstraction [address] [place] [address] Allergies No known active allergiesdocumented as of this encounter (statuses as of 10/19/2020) Medications End Date Status Medication Sig Dispensed Refills Start Date Suspended venlafaxine XR Take 150 mg 0 (EFFEXOR-XR) 150 mg 24 hr by mouth 1 capsule (one) time each day. Do not crush or chew. Suspended traZODone (DESYREL) 50 mg Take 50 mg by 0 tablet mouth every night. documented as of this encounter (statuses as of 10/19/2020) Active Problems Problem Noted Date Pancreatitis 10/16/2020 documented as of this encounter (statuses as of 10/19/2020) Social History Date Tobacco Use Types Packs/Day Years Used Never Smoker Smokeless Tobacco: Never Used Sex Assigned at Date Recorded Male 10/17/2020 2:25 PM EDT Date Recorded COVID-19 Exposure Response 10/17/2020 5:29 AM EDT In the last month, have you been in contact with Yes someone who was confirmed or suspected to have Coronavirus / COVID-19? documented as of this encounter Plan of Treatment Health Maintenance Due Date Last Done Comments HIV Screening 1991 MMR Vaccines (1 of 1 - 1992 Standard series) Varicella Vaccines (1 of 1992 2 - 2-dose childhood series) DTaP,Tdap,and Td Vaccines 1998 (1 - Tdap) [...] on patient's age to complete this topic Pneumococcal Vaccine: Aged Out No longer eligib le based on patient's age to Pediatrics (0 to 5 Years) complete this topic and At-Risk Patients (6 to 64 Years) documented as of this encounter Results Not on filedocumented in this encounter Insurance Type Payer Benefit Subscriber ID Effective Phone Address Plan / Dates Group NOMAN [id number] 2020-P [address] [place] [address] documented as of this encounter Advance Directives Patient Ecological Risk Assessor Explanation Type Date Recorded Advance Directives and Living Will Power of Spinning Frame Tender Date Inactivated Comments Code Status Date Activated Full Code 10/16/2020 6:42 PM Care Teams Start Date End Date University Counselor Relationship Specialty 10/15/20 System, Provider Not In PCP - General [id number] documented as of this encounter
--- OUTSIDE RECORDS SUMMARY | 2021-01-16 12:03 | CCD ---
Author Author [facility] Organization [facility] Address Unknown Phone Unavailable Support Name Relationship Address Phone ROHAN LOPEZ Next Of Kin Unknown Unavailable JESS[place] [address] Sebastian COURTNEY Next Of Kin [address] [place] [address] ISAAK BELTRAN [place] [id number] [place] [address] [facility] Next Of Kin [address] [place] [address] Unavailable ISAAK BELTRAN [facility] [id number] [place] [address] Unavailable Care Team Providers Care Mixing Engineer Name Role Phone Arnie Falanga, A Lyric RAYMOND MILL OPERATOR Unavailable Unavailable Arnie Falanga, A Lyric RAYMOND MILL OPERATOR Unavailable Unavailable [place] Falanga, A Lyric RAYMOND MILL OPERATOR Unavailable Unavailable Arnie Falanga, A Lyric RAYMOND MILL OPERATOR Unavailable Unavailable [place] Falanga, A Lyric RAYMOND MILL OPERATOR Unavailable Unavailable Arnie Falanga, A Lyric RAYMOND MILL OPERATOR Unavailable Unavailable [place] Falanga, A Lyric RAYMOND MILL OPERATOR Unavailable Unavailable Arnie Falanga, A Lyric RAYMOND MILL OPERATOR Unavailable Unavailable Arnie Falanga, A Lyric RAYMOND MILL OPERATOR Unavailable Unavailable Arnie Falanga, A Lyric RAYMOND MILL OPERATOR Unavailable Unavailable [place] Falanga, A Lyric RAYMOND MILL OPERATOR Unavailable Unavailable [place] Falanga, A Lyric RAYMOND MILL OPERATOR Unavailable Unavailable Arnie Falanga, A Lyric RAYMOND MILL OPERATOR Unavailable Unavailable [place] Falanga, A Lyric RAYMOND MILL OPERATOR Unavailable Unavailable Arnie Falanga, A Lyric RAYMOND MILL OPERATOR Unavailable Unavailable Arnie Falanga, A Lyric RAYMOND MILL OPERATOR Unavailable Unavailable Arnie Falanga, A Lyric RAYMOND MILL OPERATOR Unavailable Unavailable Arnie Falanga, A Lyric RAYMOND MILL OPERATOR Unavailable Unavailable [place] Falanga, A Lyric RAYMOND MILL OPERATOR Unavailable Unavailable [place] Falanga, A Lyric RAYMOND MILL OPERATOR Unavailable Unavailable [place] Falanga, A Lyric RAYMOND MILL OPERATOR Unavailable Unavailable Arnie Falanga, A Lyric RAYMOND MILL OPERATOR Unavailable Unavailable Arnie Falanga, A Lyric RAYMOND MILL OPERATOR Unavailable Unavailable [place] Falanga, A Lyric RAYMOND MILL OPERATOR Unavailable Unavailable [place] Falanga, A Lyric RAYMOND MILL OPERATOR Unavailable Unavailable Arnie Falanga, A Lyric RAYMOND MILL OPERATOR Unavailable Unavailable [place] Falanga, A Lyric RAYMOND MILL OPERATOR Unavailable Unavailable [place] Falanga, A Lyric RAYMOND MILL OPERATOR Unavailable Unavailable Arnie Falanga, A Lyric RAYMOND MILL OPERATOR Unavailable Unavailable Arnie Falanga, A Lyric RAYMOND MILL OPERATOR Unavailable Unavailable Victor aMnuel MONTOYA MD Silvia Unavailable Victor Manuel MONTOYA MD Silvia Unavailable Kailee Leung MD Unavailable Unavailable Kailee Leung MD Unavailable Unavailable Kailee Leung MD Unavailable Unavailable Kailee Leung MD Unavailable Unavailable Kailee Leung MD Unavailable Unavailable Kailee Leung MD Unavailable Unavailable Julio Cesar Peguero MD Unavailable Unavailable Julio Cesar Peguero MD Unavailable Unavailable Julio Cesar Peguero MD Unavailable Unavailable Julio Cesar Peguero MD Unavailable Unavailable Julio Cesar Peguero MD Unavailable Unavailable Julio Cesar Peguero MD Unavailable Unavailable Bartoszewski, Kadi Barbara MS, RPA-C Unavailable Unav ailable Bartoszewski, Kadi Barbara MS, RPA-C Unavailable Unav ailable Bartoszewski, Kadi Barbara MS, RPA-C Unavailable Unav ailable Bartoszewski, Kadi Barbara MS, RPA-C Unavailable Unav ailable Bartoszewski, Kadi Barbara MS, RPA-C Unavailable Unav ailable Bartoszewski, Kadi Barbara MS, RPA-C Unavailable Unav ailable Bartoszewski, Kadi Barbara MS, RPA-C Unavailable Unav ailable Bartoszewski, Kadi Barbara MS, RPA-C Unavailable Unav ailable Bartoszewski, Kadi Barbara MS, RPA-C Unavailable Unav ailable Bartoszewski, Kadi Barbara MS, RPA-C Unavailable Unav ailable Bartoszewski, Kadi Barbara MS, RPA-C Unavailable Unav ailable Bartoszewski, Kadi Barbara MS, RPA-C Unavailable Unav ailable Bartoszewski, Kadi Barbara MS, RPA-C Unavailable Unav ailable Bartoszewski, Kadi Barbara MS, RPA-C Unavailable Unav ailable Bartoszewski, Kadi Barbara MS, RPA-C Unavailable Unav ailable Bartoszewski, Kadi Barbara MS, RPA-C Unavailable Unav ailable Bartoszewski, Kadi Barbara MS, RPA-C Unavailable Unav ailable Bartoszewski, Kadi Barbara MS, RPA-C Unavailable Unav ailable Bartoszewski, Kadi Barbara MS, RPA-C Unavailable Unav ailable Bartoszewski, Kadi Barbara MS, RPA-C Unavailable Unav ailable Bartoszewski, Kadi Barbara MS, RPA-C Unavailable Unav ailable Bartoszewski, Kadi Barbara MS, RPA-C Unavailable Unav ailable Bartoszewski, Kadi Barbara MS, RPA-C Unavailable Unav ailable Bartoszewski, Kadi Barbara MS, RPA-C Unavailable Unav ailable Bartoszewski, Kadi Barbara MS, RPA-C Unavailable Unav ailable Bartoszewski, Kadi Barbara MS, RPA-C Unavailable Unav ailable Bartoszewski, Kadi Barbara MS, RPA-C Unavailable Unav ailable Bartoszewski, Kadi Barbara MS, RPA-C Unavailable Unav ailable Bartoszewski, Kadi Barbara MS, RPA-C Unavailable Unav ailable Bartoszewski, Kadi Barbara MS, RPA-C Unavailable Unav ailable Bartoszewski, Kadi Barbara MS, RPA-C Unavailable Unav ailable Bartoszewski, Kadi Barbara MS, RPA-C Unavailable Unav ailable Bartoszewski, Kadi Barbara MS, RPA-C Unavailable Unav ailable Bartoszewski, Kadi Barbara MS, RPA-C Unavailable Unav ailable Bartoszewski, Kadi Barbara MS, RPA-C Unavailable Unav ailable Bartoszewski, Kadi Barbara MS, RPA-C Unavailable Unav ailable Bartoszewski, Kadi Barbara MS, RPA-C Unavailable Unav ailable Bartoszewski, Kadi Barbara MS, RPA-C Unavailable Unav ailable Bartoszewski, Kadi Barbara MS, RPA-C Unavailable Unav ailable Bartoszewski, Kadi Barbara MS, RPA-C Unavailable Unav ailable Bartoszewski, Kadi Barbara MS, RPA-C Unavailable Unav ailable Bartoszewski, Kadi Barbara MS, RPA-C Unavailable Unav ailable Bartoszewski, Kadi Barbara MS, RPA-C Unavailable Unav ailable Bartoszewski, Kadi Barbara MS, RPA-C Unavailable Unav ailable Bartoszewski, Kadi Barbara MS, RPA-C Unavailable Unav ailable Bartoszewski, Kadi Barbara MS, RPA-C Unavailable Unav ailable Bartoszewski, Kadi Barbara MS, RPA-C Unavailable Unav ailable Bartoszewski, Kadi Barbara MS, RPA-C Unavailable Unav ailable Bartoszewski, Kadi Barbara MS, RPA-C Unavailable Unav ailable Bartoszewski, Kadi Barbara MS, RPA-C Unavailable Unav ailable Bartoszewski, Kadi Barbara MS, RPA-C Unavailable Unav ailable Bartoszewski, Kadi Barbara MS, RPA-C Unavailable Unav ailable Bartoszewski, Kadi Barbara MS, RPA-C Unavailable Unav ailable Bartoszewski, Kadi Barbara MS, RPA-C Unavailable Unav ailable Bartoszewski, Kadi Barbara MS, RPA-C Unavailable Unav ailable Bartoszewski, Kadi Barbara MS, RPA-C Unavailable Unav ailable Bartoszewski, Kadi Barbara MS, RPA-C Unavailable Unav ailable Bartoszewski, Kadi Barbara MS, RPA-C Unavailable Unav ailable Bartoszewski, Kadi Barbara MS, RPA-C Unavailable Unav ailable Bartoszewski, Kadi Barbara MS, RPA-C Unavailable Unav ailable TURRIN, DEREJE Unavailable Unavailable TURRIN, DEREJE Unavailable Unavailable TURRIN, DEREJE Unavailable Unavailable TURRIN, DEREJE Unavailable Unavailable OBEN, T MAXI MD Unavailable Unavailable OBEN, T MAXI MD Unavailable Unavailable OBEN, T MAXI MD Unavailable Unavailable OBEN, T MAXI MD Unavailable Unavailable OBEN, T MAXI MD Unavailable Unavailable OBEN, T MAXI MD Unavailable Unavailable OBEN, T MAXI MD Unavailable Unavailable OBEN, T MAXI MD Unavailable Unavailable OBEN, T MAXI MD Unavailable Unavailable OBEN, T MAXI MD Unavailable Unavailable OBEN, T MAXI MD Unavailable Unavailable OBEN, T MAXI MD Unavailable Unavailable OBEN, T MAXI MD Unavailable Unavailable OBEN, T MAXI MD Unavailable Unavailable OBEN, T MAXI MD Unavailable Unavailable OBEN, T MAXI MD Unavailable Unavailable OBEN, T MAXI MD Unavailable Unavailable OBEN, T MAXI MD Unavailable Unavailable OBEN, T MAXI MD Unavailable Unavailable OBEN, T MAXI MD Unavailable Unavailable OBEN, T MAXI MD Unavailable Unavailable OBEN, T MAXI MD Unavailable Unavailable OBEN, T MAXI MD Unavailable Unavailable OBEN, T MAXI MD Unavailable Unavailable OBEN, T MAXI MD Unavailable Unavailable OBEN, T MAXI MD Unavailable Unavailable OBEN, T MAXI MD Unavailable Unavailable OBEN, T MAXI MD Unavailable Unavailable OBEN, T MAXI MD Unavailable Unavailable OBEN, T MAXI MD Unavailable Unavailable OBEN, T MAXI MD Unavailable Unavailable OBEN, T MAXI MD Unavailable Unavailable OBEN, T MAXI MD Unavailable Unavailable OBEN, T MAXI MD Unavailable Unavailable OBEN, T MAXI MD Unavailable Unavailable OBEN, T MAXI MD Unavailable Unavailable OBEN, T MAXI MD Unavailable Unavailable OBEN, T MAXI MD Unavailable Unavailable OBEN, T MAXI MD Unavailable Unavailable OBEN, T MAXI MD Unavailable Unavailable OBEN, T MAXI MD Unavailable Unavailable OBEN, T MAXI MD Unavailable Unavailable OBEN, T MAXI MD Unavailable Unavailable OBEN, T MAXI MD Unavailable Unavailable OBEN, T MAXI MD Unavailable Unavailable OBEN, T MAXI MD Unavailable Unavailable OBEN, T MAXI MD Unavailable Unavailable OBEN, T MAXI MD Unavailable Unavailable OBEN, T MAXI MD Unavailable Unavailable OBEN, T MAXI MD Unavailable Unavailable OBEN, T MAXI MD Unavailable Unavailable OBEN, T MAXI MD Unavailable Unavailable OBEN, T MAXI MD Unavailable Unavailable OBEN, T MAXI MD Unavailable Unavailable OBEN, T MAXI MD Unavailable Unavailable OBEN, T MAXI MD Unavailable Unavailable OBEN, T MAXI MD Unavailable Unavailable OBEN, T MAXI MD Unavailable Unavailable [facility] Unavailable Unavailable OBEN, T MAXI MD Unavailable Unavailable OBEN, T MAXI MD Unavailable Unavailable OBEN, T MAXI MD Unavailable Unavailable OBEN, T MAXI MD Unavailable Unavailable OBEN, T MAXI MD Unavailable Unavailable OBEN, T MAXI MD Unavailable Unavailable OBEN, T MAXI MD Unavailable Unavailable OBEN, T MAXI MD Unavailable Unavailable OBEN, T MAXI MD Unavailable Unavailable OBEN, T MAXI MD Unavailable Unavailable OBEN, T MAXI MD Unavailable Unavailable OBEN, T MAXI MD Unavailable Unavailable OBEN, T MAXI MD Unavailable Unavailable OBEN, T MAXI MD Unavailable Unavailable OBEN, T MAXI MD Unavailable Unavailable OBEN, T MAXI MD Unavailable Unavailable OBEN, T MAXI MD Unavailable Unavailable OBEN, T MAXI MD Unavailable Unavailable OBEN, T MAXI MD Unavailable Unavailable OBEN, T MAXI MD Unavailable Unavailable OBEN, T MAXI MD Unavailable Unavailable OBEN, T MAXI MD Unavailable Unavailable OBEN, T MAXI MD Unavailable Unavailable OBEN, T MAXI MD Unavailable Unavailable OBEN, T MAXI MD Unavailable Unavailable OBEN, T MAXI MD Unavailable Unavailable OBEN, T MAXI MD Unavailable Unavailable OBEN, T MAXI MD Unavailable Unavailable OBEN, T MAXI MD Unavailable Unavailable OBEN, T MAXI MD Unavailable Unavailable OBEN, T MAXI MD Unavailable Unavailable OBEN, T MAXI MD Unavailable Unavailable OBEN, T MAXI MD Unavailable Unavailable OBEN, T MAXI MD Unavailable Unavailable OBEN, T MAXI MD Unavailable Unavailable OBEN, T MAXI MD Unavailable Unavailable OBEN, T MAXI MD Unavailable Unavailable OBEN, T MAXI MD Unavailable Unavailable OBEN, T MAXI MD Unavailable Unavailable OBEN, T MAXI MD Unavailable Unavailable OBEN, T MAXI MD Unavailable Unavailable OBEN, T MAXI MD Unavailable Unavailable OBEN, T MAXI MD Unavailable Unavailable OBEN, T MAXI MD Unavailable Unavailable OBEN, T MAXI MD Unavailable Unavailable OBEN, T MAXI MD Unavailable Unavailable OBEN, T MAXI MD Unavailable Unavailable OBEN, T MAXI MD Unavailable Unavailable OBEN, T MAXI MD Unavailable Unavailable OBEN, T MAXI MD Unavailable Unavailable OBEN, T MAXI MD Unavailable Unavailable OBEN, T MAXI MD Unavailable Unavailable OBEN, T MAXI MD Unavailable Unavailable OBEN, T MAXI MD Unavailable Unavailable OBEN, T MAXI MD Unavailable Unavailable OBEN, T MAXI MD Unavailable Unavailable OBEN, T MAXI MD Unavailable Unavailable OBEN, T MAXI MD Unavailable Unavailable Re-disclosure Warning The records that you are about to access may contain information from federally-assisted alcohol or drug abuse programs. If such information is present, then the following federally mandated warning applies: This information has been disclosed to you from records protected by federal confidentiality rules (42 CFR part 2). The federal rules prohibit you from making any further disclosure of this information unless further disclosure is expressly permitted by the written consent of the person to whom it pertains or as otherwise permitted by 42 CFR part 2. A general authorization for the release of medical or other information is NOT sufficient for this purpose. The Federal rules restrict any use of the information to criminally investigate or prosecute any alcohol or drug abuse patient.The records that you are about to access may contain highly sensitive health information, the redisclosure of which is protected by Article 27-F of the [facility] Public Health law. If you continue you may have access to information: Regarding HIV / AIDS; Provided by facilities licensed or operated by the [facility] Office of Mental Health; or Provided by the [facility] Office for People With Developmental Disabilities. If such information is present, then the following [facility] mandated warning applies: This information has been disclosed to you from confidential records which are protected by state law. State law prohibits you from making any further disclosure of this information without the specific written consent of the person to whom it pertains, or as otherwise permitted by law. Any unauthorized further disclosure in violation of state law may result in a fine or skilled nursing sentence or both. A general authorization for the release of medical or other information is NOT sufficient authorization for further disc losure. Allergies and Adverse Reactions Type Description Substance Reaction Status Data Source(s ) No Known Drug Allergies No Known Drug Allergies [facility] No Known Environmental Allergies No Known Environmental Al lergies [facility] No Known Food Allergies No Known Food Allergies [facility] Propensity to adverse reactions NO KNOWN ALLERGIES NO KNOWN ALLERGIES [facility] Propensity to adverse reactions ALLERGIES NOT ON FILE ALLERGIES NOT O N FILE [facility] Encounters Encounter Providers Location Date Indications Data Source(s ) Emergency Attender: Julio Cesar Peguero MDConsultant: [facility] 10/23/2020 06:33:00 PM EDT - 10/23/2020 10:54:00 PM EDT [facility] Patient discharged. Inpatient Attender: MD Silvia Rush MDAttender: Riki ortiz MD 10/16/2020 05:47:00 PM EDT - 10/22/2020 11:51:00 AM EDT [facility] Patient discharged. Inpatient Attender: Lyric marquez FNPAttender: DEREJE LUXConsultant: [facility] [place] [facility] 10/14/2020 10:39:00 A M EDT - 10/16/2020 03:15:00 PM EDT [facility] Patient discharged. Outpatient Attender: Lyric POSEY 10/12/2020 10:56:00 AM EDT - 10/14/2020 10:39:00 AM EDT [facility] Outpatient Attender: MAXI NIEVES MD 03/22/19 02:45:00 PM EST - 03/22/2020 02:45:00 PM [facility] Outpatient Attender: MAXI NIEVES MD 03/08/19 08:24:00 AM [facility] - 03/08/2020 08:24:00 AM [facility] Outpatient Attender: MAXI NIEVES MDConsultant: [facility] Rama 03/04/2020 08:00:00 AM EST - 03/04/2020 02:48:00 PM [facility] Patient discharged. Outpatient Attender: MAXI NIEVES MD 02/23/19 03:09:00 PM EST - 02/24/2020 03:09:00 PM [facility] Outpatient Attender: MAXI NIEVES MD Family Practice 02/24/2020 02:00:[facility] Attender: MAXI NIEVES MD 02/16/19 02:48:00 PM EST - 02/17/2020 02:48:00 PM [facility] Outpatient Attender: Barbara Christopher MS, RPA-CConsultan t: [facility] 02/15/2020 08:51:00 AM [facility] - 02/15/2020 09:51:00 AM [facility] Outpatient Attender: MAXI NIEVES MD 02/02/20 02:10:00 PM [facility] - 02/02/2020 02:10:00 PM [facility] Outpatient Attender: Barbara Christopher MS, RPA-C Family P serge 02/02/2020 01:00:00 PM EST [facility] ([facility]) Outpatient Attender: MAXI NIEVES MD 01/27/20 08:47:00 AM [facility] - 01/27/2020 08:47:00 AM [facility] Outpatient Attender: Barbara Christopher MS, RPA-C [facility] 01/27/2020 07:45:00 AM EST [facility] ([facility]) Outpatient Attender: MAXI NIEVES MD 01/15/20 07:30:00 AM [facility] - 01/15/2020 11:41:00 AM [facility] Patient discharged. Outpatient Attender: MAXI NIEVES MD 12/24/2019 07:00:24 AM [facility] Outpatient Attender: MAXI NIEVES MD 12/17/19 07:16:11 AM [facility] - 12/18/2019 05:20:00 PM [facility] Patient discharged. Outpatient Attender: MAXI NIEVES MD Family Practice 12/08/2019 01:30:0 0 PM EDT [facility] ([facility]) Outpatient Attender: MAXI NIEVES MD 12/08/19 01:15:00 PM EDT - 12/08/2019 01:15:00 PM EDT [facility] Medications Medication Brand Name Start Date Product Form Dose Route Admi nistrative Instructions Pharmacy Instructions Status Indications Reaction Description Data Source(s) 50 mg 12/06/2020 12:00:00 AM EDT tablet 120 TAKE ONE TABLET BY MOUTH EVERY 6 HOURS NEEDED FOR PAIN - MAXIMUM DAILY DOSE = 4 TAKE ONE TABLET BY MOUTH EVERY 6 HOURS NEEDED FOR PAIN - MAXIMUM DAILY DOSE = 4 SOLD: 12/06/2020 [facility] 50 mg 11/02/2020 12:00:00 AM EDT tablet 30 TAKE 1 TABLET BY MOUTH EVERY SIX HOURS NEEDED FOR PAIN, MAX OF 4 DAY TAKE 1 TABLET BY MOUTH EVERY SIX HOURS A S NEEDED FOR PAIN, MAX OF 4 DAY SOLD: 11/02/2020 [facility] 1 gram 11/02/2020 12:00:00 AM EDT tablet 120 TAKE 1 TABLET BY MOUTH BEFORE MEALS AND AT BEDTIME TAKE 1 TABLET BY MOUTH BEFORE MEALS AND AT BEDTIME ALAN [facility] pantoprazole 40 MG Delayed Release Oral Tablet PANTOPRAZOLE SODIUM 11/01/2020 12:00:00 AM EDT tablet,delayed release (DR/EC) 30 T PABLO ONE TABLET BY MOUTH EVERY DAY TAKE ONE TABLET BY MOUTH EVERY DAY SOLD: 11/02/2020 [facility] Metronidazole 500 MG Oral Tablet metroNIDAZOLE (FLAGYL ) 500 mg tablet metroNIDAZOLE (FLAGYL) 500 mg tablet 10/22/2020 12:00:00 AM EDT 500 m g oral completed Take 1 tablet by mouth every 8 hours for 7 days. [facility] Take 1 tablet by mouth every 8 hours for 7 days. Ciprofloxacin 500 MG Oral Tablet ciprofloxacin (CIPRO) 500 mg tablet ciprofloxacin (CIPRO) 500 mg tablet 10/22/2020 12:00:00 AM EDT 500 mg oral completed Take 1 tablet by mouth 2 sánchez es a day for 7 days. [facility] Take 1 tablet by mouth 2 times a day for 7 days. Simethicone 80 MG Chewable Tablet simethicone (MYLICON ) 80 mg chewable tablet simethicone (MYLICON) 80 mg chewable tablet 10/22/2020 12:00:00 AM EDT 80 mg oral completed Chew 1 tablet by mouth 4 times a day if needed for flatulence [facility] Chew 1 tablet by mouth 4 times a day if needed for flatulence Metronidazole 500 MG Oral Tablet metroNIDAZOLE (FLAGYL ) 500 mg tablet metroNIDAZOLE (FLAGYL) 500 mg tablet 10/22/2020 12:00:00 AM EDT 500 m g oral completed Take 1 tablet by mouth every 8 hours for 7 days. [facility] Take 1 tablet by mouth every 8 hours for 7 days. Ciprofloxacin 500 MG Oral Tablet ciprofloxacin (CIPRO) 500 mg tablet ciprofloxacin (CIPRO) 500 mg tablet 10/22/2020 12:00:00 AM EDT 500 mg oral completed Take 1 tablet by mouth 2 sánchez es a day for 7 days. [facility] Take 1 tablet by mouth 2 times a day for 7 days. Simethicone 80 MG Chewable Tablet simethicone (MYLICON ) 80 mg chewable tablet simethicone (MYLICON) 80 mg chewable tablet 10/22/2020 12:00:00 AM EDT 80 mg oral completed Chew 1 tablet by mouth 4 times a day if needed for flatulence [facility] Chew 1 tablet by mouth 4 times a day if needed for flatulence Hyoscyamine Sulfate 0.125 MG Sublingual Tablet hyoscyamine (LEVSIN) 0.125 mg SL tablet hyoscyamine (LEVSIN) 0.125 mg SL tablet 10/22/2020 12:00:00 AM E DT 125 ug oral completed Take 1 tab let by mouth every 4 hours if needed for cramping. [facility] Take 1 tablet by mouth every 4 hours if needed for cramping. pantoprazole 40 MG Delayed Release Oral Tablet pantoprazole (PROTONIX) 40 mg EC tablet pantoprazole (PROTONIX) 40 mg EC tablet 10/22/2020 12:00:00 AM E DT 40 mg oral completed Take 1 tab let by mouth 1 time each day before breakfast for 14 days. Swallow whole. Do not crush, chew, or split. [facility] Take 1 tablet by mouth 1 time each day b efore breakfast for 14 days. Swallow whole. Do not crush, chew, or split. Hyoscyamine Sulfate 0.125 MG Sublingual Tablet hyoscyamine (LEVSIN) 0.125 mg SL tablet hyoscyamine (LEVSIN) 0.125 mg SL tablet 10/22/2020 12:00:00 AM E DT 125 ug oral completed Take 1 tab let by mouth every 4 hours if needed for cramping. [facility] Take 1 tablet by mouth every 4 hours if needed for cramping. pantoprazole 40 MG Delayed Release Oral Tablet pantoprazole (PROTONIX) 40 mg EC tablet pantoprazole (PROTONIX) 40 mg EC tablet 10/22/2020 12:00:00 AM E DT 40 mg oral completed Take 1 tab let by mouth 1 time each day before breakfast for 14 days. Swallow whole. Do not crush, chew, or split. [facility] Take 1 tablet by mouth 1 time each day b efore breakfast for 14 days. Swallow whole. Do not crush, chew, or split. Cephalexin 500 MG Oral Capsule CEPHALEXIN 03/04/2020 12:00:00 AM EST capsule 15 TAKE ONE CAPSULE BY MOUTH THREE TIMES A DAY TAKE ONE C APSULE BY MOUTH THREE TIMES A DAY SOLD: 03/04/2020 [facility] Acetaminophen 325 MG / Oxycodone Hydrochloride 5 MG Or al Tablet 5-325 mg OXYCODONE HCL/ACETAMINOPHEN 03/04/2020 12:00:00 AM EST tablet 20 TAKE ONE TABLET BY MOUTH EVERY 4 TO 6 HOURS NEEDED POST PAIN MAXIMUM DAILY DOSE = 6 TAKE ONE TABLET BY MOUTH EVERY 4 TO 6 HOURS NEEDED POST PAIN MAXIMUM DAILY DOSE = 6 SOLD: 03/04/2020 [facility] Ketorolac (Toradol) Inj 30MG/ML 02/17/2020 12:00:00 AM EST completed [facility]) Medication administered onsite Ibuprofen 600 MG Oral Tablet Ibuprofen 02/02/2020 12:00:00 AM EST ORAL active [facility] ([facility]) Ketorolac (Toradol) Inj 30MG/ML 01/27/2020 12:00:00 AM EST completed [facility] ([facility]) Medication administered onsite Cephalexin 500 MG Oral Capsule CEPHALEXIN 01/15/2020 12:00:00 AM EST capsule 15 TAKE ONE CAPSULE BY MOUTH THREE TIMES A DAY TAKE ONE C APSULE BY MOUTH THREE TIMES A DAY SOLD: 01/15/2020 [facility] 5-325 mg 01/15/2020 12:00:00 AM EST tablet 20 TAKE ONE TABLET BY MOUTH EVERY 4 TO 6 HOURS NEEDED FOR POST OP PAIN, MAXIMUM DAILY DOSE = 6 TAKE ONE TABLET BY MOUTH EVERY 4 TO 6 HOURS NEEDED FOR POST OP PAIN, MAXIMUM DAILY DOSE = 6 SOLD: 01/15/2020 [facility] Insurance Providers Payer name Policy type / Coverage type Policy ID Covered libertarian ID Covered libertarian's relationship to knight Policy Knight Plan Information RX [facility] [id number] [id number] [facility] [place] [id number] 18 [id number] [facility] ACTIVE DUTY [id number] SP [id number] [facility] [place] [id number] 18 [id number] [facility] O/P [id number] 18 [id number] Problems, Conditions, and Diagnoses Code Display Name Description Problem Type Effective Dates Data Source(s) Z8719 Personal history of other diseases of th e digestive system Personal history of other diseases of the digestive system Diagnosis 10/12 06:33:00 PM EDT [facility] K861 Other chronic pancreatitis Other chronic pancreatitis Diagnosis 10/23/2020 06:33:00 PM EDT [facility] R1084 Generalized abdominal pain Generalized abdominal pain Diagnosis [facility] Acute pancreatitis without necrosis or i nfection, unspecified Acute pancreatitis without necrosis or infection, unspecified Diagnosis 10/16/2020 05:47:00 PM EDT [facility] Pancreatitis Pancreatitis Diagnosis 10/16/2020 05:47:00 P M EDT [facility] E8342 Hypomagnesemia Hypomagnesemia Diagnosis 10/14/2020 10:39: [address] [facility] Z1152 ENCOUNTER FOR SCREENING FOR COVID-19 ENCOUNTER F OR SCREENING FOR COVID-19 Diagnosis 10/14/2020 10:39:[address] [facility] J9811 Atelectasis Atelectasis Diagnosis 10/14/2020 10:39:[address] [facility] J90 Pleural effusion, not elsewhere classifi ed Pleural effusion, not elsewhere classified Diagnosis 10/14/2020 10:39:[address] [facility] K8590 Acute pancreatitis without necrosis or i nfection, unspecified Acute pancreatitis without necrosis or infection, unspecified Diagnosis 10/14/2020 10:39:[address] [facility] F1010 Alcohol abuse, uncomplicated Alcohol abuse, uncomplica elio Diagnosis 10/12/2020 10:56:[address] [facility] E876 Hypokalemia Hypokalemia Diagnosis 10/12/2020 10:56:[address] [facility] F4310 Post-traumatic stress disorder, unspecif ied Post-traumatic stress disorder, unspecified Diagnosis 10/12/2020 10:56:00 AM EDT [facility] G4700 Insomnia, unspecified Insomnia, unspecified Diagnosis 10/12/2020 10:56:00 AM EDT [facility] R188 Other ascites Other ascites Diagnosis 10/12/2020 10:56:00 AM EDT [facility] K8520 Alcohol induced acute pancreatitis witho ut necrosis or infection Alcohol induced acute pancreatitis without necrosis or infection Diagnosis 10/12/2020 10:56:00 AM EDT [facility] Z4889 Encounter for other specified surgical a ftercare Encounter for other specified surgical aftercare Diagnosis 03/22/2020 02:45:00 PM [facility] N433 Hydrocele, unspecified Hydrocele, unspecified Diagnosi s 03/04/2020 08:00:00 AM [facility] N503 Cyst of epididymis Cyst of epididymis Diagnosis 02:48:00 PM [facility] [id number] Right testicular pain Right testicular pain Diagnosis 02/17/2020 02:48:00 PM [facility] N5089 Other specified disorders of the male ge nital organs Other specified disorders of the male genital organs Diagnosis 02/15/2020 08:51:00 AM [facility] [id number] Encounter for other preprocedural examin ation Encounter for other preprocedural examination Diagnosis 12/18/2019 04:30:[address] [facility] [id number] Acute pancreatitis Acute pancreatitis Problem 12:00:00 AM EDT [facility] ([facility]) [id number] Cyst of epididymis Cyst of epididymis Problem 12:00:00 AM EST [facility] ([facility]) [id number] Pain in testicle Pain in testicle Problem 01/27/2020 12 :00:00 AM EST [facility] ([facility]) Surgeries/Procedures Procedure Description Date Indications Data Source(s) CONTRAINDICATION TO MARIPOSA/ARB CONTRAINDICATION TO MARIPOSA/ARB 10/12 09:33:17 AM EDT [facility] DISCHARGE PATIENT DISCHARGE PATIENT 10/22/2020 09:33:17 AM EDT [facility] NOTIFY PROVIDER (COMMUNICATION) NOTIFY PROVIDER (COMMUNICATI ON) 10/22/2020 09:33:17 AM EDT [facility] FOLLOW UP WITH DEPARTMENT FOLLOW UP WITH DEPARTMENT 10/22/2020 0 9:33:13 AM EDT [facility] FOLLOW UP PRIMARY PHYSICIAN FOLLOW UP PRIMARY PHYSICIAN 10/12 09:33:13 AM EDT [facility] DISCHARGE ACTIVITY DISCHARGE ACTIVITY 10/22/2020 09:33:13 AM EDT [facility] ADULT DISCHARGE DIET ADULT DISCHARGE DIET 10/22/2020 09:33:13 AM ED T [facility] SMEAR REVIEW SMEAR REVIEW 10/22/2020 04:40:00 AM EDT [facility] MANUAL DIFFERENTIAL MANUAL DIFFERENTIAL 10/22/2020 04:40:00 AM EDT [facility] C.DIFFICILE MOLECULAR C.DIFFICILE MOLECULAR 10/20/2020 06:28:00 PM EDT [facility] FECAL CALPROTECTIN FECAL CALPROTECTIN 10/20/2020 06:28:00 PM EDT [facility] FECAL LEUKOCYTES FECAL LEUKOCYTES 10/20/2020 06:28:00 PM EDT [facility] ECG 12-LEAD ECG 12-LEAD 10/20/2020 07:08:52 AM EDT [facility] LAVENDER TOP LAVENDER TOP 10/19/2020 02:12:00 PM EDT [facility] IGG SUBCLASS 4 IGG SUBCLASS 4 10/19/2020 02:12:00 PM EDT [facility] CT ABDOMEN PELVIS W CONTRAST CT ABDOMEN PELVIS W CONTRAST 01:31:25 PM EDT [facility] INCENTIVE SPIROMETRY NURSING INCENTIVE SPIROMETRY NURSING 10:07:26 AM EDT [facility] XR CHEST 1 VIEW XR CHEST 1 VIEW 10/19/2020 09:46:00 AM EDT [facility] IP CONSULT TO NUTRITION SERVICES IP CONSULT TO NUTRITION SER VICES 10/18/2020 05:17:48 AM EDT [facility] CBC NO DIFFERENTIAL CBC NO DIFFERENTIAL 10/18/2020 04:31:00 AM EDT [facility] ADULT DIET ADULT DIET 10/17/2020 12:30:05 PM EDT [facility] US ABDOMEN LIMITED LIVER US ABDOMEN LIMITED LIVER 10/17/2020 10:36: 08 AM EDT [facility] IP CONSULT TO GASTROENTEROLOGY IP CONSULT TO GASTROENTEROLOG Y 10/17/2020 10:20:09 AM EDT [facility] HEPATITIS C ANTIBODY HEPATITIS C ANTIBODY 10/17/2020 04:35:00 AM ED T [facility] HEPATITIS B CORE ANTIBODY, IGM HEPATITIS B CORE ANTIBODY, IG M 10/17/2020 04:35:00 AM EDT [facility] HEPATITIS B SURFACE ANTIGEN HEPATITIS B SURFACE ANTIGEN 07/2020 04:35:00 AM EDT [facility] HEPATITIS A ANTIBODY, IGM HEPATITIS A ANTIBODY, IGM 10/17/2020 0 4:35:00 AM EDT [facility] ADULT NPO DIET ADULT NPO DIET 10/17/2020 12:20:47 AM EDT [facility] TRIGLYCERIDES TRIGLYCERIDES 10/16/2020 07:08:00 PM EDT [facility] YELLOW TOP YELLOW TOP 10/16/2020 07:08:00 PM EDT [facility] LIGHT BLUE TOP LIGHT BLUE TOP 10/16/2020 07:08:00 PM EDT [facility] EXTRA TUBES EXTRA TUBES 10/16/2020 07:08:00 PM EDT [facility] CBC AUTO DIFF CBC AUTO DIFF 10/16/2020 07:05:00 PM EDT [facility] LIPASE LIPASE 10/16/2020 07:05:00 PM EDT [facility] C-REACTIVE PROTEIN C-REACTIVE PROTEIN 10/16/2020 07:05:00 PM EDT [facility] COMPREHENSIVE METABOLIC PANEL COMPREHENSIVE METABOLIC PANEL 10/16/2020 07:05:00 PM EDT [facility] CBC WITH AUTO DIFFERENTIAL CBC WITH AUTO DIFFERENTIAL 2020 07:05:00 PM EDT [facility] ADMIT TO INPATIENT ADMIT TO INPATIENT 10/16/2020 06:42:45 PM EDT [facility] NOTIFY PROVIDER (VITALS PARAMETERS) NOTIFY PROVIDER (VITALS PARAMETERS) 10/16/2020 06:42:45 PM EDT [facility] ACTIVITY ACTIVITY 10/16/2020 06:42:45 PM EDT [facility] FULL CODE FULL CODE 10/16/2020 06:42:45 PM EDT [facility] SALINE LOCK IV SALINE LOCK IV 10/16/2020 06:42:45 PM EDT [facility] MAINTAIN IV ACCESS MAINTAIN IV ACCESS 10/16/2020 06:42:45 PM EDT [facility] INSERT SALINE LOCKIV INSERT SALINE LOCKIV 10/16/2020 06:42:45 PM ED T [facility] VITAL SIGNS VITAL SIGNS 10/16/2020 06:42:44 PM EDT [facility] Introduction of Anesthetic Agent into Re spiratory Tract, Via Natural or Artificial Opening Introduction of Anesthetic Agent into Re spiratory Tract, Via Natural or Artificial Openin 10/15/2020 12:00:00 AM EDT [facility] Introduction of Analgesics, Hypnotics, S edatives into Peripheral Vein, Percutaneous Approach Introduction of Analgesics, Hypnotics, S edatives into Peripheral Vein, Percutaneous Approach 10/14/2020 12:00:00 AM EDT [facility] Introduction of Other Anti-infective int o Peripheral Vein, Percutaneous Approach Introduction of Other Anti-infective int o Peripheral Vein, Percutaneous Approach 10/14/2020 12:00:00 AM EDT [facility] Introduction of Electrolytic and Water B alance Substance into Peripheral Vein, Percutaneous Approach Introduction of Electrolytic and Water B alance Substance into Peripheral Vein, Percutaneous Approach 10/14/2020 12:00:00 AM EDT [facility] Computerized Tomography (CT Scan) of [place] st, Abdomen and Pelvis using Other Contrast Computerized Tomography (CT Scan) of [place] st, Abdomen and Pelvis using Other Contrast 10/14/2020 12:00:00 AM EDT [facility] Monitoring of Cardiac Electrical Activity, External Ap proach Monitoring of Cardiac Electrical Activity, External Approach 10/14/2020 12:00:[address] [facility] Aspiration Without Imaging Guidance 02/17/2020 12:00:0 0 AM EST [facility] ([facility]) Results ID Date Data Source [id number] 01/11/2021 02:49:00 PM EST [facility] Name Value Range Interpretation Code Description Data Senait rce(s) Supporting Document(s) SARS coronavirus 2 RNA Not Detected [facility] [place] This lab was ordered by [facility] and reported by [facility]. ID Date Data Source [id number] 10/25/2020 04:02:00 PM EDT [facility] Name Value Range Interpretation Code Description Data Senait rce(s) Supporting Document(s) SARS coronavirus 2 RNA [Presence] in Res piratory specimen by WILLOW with probe detection NEGATIVE [facility] This lab was ordered by [facility] a nd reported by [facility]. 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 He has a history of similar pain in thepast. He was diagnosed previously with pancreatitis secondary to alcohol intake. He has had the pain nowfor approximately 4 or 5 days. He tells me that it is starting to decrease, but still remains in his epigastrium.It has been associated with some nausea and loss of appetite. He denies any vomiting or change in bowelhabits. He tells me that just prior to the onset of abdominal pain, he had imbibed three small alcoholicbeverages (liquor). He shows me by fingers approximately 4 inches on a glass of each of the beverages.REVIEW OF SYSTEMS:All systems were evaluated with the patient denying for the patient neuro, dermatologic, cardiac,respiratory, or musculoskeletal abnormalities.PAST MEDICAL HISTORY:Previous history of pancreatitis and PTSD.PAST SURGICAL HISTORY:Mastectomy for benign gynecomastia.FAMILY HISTORY:He denies any significant medical problems with his parents.SOCIAL HISTORY:He does not use cigarettes, but he does drink alcohol. He denies any drug use.ALLERGIES:None.PHYSICAL EXAMINATION:GENERAL: The patient is awake, alert, in no acute distress. He states to feel ill with epigastric pain.VITAL SIGNS: Vital signs are stable and he is afebrile since admission.HEENT: Normocephalic, atraumatic. Pupils are equal and round. He has nonicteric sclerae. There is no earor nasal discharge.NECK: Supple. No adenopathy. No JVD. Trachea midline. 1 [place] [address] OPERATIVE SUMMARYNAME: SHERWIN Cortes DATE OF : 1990ATTENDING PHYS: Lyric Pressley, RAYMOND MILL OPERATOR DATE: 10/12/20 MR#: [id number]: Regular rhythm. No discernible murmurs.LUNGS: Clear to auscultation, no rales, no rhonchi.ABDOMEN: No surgical scars. No discernible distention. Soft but moderately tender in the epigastrium.No guarding, rebound or palpable masses.EXTREMITIES: Good range of motion. Good muscle strength.NEURO: No motor or sensory deficits.LABORATORY DATA:The patient had a CBC performed yesterday, noting a white count of 10,200. Hemoglobin and hematocritwere 16.2 and 47.7% respectively. Electrolytes: Sodium 139, potassium 3.6, chloride 95, bicarb 28. Liverfunction tests are normal. Lipase was 912, upper range of normal being 60. Total bilirubin was normal at1.3. Alkaline phosphatase is normal at 90. AST and ALT are normal at [address] of hisabdomen was performed on 10/12/20 and compared to a CT performed on 07/17/19. It noted "pancreas ismoderately enlarged. Pancreatic head is mildly heterogeneous and marginally indistinct. Moderatestranding is seen in the surrounding fat. Moderate peripancreatic fluid with no fluid collection." It alsonoted "mild wall thickening diffusely in the duodenum which is likely reactive edema due to the adjacentpancreatic inflammation. No dilated bowel or obstruction." The radiologist's impression was "acutepancreatitis moderate in severity. Moderate amount of ascites. No focal fluid collection or abscess." Itshould also be noted that a CBC was repeated today on 10/13/20. This noted that his white count haddecreased down to 7,300. Hemoglobin and hematocrit improved to 12.3 and 37.3% respectively, notingimproved hydration. There was however, some hypokalemia at 3.4 with the low range of normal being 3.6.Calcium was down to 6.9, the lower range of normal being 8.8. Lipase had improved down to 122 from itsstart yesterday at 912.IMPRESSION:Acute recurrent pancreatitis secondary to alcohol.RECOMMENDATIONS:I had a long discussion with the patient concerning his alcohol abuse. I don't think he was really convincedinitially that this was the source of it. He played down the amount of alcohol he had imbibed shortly beforethe abdominal pain started as just 3 or 4 small drinks. However, these w ere "liquor" type drinks of 4 inchesof alcohol in each one of them. Given the above, I advised the patient that he should absolutely never drinkalcohol again and that anything he drinks, even if it really is a small amount (and that includes beer, whichhe did not think was included in the alcohol), that he should never have alcohol and that includes beer everagain for risk of recurrent pancreatitis with increased risk for complications. I do not think there is asurgical problem with this patient at the present time. It was noted that he did have some sludge in hisgallbladder, but I do not think that this is the reason for his pancreatitis. I think his pancreatitis is secondaryto alcohol intake. [address] [place] [address] OPERATIVE SUMMARYNAME: SHERWIN Cortes DATE OF : 1990ATTENDING PHYS: TATY Veronica DATE: 10/12/20 MR#: [id number] you very much for asking me to see your patient.DD: Mian Garcia MD 10/13/20 17:23DT: RUBÉN 10/13/20 19:27DS: Mian Garcia MD 10/25/20 12:43 3 Name Value Range Interpretation Code Description Data Senait rce(s) Supporting Document(s) ID Date Data Source [id number] 10/25/2020 07:36:[place] [address] RESPIRATORY CARE REPORT ==== ---------NAME------- NUMBER SEX AGE ADMIT DISC. XRAY# F/C KARLENE Cortes [id number] M 30 10/23/20 10/23/20 [id number] SB4 E/R DATE OF : 1990 M/R# [id number] #: [id number] TR-07 LOCATION: EMERGENCY DEPT [facility] [address] COMP LETE:10/24/20 04:08 AJP 71616 PHYSICIAN: ADRIANO COOMBS CH Name Value Range Interpretation Code Description Data Senait rce(s) Supporting Document(s) ID Date Data Source [id number] 10/23/2020 06:33:00 PM EDT [facility] 1 OrderSheet [facility] Emergency Department [address] [place] [address] Phone #: ext- [phone] 10/23/2020 18:33 Patient: ROHAN COURTNEY Sex: M : 1990 Age: 30yWEIGHT:79.3 kg (S) HEIGHT:66 inches (S) BMI:28.2ALLERGIES: No Known Drug AllergyCHIEF COMPLAINT: abdominal painDIAGNOSIS: PancreatitisLAB ORDERSOrder Description Priority Entered Acknowledged InitialedCBC w Diff STAT 19:10/23/2020 19:24 Steve Mar R.N. P.A.-C;CMP STAT 19:10/23/2020 19:24 Steve Mar R.N. P.A.-C;Lipase STAT 19:10/23/2020 19:24 Steve Mar.N. P.A.-C;UA Reflex to UA 19:10/23/2020 22:11 Alannah Mar R.N. P.A.-C;Lactic Acid STAT 19:10/23/2020 19:24 Steve Mar.N. P.A.-C;Troponin-T STAT 19:15 10/23/2020 19:24 Steve Mar.N. P.A.-C;DIAGNOSTIC STUDY ORDERSOrder Description Priority Entered Acknowledged InitialedMEDICATION/IV/DRIP/FLUID ORDERSOrder Description Priority Entered Acknowledged InitialedNS IV : Bolus 1000 19:15 10/23/2020 19:54 Isabela,mL, then 75 mL/hr Steve Hodgson.N. P.A.-C;Zofran IVP 4 mg 19:15 10/23/2020 19:54 Isabela, Steve Hodgson.N. P.A.-C;Morphine IVP 4 mg 19:17 10/23/2020 19:55 Sorbero, 2 OrderSheet [facility] Emergency Department [address] [place] [address] Phone #: [phone]- [phone] 10/23/2020 18:33 Patient: ROHAN COURTNEY Sex: M : [birth year] Age: 30y(HIGH ALERT Steve Valdez R.N.MEDICATION) P.A.-C;Morphine IVP 4 mg 22:02 10/23/2020 22:11 Sorbero,(HIGH ALERT Steve Valdez R.N.MEDICATION) P.A.-C;GENERAL ORDERSOrder Description Priority Entered Acknowledged InitialedNPO 19:15 10/23/2020 19:24 Steve Mar.N. P.A.- C;Saline Lock 19:10/23/2020 19:24 Steve Mar.N. P.A.-C;EKG 19:17 10/23/2020 19:45 Steve Mar.N. P.A.-C;W[employer] Worker 19:10/23/2020 19:45 Isabela,(continuous) Steve Hodgson.N. P.A.-C;Pulse Oximetry 19:17 10/23/2020 19:45 Sorbero,Continuous Steve Valdez R.N., P.A.-C;[Electronically signed by Phyllis Causey R.N. (22:54 10/23/2020)][Electronically signed by Steve Coombs P.A.-C (00:27 10/24/2020)][Electronically locked by Phyllis Causey R.N. (22:54 10/23/2020)] Name Value Range Interpretation Code Description Data Senait rce(s) Supporting Document(s) ID Date Data Source [id number] 10/23/2020 06:33:00 PM EDT [facility] 1 Medication Reconciliation Report [facility] Emergency Department [address] [place] [address] Phone #: [phone]- [phone] 10/23/2020 18:33 Patient: ROHAN COURTNEY Sex: M : 1990 Age: 30yWeight: 79.3 kgHeight/Length: 66 in.BMI: 28.2ALLERGIES: No Known Drug AllergyThe patient's Home Medications are listed below:THE FOLLOWING MEDICATIONS NEED TO BE RECONCILED: traZODone HCl Oral (50 mg) 1 tablet, daily Venlafaxine HCl ER Oral (75 mg) 1 tablet, dailyThe source(s) of the original Home Medication information:Not obtained.The following Medications were given to the patient in the Emergency Department:NS [IV] IV Fluids bolus 0, then 1500 mL/hr, administered: 19:54 10/23/2020Zofran [IVP] IVP 4 mg, administered: :54 10/23/2020Morphine [IVP] IVP 4 mg, administered: 19:55 10/23/2020NS [IV] IV Fluids bolus 0, then 75 mL/hr, administered: 20:34 021Morphine [IVP] IVP 4 mg, administered: 22:11 10/23/2020The following Medications were prescribed to the patient:Percocet 5 mg-325 mg tablet 1 tablet four times a day for 4 days -- Dispense 16 tablet. Refills: 0.Substitution permitted. Note to Pharmacy - pancreatitis.Pharmacy - [facility] [phone] ; [place] [address]. .Colace 100 mg capsule Take 1 capsule twice a day for 5 days -- Dispense 10 capsule. Refills: 0.Substitution permitted.Pharmacy - [facility] [phone] ; [place] [address]. Phone: [phone] Medication Reconciliation Report [facility] Emergency Department [address] [place] [address] Phone #: ext- [phone] 10/23/2020 18:33 Patient: ROHAN COURTNEY Sex: M : 1990 Age: [phone] .ondansetron 4 mg disintegrating tablet Take 1 tablet three times a day for 3 days -- Dispense 9 tablet.Refills: 0. Substitution permitted.Pharmacy - [facility] [phone] ; [place] [address]. . -- Steve Coombs P.A.-C Name Value Range Interpretation Code Description Data Senait rce(s) Supporting Document(s) ID Date Data Source [id number] 10/23/2020 06:33:00 PM EDT [facility] 1 Medication Administration Record [facility] Emergency Department [address] [place] [address] Phone #: ext- [phone] 10/23/2020 18:33 Patient: ROHAN COURTNEY Sex: M : 1990 Age: 30yWeight: 79.3 kgHeight/Length: 66 inBMI: 28.2ALLERGIES: No Known Drug Allergy Date/Time Medication Administered Medication OrderedStart NS [IV] NS IV : Bolus 1000 mL, then 7519:54 10/23/2020 Dose: IV Fluids mL/José Miguel Floyd R.N. Rate: 1500 mL/hr over 40 minute(s)---- Dispensed: 1000 mL bagStop Site: #1 left AC20:30 1SJosé Miguel galindo RMatthewNMatthewStart NS [IV] NS IV : Bolus 1000 mL, then 7520:34 10/23/2020 Dos e: IV Fluids mL/José Miguel Floyd R.N. Rate: 75 mL/hr over 6 hour(s)---- Dispensed: 500 mL bagStop Site: #1 left AC22:52 10/23/2020Phyllis Causey R.N.Given ZOFRAN [IVP] (ONDANSETRON HCL) Zofran IVP 4 mg19:54 10/23/2020 Dose: 4 mg IVPSJosé Miguel galindo RMatthewNMatthew Site: #1 left ACGiven MORPHINE [IVP] Morphine IVP 4 mg (HIGH ALERT19:55 10/23/2020 Dose: 4 mg IVP MEDICATION)José Miguel Mar R.NMatthew Site: #1 left ACGiven MORPHINE [IVP] Morphine IVP 4 mg (HIGH ALERT22:11 10/23/2020 Dose: 4 mg IVP MEDICATION)José Miguel Mar R.NMatthew Site: #1 left AC Name Value Range Interpretation Code Description Data Senait rce(s) Supporting Document(s) ID Date Data Source [id number] 10/23/2020 06:33:00 PM EDT [facility] 1 General Instructions [facility] Emergency Department [address] [place] [address] Phone #: ext- [phone] 10/23/2020 18:33 Patient: ROHAN COURTNEY Sex: M : 1990 Age: 30yChronic idiopathic pancreatitis.INSTRUCTIONSDrink plenty of fluids. No alcohol.(Recommend to utilize OTC Motrin and Tylenol to control inflammation and pain management.Recommend to follow the instructions on the bottle and not to exceed.).Warnings: Further evaluation is necessary. It is very important to follow up with a healthcare provider.SEDATIVE MEDICATION: You were given sedative medication during your visit. Do not drive or operatedangerous machinery today.CONTROLLED SUBSTANCE WARNINGS.GENERAL WARNINGS: Return or contact your physician immediately if your condition worsens orchanges unexpectedly, if not improving as expected, or if other problems arise. SPECIFICALLY, return ifyou develop fever, vomiting or the inability to keep fluids down; or for continued pain in the abdomen; or ifthere is no improvement in the pain in the abdomen.Prescription monitor program consulted by me due to This report was requested by: Steve CoombsReference #: [id number]. Prescription does not exceed state maximum supply of medicationsPrescription Medications:Percocet 5 mg-325 mg tablet 1 tablet four times a day for 4 days -- Dispense 16 tablet. Refills: 0.Substitution permitted. Note to Pharmacy - pancreatitis.Pharmacy - [facility] [phone] ; [place] [address]. FaxNumber: .Colace 100 mg capsule Take 1 capsule twice a day for 5 days -- Dispense 10 capsule. Refills: 0.Substitution permitted.Pharmacy - [facility] [phone] ; [place] [address]. .ondansetron 4 mg disintegrating tablet Take 1 tablet three times a day for 3 days -- Dispense 9 tablet.Refills: 0. Substitution permitted.Pharmacy - [facility] [phone] ; [place] [address]. .Follow-up: 2 General Instructions [facility] Emergency Department [address] [place] [address] Phone #: ext- [phone] 10/23/2020 18:33 Patient: ROHAN COURTNEY Sex: M : 1990 Age: 30yReturn to the emergency department as needed. Follow up with your healthcare provider tomorrow.Understanding of the discharge instructions verbalized by patient.Follow-up with: Dami Medina MD, Gastroenterology, [id number], [facility],[address] [place] [address], [address], [place], [address] Follow up tomorrow. Call for the next available appointment. Reason for referral: [facility]. ADDITIONAL INFORMATIONPancreatitisThe pancreas is an organ in the abdomen that secretes digestive juices into the stomach. Pancreatitisis an inflammation of the pancreas. In many cases, it's caused when the duct that connects thepancreas and gallbladder is blocked by a gallstone. Heavy alcohol use is another major cause. Lesscommon causes can include medicines, trauma, certain medical procedures, viruses, and toxins.Sometimes the cause of pancreatitis can't be fo und. Genetic testing is sometimes done in thosecases, especially if there is a family history of pancreas disease.Symptoms of pancreatitis include: Severe abdominal pain Nausea and vomiting Severe indigestion Racing heart FeverIf the pancreatitis becomes chronic, diarrhea, chronic pain, weight loss, and poor nutrition can result.At first, pancreatitis may be treated in the hospital. It may be diagnosed by history, exam, blood tests,and sometimes imaging studies. There, fluids and medicines can be provided. The underlying causeof the problem must also be treated to prevent further problems. If gallstones are the cause, you andyour healthcare provider can discuss options for treating them. This usually results in gallbladdersurgery. Sometimes another test must be done to clear the drainage ducts of a blocked gallstones. Ifalcohol is the cause, talk with your healthcare provider about a program to help you stop drinking.Home care Don't drink alcohol. Rest in bed or sit up in a chair until you feel better. 3 General Instructions [facility] Emergency Department [address] [place] [address] Phone #: ext- [phone] 10/23/2020 18:33 Patient: ROHAN COURTNEY Sex: M : 1990 Age: 30y Take medicines as prescribed. If you were given an antibiotic for infection, take it until it's gone, even if you feel better. Let your healthcare provider know if you vomit up your medicine.Tips for eating and drinking: If instructed, don't eat or drink until nausea and vomiting go away. Try sipping clear liquids to prevent dehydration. When you begin eating again, start with small amounts. Have small, more frequent meals rather than larger meals. Low fat meals are best.Follow-up careFollow up with your healthcare provider as advised.When to seek medical adviceCall your healthcare provider right away for any of the following: Continued or worsening pain Repeated vomiting Dizziness, weakness Fever of 100.4 F (38 C) or higher, or as directed by your healthcare provider Severe muscle crampsCall 911Call 911 if you have any of the following: Vomiting blood or large amounts of blood in stool Seizure Loss of consciousness [phone] [employer]. [address] [place] [address], [place] [address]. All rights reserved. This information is not in tended as asubstitute for professional medical care. Always follow your healthcare professional's instructions. You have been given the following additional information: Pancreatitis 4 General Instructions [facility] Emergency Department [address] [place] [address] Phone #: ext- [phone] 10/23/2020 18:33 Patient: ROHAN COURTNEY Sex: M : 1990 Age: 30y(Electronically signed by Steve Coombs P.A.-C 10/24/2020 00:27) Name Value Range Interpretation Code Description Data Senait rce(s) Supporting Document(s) ID Date Data Source [id number] 10/23/2020 06:33:00 PM EDT [facility] 1 Clinical Report - Nurses [facility] Emergency Department [address] [place] [address] Phone #: ext- [phone] 10/23/2020 18:33 Patient: ROHAN COURTNEY Sex: M : 1990 Age: 30yTRIAGEArrived by private vehicle. Historian: patient.Acuity: LEVEL 3.Chief Complaint: ABDOMINAL PAIN and NAUSEA.Onset. (3 weeks ago). ( pt states he was here the end of September and diagnosed with pancreatitis andsince then his issues have been constant, he was here yesterday but left due to the long wait, hisabdominal pain has increased much and can not get comfortable).Treatment CONSTRUCTION EXECUTIVE:None.SEPSIS SCREEN: SIRS SCREEN NEGATIVE: heart rate greater than 90. SEPSIS SCREEN NEGATIVE.No suspected or confirmed signs of infection present.PAUL COMA SCORE: 15- eyes open- spontaneous (4); best verbal response- oriented (5); bestmotor response- obeys commands (6). --18:46 10/23/20 Hair Arboleda RN18:40 10/23/20. BP: 143/97. MAP: 112. HR: 103. RR: 16. O2 saturation: 97%. Temp: 97.5 F. Pain levelnow: 09/20. --18:46 10/23/20 Hair Arboleda RN.Weight: 79.3 kg stated. Height/Length: 66 inches Per Patient. BMI: 28.2. --18:40 10/23/20 Hair Arboleda RN.MedicationstraZODone HCl Oral (Tablet 50 mg) 1 tablet, daily. Venlafaxine HCl ER Oral (Tablet Extended Release 24 Hour 75 mg) 1 tablet, daily. --18:42 10/23/20Hair Arboleda RN.AllergiesNo Known Drug Allergy. --18:42 10/23/20 Hair Arboleda RN.HistoryPAST MEDICAL HX: Immunizations: up-to-date.SOCIAL HX: Never smoker. Occasional alcohol use. No drug use. No recent travel. No knowncontact with a sick individual. He was offered HIV testing but declined and hepatitis C testing but declined.He has not traveled outside the [place]Infectious disease exposure: No infectious disease exposure. The patient was not exposed to Coronavirus.(has been Vaccinated for Covid). 2 Clinical Report - Nurses [facility] Emergency Department [address] [place] [address] Phone #: ext- [phone] 10/23/2020 18:33 Patient: ROHAN COURTNEY Sex: M : 1990 Age: 30y SELF HARM ASSESSMENT: Self harm assessment was performed. The patient answered "no" to the question(s) "Have you recently felt down, depressed, or hopeless?", "Do you have thoughts of harming or killing yourself?", "Do you have a plan for harming or killing yourself?", "Have you recently had thoughts about harming or killing others?", "Do you have any dangerous items in your possession?", "Have you noticed less interest or pleasure in doing things?", "Are you here because you tried to hurt yourself?" and "Have you ever tried to hurt yourself before today?". ABUSE ASSESSMENT: No report of abuse. NUTRITIONAL RISK ASSESSMENT: The nutritional risk assessment revealed no deficiencies. FUNCTIONAL ASSESSMENT: Functional assessment: no impairments noted. LEARNING NEEDS ASSESSMENT: The learning needs assessment revealed no barriers. FALL RISK ASSESSMENT: Fall risk assessment completed. No risk factors identified. SKIN INTEGRITY ASSESSMENT: Skin integrity risk assessment completed. No skin integrity risk identified. --18:46 10/23/20 Hair Arboleda RN. Interventions Identification band on patient. To treatment room. --18:46 10/23/20 Hair Arboleda RN.PHYSICAL [id number] 10/23/20. Ambulatory to room. Patient gowned.GENERAL / NEURO / PSYCH: Alert. Oriented X 4. Appears in distress.HEENT: Mucous membranes are pink.RESPIRATORY: Respirations not labored.CVS: Capillary refill less than 2 seconds.GI / : Abdomen soft and nontender. Bowel sounds within normal limits.SKIN: Skin is warm and dry. --18:54 10/23/20 José Miguel Mar R.N.NURSING PROGRESS NOTES18:54 10/23/20. Reassurance given. Two patient identifiers checked. Call light placed in reach. Bedplaced in lowest position. Brakes of bed on. Patient ready for evaluation- ED physician and PA notified.--18:54 10/23/20 José Miguel Mar R.N. 19:24 10/23/2020 Site #1 started via IV in the left antecubital space with an 20g angiocath, with aseptic technique and good blood return; one attempt. Blood drawn: rainbow set. Labeled in the presence of the patient and sent to the lab. Saline lock flushed with 10 mL saline. --19:24 10/23/20 José Miguel Mar R.N. EKG time: (19:45 10/23/2020). EKG was ordered, performed by a nurse and shown to the PA. --19:45 10/23/20 José Miguel Mar R.N. 3 Clinical Report - Nurses [facility] Emergency Department [address] [place] [address] Phone #: ext- [phone] 10/23/2020 18:33 Patient: ROHAN COURTNEY Sex: M : 1990 Age: 30y 19:54 10/23/2020 Started bag #1 1000 mL IV Fluids NS; at 1500 mL/hr over 40 minute(s) via site #1 via IV pump. Allergies verified and confirmed 5 rights. IV patency established. IV site checked: no pain, redness, or swelling. IV flushed thoroughly pre- and post-medication administration. Information reviewed with patient including reason for taking this medication, signs of allergic reaction and precautions. Verbalizes understanding. --19:54 10/23/20 José Miguel Mar R.N. 19:54 10/23/2020 Zofran (Ondansetron HCl) IVP 4 mg given over 2 minute(s) via site #1. Allergies verified and confirmed 5 rights. IV patency established. IV site checked: no pain, redness, or swelling. IV flushed thoroughly pre- and post-medication administration. IVP given by RN. Information reviewed with patient including reason for taking this medication, signs of allergic reaction and precautions. Verbalizes understanding. --19:54 10/23/20 José Miguel Mar R.N. 19:55 10/23/2020 Morphine IVP 4 mg given over 2 minute(s) via site #1. Allergies verified and confirmed 5 rights. IV patency established. IV site checked: no pain, redness, or swelling. IV flushed thoroughly pre- and post-medication administration. IVP given by RN. Information reviewed with patient including reason for taking this medication, signs of allergic reaction, precautions and sedative warning. Verbalizes understanding. --19:55 10/23/20 José Miguel Mar R.N. 20:30 10/23/2020 IV Fluids NS via IV site #1 Discontinued: bag #1 completed. Total amount infused: 1000 mL. IV patency established. IV site checked: no pain, redness, or swelling. IV flushed thoroughly. --20:30 10/23/20 José Miguel Mar R.N. 20:34 10/23/2020 Started bag #2 500 mL IV Fluids NS; at 75 mL/hr over 6 ho ur(s) via site #1 via IV pump. Allergies verified and confirmed 5 rights. IV patency established. IV site checked: no pain, redness, or swelling. IV flushed thoroughly pre- and post-medication administration. Information reviewed with patient including reason for taking this medication, signs of allergic reaction and precautions. Verbalizes understanding. --20:34 10/23/20 José Miguel Mar R.N. 22:11 10/23/2020 Morphine IVP 4 mg given over 2 minute(s) via site #1. Allergies verified and confirmed 5 rights. IV patency established. IV site checked: no pain, redness, or swelling. IV flushed thoroughly pre- and post-medication administration. IVP given by RN. Information reviewed with patient including reason for taking this medication, signs of allergic reaction, precautions and sedative warning. Verbalizes understanding. --22:11 10/23/20 José Miguel Mar R.N. ( PO fluids provided. Patient tolerated without issue.). --22:39 10/23/20 Adriana Mcknight 22:52 10/23/2020 IV Fluids NS via IV site #1 Discontinued: completed. Total amount infused: 1100 mL. IV patency established. IV site checked: no pain, redness, or swelling. IV flushed thoroughly. --22:52 10/23/20 Phyllis Causey R.N.DISPOSITION / DISCHARGE 22:52 10/23/2020 Site #1 removed upon discharge. Bandage applied. --22:52 10/23/20 Phyllis Causey R.N. 4 Clinical Report - Nurses [facility] Emergency Department [address] [place] [address] Phone #: ext- [phone] 10/23/2020 18:33 Patient: ROHAN COURTNEY Sex: M : 1990 Age: 30y Condition at departure: stable. No learning barriers present. Discharge instructions provided and reviewed with the patient. Reviewed warnings. Reviewed medication(s) side effects, precautions, dosing and course information. Prescription(s) given to the patient and sent electronically to pharmacy. Medication(s) for home use given to the patient per protocol. Treatments reviewed. Reviewed referral to a pneumatic systems operator for followup. Patient verbalized understanding. Written instructions provided in Estonian. The patient was discharged by the physician nursing home assistant administrator. He was discharged home. He left ambulatory and via private vehicle. Patient driving. --22:53 10/23/20 Phyllis Causey R.N. 22:52 10/23/20. BP: 132/83. MAP: 99. HR: 72. RR: 15. O2 saturation: 98% on room air. Temp: 98.3 F. Pain level now: 05/21. --22:53 10/23/20 Phyllis Causey R.N.Locked/Released at 10/23/2020 22:54 by Phyllis Causey R.N. Name Value Range Interpretation Code Description Data Senait rce(s) Supporting Document(s) ID Date Data Source [id number] 10/23/2020 06:33:00 PM EDT [facility] 1 Clinical Report - Physicians/Mid Levels [facility] Emergency Department [address] [place] [address] Phone #: ext- [phone] 10/23/2020 18:33 Patient: ROHAN COURTNEY Sex: M : 1990 Age: 30y Time Seen: 19:04 10/23/2020; initial patient contact, initial documentation. Arrived- By private vehicle. Historian- patient. RETURN VISIT: recently seen in this ED by me within past 30 days. Seen now for the same problem as before. Disposition decision: 22:38 10/23/2020.HISTORY OF PRESENT ILLNESS Chief Complaint: ABDOMINAL PAIN. This started about 2 days ago. It is described as "pain", sharp and stabbing and it is described as generalized in location and located in the upper abdomen. The patient has had nausea. (pt was previously seen in [facility] ER for pancreatitits and admitted. pt sts he was transferred to [facility] and has a GI f/u and eventually dishcharged. Came to this ER yesterday, but eventually left w/o being seen due to long wait. Came back today with c/o continued pain. No other complaints.). Similar symptoms previously. Recent medical care: The patient was seen recently at this facility and another facility in the emergency department.REVIEW OF SYSTEMSNo constipation, black stools, hematemesis, difficulty with urination or pain with urination. No urinaryfrequency, bloody stools, fever, headache or sore throat. No blurred vision, chest pain, difficulty breathing,cough or joint pain. No skin rash, chills or back pain. The patient has not had weight loss. All othersystems reviewed and are negative.PAST HISTORYSee nurses notes. Problems: Cholecystitis. Anxiety Reaction. Insomnia. Pancreatitis. Additional Surgeries: Mastectomy [2012]. (Bilateral) Testicular Cyst removed [2020]. Medications: traZODone HCl Oral (Tablet 50 mg) 1 tablet, daily. Venlafaxine HCl ER Oral (Tablet Extended Release 24 Hour 75 mg) 1 tablet, daily. Allergies: 2 Clinical Report - Physicians/Mid Levels [facility] Emergency Department [address] [place] [address] Phone #: ext- [phone] 10/23/2020 18:33 Patient: ROHAN COURTNEY Sex: M : 1990 Age: 30y No Known Drug Allergy.SOCIAL HISTORYNever smoker. Occasional alcohol use. No drug use.ADDITIONAL NOTESThe nursing notes have been reviewed.PHYSICAL EXAMVital Signs: 10/23/2020 18:40 BP: 143/97. MAP: 112. HR: 103. RR: 16. O2 saturation: 97%. Temp: 97.5F. Pain level now: 810. Have been reviewed. Oxygen saturation normal.Appearance: Alert. Oriented X3. No acute distress.Eyes: Eyelids appear normal to inspection. Conjunctivae and sclerae appear normal to inspection.Corneas appear normal to inspection. Pupils equal, round and reactive to light. EOMs intact. Periorbitalareas appear normal to inspection. Anterior chambers clear.ENT: Normal ENT inspection. Airway intact. TM's normal. Ears normal. Nose normal. Nares normal.Pharynx normal. Moist mucous membranes. Voice normal.Neck: Normal inspection. Neck supple.CVS: Normal heart rate and rhythm. No JVD present. Pulses normal. Capillary refill normal. Strongperipheral pulses. Heart sounds normal. Pulses: right radial 2+; left radial 2+; right dorsalis pedis 2+; leftdorsalis pedis 2+; right posterior tibial 2+; left posterior tibial 2+.Respiratory: Chest normal on inspection. No respiratory distress. Unlabored respirations. Lungs clear.Good chest movement. Breath sounds normal and equal.Abdomen: Soft. Mild tenderness diffusely and in the epigastric area. Bowel sounds normal. Nodistention.Back: Normal inspection.Skin: Skin warm and dry.Extremities: Extremities exhibit normal ROM. No lower extremity edema. No calf tenderness. No lowerextremity edema.Neuro: Awake. Alert. Mood/affect normal. Speech normal. No motor deficit. No sensory deficit.Psych: Cognition normal. Thought process and content normal. Insight and judgement normal.LABS, X-RAYS, AND EKGLaboratory Tests: CBC w Diff: (NHUNG: 10/23/2020 19:22) ( MsgRcvd 10/23/2020 19:38) Final results Test Result Flag Units (Reference) CBC W/AUTOMATED DIFF COMPLETE BLOOD COUNT WBC 8.5 10/uL (4.2 - 11.0) RBC 4.24 L 10/uL (4.50 - 6.30) HEMOGLOBIN 12.7 L g/dL (14.0 - 16.0) HEMATOCRIT 39.0 L % (41.0 - 51.0) MCV 92.0 fL (80.0 - 94.0) MCH 30.0 pg (27.0 - 34.0) MCHC 32.6 g/dL (31.0 - 36.0) RDW 13.4 % (11.5 - 14.8) 3 Clinical Report - Physicians/Mid Levels [facility] Emergency Department [address] [place] [address] Phone #: ext- [phone] 10/23/2020 18:33 Patient: ROHAN COURTNEY Sex: M : 1990 Age: 30y PLATELETS 539 H 10/uL (150 - 450) MPV 8.3 fL (7.4 - 10.4) NEUT 70.7 % (37.0 - 80.0) LYMPH 16.6 L % (25.0 - 40.0) MONO 6.8 % (3.0 - 8.0) EOS 3.2 % (0.0 - 7.0) BASO 0.7 % (0.0 - 2.0) %IG 2.0 H % (0.0 - 0.0) %NRBC 0.0 % (0.0 - 0.0) #NEUT 6.04 10/uL (2.00 - 6.90) #LYMPH 1.42 10/uL (0.60 - 3.40) #MONO 0.58 10/uL (0.00 - 0.90) #EOS 0.27 10/uL (0.00 - 0.70) #BASO 0.06 10/uL (0.00 - 0.20) #IG 0.17 H 10/uL (0.00 - 0.10) #NRBC 0.00 10/uL (0.00 - 0.00) MANUAL DIFF NOT INDICATED RBC MORPH NOT INDICATEDCMP: (NHUNG: 10/23/2020 19:22) ( MsgRcvd 10/23/2020 20:17) Final results Test Result Flag Units (Reference) COMPREHENSIVE METABOLIC PANEL COMPREHENSIVE METABOLIC PANEL SODIUM 138 mEq/L (134 - 153) POTASSIUM 3.7 mEq/ L (3.6 - 5.0) CHLORIDE 98 mEq/L (98 - 107) CO2 26 MEQ/L (22 - 30) GLUCOSE 115 H MG/DL (70 - 99) BUN 8 MG/DL (7 - 21) CREATININE 0.9 MG/DL (0.7 - 1.5) BUN/CREAT 9 (8 - 27) TOTAL PROTEIN 6.2 L G/DL (6.3 - 8.2) ALBUMIN 3.8 L G/DL (3.9 - 5.0) GLOBULIN 2.4 GM/DL (2.4 - 3.2) A/G RATIO 1.6 (0.8 - 2.0) CALCIUM 9.3 MG/DL (8.4 - 10.2) TOTAL BILI <0.7 MG/DL (0.2 - 1.3) ALKALINE PHOS 95 U/L (38 - 126) SGOT/AST 32 U/L (5 - 40) SGPT/ALT 35 U/L (7 - 56) ANION GAP 14.0 mmol/L (8.0 - 16.0) AGE 30 yrs NON-AA GFR >60 mL/min AFR AMER GFR >60 mL/min Male GFR Interprentation 20-49 yrs >60 mL/min Prummj47-04 yrs >56 mL/min Normal 60-69 yrs >49 mL/min Normal 70-79yrs>42 mL/min Normal 80 and above >35 mL/min Normal Female GFRInterpretation 20-39 yrs >60 mL/min Normal 40-49 yrs >58 mL/minNormal 50-59 yrs >51 mL/min Normal 60-69 yrs >45 mL/min Fisdpv97-27 yrs >39 mL/min Normal 80 and above >32 mL/min NormalLipase: (NHUNG: 10/23/2020 19:22) ( MsgRcvd 10/23/2020 20:17) Final results Test Result Flag Units (Reference) LIPASE 282 H U/L (13 - 60)Lactic Acid: (NHUNG: 10/23/2020 19:22) ( MsgRcvd 10/23/2020 19:37) Final results Test Result Flag Units (Reference) 4 Clinical Report - Physicians/Mid Levels [facility] Emergency Department [address] [place] [address] Phone #: ext- [phone] 10/23/2020 18:33 Patient: ROHAN COURTNEY Sex: M : 1990 Age: 30y LACTIC ACID 1.1 MMOL/L (0.2 - 2.2) Troponin-T: (NHUNG: 19:22) ( MsgRcvd 10/23/2020 19:51) Final results Test Result Flag Units (Reference) TROPONIN T <0.01 NG/ML (0.00 - 0.10) TROPONIN T0.1 ng/ml Recommended as the clinical threshold value Joaquim Butler.PROGRESS AND PROCEDURESCourse of Care: Enter room and pt lying peacefully in bed in [facility]. Patient stable. Denies any newissues, concerns, or complaints. VSS, AOx3, interacting well and appropriately, no use of accessory muscle, able to speak full sentences, stable, non-toxic looking. Pt presents back to the ER. Came here yesterday, but left before being seen due long wait. Was previously admitted and transferred to [facility] and discharged. Sts that he was feeling better and they discharged him. Sts that he felt pain and thus came to the ER. Pt sts that he has no pain meds. Is set up for a f/u with GI, but at [facility]. pt has know n pancreatitis. PE [place] itnact b/l UE and LE. Abd is soft, but noted tenderness. Pt has had multiple imaging. Will obtina labs adn hosptial notes for review. Pending resutls. Pt was transferred for abnormal LFT. Reivewed previous dishcarge instrcutions. Noted that pt is lying peacefully in bed in NAD utilizing smartphone in NAD. Penidng results. Reviewed results. LFTs WNL; lipase slightly elevated, but has known pancreatits. No WBC. Pt has hads multiple CTs the last few weeks. Discuss with attending and indicates to not reimage as VSS, normal labs, and a known patho. Enter room and pt lying in bed; somewhat uncomfortable. Discuss tx and pt expresses understanding. Will tx pain wiht meds and if worsen to come back to the ER and pt expresses understanding and agrees. Pt is currnelty on abx for colitis and no pain meds. WIll tx and have pt f/u with PCP tomorrow and GI elena. Pt is in full agreement with this. Reviewed results. Discussed with attending. Agrees wiht discharge. Enter room and patient lying peacefully in bed in NAD. Patient stable. Denies any new issues, concerns, or complaints. Discussed results with pt. Discussed tx plan with pt. Discussed and counseled on stable condition. 5 Clinical Report - Physicians/Mid Levels [facility] Emergency Department [address] [place] [address] Phone #: ext- [phone] 10/23/2020 18:33 Patient: ROHAN COURTNEY Sex: M : 1990 Age: 30y Discussed importance of a f/u with PCP. Discussed return to ER criteria. Answered their questions. Indicates and verbalizes that they understand, agree, and will comply with above. Denies any new questions or concerns. Patient has capacity to understand. Discharge decision based on the following: patient's condition is stable; patient's exam is stable; social support is adequate; transportation is available; follow-up is available. Discussed of OTC Motrin and Tylenol to control inflammation and pain management. Informed to follow directions on bottle that are appropriate for age and/or weight. 22:42 10/23/20. Enter room to [facility] and note that pt is lying peacefully in bed in [facility] utilizing smartphone and able to tolerate PO fluids in NAD. Will continue wiht discharge. Witness pt ambulate in [facility] as he leaves [facility] Discussed case with health care provider (Adriano). Disposition: Discharged home in good and improved condition. Condition: good and stable.CLINICAL IMPRESSION Chronic idiopathic pancreatitis.INSTRUCTIONS Drink plenty of fluids. No alcohol. (Recommend to utilize OTC Motrin and Tylenol to control inflammation and pain management. Recommend to follow the instructions on the bottle and not to exceed.). Warnings: Further evaluation is necessary. It is very important to follow up with a healthcare provider. SEDATIVE MEDICATION: You were given sedative medication during your visit. Do not drive or operate dangerous [employer] today. CONTROLLED SUBSTANCE WARNINGS. GENERAL WARNINGS: Return or contact your physician immediately if your condition worsens or changes unexpectedly, if not improving as expected, or if other problems arise. SPECIFICALLY, return if you develop fever, vomiting or the inability to keep fluids down; or for continued pain in the abdomen; or if there is no improvement in the pain in the abdomen. Prescription monitor program consulted by me due to This report was requested by: Steve Coombs Reference #: [id number]. Prescription does not exceed state maximum supply of medications 6 Clinical Report - Physicians/Mid Levels [facility] Emergency Department [address] [place] [address] Phone #: ext- [phone] 10/23/2020 18:33 Patient: ROHAN COURTNEY Sex: M : 1990 Age: 30y Prescription Medications: Percocet 5 mg-325 mg tablet 1 tablet four times a day for 4 days -- Dispense 16 tablet. Refills: 0. Substitution permitted. Note to Pharmacy - pancreatitis. Pharmacy - [facility] [address] [place] [address] [address] ; [place] [address]. . Colace 100 mg capsule Take 1 capsule twice a day for 5 days -- Dispense 10 capsule. Refills: 0. Substitution permitted. Pharmacy - [facility] [address] [place] [address] [address] ; [place] [address]. FaxNumber: . ondansetron 4 mg disintegrating tablet Take 1 tablet three times a day for 3 days -- Dispense 9 tablet. Refills: 0. Substitution permitted. Pharmacy - [facility] [address] [place] [address] [address] ; [place] [address]. . Follow-up: Return to the emergency department as needed. Follow up with your healthcare provider tomorrow. Understanding of the discharge instructions verbalized by patient. Follow-up with: Dami Medina MD, Gastroenterology, [id number], [place] [facility], [address] [place] [address], [address], [place], [facility] Follow up tomorrow. Call for the next available appointment. Reason for referral: [facility].(Electronically signed by Steve Coombs P.A.-C 10/24/2020 00:27) Name Value Range Interpretation Code Description Data Senait rce(s) Supporting Document(s) ID Date Data Source [id number] 10/23/2020 10:34:00 PM EDT [facility] Name Value Range Interpretation Code Description Data Senait rce(s) Supporting Document(s) UA REFLEX TO UA CULTURE [facility] URINALYSIS SOURCE R [facility] Hospit al COLOR yellow NORMAL: Yellow [facility] CLARITY clear NORMAL: Clear [facility] Specific gravity of Urine by Test strip 1.015 1.001 - 1.030 [facility] pH 6 5 - 9 [facility] Glucose [Mass/volume] in Urine by Test strip NORM NORMAL: [facility] Bilirubin.total [Presence] in Urine by Test strip NEG NORMAL: Negative [facility] Ketones [Presence] in Urine by Test strip 50 NORMAL: Negative A [facility] Protein [Mass/volume] in Urine by Test strip NEG NORMAL: Negat [facility] Nitrite [Presence] in Urine by Test strip NEG NORMAL: Negative [facility] BLOOD NEG NORMAL: Negative [facility] Leukocyte esterase [Presence] in Urine by Test strip 25 TRA L: Negative [facility] Urobilinogen [Mass/volume] in Urine by Test strip NOR less monica n 1.0 mg/dL [facility] MICROSCOPIC See Below [facility] ital WBC 1 - 3 NORMAL: NONE SEEN [facility] Erythrocytes [#/volume] in Urine by Test strip 0 - 1 NORMAL: NON E SEEN [facility] EPITHELIAL FEW NORMAL: NONE SEEN [facility] Bacteria [Presence] in Urine sediment by Light microscopy Tr [place] NORMAL: NONE SEEN [facility] Mucus [Presence] in Urine sediment by Light microscopy Trace NORMAL: NONE SEEN [facility] ID Date Data Source [id number] 10/23/2020 08:17:00 PM EDT [facility] Name Value Range Interpretation Code Description Data Senait rce(s) Supporting Document(s) Lipase [Enzymatic activity/volume] in Serum or Plasma 282 U/L 13 - 60 H [facility] ID Date Data Source [id number] 10/23/2020 08:17:00 PM EDT [facility] Name Value Range Interpretation Code Description Data Senait rce(s) Supporting Document(s) COMPREHENSIVE METABOLIC PANEL [facility] COMPREHENSIVE METABOLIC PANEL Sodium [Moles/volume] in Serum or Plasma 138 mEq/L 134 - 153 [facility] Potassium [Moles/volume] in Serum or Plasma 3.7 mEq/L 3.6 - 5.0 [facility] Chloride [Moles/volume] in Serum or Plasma 98 mEq/L 98 - 107 [facility] Carbon dioxide, total [Moles/volume] in Serum or Plasma 26 MEQ/L 22 - 30 [facility] Glucose [Mass/volume] in Serum or Plasma 115 MG/DL 70 - 99 H [facility] BUN 8 MG/DL 7 - 21 [facility] Creatinine [Mass/volume] in Serum or Plasma 0.9 MG/DL 0.7 - 1.5 [facility] BUN/CREAT 9 8 - 27 [facility] Protein [Mass/volume] in Serum or Plasma 6.2 G/DL 6.3 - 8.2 L [facility] Albumin [Mass/volume] in Serum or Plasma 3.8 G/DL 3.9 - 5.0 L [facility] Globulin [Mass/volume] in Serum by calculation 2.4 GM/DL 2.4 - 3.2 [facility] A/G RATIO 1.6 0.8 - 2.0 [facility] Calcium [Mass/volume] in Serum or Plasma 9.3 MG/DL 8.4 - 10.2 [facility] Bilirubin.total [Mass/volume] in Serum or Plasma <0.7 MG/DL 0.2 - 1.3 [facility] Alkaline phosphatase [Enzymatic activity/volume] in Serum or Plasma 95 U/L 38 - 126 [facility] Aspartate aminotransferase [Enzymatic activity/volume] in Serum or Plasma 32 U/L 5 - 40 [facility] Alanine aminotransferase [Enzymatic activity/volume] in Seru m or Plasma 35 U/L 7 - 56 [facility] Anion gap 3 in Serum or Plasma 14.0 mmol/L 8.0 - 16.0 [facility] AGE 30 yrs [facility] NON-AA GFR >60 mL/min [facility] ital AFR AMER GFR >60 mL/min [facility] Ho spital Male GFR In terprentation 20-49 yrs >60 mL/min Normal 50-59 yrs >56 mL/min Normal 60-69 yrs >49 mL/min Normal 70-79yrs >42 mL/min Normal 80 and above >35 mL/min Normal Female GFR Interpretation 20-39 yrs >60 mL/min Normal 40-49 yrs >58 mL/min Normal 50-59 yrs >51 mL/min Normal 60-69 yrs >45 mL/min Normal 70-79 yrs >39 mL/min Normal 80 and above >32 mL/min Normal ID Date Data Source [id number] 10/23/2020 07:51:00 PM EDT [facility] Name Value Range Interpretation Code Description Data Senait rce(s) Supporting Document(s) TROPONIN T <0.01 NG/ML 0.00 - 0.10 [facility] ospital TROPONIN T0.1 ng/ml Recommended as the c linical threshold value forTroponin T. ID Date Data Source [id number] 10/23/2020 07:37:00 PM EDT [facility] Name Value Range Interpretation Code Description Data Senait rce(s) Supporting Document(s) CBC W/AUTOMATED DIFF [facility] COMPLETE BLOOD COUNT Leukocytes [#/volume] in Blood by Automated count 8.5 10^3/uL 4.2 - 1 1.0 [facility] Erythrocytes [#/volume] in Blood by Automated count 4.24 10^6/uL 4. 50 - 6.30 L [facility] Hemoglobin [Mass/volume] in Blood 12.7 g/dL 14.0 - 16.0 L [facility] Hematocrit [Volume Fraction] of Blood by Automated count 39.0 % 4 1.0 - 51.0 L [facility] Erythrocyte mean corpuscular volume [Entitic volume] by Auto mated count 92.0 fL 80.0 - 94.0 [facility] Erythrocyte mean corpuscular hemoglobin [Entitic mass] by Automated count 30.0 pg 27.0 - 34.0 [facility] Erythrocyte mean corpuscular hemoglobin concentration [Mass/volume] by Automated count 32.6 g/dL 31.0 - 36.0 [facility] Erythrocyte distribution width [Ratio] by Automated count 13.4 % 11.5 - 14.8 [facility] Platelets [#/volume] in Blood by Automated count 539 10^3/uL 150 - 45 0 H [facility] Platelet mean volume [Entitic volume] in Blood by Automated count 8.3 fL 7.4 - 10.4 [facility] Neutrophils/100 leukocytes in Blood by Automated count 70.7 % 37. 0 - 80.0 [facility] Lymphocytes/100 leukocytes in Blood by Manual count 16.6 % 25.0 - 40.0 L [facility] Monocytes/100 leukocytes in Blood by Automated count 6.8 % 3.0 - 8.0 [facility] Eosinophils/100 leukocytes in Blood by Automated count 3.2 % 0.0 - 7.0 [facility] Basophils/100 leukocytes in Blood by Automated count 0.7 % 0.0 - 2.0 [facility] %IG 2.0 % 0.0 - 0.0 H [facility] Hospit al %NRBC 0.0 % 0.0 - 0.0 [facility] Neutrophils [#/volume] in Blood by Automated count 6.04 10^3/uL 2.00 - 6.90 [facility] Lymphocytes [#/volume] in Blood by Automated count 1.42 10^3/uL 0.60 - 3.40 [facility] Monocytes [#/volume] in Blood by Automated count 0.58 10^3/uL 0.00 - 0.90 [facility] Eosinophils [#/volume] in Blood by Automated count 0.27 10^3/uL 0.00 - 0.70 [facility] Basophils [#/volume] in Blood by Automated count 0.06 10^3/uL 0.00 - 0.20 [facility] #IG 0.17 10^3/uL 0.00 - 0.10 H [facility] #NRBC 0.00 10^3/uL 0.00 - 0.00 [facility] MANUAL DIFF NOT INDICATED [facility] RBC MORPH NOT INDICATED [facility] ID Date Data Source [id number] 10/23/2020 07:37:00 PM EDT [facility] Name Value Range Interpretation Code Description Data Senait rce(s) Supporting Document(s) Lactate [Moles/volume] in Serum or Plasma 1.1 MMOL/L 0.2 - 2.2 [facility] ID Date Data Source [id number] 10/22/2020 11:23:35 AM EDT [facility] Name Value Range Interpretation Code Description Data Senait rce(s) Supporting Document(s) Nursing [facility] RMSTJv7lBjQXUbHd05/HYRqoOQKaf4WqCQeeAOl7IXkgNCUoP4XeHUG3iK3uZIS1KBxTMcUwTzHbNUPm lbm [file] AgICAgICAgICAgICAgICAgICAgICAgICAgICAgICAg ICAgICAgICAgICAgICAgICAgICAgICAgICAgICAgICAgICAgICAgICAgICAgICAgICAgICAgICAgICAg DQogICAgICAgICAgICAgICAgICAgICAgICAgICAgICAgICAgICAgICAgICAgICAgICAgICAgICAgICAg ICAgICAgICAgICAgICAgICAgICAgICAgICAgICAgIC AgICAgICAgICAgDQogICAgICAgICAgICAgICAgICAgICAgICAgICAgICAgICAgICAgICAgICAgICAgIC AgICAgICAgICAgICAgICAgICAgICAgICAgICAgICAgICAgICAgICAgICAgICAgICAgICAgDQogICAgIC AgICAgICAgICAgICAgICAgICAgICAgICAgICAgICAg ICAgICAgICAgICAgICAgICAgICAgICAgICAgICAgICAgICAgICAgICAgICAgICAgICAgICAgICAgICAg ICAgDQogICAgICAgICAgICAgICAgICAgICAgICAgICAgICAgICAgICAgICAgICAgICAgICAgICAgICAg ICAgICAgICAgICAgICAgICAgICAgICAgICAgICAgIC AgICAgICAgICAgICAgDQogICAgICAgICAgICAgICAgICAgICAgICAgICAgICAgICAgICAgICAgICAgIC AgICAgICAgICAgICAgICAgICAgICAgICAgICAgICAgICAgICAgICAgICAgICAgICAgICAgICAgDQogIC AgICAgICAgICAgICAgICAgICAgICAgICAgICAgICAg ICAgICAgICAgICAgICAgICAgICAgICAgICAgICAgICAgICAgICAgICAgICAgICAgICAgICAgICAgICAg ICAgICAgDQogICAgICAgICAgICAgICAgICAgICAgICAgICAgICAgICAgICAgICAgICAgICAgICAgICAg ICAgICAgICAgICAgICAgICAgICAgICAgICAgICAgIC AgICAgICAgICAgICAgICAgDQogICAgICAgICAgICAgICAgICAgICAgICAgICAgICAgICAgICAgICAgIC AgICAgICAgICAgICAgICAgICAgICAgICAgICAgICAgICAgICAgICAgICAgICAgICAgICAgICAgICAgDQ ogICAgICAgICAgICAgICAgICAgICAgICAgICAgICAg ICAgICAgICAgICAgICAgICAgICAgICAgICAgICAgICAgICAgICAgICAgICAgICAgICAgICAgICAgICAg ZOUcKNUgEUCvHVb5J2odEZFpBWJbJD0xOSb3Dg4+HWmJMtJzEMX6ocTcdD4GGG8ld9OtCPvhCNAbl8Fg LNq1AR1DZNGaQJezKX4HZXisgb9MYLXcFHLdcUSXe1 ywYtHlFXI4JZPgAgqrZC3NGAJoB9lnleMgBFMfDVJVGZ7GKnNgZ3KuqE94XIPWVe2+DQplbmRvYmoNCj BoSPQoq0LiLXa1IE9XLPVpGqzck9LjWtToOJEOFZdtXV5VPVE2IWUdYUFvBq2JPHXrO232kfTrIN7BGy 8BUnTiQK1smn9CIzHmPHYaMnoDBac7CLnjBQ5TaTRz CSoHrNCkxM3nJQ0ivJWaQayaQtPhn9SyLZXONDSpcQtmHk4yOQAfLU6gUD3oNUBhCGMiBiK7AZHHEL2U GHPvKZUiwSKcNEIeUGOATB8JIUqsPEY6BNAhtcZxuVUqDHsaQL8BKWZvmnHjUoTtPQWPVSe+Ji4GSS3t k5JgKTvnXGAaRE9fie0XVUnYAlArI9G6xVMcB5Z3ZH qyCl7ACTAvONWbYyPdUBFTCSqzAG3VBL8lwlQ6PL1PnNLiZXBqQZPkrXIkLYg5H41piANzSVfdGQ2PHP A+Sanjiv+Ku8YUEZuAEXfEXLqWtHwQPBFEzEqU3PjQ1PWb6SnE7YoCF63qUndcdUaRLgsLQ8LZC2kPWNgIF AIPD8FxSMedE8gsdQdQvPjCOKMUaPaL29meXAxRNMd QIElHASpGl7ECBUcH6ElsxKunMulirPgPWVjPSDSCD5ENIcmrtFjfHYktJdvIX08cDnqHG0HRg4CAvOc QS3aoc5GtAQiOe3WTMRdBY9DGTYpHSTnTCKiEVB9VJNwJgPeNHonPETxXEFbWWQ8QKPcHYQwMB8BRjJf KFZlBPtjQfGwFNEnIHXdnz5CFSYsMKMdGFbwPBLoFH CaUFOoGWbcZSXgZOOzQOU0OMOpSXBqLG9GQsDvGBWsWRE9XRWvXSUxLTYvjd3QPOGyDPUzEUafAQVjYR RdWYUpBIfyRXGdJTCnXzW2JQKaJBIdNS7FZxGrUCQoORA9KxKwPQSaFDBprd6AMGVzSEUeYxC4OVGpBH GxKYEeSNolMNBnXUQ1XEFdNKAmRADbMU8SKmEgXLIc UWUfWQWaFUVoXSVgjr0PNNNzOPRlFHG3ObStYEXmTXYcSZwsYUFoKJN4CARtAFQgYQKeQB4YWwUuVQNv ROIzNSemGXCeBFLuxq3VJNMaNIHmTdV2PrIgPDDhHRNhBEjhJXQeGBE6ObJ2FJQzIDZxFA1GXtDjFDZp BSM4ZPRkLMAjXYRkzw3OUTMcFBYpEyH1SUAiNJUoCV AgFOknZLQkSEN5BIc7FPHdWJPlMT7QObTqHTHdYJguCOLxMOBcAEUdni0MZYZbUXRiENI7ODMqPXKzSO XqACvdVSTpULP0XMR0JAThIDPjEJ1PRpNkNNIdIAl4OjekYSZiEZTjyi7BYQHlWWMdTAIuKhLyTRXfEI JbWSj8eeQrjTKrNDc6JR0UY5IolgGtWzTAAy9Hw242 EJF4VHNhSl9EU9qmNm2tYDMfFZAGSl5MOQn4Uyl1B6Q4FPJoShV9QbU6DViqZUmtQGVgNPm8BWZ6Y1X+ NPivEJcaCZB7UPVfEdblWUCmZGIyA4OlGHRaBELjWByjBD8eRUOZGk7+DQpzdGFydHhyZWYNCjIwMzY3 ZKjrZENNRy7K ID Date Data Source [id number] 10/22/2020 10:01:59 AM EDT [facility] Name Value Range Interpretation Code Description Data Senait rce(s) Supporting Document(s) Disch [facility] UGPBBq1iTcBGReNp88/WZTxjHETkf9LqMTwsRGh2KObwERLcY0IuBKG4oV6iUCH3VPeDVoOoWkNfTWBl lbm WmJmbZWiUzPLXdCklJLrIkHUrtYeaieRZnHW5CaJX6OHWvX41fHTKkYQNeN2EyIIW5HNB+Qx0UEVZaqT LlKF7PRmpK1Tito6c61a5M+y79DvKV4nHrkAARtkSHy0iv86UjJbTkotngfrmnuz3cgQo892adIZx8Fl MamGssm6x+xANR8/6QEC7PbU//zDSVyl7BZa+3HyMt 2P2c/h1vsWhZY2ynk60qZDgKaKiWpYfgY53/f+H0jh2/8LbDxl96KS9RcSLHe051bc0vSab/sruvjIey qQMGmXJ2T+TftNAlADVctgunaIPEonbZSjQY2Xai6E9KHlEIFfU+vAnJXdZuOoIIbH19gbIL/JpcpT0A k6YVVxPDmTxz8tSqJIXKUw0Tr22+NKPYyw7kou+gKU +mla5B8eH+BQSPqbU+hTPkFZGkwydOec6Yv6vwHMYTWSrBSMmWoeEEjUu7jcROY11f/B389H8t5WikSa Lpz6EEcJTtflhfD4qtPu2vh8Iqh6WQcDa2ziPVuW7XhLY33XoicesFhj73bFskWifUoHoS2zRIYPcJRY oVt8tLNivBwjFhnXWJ6q5DwTE7ws3/RIGFars6aOar pW3MPIl3XZyHLPHOS0hnI3pEpZDxCHsxucz3riz1e5sVHcIikhpe31X5IYMgWi6QfHlfSKoKX1vuWBCW 6OWrRssNSdr0pcemPGmHFtRlXOtSB5ulOI1Qz4KlkGNPHKZSJ1zqRmJLnmwuifYp6u+KF4eRYgEx6+JX 9JJkPOSTcfVPQHgzBZelpQ35yCFerdvvIClkox8ffV 97GSVNBFjN5kv4+VxW0HjyAxYiAOltbI+peguero/Wv5oDJpTGqFZVnu/UyvU/n0GZ4S2cU3Aj3ldwtNp0gBF [file] wWFMi6ACbV/HgE+hcUeLvV7ED1tHdW5KKWEWhJjTFz/Usw+wlkV2JJhRoZNnP6fKOjXZMxSQ1+r0W+Upper Sorbian [file] AgICAgICAgICAgICAgICAgICAgICAgICAgICAgICAg ICAgICAgICAgICAgICAgICANCiAgICAgICAgICAgICAgICAgICAgICAgICAgICAgICAgICAgICAgICAg ICAgICAgICAgICAgICAgICAgICAgICAgICAgICAgICAgICAgICAgICAgICAgICAgICAgICAgICAgICAN CiAgICAgICAgICAgICAgICAgICAgICAgICAgICAgIC AgICAgICAgICAgICAgICAgICAgICAgICAgICAgICAgICAgICAgICAgICAgICAgICAgICAgICAgICAgIC AgICAgICAgICANCiAgICAgICAgICAgICAgICAgICAgICAgICAgICAgICAgICAgICAgICAgICAgICAgIC AgICAgICAgICAgICAgICAgICAgICAgICAgICAgICAg ICAgICAgICAgICAgICAgICAgICANCiAgICAgICAgICAgICAgICAgICAgICAgICAgICAgICAgICAgICAg ICAgICAgICAgICAgICAgICAgICAgICAgICAgICAgICAgICAgICAgICAgICAgICAgICAgICAgICAgICAg ICANCiAgICAgICAgICAgICAgICAgICAgICAgICAgIC AgICAgICAgICAgICAgICAgICAgICAgICAgICAgICAgICAgICAgICAgICAgICAgICAgICAgICAgICAgIC AgICAgICAgICAgICANCiAgICAgICAgICAgICAgICAgICAgICAgICAgICAgICAgICAgICAgICAgICAgIC AgICAgICAgICAgICAgICAgICAgICAgICAgICAgICAg ICAgICAgICAgICAgICAgICAgICAgICANCiAgICAgICAgICAgICAgICAgICAgICAgICAgICAgICAgICAg ICAgICAgICAgICAgICAgICAgICAgICAgICAgICAgICAgICAgICAgICAgICAgICAgICAgICAgICAgICAg ICAgICANCiAgICAgICAgICAgICAgICAgICAgICAgIC AgICAgICAgICAgICAgICAgICAgICAgICAgICAgICAgICAgICAgICAgICAgICAgICAgICAgICAgICAgIC AgICAgICAgICAgICAgICANCiAgICAgICAgICAgICAgICAgICAgICAgICAgICAgICAgICAgICAgICAgIC AgICAgICAgICAgICAgICAgICAgICAgICAgICAgICAg ICAgICAgICAgICAgICAgICAgICAgICAgICANCjw/dGYqD8xmfVJatxY6N0cfUi6YPt2TWP4bm8AzSMVx WSprsnNxScnIFmYwSGCkRgpNDvd1LNxeAU1HhKGtQ1EnD0YlJJuzHW1QZKBtWTXgeCHhEOMuYJEeMpG0 ENAcSHrrVZ6MiESkRVnnHCYmSNVjGhPgDYWkVZHhSK FoDBByYTARZBFqFTOsZsJfPLSrBAVeSJtkOVLDASD6DHVbIxOfCGMeMBGyOzBiOLUYZY8CBbAhW8QgxX 50IDEwDQo+Eq5CVB9gg0UlLHx3LiIhEN5fuv9ZPGaMYvMjI6LgiaQ5CEO1UWJsDz2WZZJzPSWmdJG7Ud RmTARNUzYjV7DxfC93ZIZRLy6+DQplbmRvYmoNCjQ3 NMHfj9GjWAr2GC4SLXShSUm5pSAfBFsxP0qksjgfZPT9jH9prtugJwtsHIBclSJsMzJwd6EbIB3NTEM4 JDtsDAKyIgLsDUFbYAgwYbEBHBqUBkGkK5Quo6BfQrH9HVPgMlZyPRplCGNhGlWoBO68tAqkPC9BHJSg WCPwRO85KWF1JCOzKa0YIh5ZVrGfPL1flq5JVHmoHI BpRiiTFtr9YXqvCK7AwUWiT2EcbWXxi4nVBlZiH0WXUUY0GVJgMp5BZHHkZgAzPOUiSIvgZQ7rNHObPC FToFxaviK0II5XOY2dnsRjLG5COpGjZj6xKd2CNbLxM2DjG4NeEFSnWOFVNQzdKT4MUGcjAS0cRZ4Ft5 QQyDHzrQ9rbd9YIHFwWNCoRarfrn4NAhbxL5A8dXqy QNAxEMBkNHQAOZllVA7IOOYtPDJ0POY2AKWuLQVAHcWcS99vBQ7PO3Kdn53aNxA9AAFxQtLsVTbeSR50 bSzhyvSctVDwdNjzLB7ICy1+SUmuetNhHdzSCexsUGTKPrMoKDuLYnGyJPXvJWNxMYQpTsH9TjOvKt2V XDEtTAIpARUbUkTuJBDxBENhBFpdGEDdYUU9FDb1CA KfKKScEX3IYuEbMYKkCqv4KvMtGCTyNYZzbe6ZXSSdREVcRNW8KrVaUPWmTYIaKMfxAANtBUYvZSGcXO MfKKRkLI4FNkUoUOYbMGLmWHgzSHKkJKLdlh3GXFReRJGeULZ3CjYbJLQtLOLyNWmnZULwWTB0Ykf0UU GbSGIaVC6IRuJxNYAtHRj5AjIvYRJqXIOixu5TMMPt XVTqJVIpWOGaZCUbOVSgNRvqQMToSFCrRUshWJSvBZVqFU9ZTiBuBCBwDXD9ElJjWXEhFDVyvq3NPEGb MVMrWeh6DUMaFBInLXYnUCgzBMVkGGR1CVEsGOWxILBdAB9FEuDeTSIgVZZjWRaaIDXcMBOzwv1GAYLi USOpKoLhIqIjRTRdXWYsYRjdILNgCUR0CBSiZTLvAJ HdUK8ZZeElZOGkNRd4NSvzVLMbJBUssr0FQATfHQVsWLDmYwRuPGDjRZKxYFdiPOEmLLNmGaVmSMAxWA UkCR5BRvFtRIRyDsTiXYBrDOXfZKRuss3XNGXnAOHxMRR1OqIiNJQeUIKhBZffWHCvOPE2PPg8FYGiLS DaMZ4RBqInNCIxRdVrHRClPIThEELzqo5WTHWbVDFu SxT0ONHsJLChJUQoEQrcOCPiRJS2JjOzPTTsDBClFM3CIvFvDEUjLes8NfVeIDQxPNKftv2UOEDhHKDl HQR6UYPvIUKePAFkWYdiOKKrDLJ2Wum0IMUxXCCsVO3BAcVzRSFxZpn8NDTmNPUgNEUhov2FFNZiLGRi JZv1TnBkKUEfWQHeGTuoZQLeOIRwJFBmOQLqPASaMI 8DTkTiDFLkOuAsOTPhCLPrNOKbxm0WYUDuIINhFUO1FYQhVLZuCXKxMDfuBMAxFJJoYlg3KSGwZHKfIY 4GXvFhEUXuMwA1YWKnCCQiABVlao0QHJZsZTOyVmF0HPTtYEQpGMRqEIrnCCWcTJI8WwMfVTHuRPIrXJ 4EEiSyWKYlYoS4QjwiXHOdWPFruy5RSGQyCNDwBfDr JtZxZEQxNRNcDHmwIGMnYMB0Rim4BGJnCYVvMA4OYvFbOJFzLjr1DRqmRSDpFIQqdq4SZUTyJWDrUapr JjIxZOCuHEMuXWcmUHHxEUH7KQz8ZABrEDHrBN2GCnKsEGUxUmn8QeKbZZLkTTGeoo2KRTBeWSNyTBua WbJyBYTcHVHqUGewAZXeMKW1MRr7GUTaCVQgBZ8CZn JkBBYcHSLtPSOzKBKbQBGuuy6AuSCjpWlssm3KAIpBVv2EkKjqUBD5OOruAx9bhXS2KXMpCIDHCa7Itf EcHLZzBYXOAZujYJAkTKzuPRurJaeaEXm7IIE4HLIlOGYkFDOpSISvIYV8BGy1GpN2B0E7ICLxUBEwYd gbThIvZRYnMGI6JXCuUkP2YSJcTMJ+SU7hFCb+Sh2Ds6HyixB9tgMlVJc5PNK0Fx3LGAPYM3FZTk== ID Date Data Source [id number] 10/22/2020 06:02:12 AM EDT [facility] Name Value Range Interpretation Code Description Data Senait rce(s) Supporting Document(s) Nursing [facility] GJQDPd0sHoXKVlUl97/ERBfaHECgc7ZnXBuyOCm9DFwmRPJtB7IfASL8oP8gIUG7QWzYQhSzKgZnHUWa lbm [file] Oj4Ha8VqgwV3wrWgDZcoGHK1Ez4SVZQJD6MRXz== ID Date Data Source [id number] 10/22/2020 05:45:01 AM EDT [facility] Name Value Range Interpretation Code Description Data Senait rce(s) Supporting Document(s) SODIUM (MMOL/L) IN SER/PLAS 135-146 [facility] POTASSIUM (MMOL/L) IN SER/PLAS 3.5-5.3 [facility] CHLORIDE (MMOL/L) IN SER/PLAS 98-107 Below low normal [facility] CARBON DIOXIDE, TOTAL (MMOL/L) IN SER/PLAS 21-32 [facility] ANION GAP IN SER/PLAS 5-15 [facility] UREA NITROGEN (MG/DL) IN SER/PLAS 7-23 [facility] CREATININE (MG/DL) IN SER/PLAS 0.7-1.3 [facility] UREA NITROGEN/CREATININE (MASS RATIO) IN SER/PLAS [facility] GLUCOSE (MG/DL) IN SER/PLAS 65-[address] [facility] CALCIUM (MG/DL) IN SER/PLAS 8.4-10.4 Un [facility] ASPARTATE AMINOTRANSFERASE (SGOT) (U/L) IN SER/PLAS <59 [facility] ALANINE AMINOTRANSFERASE (SGPT) (U/L) IN SER/PLAS <50 [facility] ALKALINE PHOSPHATASE (U/L) IN SER/PLAS 38-126 [facility] PROTEIN (G/DL) IN SER/PLAS 6.3-8.2 Below low normal [facility] ALBUMIN (G/DL) IN SER/PLAS 3.5-5.0 Below low normal [facility] ALBUMIN/GLOBULIN (G/G RATIO) IN SER/PLAS [facility] BILIRUBIN TOTAL (MG/DL) IN SER/PLAS 0.1-1.3 [facility] GLOMERULAR FILTRATION RATE ML/MIN/1.73 SQ M.PREDICTED >60 [facility] ID Date Data Source [id number] 10/22/2020 09:34:21 AM EDT [facility] Name Value Range Interpretation Code Description Data Senait rce(s) Supporting Document(s) C REACTIVE PROTEIN (MG/L) IN SER/PLAS <=0.9 Above hig h normal [facility] ID Date Data Source [id number] 10/22/2020 05:35:03 AM EDT [facility] Name Value Range Interpretation Code Description Data Senait rce(s) Supporting Document(s) LEUKOCYTES(10*3/UL) IN BLOOD BY AUTOMATED COUNT 4.0-10.5 [facility] ERYTHROCYTES (10*6/UL) IN BLOOD BY AUTOMATED COUNT 4.00-5. 80 [facility] HEMOGLOBIN (G/DL) IN BLOOD 13.0-18.0 Below low normal [facility] HEMATOCRIT (%) IN BLOOD BY AUTOMATED COUNT 37.0-50.0 [facility] ERYTHROCYTE MEAN CORPUSCULAR VOLUME (FL) BY AUTOMATED COUNT 77.0-100.0 [facility] ERYTHROCYTE MEAN CORPUSCULAR HEMOGLOBIN (PG) BY AUTOMATED COUNT 26.0-33.0 [facility] ERYTHROCYTE MEAN CORPUSCULAR HEMOGLOBIN CONCENTRATION (G/DL) BY AUTOMATED 31.0-36.0 [facility] ERYTHROCYTE DISTRIBUTION WIDTH (RATIO) BY AUTOMATED COUNT 12.0-17.0 [facility] PLATELET MEAN VOLUME (FL) IN BLOOD BY AUTOMATED COUNT 8.0- 12.0 [facility] PLATELETS (10*3/UL) IN BLOOD AUTOMATED COUNT 125-425 Ab ove high normal [facility] ID Date Data Source [id number] 10/22/2020 06:01:27 AM EDT [facility] Name Value Range Interpretation Code Description Data Senait rce(s) Supporting Document(s) SEGEMENTED NEUTROPHILS/100 LEUKOCYTES BY MANUAL COUNT 40-7 5 [facility] NEUTROPHILS BAND FORM/100 LEUKOCYTES IN BLOOD BY MANUAL COUNT <=12 [facility] LYMPHOCYTES/100 LEUKOCYTES IN BLOOD BY MANUAL COUNT 20-42 [facility] MONOCYTES/100 LEUKOCYTES IN BLOOD BY MANUAL COUNT 2-11 [facility] EOSINOPHILS/100 LEUKOCYTES IN BLOOD BY MANUAL COUNT <=10 [facility] MYELOCYTES/100 LEUKOCYTES IN BLOOD BY MANUAL COUNT <=0 Above high normal [facility] NUCLEATED ERYTHROCYTES/100 LEUKOCYTES IN BLOOD BY MANUAL COUNT <=0 Above high normal [facility] CELLS COUNTED TOTAL (#) IN BLOOD [facility] NEUTROPHILS (SEGS+BANDS) (10*3/UL) BY MANUAL COUNT 1.4-8.0 [facility] LYMPHOCYTES (10*3/UL) IN BLOOD BY MANUAL COUNT 1.4-4.0 Below low normal [facility] MONOCYTES (10*3/UL) IN BLOOD BY MANUAL COUNT 0.0-1.0 [facility] EOSINOPHILS (10*3/UL) IN BLOOD BY MANUAL COUNT <=0.7 [facility] MYELOCYTES (10*3/UL) IN BLOOD BY MANUAL COUNT [facility] ID Date Data Source [id number] 10/22/2020 06:02:18 AM EDT [facility] Name Value Range Interpretation Code Description Data Senait rce(s) Supporting Document(s) RBC MORPHOLOGY IN BLOOD [facility] LEUKOCYTE MORPHOLOGY FINDING IN BLOOD [facility] PLATELET ESTIMATE [facility] ID Date Data Source [id number] 10/21/2020 04:17:48 PM EDT [facility] Name Value Range Interpretation Code Description Data Senait rce(s) Supporting Document(s) Progress Note [facility] rvices MNPWQe9sIxOAFxIg90/GEUllXLNzn6YqMFvqYHv4BKmlIRXhF9EmROY6sN9mTEF7EOhQBuLjEgTcIVEp lbm [file] ICAgICAgICAgICAgICAgICAgICAgICAgICAgICAgIC ViWCJsRUMsMIBpESCoZCQrGOApNZYlZILnABItEHTlWQKfMAZsRFAfEOYvDT8YNWUeRJEqEOFbVFKfBU AgICAgICAgICAgICAgICAgICAgICAgICAgICAgICAgICAgICAgICAgICAgICAgICAgICAgICAgICAgIC YtOOUpKHJwLGVvLMLrDYBaVLMmYXAuKWFaWA5TADZq ICAgICAgICAgICAgICAgICAgICAgICAgICAgICAgICAgICAgICAgICAgICAgICAgICAgICAgICAgICAg ENZjYUVuAEDbKQGlKBMrOIMwOMArGCExWVOxVXBdAFGuFMMpTO0EYVTzBVYuGELhBSZyCLOvPSIwQVDg ICAgICAgICAgICAgICAgICAgICAgICAgICAgICAgIC NtOGPsTXXoTWWcTSWbILCdJQIdSSImPMHjIPLeMHNwUGHgFGVbMQYjXZIsRCShMW4UBSOpXTPaNABtUQ AgICAgICAgICAgICAgICAgICAgICAgICAgICAgICAgICAgICAgICAgICAgICAgICAgICAgICAgICAgIC VbEWAaJZGmDUSmSHJwZZXqFSXkTUFtETNxFOKuAE8I ICAgICAgICAgICAgICAgICAgICAgICAgICAgICAgICAgICAgICAgICAgICAgICAgICAgICAgICAgICAg QSGoWTOyNQLgSGIuEUNaVFDzBTJeLFEcSBSdQELgFNCjCDJtMFFpTQ9FGYCsRFGnBCUbLTOgAFJpFXSw ICAgICAgICAgICAgICAgICAgICAgICAgICAgICAgIC HvVFBiQFPgPJEoVEYzXVIoIVKcTMXaKULjJKUvVGXgRQXqIMIxIHDoLJYqINYgZNFePJ3KXFIrFXPsHR AgICAgICAgICAgICAgICAgICAgICAgICAgICAgICAgICAgICAgICAgICAgICAgICAgICAgICAgICAgIC AgICAgICAgICAgICAgICAgICAgICAgICAgICAgICAg PE8AGQGxELIaQEEmRWKiAKTtBHJqGZAfUWTlKWQlMFKiRSCqQZYzXVZgMMOrTLWvNKQiQSEuSNDyCDAw NBXkSCCoILBpJBEkOPFtVEVaEERcBCLvVGGoHHIgFXTjPTRuIFJmFRWmTG8LEVMhPDFyLRRgDKZyYKFy ICAgICAgICAgICAgICAgICAgICAgICAgICAgICAgIC UuLFOaVBVqMUYwWWUtXHEvZRFdKDDdIBPbDKErBZYhKSNcKVTdGIUyXWXxPZRfPDBnRROsFM6PYZ08xT Eti8T8WHFjQD6jpsc/Bk3NBBcgbgWmsDXzVS9MBlWuXW6yex2VLzVjDR4xma7LLAhVQdAnN5E3oGZbJF LpJYVODcQhW16rNHbvZu71WQovQTWhSjKoIEy1Am3S KxLfG4flZWQdXwF3ESCmTyO2BDTyJcQ5CQRlSlMtEOIjWHXkBWWlAMAEKZG3XVVaDjYbBiKgWUAeIDdv NTPKQETfMDDpPiOsUmYwLICcVD3RXKZrW794cfCsCYJBZh0+JPogeiUkZwjGNoS7WVRte2WpLHz7ST9X ZOAeVckum2VhQEzbKBCFNInsKG9AYJU9NBH0PAWaUq 1UVQLhZ067kzEyLB7TNe5JZhLjXG8jsk0GJAzrZAMqZdiQNqy6ANusMU1XqJAxQJfVsu7bupAwnvJIj4 OcnxBfqXNHr6JsPTIJdOEfOKJtHPqeVUNgNFXhIY2jBI4oVORpTHK4AeWuVGESDR5XQILeISHjwKLfME XpFLEGUJ6IWFcgHVH3VCWwzzWafIUaVDwlOO5ZMQLr bnQgNDYgMCBSDQo+Wn5VRC8mm7EcFDx7WTGeRT0ypz8XZJwCPnErE3W7rJLfO5J4ARipNn4NCFFyPCMp IWLcRIEMTMpkTH3BCD8gmcC9JE2UzBYjWXObEKQcaSSjHWw4M88htFLrJCjiTK9ZDJY+Sanjiv+Zo9ZNLFx IFOuIXSxZmYfOWBSDmAbS3LjI8CIi1YeZ7XvRO34gP usqaVmKLqfKO5MXX6bDETsUZUCVN4EjZKxdC5odaB6XeWvKIETGiTpA33cxOVpCMBiPKB5VCJkEp5QFR WqI9GivjLwrZobskFlGBLkCVAFAC5DQWgezzZdbLMtfSdySZ75tSmgJY8VTo6FRmUfRP5uty1SfWEtKq 6NECH5MJ9CFLSiEBMcFKGiCNB1MKVfRbOvVYqtRSKu ROKoXTZ8MJYvNINzPZ6MOeKqIXZdZLI6IjLhELRiEBHgih1VHFMeHTY9ZGC8JzEsXZJgABNaCTteBNOq SYFjKGZ8WLBhRLPsJH5CBfYfQUBaNJH4CBWtVGPlUYQjag9GNQUoFLYjYmC0ORYkKQUnOTOtIRgrEBVk XMI8PpN5YLDrCNRzEY4MEaQwSNUkBZh2QdemRJTsNR Oyvu6THFKhENYaEOI8LREcGXJjQCZvHEbhRNIxNKDuVcl9FNXiWQDfJU2NSvRdNQUvZBD8OfwpACExGE Wopw1VDIYcVXKhYPv1TzEbFYEfJFJsSHkoPZDfVJO1RQP2TNNfSCEvRR6SRpEaFIFoIIwfRkLgSLLoOG Tyrg4CAURuTVAoXWT0CCKbGQLwXRZpYSezCKQcGALm LwLyPAVxLTZuGS4GQjBeUGNuNgU5MYXaCJVzUKIlbs2PPKSgZTUbEcu3AcBcVBWaRQKcHGsyAKYbYIQ1 FzP5MDRcAAGbBV4FSlTcWPCxPwW4IyBoAJAqZDQupr6KRLTeDNSsFyG2KBAnAZLxJDNqWMqzFEUlZUP1 GwXlBNFxHFMgWD7LCiYwBOEcEge2OQsgEWRlZYCvyx 9YFEWtAAUzPED3KgXvZTYeIIOxDJzyXAUlLYUcYMTuHCEtTTUkIX9RBzIvQEOyPpAvZBViHZFnPWKpmm 4HQNFvCZDaEEKpIgKeEZOrVCYoBBwhITCzSBLuAZyoLGPcNVUnWD7QZjYsHAOlIiL2DHIfPQMmYWEzmm 3TJZSiOAHhRkm1ObHjVEZiNLXyCUymITNiXQOzUWMv ZPZdBLUrTK3XTsPrETUfAvRdVVOhJDEkTPXelv3HMCOpTWLcVUYgRjUxVNHgZCBfUBohTIWpOUS2VLm3 GSLvYTLfYN0LNaQiKRXfLlLdODYzRGDtWRDvaf4HFIUtKAAfZMS3YlVeEOWbELYwMHqoQAHpXIW8QURw DGZgQLNfTC6MMrAcVBClEjR8HVMgVSBtORUvnq1CXX MnJZRcKojbLtNuFWZaLTIwCMmkOIJsIUBdGallAKIkCPPbYF6NEyVbSBYgPTQgPVfeFWEjGYAljz6RNJ VjXEH1XuBrVXFkHFUxQRVsJIxbTOQjXZBwGACwIXOtCZEoDH7CPnBuUUCiQFL9TNpgUKKkWDTlyh4VWP RlCWR4XaQ9XnNkFWYvMVTlOYftWVVvKBM2LxP4YMAz TPCuMJ9FZzTlHWKcLCX7OEweIWEpYWHsij3MTTMgAQU5FFk3NdQiRSZjFQLfYXc6xoGzpZSvPMs7QP4A N8JmluKiVKfZIh9Yg319TBX0RTUfGr4GB5dcSd4aHULwPVMMLc4VONp8NDM9XvO1Gah8RpLyACSyN5Zu WRU7ATDwWVUcAiMhKGT+UQq2KVw8MrypSoO4XIS2DQ WtDCZrJFLhMMJ6ZBOmF4J6Tb3rGWUPAr3+VQgpwNQepSeqUYWZPyD3MOKaJQuoXRZMWa2B ID Date Data Source [id number] 10/21/2020 03:14:40 PM EDT [facility] Name Value Range Interpretation Code Description Data Senait rce(s) Supporting Document(s) CONSULT [facility] es FDKJPs0eVjSPHsVu78/DOZcxIUJmb7XnALygRAz8TJngBITmX1YwAFK6zX9zULH3QWaYDaZsKaOrFQSg lbm [file] Vg0Gq4DihcN5ikAeNQq2VgI6GXprROEZZr3W ID Date Data Source [id number] 10/21/2020 02:12:11 PM EDT [facility] Name Value Range Interpretation Code Description Data Senait rce(s) Supporting Document(s) Nursing [facility] ALIXIq8aBgZCEpMl94/TRHiwDBMzy6FbIHzsDOs7KDzbIYDaT4SlUSO3zS4dAUQ3JGlNBoEhYbUfOIMe lbm [file] RkJ0LBCxYyQbPkC+SZ1wWUc+Fw6Kv1DyvsK1fePvTOm8PXLkDPcnDGKLOz7D ID Date Data Source [id number] 10/21/2020 05:22:36 AM EDT [facility] Name Value Range Interpretation Code Description Data Senait rce(s) Supporting Document(s) SODIUM (MMOL/L) IN SER/PLAS 135-146 [facility] POTASSIUM (MMOL/L) IN SER/PLAS 3.5-5.3 [facility] CHLORIDE (MMOL/L) IN SER/PLAS 98-107 Below low normal [facility] CARBON DIOXIDE, TOTAL (MMOL/L) IN SER/PLAS 21-32 [facility] ANION GAP IN SER/PLAS 5-15 [facility] UREA NITROGEN (MG/DL) IN SER/PLAS 7-23 [facility] CREATININE (MG/DL) IN SER/PLAS 0.7-1.3 [facility] UREA NITROGEN/CREATININE (MASS RATIO) IN SER/PLAS [facility] GLUCOSE (MG/DL) IN SER/PLAS 65-99 Above high normal [facility] CALCIUM (MG/DL) IN SER/PLAS 8.4-10.4 [facility] ASPARTATE AMINOTRANSFERASE (SGOT) (U/L) IN SER/PLAS <59 [facility] ALANINE AMINOTRANSFERASE (SGPT) (U/L) IN SER/PLAS <50 Above high normal [facility] ALKALINE PHOSPHATASE (U/L) IN SER/PLAS 38-126 [facility] PROTEIN (G/DL) IN SER/PLAS 6.3-8.2 Below low normal [facility] ALBUMIN (G/DL) IN SER/PLAS 3.5-5.0 Below low normal [facility] ALBUMIN/GLOBULIN (G/G RATIO) IN SER/PLAS [facility] BILIRUBIN TOTAL (MG/DL) IN SER/PLAS 0.1-1.3 [facility] GLOMERULAR FILTRATION RATE ML/MIN/1.73 SQ M.PREDICTED >60 [facility] ID Date Data Source [id number] 10/21/2020 05:50:33 AM EDT [facility] Name Value Range Interpretation Code Description Data Senait rce(s) Supporting Document(s) C REACTIVE PROTEIN (MG/L) IN SER/PLAS <=0.9 Above hig h normal [facility] ID Date Data Source [id number] 10/21/2020 05:04:37 AM EDT [facility] Name Value Range Interpretation Code Description Data Senait rce(s) Supporting Document(s) LEUKOCYTES(10*3/UL) IN BLOOD BY AUTOMATED COUNT 4.0-10.5 [facility] ERYTHROCYTES (10*6/UL) IN BLOOD BY AUTOMATED COUNT 4.0 0-5.80 Below low normal [facility] HEMOGLOBIN (G/DL) IN BLOOD 13.0-18.0 Below low normal [facility] HEMATOCRIT (%) IN BLOOD BY AUTOMATED COUNT 37.0-50.0 [place] w low normal [facility] ERYTHROCYTE MEAN CORPUSCULAR VOLUME (FL) BY AUTOMATED COUNT 77.0-100.0 [facility] ERYTHROCYTE MEAN CORPUSCULAR HEMOGLOBIN (PG) BY AUTOMATED COUNT 26.0-33.0 [facility] ERYTHROCYTE MEAN CORPUSCULAR HEMOGLOBIN CONCENTRATION (G/DL) BY AUTOMATED 31.0-36.0 [facility] ERYTHROCYTE DISTRIBUTION WIDTH (RATIO) BY AUTOMATED COUNT 12.0-17.0 [facility] PLATELET MEAN VOLUME (FL) IN BLOOD BY AUTOMATED COUNT 8.0- 12.0 [facility] NEUTROPHILS/100 LEUKOCYTES IN BLOOD BY AUTOMATED COUNT 35. 0-78.0 [facility] LYMPHOCYTES/100 LEUKOCYTES IN BLOOD BY AUTOMATED COUNT 20.0-42.0 Below low normal [facility] MONOCYTES/100 LEUKOCYTES IN BLOOD BY AUTOMATED COUNT 0.0-1 5.0 [facility] EOSINOPHILS/100 LEUKOCYTES IN BLOOD BY AUTOMATED COUNT <=1 0.0 [facility] BASOPHILS/100 LEUKOCYTES IN BLOOD BY AUTOMATED COUNT <=2.0 [facility] NEUTROPHILS (10*3/UL) IN BLOOD BY AUTOMATED COUNT 1.40-8.4 0 [facility] LYMPHOCYTES (10*3/UL) IN BLOOD BY AUTOMATED COUNT 1.00-4.0 0 [facility] MONOCYTES (10*3/UL) IN BLOOD BY AUTOMATED COUNT 0.00-1.50 [facility] EOSINOPHILS (10*3/UL) IN BLOOD BY AUTOMATED COUNT <=0.70 [facility] BASOPHILS (10*3/UL) IN BLOOD BY AUTOMATED COUNT <=0.10 [facility] PLATELETS (10*3/UL) IN BLOOD AUTOMATED COUNT 125-425 Ab ove high normal [facility] IMMATURE NEUTROPHILS/100 LEUKOCYTES IN BLOOD BY AUTOMATED COUNT <=0.5 Above high normal [facility] IMMATURE NEUTROPHILS (10*3/UL) IN BLOOD BY AUTOMATED COUNT <=0.40 [facility] ID Date Data Source [id number] 10/20/2020 08:59:53 PM EDT [facility] Name Value Range Interpretation Code Description Data Senait rce(s) Supporting Document(s) Nursing [facility] FIKVAq5yMxLHNrJj03/PJVwgDQVbe7NyBOkfKAt2FYyfUXKdA3LlRTW0qP7wTXJ3AKtPAeUbFgVsWOF5 lbm [file] UcCcZxYjx0ZaOoViQqPV5TEz6OJpG0CBR0nPLqIm6EFzE0DLYEHtIuIJ3YWJq= ID Date Data Source [id number] 10/24/2020 11:37:00 PM EDT [facility] Name Value Range Interpretation Code Description Data Senait rce(s) Supporting Document(s) CALPROTECTIN, F <=50.0 (Normal) [facility] Test Performed by:[facility] [place], [place] [address]Lod Director: Harish De Los Santos M.D. Ph.D.; CLIA# [id number] ID Date Data Source [id number] 10/20/2020 09:11:05 PM EDT [facility] Name Value Range Interpretation Code Description Data Senait rce(s) Supporting Document(s) FECAL LEUKOCYTES BY OIA Not Detected Abnormal (applies to non-numeric results) [facility] ID Date Data Source [id number] 10/20/2020 09:39:31 PM EDT [facility] Name Value Range Interpretation Code Description Data Senait rce(s) Supporting Document(s) TOXIGENIC C. DIFFICLE BY DNA MOLECULAR ASSAY Negative [facility] PLEASE NOTE: C. DIFFICILE MOLECULAR TEST S ARE HIGHLY SENSITIVE AND SHOULD NOT BE USED A TEST OF CURE. REPEAT TESTING IS NOT INDICATED FOR 7 DAYS. C. DIFF 027 STRAIN EPIDEMIOLOGY Presumptive Negative [facility] ID Date Data Source [id number] 10/20/2020 03:58:52 PM EDT [facility] Name Value Range Interpretation Code Description Data Senait rce(s) Supporting Document(s) Progress Note [facility] rvices WDLXBj4eFjPWIqRr93/LDBrfVKMpp8YnQTboVVl7CGkqNKWhY6CfDNO5kZ8tGTR9ZPxHHsZaYhEgSJU3 lbm [file] AgICAgICAgICAgICAgICAgICAgICAgICAgICAgICAgICAgICAgICAgICAgICAgICAgICAgICAgICAgIC AgICAgICAgICAgICAgICAgICAgICAgICAgDQogICAg ICAgICAgICAgICAgICAgICAgICAgICAgICAgICAgICAgICAgICAgICAgICAgICAgICAgICAgICAgICAg ICAgICAgICAgICAgICAgICAgICAgICAgICAgICAgICAgICAgDQogICAgICAgICAgICAgICAgICAgICAg ICAgICAgICAgICAgICAgICAgICAgICAgICAgICAgIC AgICAgICAgICAgICAgICAgICAgICAgICAgICAgICAgICAgICAgICAgICAgICAgDQogICAgICAgICAgIC AgICAgICAgICAgICAgICAgICAgICAgICAgICAgICAgICAgICAgICAgICAgICAgICAgICAgICAgICAgIC AgICAgICAgICAgICAgICAgICAgICAgICAgICAgDQog ICAgICAgICAgICAgICAgICAgICAgICAgICAgICAgICAgICAgICAgICAgICAgICAgICAgICAgICAgICAg ICAgICAgICAgICAgICAgICAgICAgICAgICAgICAgICAgICAgICAgDQogICAgICAgICAgICAgICAgICAg ICAgICAgICAgICAgICAgICAgICAgICAgICAgICAgIC AgICAgICAgICAgICAgICAgICAgICAgICAgICAgICAgICAgICAgICAgICAgICAgICAgDQogICAgICAgIC AgICAgICAgICAgICAgICAgICAgICAgICAgICAgICAgICAgICAgICAgICAgICAgICAgICAgICAgICAgIC AgICAgICAgICAgICAgICAgICAgICAgICAgICAgICAg DQogICAgICAgICAgICAgICAgICAgICAgICAgICAgICAgICAgICAgICAgICAgICAgICAgICAgICAgICAg ICAgICAgICAgICAgICAgICAgICAgICAgICAgICAgICAgICAgICAgICAgDQogICAgICAgICAgICAgICAg ICAgICAgICAgICAgICAgICAgICAgICAgICAgICAgIC AgICAgICAgICAgICAgICAgICAgICAgICAgICAgICAgICAgICAgICAgICAgICAgICAgICAgDQogICAgIC AgICAgICAgICAgICAgICAgICAgICAgICAgICAgICAgICAgICAgICAgICAgICAgICAgICAgICAgICAgIC AgICAgICAgICAgICAgICAgICAgICAgICAgICAgICAg VQOdFJd9H5qzZBNuBMDbVN1lWZo2Se2+WJnJLuVzBTK8nfMseI1OAP6cs9WzCUhaIORnt3OyYVs6WB0N KVWnUHypFR8DJAqtlt0OYFLvGMXgkVVNe7tiKdTzZOG8AITpLxgqBB2FBAQzY3tuhiVoBXWaFLPTHEwq MCBSIDkgMCBSIDExIDAgUiAxMyAwIFIgMTUgMCBSID U7OZAxHoOnZUSxUFZhCtAnLVTFVCWxBBAcRjYjTWowKL0Vl3CxbZSbOQ3ZCx0EPeSoDB8llw2NGHBjXQ HwKsyYIaa5QVcnIW3FsIVbmFV1HlUyGOONYvTpU5dwu6NiCOdgMJOVVOnuDN9Ys3LsbMCjWAd+Pg0KZW 0ar0AyJXn2JpBmMJ5gvo9YMRvTIdOkA3XokBnbDCWu i8keKQTlSP0joJNzIRZ5JV8mwV0qJCKeYQAtBE7oNCCPFSWlxUR7XkuoFcVsYNJbWWstKOWDFJlMDxXv H5Yux6KeNtZ9APBlQrHfSDzxIYMtNcEwWI29zXjpNN0CEAScUTHpTD26AEY4WVEeAz4MGe6ILoDdNB2o xz4ZPNizNYEnFilWVaj3KAbcXR7SqMCpE1CdsVCnq7 wSQvNgJ0SENNE9SJXkId5LVFRiWcGmLVEdPYfaOF1eYSGsBSPZvAdhzgK7JW1OIG2elcWaYW1DEhJwOh 2kYu8GXrVwJ3DwH3XvMEIzGVGFHTymKJ8BZLkxZX7zPA1Mn1SWcMFvhI7dpo9PCLYbUUAcWxxjak3FUc oeF4K7cEkiIJJhJJRaCCKZKLlwWM2IYDOuPOS2ILS9 VINzEZQEHjMnN41yUN0PB6Wai23mKhT1MRKxRyOsSNsrWC61eDwxxsWqrBKnpTgmFV4FBv7+DQplbmRv VxvXWydfBPZJJbSjLRnWBlBfWSJoOITjZJHpXwK0JvRqRv9HRXZoVRCzNHHrPxUgNIHjBXFnBPvwPLDx SNHzBMQ8MPEfFOFnVT7FWvAcEGFjDKBpFBZxGMVaFH Lhgk9AHUQjCVZxIEK0XaQnPCTqZWNmMDddLWFnGCYxUOQ9RMRrADQpMJ0TSoQyQGWuGVD2PLohEJQfRD Xvsx2KLZQvJPWlEge3QQStJUUpQYWkNFhoNVZtCVK3SJe5IXVoLAYqJQ7WOoVzQEKxLTCwDEUzGMWaKN Qxfg5BKLSrLLHhKLM8JMNjKNBpCZFcPLujACNzORA1 Rwn3NFFdIESpTD1JCgEcPUMbQER1VPQtDVSrEWPbdd8CLYMqBBFpTvz2GFXkXSVjBCOgDKoeVCYtOXE3 WRjjRTGiYNOqTJ0XUtWaVCNxMpIjJAHwBLZkPZYjze3FOYTxYZGgPWM0ImBtRYImILRpNHbwWLIcXKDa RGM8HEQqHBKoLG1VHbBcWCQkEtV3TvLyRMLwUHUnrs 5AAPIwPVSeTKRrOVIzBCWsBKTiHUcoONHwOZV8RSL0YGEcRPFhBS0BWqCyVTFjBup5JKxvJFTdSNVewm 2XIWEeHIPkYyhcSCNnESTaYGLvLLxvKATaCAS0Zxc7WXQjTKZgMY1EMmUmJZLoSot0BLBeWJEiQQIhmp 1XTHRpGHEiEXl4LEHmSHGcSRFrGPhyLEDwJBDkVUI4 WBCyHHQbCO9ONwArDMSzObRwKiFuFNGeTLNppb1KELFqFRWyJwX3WFIpDPZvDKLmOZxdCNRbHZXdSQjm WTGyGCYtGN5NIpVdIHMyWnE2ATOnDNHqMBWnrt2ZZHQvXBVaNhYzBTEpJOExZIUbCDtvMEVwJFSjMQZ3 BZQvAXTmMV9QZtNmFDWzHiKaOqWjDFAbXWHnxc6IAE VbOAOtECg5DxTkCSVtZKDgJWviSXPqGYB9LKpxDRYuLWPdMO2MPqTtNQNcQmKnIIOnXDXnYYVemw3YPX KsXYEnHyJzQJCjSSYaIFKoPHefGIBqKWL1PRT6MUSfYLBkKJ3HXoWeHVAmLzQ1FhYqLTNdYMQnjh2XBG VfIFW4VBX2UWReHMUiYCMmSXdgLMRoGGCqXTy1GGHq QAGqHW4UNfZmHDVoDBWzOFavATIoDIButb4SUCVxCZN5QmK9ZNJdYAGzFSRbEJybBPXyFBWaGTa5AUXt XZIjHU1STaEdADMzRYI5GJOmIIUoRMOjfj2BKDTnPEJ6GLJ2TXUpPFAyCXShMFyhANKuSPP4WYC5IVMz XVPyUA2AXdNyZMNpCXQ5KqSoDACuAOGvxu1AmOJbbV gndk9QLYzEWv1JgVftCTL6AZbiXy9hqUK4TGOrGLZYMn5ZelHhJBLyVLJHVGafIDIlVDD4FDR4EGHvI4 T2JbW8FdMeYBo3ARBsTPo8FQQtJLo2UtZ2XzscGbufY5ArTHL3CyTtJPPtXhY3FqHmALQkPxO4VLv+IF 0gDQo+Up9Se8KgkaP4drGqCFy8MKvuWQ9SYFNOZ7NUYk== ID Date Data Source [id number] 10/20/2020 05:14:10 AM EDT [facility] Name Value Range Interpretation Code Description Data Senait rce(s) Supporting Document(s) SODIUM (MMOL/L) IN SER/PLAS 135-146 [facility] POTASSIUM (MMOL/L) IN SER/PLAS 3.5-5.3 Below low normal [facility] CHLORIDE (MMOL/L) IN SER/PLAS 98-107 Below low normal [facility] CARBON DIOXIDE, TOTAL (MMOL/L) IN SER/PLAS 21-32 [facility] ANION GAP IN SER/PLAS 5-15 [facility] UREA NITROGEN (MG/DL) IN SER/PLAS 7-23 [facility] CREATININE (MG/DL) IN SER/PLAS 0.7-1.3 [facility] UREA NITROGEN/CREATININE (MASS RATIO) IN SER/PLAS [facility] GLUCOSE (MG/DL) IN SER/PLAS 65-99 [facility] CALCIUM (MG/DL) IN SER/PLAS 8.4-10.4 [facility] ASPARTATE AMINOTRANSFERASE (SGOT) (U/L) IN SER/PLAS <59 [facility] ALANINE AMINOTRANSFERASE (SGPT) (U/L) IN SER/PLAS <50 Above high normal [facility] ALKALINE PHOSPHATASE (U/L) IN SER/PLAS 38-126 Above hi gh normal [facility] PROTEIN (G/DL) IN SER/PLAS 6.3-8.2 Below low normal [facility] ALBUMIN (G/DL) IN SER/PLAS 3.5-5.0 Below low normal [facility] ALBUMIN/GLOBULIN (G/G RATIO) IN SER/PLAS [facility] BILIRUBIN TOTAL (MG/DL) IN SER/PLAS 0.1-1.3 [facility] GLOMERULAR FILTRATION RATE ML/MIN/1.73 SQ M.PREDICTED >60 [facility] ID Date Data Source [id number] 10/20/2020 08:37:46 AM EDT [facility] Name Value Range Interpretation Code Description Data Senait rce(s) Supporting Document(s) C REACTIVE PROTEIN (MG/L) IN SER/PLAS <=0.9 Above hig h normal [facility] ID Date Data Source [id number] 10/20/2020 04:36:39 AM EDT [facility] Name Value Range Interpretation Code Description Data Senait rce(s) Supporting Document(s) LEUKOCYTES(10*3/UL) IN BLOOD BY AUTOMATED COUNT 4.0-10.5 [facility] ERYTHROCYTES (10*6/UL) IN BLOOD BY AUTOMATED COUNT 4.0 0-5.80 Below low normal [facility] HEMOGLOBIN (G/DL) IN BLOOD 13.0-18.0 Below low normal [facility] HEMATOCRIT (%) IN BLOOD BY AUTOMATED COUNT 37.0-50.0 [place] w low normal [facility] ERYTHROCYTE MEAN CORPUSCULAR VOLUME (FL) BY AUTOMATED COUNT 77.0-100.0 [facility] ERYTHROCYTE MEAN CORPUSCULAR HEMOGLOBIN (PG) BY AUTOMATED COUNT 26.0-33.0 [facility] ERYTHROCYTE MEAN CORPUSCULAR HEMOGLOBIN CONCENTRATION (G/DL) BY AUTOMATED 31.0-36.0 [facility] ERYTHROCYTE DISTRIBUTION WIDTH (RATIO) BY AUTOMATED COUNT 12.0-17.0 [facility] PLATELET MEAN VOLUME (FL) IN BLOOD BY AUTOMATED COUNT 8.0- 12.0 [facility] NEUTROPHILS/100 LEUKOCYTES IN BLOOD BY AUTOMATED COUNT 35. 0-78.0 [facility] LYMPHOCYTES/100 LEUKOCYTES IN BLOOD BY AUTOMATED COUNT 20.0-42.0 Below low normal [facility] MONOCYTES/100 LEUKOCYTES IN BLOOD BY AUTOMATED COUNT 0.0-1 5.0 [facility] EOSINOPHILS/100 LEUKOCYTES IN BLOOD BY AUTOMATED COUNT <=1 0.0 [facility] BASOPHILS/100 LEUKOCYTES IN BLOOD BY AUTOMATED COUNT <=2.0 [facility] NEUTROPHILS (10*3/UL) IN BLOOD BY AUTOMATED COUNT 1.40-8.4 0 [facility] LYMPHOCYTES (10*3/UL) IN BLOOD BY AUTOMATED COUNT 1.00-4.0 0 [facility] MONOCYTES (10*3/UL) IN BLOOD BY AUTOMATED COUNT 0.00-1.50 [facility] EOSINOPHILS (10*3/UL) IN BLOOD BY AUTOMATED COUNT <=0.70 [facility] BASOPHILS (10*3/UL) IN BLOOD BY AUTOMATED COUNT <=0.10 [facility] PLATELETS (10*3/UL) IN BLOOD AUTOMATED COUNT 125-425 Ab ove high normal [facility] IMMATURE NEUTROPHILS/100 LEUKOCYTES IN BLOOD BY AUTOMATED COUNT <=0.5 Above high normal [facility] IMMATURE NEUTROPHILS (10*3/UL) IN BLOOD BY AUTOMATED COUNT <=0.40 [facility] ID Date Data Source [id number] 10/19/2020 08:25:44 PM EDT [facility] Name Value Range Interpretation Code Description Data Senait rce(s) Supporting Document(s) Nursing [facility] es QTJTGn2gJxPOZzLf86/WRJuzCZGav9QfSIkcTBu6SLhvLUNzK5UgGJY7aK0jBAL4TWeGIcQdHoRkZSU7 lbm [file] F2ZEI2MAN1FhO2PirqEr0cKTYGXu3+BYacaRAmnRysNPUJKhgbPiHHLyAzHL5RAOf= ID Date Data Source [id number] 10/19/2020 04:21:07 PM EDT [facility] Name Value Range Interpretation Code Description Data Senait rce(s) Supporting Document(s) Progress Note [facility] rvices XRVKQq4mAhPUPvOl84/QACkyCSHkl4CeKDcjYNv4WYqvKOUwS6GdDVX0aX0jOQD5LLqRRoBgFcOwFLH0 lbm [file] ICAgICAgICAgICAgICAgICAgICAgICAgICAgICAgICAgICAgICAgICAgICAgICAgICAgICAgICAgICAg ICAgICAgICAgICAgICAgICAgICAgICAgDQogICAgICAgICAgICAgICAgICAgICAgICAgICAgICAgICAg ICAgICAgICAgICAgICAgICAgICAgICAgICAgICAgIC AgICAgICAgICAgICAgICAgICAgICAgICAgICAgICAgICAgDQogICAgICAgICAgICAgICAgICAgICAgIC AgICAgICAgICAgICAgICAgICAgICAgICAgICAgICAgICAgICAgICAgICAgICAgICAgICAgICAgICAgIC AgICAgICAgICAgICAgICAgDQogICAgICAgICAgICAg ICAgICAgICAgICAgICAgICAgICAgICAgICAgICAgICAgICAgICAgICAgICAgICAgICAgICAgICAgICAg ICAgICAgICAgICAgICAgICAgICAgICAgICAgDQogICAgICAgICAgICAgICAgICAgICAgICAgICAgICAg ICAgICAgICAgICAgICAgICAgICAgICAgICAgICAgIC AgICAgICAgICAgICAgICAgICAgICAgICAgICAgICAgICAgICAgDQogICAgICAgICAgICAgICAgICAgIC AgICAgICAgICAgICAgICAgICAgICAgICAgICAgICAgICAgICAgICAgICAgICAgICAgICAgICAgICAgIC AgICAgICAgICAgICAgICAgICAgDQogICAgICAgICAg ICAgICAgICAgICAgICAgICAgICAgICAgICAgICAgICAgICAgICAgICAgICAgICAgICAgICAgICAgICAg ICAgICAgICAgICAgICAgICAgICAgICAgICAgICAgDQogICAgICAgICAgICAgICAgICAgICAgICAgICAg ICAgICAgICAgICAgICAgICAgICAgICAgICAgICAgIC AgICAgICAgICAgICAgICAgICAgICAgICAgICAgICAgICAgICAgICAgDQogICAgICAgICAgICAgICAgIC AgICAgICAgICAgICAgICAgICAgICAgICAgICAgICAgICAgICAgICAgICAgICAgICAgICAgICAgICAgIC AgICAgICAgICAgICAgICAgICAgICAgDQogICAgICAg ICAgICAgICAgICAgICAgICAgICAgICAgICAgICAgICAgICAgICAgICAgICAgICAgICAgICAgICAgICAg ZJMiTIMrAEVbQTUyQUBmUKDaVTDhWRZcVVRtRHJbFRFlJUe5U1lmZFIdBWPaUX9xPMo2Jp3+DQoNCmVu ZVE3yiLloX8BLJ2bb3YeBKyrHZIbf4PzEKb3LI1PLF DjRAbbWZ8VWKduch4ZCXTyEKDddCEDy8zxEnQgAEN6PLXjWkhoOW1OEBYkM5lvwfIfIOUvKYYKAMtdWO VJCExaLHADMLYhUYJeSwNcKiCnTKKqXKYqIUYSEDN3DBAdQvElFCqkDV8Xz7RceWN9KRr+Lg5JSZ5ul9 HyGTt9NFJhBF1ggb1GVYhPFpGxQ4KqsoR0GOJlKSRo Ba1FTWZhYWKfbPV0YNZeBQDATvHwO1TmcB22ZCVCCc0+OMdktxZhWzrWEtVaRIYyb7MkJZa5NR6CCGNs QMd4uOUrMEXvW9Dei9BnKs73KFOmTxztCA00mcEpH1ssDuLbshMrEE6ZZVT7LVgiYV3uMQHrMNN6ToMw OJMBPS7JOFYjINZsfTPiEDXxAMBYRT0UPVovIRI6GO FlotHgzMViJXejWU0SDIJnjxHvHDSkTNEHJWk+Is4HTH4wh0ZbPHs5KaLsAW0qeo7JRCyVFzAtZ5R2kS DnA9Y4WOmaVg2QABXoRHTuFmhlBMGBLXigZC6TCI5axuG5AE0VdQYzGEQrIWLdrXQpNFy1J37fdZCdAL hzOX2ARCC+Sanjiv+Bd9XXEQfWFYlBMZaEhFkPGMGGjLi J5UsF7NMq4WdV7EhTL86fWczowVvBAhkES7UGZ7qYZEcZWKRDR9OoDGmrG5mwcB2BAHtLGUGClFjG90r nVNwLSTkTOM1LXVkMz1NUMJbX2OwdfDipLhympOjKOPnMDHKGR1YRYucykRoaIRclHmeBC90gAvgYX4X Re9XGrOoLG1ofl8KoPPgQp0BPCF4Ub2HMCXgPOMsFW YlOFW2GCUrQzHyXKwrTADkZQOyVGB1UAZtZIJcHR7KHmVgQJIcGnS2KBkrYYTiQWYjsa7OOCIxJAAuIC L6MAPcAZNxODSnAJriFGOjSINkRQF4OBXxXWIsWR6EMxNxNEMnDEY3PmRhELPxUNJmqo1ODZSnBYRbVh y8RYTyJMPaNCYnMNruYKCoCCA6ADg7PFQaAFCgXB8I ClKxNZKtCOubNVZsQYAfMPUvhh4GFYFaMQPlOEHyAKPdAWNzZZZxJMejAXGbWWBsDiUdAHWoHQPsEI6R IiNxEUDhSDXuBIoyLAHeAOCacm8QBZUpHTFoKZW9RQGvQODdOGNuRMxhATLmDBA9RUB2FZNpZXYfCC5L MeKjDYZyFPpoYFRsHLEiNGKgbk6UBUMvKVWoWDz7Of FnTGOmHMJnNZfcQRPhQHPwEZlxUHRkMCUpJO9EMtWlYYArVqI8TSCiTXJjNAIqxw2GRXEsLMXzHDa4BL WzHLZbTVMdJMphVMZpTLFuUBVyJUSmNVFeTR1FKzRgTBGbOhLdNLocHTYrBLLykb8YEJOhGBExAvPvHS PwBRCbRMNwBUljMLBmNXPkJlndULEfRUXaKQ6FFjJx LYUmZeW3XGUxCFNxYTJqdw1RINJiITJlIkP5RGAmQAFxYWNhOCqaTPImJXT0PlY9LELpNRHoEC8WLcAu VLLsXdU5KibgLHYkVKUjtb8SXYXeVRZuSUAiCLPuTSKjAIHoUYqsJKXnQPF9GMiyMHVmKKVhKU3TKbIu DHNjWiNeGVTvRJZrHSPmnd1PVCJoWATrNkK7NXZrEA ZgFOZgRZcwIPXwXRU8FvK1VPDjOYNdTC9DIoElSHIpNhf5FmmeHBKgTKYfed0UGVFlNHHoUaycFLAoDZ RqPOXlSJluGYCtJPVlXEhdOWHqYUVmPK1QFmCoKMWxVoZ6TQzsQWAtDHThbv1ALKToEBQvFpWiOSNuKG KnIZCdYRuzRIGbWCPmXrF5WNFjFEPyDH3SLsSpQJRw BjC8KPRvVKNaAGAuyh1ISFKnOMJvSpb9KDGbOFLwVBHpOXquJXNyXTC2KGUzURPeIEXvDB4ZJfVgSJCc IpW0QOYzYMPjXMUjnv5IVQBkGONeDRH1ZqOpOQGgLZPbVQw5dqVkkIQmOXp5SB7KU5BvxaOtLDDICk5J q721XPLiJITvLm6ZS8xwNv0pIDLwYLQLSu5GXFm9LB BnRJgwTVM5FZH7IZHlQXSaSuT5KFZeUYNlNiIeDyg+OZkzGHSaVLAjJyh5IEZ2ZlEfYOQjEUA3PDOzVu EsFqXaOj2mSPCHYu0+[id number] ID Date Data Source [id number] 10/19/2020 02:34:40 PM EDT [facility] -REPORT:PROCEDURE: XR CHEST 1 VIEWDATE A ND TIME: 10/19/2020 9:26 AM EDTHISTORY: Shortness of breath and hypoxia.COMPARISON: NoneTECHNIQUE: Portable lordotic projection obtained APFINDINGS:Infiltrate at the left lung base consistent with pneumoniaand/or atelectasis. Associated pleural effusion cannot be excluded.Right lung is grossly clear. Given the lordotic projection of the film,the cardiac and mediastinal silhouettes are grossly within normallimits.IMPRESSION:Left lower lobe atelectasis and/or pneumonia, +/- associated left pleural effusion. Follow-up to complete radiographicclearing is recommended in the next 6-8 weeks.DWS: [id number] SIGNATURE: Jose Alberto Silva MD Name Value Range Interpretation Code Description Data Senait rce(s) Supporting Document(s) ID Date Data Source [id number] 10/21/2020 04:13:00 PM EDT [facility] Name Value Range Interpretation Code Description Data Senait rce(s) Supporting Document(s) IGG SUBCLASS 4 2.4-121.0 [facility] Tbricks ervices Test Performed by:[facility] [place] [id number] Director: Harish De Los Santos M.D. Ph.D.; CLIA# [id number] ID Date Data Source [id number] 10/19/2020 02:07:25 PM EDT [facility] -REPORT:PROCEDURES: CT ABDOMEN PELVIS W CONTRASTDATE AND TIME: 10/19/2020 1:20 PM EDTHISTORY:CLINICAL: Abdominal abscess/infection suspectedCT OF THE ABDOMEN AND PELVIS WITH CONTRAST 10/16/2020 5:47 PM EDT:TECHNIQUE: Helical CT scan is obtained from the lung bases through theischial tuberosities. The patient receives contrast intravenously. AutoExposure Controls are utilized during the CT exam to meet ALARAstandards for radiation dose reduction.This CT exam is performed using one or more of the following dosereduction techniques: automated exposure control, adjustment of the mAand/or kV according to patient size, and/or use iterative reconstructiontechniques.COMPARISON STUDY: None availableABDOMEN/PELVIS FINDINGSLUNG BASES: There is left lower lobe atelectasis or infiltrate. Thereis a moderate left pleural effusion. There is a small right pleuraleffusion.LIVER: No significant abnormality.GALLBLADDER / BILE DUCTS: No significant abnormality.RIGHT KIDNEY / URETER: No significant abnormality.LEFT KIDNEY / URETER: No significant abnormality.PANCREAS: There is peripancreatic inflammation.SPLEEN: No significant abnormality.ADRENAL GLANDS: No significant abnormality.GI TRACT: There is inflammation of the duodenum and proximal smallbowel distal to the ligament of Treitz. There is no intestinaldilatation. There is possible inflammation of the large bowel at thesplenic flexure and proximal descending colon. There is possibleinflammation of the sigmoid colon. There is possible inflammation of theascending colon. There is no intestinal dilatation.AORTA: No significant abnormality.BLADDER: No significant abnormality.REPRODUCTIVE: No significant abnormality.ADENOPATHY: None.ASCITES: There is a small amount of pelvic ascites. There is a smallamount of ascites within the left paracolic gutter.BONES: No significant abnormality.IMPRESSION:1. Acute pancreatitis.2. Inflammation of the duodenum, proximal small bowel and large bowelcould be secondary to pancreatitis. Additional infectious/inflammatoryprocesses are not excluded.3. Left lower lobe atelectasis or infiltrate with moderate pleuraleffusion. There is small right pleural effusion.4. There is no CT evidence of intra-abdominal or intrapelvic abscess.DWS: [id number] SIGNATURE: Tramaine Diaz DO Name Value Range Interpretation Code Description Data Senait rce(s) Supporting Document(s) ID Date Data Source [id number] 10/19/2020 07:02:35 AM EDT [facility] Name Value Range Interpretation Code Description Data Senati rce(s) Supporting Document(s) Nursing [facility] es BYSIXb7lJwIPLvEj08/JWHzmQZOrh3YkTGyyLPk8YMqgNTDcG0CbLYI3rN8aDVP8UDvVZfXnPrCpQAQ6 lbm ZtFuwEOwMsPFZnVgmUDuKaMUadAwutiGLtFY1MvOJ0QFXcQ62uZGPrTPEnO7XtAWg4EI4+MCwySNB5vc PryP8XQQYNHClD39PXkqmds7wdDYOXZrqhrQPY4s6dbBXOwYrEA1QQpnmPSY8Z+sqstH1WS3eLTS7S6B B/7rbxF1HpT8n/i6GOJrKJfE29w0By0BJU6y+DSsxT P3BqsBoyNRYGSU4N6caBnefRtZncQLxyUS+KMY6MaN1+WEOGQ0230LJ+Q6BQdxKzYOcUHvydTwWrkVfx /F5hVuNF24ZEXiZS0d7u40t8w2BKPUxYpxRsedjPFZXkJuy6RAA/tZQoWdx6Nn9tdA2D9UMlBBZOuLo+ r2m3tlPDXI7avW/wpOyCNt4nx4LnExn9BUfHopHNh1 bNdPLG1uNNpqpAVvIOGydsYJfmDmaNr1f8BJcxvvSTbwu044eAQayg2+vHc7WMRVnUChqk07TXogrxVn BEb15VTJYVHG3Emx7HDAtLd7LtzkR2kxU5kEXYLjzJOHjkblgGyQJseqRvUTBi0L5TXjZ7LfPrW8oZny LghAsnf1jalZ9uGTiaFf42nDNMxaEa9Jjsth+SifEq TMbuRO7Rc7zPC4QWOrDuPZketNm8CVOS+HKloUIsUCAcZiRSk4LIk9LEky/Vcm18J8o6WfPfmGVGKswX c0Q4Q2LZgIaQYyJ3k+b3yja4ViVGygJ3m2RrFD3QqCM80CrRNrnBMY/d/ZyrZETe5BruEFmp/SUjj54r mbiAxN53SGYXcO5Dba7SkIj6o364m6Koa2/James/2ev [file] AgICAgICAgICAgICAgICAgICAgICAgICAgICAgICAg ICAgICAgICAgICAgICAgICAgICAgICAgICAgICAgICAgICAgICAgICAgICAgICAgICAgICAgICAgICAg GLPnIKWqOJ3ZFCRhOOTsTHUhHHPdSKGmWAQvIHIeGISdLGRsKQNwQEDuZEOuLDTfXOXpEMLpHOUuVLAs ICAgICAgICAgICAgICAgICAgICAgICAgICAgICAgIC XzZSPjBYPlJFLtQLXdASYxHS6RMEWbJDZuXMOkYSAsMEDnGIXkLVWrPPVvIUFdTGPrQCDzUZXfWHIxSG AgICAgICAgICAgICAgICAgICAgICAgICAgICAgICAgICAgICAgICAgICAgICAgICAgICAgICAgICAgIA 0KICAgICAgICAgICAgICAgICAgICAgICAgICAgICAg ICAgICAgICAgICAgICAgICAgICAgICAgICAgICAgICAgICAgICAgICAgICAgICAgICAgICAgICAgICAg XGYzIQCgGGGzMM1KRYLtJYUiJTNwQTFoAYKcJEQgRZNtEHQsXHVzYRPdPRHkBEJyICTjZHYyQMHyWQOf ICAgICAgICAgICAgICAgICAgICAgICAgICAgICAgIC FbGTJsWTFeCSZlMBKbQUPhFIMxYT9UNTGhVTJoHWLzUDQyFFGaTLLmQQXsRQNuHOYrDYXrVPTiMVPiIO AgICAgICAgICAgICAgICAgICAgICAgICAgICAgICAgICAgICAgICAgICAgICAgICAgICAgICAgICAgIC SsHA6KMACoMPDqKOHoTXJwFKIkERDoYJNvXYZxAGTx ICAgICAgICAgICAgICAgICAgICAgICAgICAgICAgICAgICAgICAgICAgICAgICAgICAgICAgICAgICAg FIJfNFJhKFRwESRwLU6TPNWtCUSvTSCzFBGcXZUyMGLiRJSsCCErRVUbJWXoZZWfMRBmTZMqQQWySGVa ICAgICAgICAgICAgICAgICAgICAgICAgICAgICAgIC BtABDwVZVeZMGwWFOpNNItCMZqEFAyOC7CAXPaPYOaFBUrRIFnARVkZPHuSDSgRNCaRCKaUOKkOLOdSG AgICAgICAgICAgICAgICAgICAgICAgICAgICAgICAgICAgICAgICAgICAgICAgICAgICAgICAgICAgIC TiQDQfFF9KBT85pSSmi0P3HTHmOV0vghp/Iv9SPEvj frJjoRBrZY1STtYxDQ8tzm0XHxEsAA9fao6SXQaEEzFuG6J8aEDfCGRzQQRXPtGdA63pXQhzVu93EUll FLFoIlOdJAv4Hq1YNuBuT0qaKPYoSxB8GMKuWkQlARhcFE4Ro2ZznICuHNn+Zb1QXW0qx2MrZLtkEzGm ON6sgt8BEVgAVjLwZ9XpaiZ0JVJlNIHzLm1LAZMuUS QohOPmQiRrVSPHDtOsU5CerA81DVHIHx6+KWwwdqWqZxwYNqZqNBCoc8QcHDd7KT4JUPCmSSg1aIOpXx Bbi0xfMlHFw6UlQEE5EPL2mfEjuPExDIANhgioTXIwRXEKHJS5AYbkCN2hRDVrFRS5XeFmZRKKFK7DIC FrXULreHChQDHyHURDUY6IWXrpBHW8XJImjqFdkWUq MRyxSM2RBJYbwyNxEePnDWKCVKj+Tf8HLZ5gj5XaVLxpMAOyIK2fli9TXQlQVgKuE0B1mPReE1Z9JNxh Qm2LVUEmQNBuDhFiGCKCQGplBQ3POP5nktX7AT4UhZQwOVMcOQHbuHSuWDx7P20bcPYwHQbrVT6IZXM+ Sanjiv+Bj8QQZKkEKYxTQEfCvPpLGVPGvHfW9AcC2OEc8 CdC8HxNC01vDkjlcEqMXrkGS0JOR0xYWAzEMAGRM6TkKZewM0atlPcMzQcQQFCQyVtX07frOKlQTOpKU YiITIoGp0SRZJvJ6LdymDahRlntcIeJJZeXNQGYH8YKTgskhJbxBWufBteWU13zXphFM4RFo9WUxUjYJ 0eqi9BhGJqAt1ZHDNyER9FQKJvMRGjDQJsSEL4GSTp CxOnYJbmVXMoGHFyMZE9QUOrLYNaDT7ZUiUuXBBySGz2QgWmFCKaFUVatp4EQOFfIGWjYBWuZYDvEGDv FDTyKYlgKEBjBXWeFQM3VTYkACPfLK4XDnVpUGNzFNLbNDjxLQPaFLDsdx2TVXTpTANeVLGaGnKkEBOh JHQlZNbwKBYjLZBaIkvuYMVeGSPnCP5HEqPuWBZkMC D6UcvyPOBbWAWeps6PUSYjEBSqOyg9PpIeGTDqKQCvYEfyFSEyXVKrChZ1HXFhGUMsAQ2JMmVwYKYmUP V1XLnmIBJrZFKcse4XWGUtKUBqAQC4IKHvUKHqSHYhDRkgPYEoMKX7PSOrLGImPQEfUW0REwCuUOKwLU T1BViyELLaQKRzdp6OZCKgJLPnXZf5LYUtDSBfIUBm VCojFRPoWLP1UbG2YOEqKKEcLP8DDcQbLIQaCKRaAXWkXVYnPVLmff3SOKPvUNCcHjY0YtMxKFEzSIKb GYwkASUhTEK1TRvaOIUvFHDxWW1EXyNhEORrNAr9HSZiMGIuQPSmue9VMNRnASYrPXO1IDKkMHTsUVUv GFsuFTHkKAY5UKW7GRGtCWCxOR1MHxDpVZIjEAv5Lu eiEJWyQFCaah6YNRGvRJWgUAzhFoBkCMJbZUVxUNu0liDlmUXuFGu0UL1AG4EzluDtDjSIOt9Il793JD K0IAPiIi4OQ2npXp6qSAApVHKWVj1QWFf3IfrfITP9SxH8WPNiKCRrRmfdSBkhIuU7Vqg6APMdUxG+ID owAGE1OLUxWuArB8CzYCHlZAOvGVM9PRvpZTI3EHNk ZB9lDWCHIb7+OVihjDDzvDpePSAPYsY8CZbaWHthCZTPEs6A ID Date Data Source [id number] 10/18/2020 10:27:40 PM EDT [facility] Name Value Range Interpretation Code Description Data Senait rce(s) Supporting Document(s) Nursing [facility] TMBLDp7eGiCRQsPr41/IQKbuZELom0RwTKjlMVr2OMerEOAtC1JlGRW2oR5iBZC5PHeHVkRkOvNwKWW3 lbm [file] SDXdEjSG7UUNt= ID Date Data Source [id number] 10/18/2020 03:48:35 PM EDT [facility] Name Value Range Interpretation Code Description Data Senait rce(s) Supporting Document(s) Progress Note [facility] ODEDXv9pVyYFNeEr17/GZQjpCZNrm0FqBSduNUj1IHzzSGYhE3MsODT0nX7nUPZ1YPfXNqVyEcPvMIQ6 lbm [file] M+NX5wBAn+Hd1Jx3GwnaK5nsMvIZbbVWEtNP9ZIZYPH4FRWy== ID Date Data Source [id number] 10/18/2020 10:54:26 AM EDT [facility] Name Value Range Interpretation Code Description Data Senait rce(s) Supporting Document(s) CONSULT [facility] HRRLHh0rNaDUBdMc93/ZLPyqOATki5OxGXhsQOf7KNgcTMCxF3IsCXN6lW4bHGA9RWpWFnUlWyCyOSL0 lbm [file] AgICAgICAgICAgICAgICAgICAgICAgICAgICAgICAgICAgICAgICAgICAgICAgICAgICAgICAgICAgIC AgICAgICAgICAgICAgICAgICAgICAgICAgICAgICAg ICANCiAgICAgICAgICAgICAgICAgICAgICAgICAgICAgICAgICAgICAgICAgICAgICAgICAgICAgICAg ICAgICAgICAgICAgICAgICAgICAgICAgICAgICAgICAgICAgICAgICAgICANCiAgICAgICAgICAgICAg ICAgICAgICAgICAgICAgICAgICAgICAgICAgICAgIC AgICAgICAgICAgICAgICAgICAgICAgICAgICAgICAgICAgICAgICAgICAgICAgICAgICAgICANCiAgIC AgICAgICAgICAgICAgICAgICAgICAgICAgICAgICAgICAgICAgICAgICAgICAgICAgICAgICAgICAgIC AgICAgICAgICAgICAgICAgICAgICAgICAgICAgICAg ICAgICANCiAgICAgICAgICAgICAgICAgICAgICAgICAgICAgICAgICAgICAgICAgICAgICAgICAgICAg ICAgICAgICAgICAgICAgICAgICAgICAgICAgICAgICAgICAgICAgICAgICAgICANCiAgICAgICAgICAg ICAgICAgICAgICAgICAgICAgICAgICAgICAgICAgIC AgICAgICAgICAgICAgICAgICAgICAgICAgICAgICAgICAgICAgICAgICAgICAgICAgICAgICAgICANCi AgICAgICAgICAgICAgICAgICAgICAgICAgICAgICAgICAgICAgICAgICAgICAgICAgICAgICAgICAgIC AgICAgICAgICAgICAgICAgICAgICAgICAgICAgICAg ICAgICAgICANCiAgICAgICAgICAgICAgICAgICAgICAgICAgICAgICAgICAgICAgICAgICAgICAgICAg ICAgICAgICAgICAgICAgICAgICAgICAgICAgICAgICAgICAgICAgICAgICAgICAgICANCiAgICAgICAg ICAgICAgICAgICAgICAgICAgICAgICAgICAgICAgIC AgICAgICAgICAgICAgICAgICAgICAgICAgICAgICAgICAgICAgICAgICAgICAgICAgICAgICAgICAgIC ANCiAgICAgICAgICAgICAgICAgICAgICAgICAgICAgICAgICAgICAgICAgICAgICAgICAgICAgICAgIC AgICAgICAgICAgICAgICAgICAgICAgICAgICAgICAg ICAgICAgICAgICANCjw/mYGtA0qnnYXqyvV7M4zfEf0AXi5FCJ1ak8HrQKJnYGosydYyYjeWFqCwDNUp TxnOWlk5UGpwOR9IwACpI0KdU8AzOHekLX8FAZQxJNEkbYYiZQVdDWWuWhM2BFCbZQxnID4HgUPzZUvg UYQsSZAtLU8QBPIwY112zgCoAV9OYg1MPoJbPV6gwl 1STMfbLQIiXncPWti6XLbvQL4NhEEhdLSeFWDsEJCXJrOkN7vib0OvNTymBOUWJCfwSC2El6WvfMNgUA o+Ld1AID6sh6NnRXvbZQLyNL0lrx1AEEzSQaZyB1TibBqaCHRfhnP5kFHdMHV6MXHtumudeZhxPWHOVU 3isLipwutzWlZoHJVyXR72EdNmDsRiPMQ3GRemOC4y LUvmUW8OYFW2ZTshYJJpZKJwU5sQKyTcEWz2UlTbyQmgDP7ZGcYeQ8CedbPsqCQcBrLvYDIVGg3+DQpl diKbTwaVLnJ9QUVpq3WpMMw9YV5SNFLjRTleVB4PPRVkzK5zOUxfRR5HHtObDTRkIKEWLwIwC41mbHZj QRe7S5UjEtEtNEPvYbeoYGDeLMonVeUbAQAvOsNyWW ogID4+ID4+DZqhWI5NGHkabzOhEGZcDg7YJUQzJJSaGV5dLWVbBALrI6U9wZllRODRMlRkJ6uselsnNZ 0pOXNnV314kWqpffIxVOX0LBCvVt8LMNSsLBM8OTEidQGsHNWkXDBIQKrgXJ1ZoGRdMAM9iA1oHSxnFH YqZHYnE8dTXiOjxOzfKL85lIlepwDydNGmUXn+Pg0K EP3jp5XwDCw2ufIbQVasDGLsZDmsADMqKZEnZQTsLWL2FEQ8RQLSAfOcIJYbYYJdFImnFMWaLHBffq3F TCLkOOEkPUv6QwUvHHQeEPFfOQchENEsPBH5GwQtLZLnKZTcWB8CXyJbOIIyKRExBFfiEUJhIOBixf7T MDAwMDAwMTYzOCAwMDAwMCBuDQowMDAwMDAxODQyID McPEWtBO5OCkGvKBGwEAB6WTCrQKAqKACdom3JTKVxIOXqNxq4LyLmPRWuXLZmQImlTNCwHXErLOv2HS JwPYAmBU6DLrTaAPYgYMJpYhRyHWZySVGxke0HDXPkXRImAFGiXtTtTVMdIHTtWOyxGPPaFHP1VFL5VO EwPGCcIV4ZTfPhUOAjIEQ0RNSjHOSwBUFtqo4RQPRk SIHaADD6OxGlDBHeTXAhYIwmUHZjQWX2YXB0BPFwGHWeHW7HLmCbSZUjRNZsIXDxEQWsEFRagx2CVJPn FLLePtlfWJYiPXNqBYPcBZleAKUyLNF0Hjd0EZUtEJFgYJ2VQrTlFISnFYl4AZYvOQNuUJGqas0HbBTz mTibud0OISbZLr9GuMkzZKKmETvgId5ftEVyGHZfDL BMUv9SmlLsNQIqBAFWNSqhXGSrCDGmAHU6U8YjDuAhJZBzNIVoRSOhSPJ4XrkeSrWuGKQnYzT8BvRdUu osSMPhQNF1AmK5LDWdYEBpRceoRVJjSIFcOhD+BY1gBAf+Hp3Oh3AmyzC4oaShJMm8ZPt4JFfcSIAQMa 0K ID Date Data Source -[id number] 10/18/2020 07:37:54 AM EDT [facility] Name Value Range Interpretation Code Description Data Senait rce(s) Supporting Document(s) SODIUM (MMOL/L) IN SER/PLAS 135-146 [facility] POTASSIUM (MMOL/L) IN SER/PLAS 3.5-5.3 [facility] CHLORIDE (MMOL/L) IN SER/PLAS 98-107 [facility] CARBON DIOXIDE, TOTAL (MMOL/L) IN SER/PLAS 21-32 [facility] ANION GAP IN SER/PLAS 5-15 [facility] UREA NITROGEN (MG/DL) IN SER/PLAS 7-23 Below low nor mal [facility] CREATININE (MG/DL) IN SER/PLAS 0.7-1.3 [facility] UREA NITROGEN/CREATININE (MASS RATIO) IN SER/PLAS [facility] GLUCOSE (MG/DL) IN SER/PLAS 65-99 [facility] CALCIUM (MG/DL) IN SER/PLAS 8.4-10.4 [facility] ASPARTATE AMINOTRANSFERASE (SGOT) (U/L) IN SER/PLAS <59 [facility] ALANINE AMINOTRANSFERASE (SGPT) (U/L) IN SER/PLAS <50 Above high normal [facility] ALKALINE PHOSPHATASE (U/L) IN SER/PLAS 38-126 Above hi gh normal [facility] PROTEIN (G/DL) IN SER/PLAS 6.3-8.2 Below low normal [facility] ALBUMIN (G/DL) IN SER/PLAS 3.5-5.0 Below low normal [facility] ALBUMIN/GLOBULIN (G/G RATIO) IN SER/PLAS [facility] BILIRUBIN TOTAL (MG/DL) IN SER/PLAS 0.1-1.3 [facility] GLOMERULAR FILTRATION RATE ML/MIN/1.73 SQ M.PREDICTED >60 [facility] ID Date Data Source -[id number] 10/18/2020 07:53:49 AM EDT [facility] Name Value Range Interpretation Code Description Data Senait rce(s) Supporting Document(s) C REACTIVE PROTEIN (MG/L) IN SER/PLAS <=0.9 Above hig h normal [facility] ID Date Data Source [id number] 10/18/2020 07:00:52 AM EDT [facility] Name Value Range Interpretation Code Description Data Senait rce(s) Supporting Document(s) LEUKOCYTES(10*3/UL) IN BLOOD BY AUTOMATED COUNT 4.0-10.5 [facility] ERYTHROCYTES (10*6/UL) IN BLOOD BY AUTOMATED COUNT 4.0 0-5.80 Below low normal [facility] HEMOGLOBIN (G/DL) IN BLOOD 13.0-18.0 Below low normal [facility] HEMATOCRIT (%) IN BLOOD BY AUTOMATED COUNT 37.0-50.0 Belo w low normal [facility] ERYTHROCYTE MEAN CORPUSCULAR VOLUME (FL) BY AUTOMATED COUNT 77.0-100.0 [facility] ERYTHROCYTE MEAN CORPUSCULAR HEMOGLOBIN (PG) BY AUTOMATED COUNT 26.0-33.0 [facility] ERYTHROCYTE MEAN CORPUSCULAR HEMOGLOBIN CONCENTRATION (G/DL) BY AUTOMATED 31.0-36.0 [facility] ERYTHROCYTE DISTRIBUTION WIDTH (RATIO) BY AUTOMATED COUNT 12.0-17.0 [facility] PLATELETS (10*3/UL) IN BLOOD AUTOMATED COUNT 125-425 [facility] PLATELET MEAN VOLUME (FL) IN BLOOD BY AUTOMATED COUNT 8.0- 12.0 [facility] ID Date Data Source [id number] 10/17/2020 11:11:07 PM EDT [facility] Name Value Range Interpretation Code Description Data Senait rce(s) Supporting Document(s) [facility] WZRKWg1pSfZLVmMy22/SOCvnTYTwu2CpTUvaRTz7HTieIUKbE2PdATG8zI1hRGO4ABxGOdOtZiAaGFV5 lbm [file] ZhBChbAIK9Rk1JHJXOZ9EFXi== ID Date Data Source [id number] 10/17/2020 03:44:34 PM EDT [facility] Name Value Range Interpretation Code Description Data Senait rce(s) Supporting Document(s) Nursing [facility] es RRXXHh9nXfGODwKx67/GJJfdUMOfi8ZbTMiaLAi2BJrkCTEiG2XkEVA1zO7xLAC3DGvUEoGrEgTdYVT4 lbm [file] SC3ZCNd= ID Date Data Source [id number] 10/17/2020 11:14:39 AM EDT [facility] Name Value Range Interpretation Code Description Data Senait rce(s) Supporting Document(s) Progress Note [facility] rvices FKLAJx1kPkTOJyPj77/EMLyaPOOcf2KkMGwhHVm5JHdqIPLqS5RvSDF5kL2kJDD8YPgWJwEvJhOsMYZ1 lbm [file] AgICAgICAgICAgICAgICAgICAgICAgICAgICAgICAgICAgICAgICAgICAgICAgICAgICAgICAgICAgIC AgICAgICAgICAgICANCiAgICAgICAgICAgICAgICAgICAgICAgICAgICAgICAgICAgICAgICAgICAgIC AgICAgICAgICAgICAgICAgICAgICAgICAgICAgICAg ICAgICAgICAgICAgICAgICAgICAgICANCiAgICAgICAgICAgICAgICAgICAgICAgICAgICAgICAgICAg ICAgICAgICAgICAgICAgICAgICAgICAgICAgICAgICAgICAgICAgICAgICAgICAgICAgICAgICAgICAg ICAgICANCiAgICAgICAgICAgICAgICAgICAgICAgIC AgICAgICAgICAgICAgICAgICAgICAgICAgICAgICAgICAgICAgICAgICAgICAgICAgICAgICAgICAgIC AgICAgICAgICAgICAgICANCiAgICAgICAgICAgICAgICAgICAgICAgICAgICAgICAgICAgICAgICAgIC AgICAgICAgICAgICAgICAgICAgICAgICAgICAgICAg ICAgICAgICAgICAgICAgICAgICAgICAgICANCiAgICAgICAgICAgICAgICAgICAgICAgICAgICAgICAg ICAgICAgICAgICAgICAgICAgICAgICAgICAgICAgICAgICAgICAgICAgICAgICAgICAgICAgICAgICAg ICAgICAgICANCiAgICAgICAgICAgICAgICAgICAgIC AgICAgICAgICAgICAgICAgICAgICAgICAgICAgICAgICAgICAgICAgICAgICAgICAgICAgICAgICAgIC AgICAgICAgICAgICAgICAgICANCiAgICAgICAgICAgICAgICAgICAgICAgICAgICAgICAgICAgICAgIC AgICAgICAgICAgICAgICAgICAgICAgICAgICAgICAg ICAgICAgICAgICAgICAgICAgICAgICAgICAgICANCiAgICAgICAgICAgICAgICAgICAgICAgICAgICAg ICAgICAgICAgICAgICAgICAgICAgICAgICAgICAgICAgICAgICAgICAgICAgICAgICAgICAgICAgICAg ICAgICAgICAgICANCiAgICAgICAgICAgICAgICAgIC AgICAgICAgICAgICAgICAgICAgICAgICAgICAgICAgICAgICAgICAgICAgICAgICAgICAgICAgICAgIC AgICAgICAgICAgICAgICAgICAgICANCjw/nRVvL5yqpUKorsU8E6btVr6DUi0UJC0hb8ArPKWpQShojk FyIykIRoSiGTUhJwqINfq9TDvfEJ4QqERkF7QmA4Jd JSmfMI7BVWVhSQPunPOjAPElQHRfQfD8JYTmWCkvBX7WeJVlHEyyOCQsCLNxYwZzKUYgNENcMNNwUEHh FZQAWWLtAXNbRyQkEOMwNWLpKZfhUYZHXB3URjXpF7IwzT39KEqXFv1+XEgrjvQzDgcOWuYlVPLxd8Nt NHy6OO9UZUNaXqaah9WiZSBjJZYZWUvkHN6QTDL0DW RnKJDfZb3MLIBeC546aaPfAA0ZQz5WBsIiFI9sly1MSUXzLREqWyaWCga9VFipMR4RcJDsOKyVun5bxl BktoRMa5KmklRotQRRmO3eqdPkbOFPHTb0uYrxtl3kIV7XOJE5YSatTu8aRGHoZJYmAdKtSLFZKF3QXN PnANAldXOhFFHjPYBFXN7LQQpaDUB9COUncrZoyANn HMsrPZ4OFOFjluYmFKBhTRNEWYj+Ug2WBU3jv5ThQFz4MrXdKW6yvc3BJKuZJwEfB6F0eIVuJ6W9OXum Pp0CBAIhLHKuPpbgTDBWWDklYZ1FJW3ylgO8LG8AiUPdHWDeHJZmqKQiXBg5M57ltEKmQJwvUT8EUJR+ Sanjiv+Ac4TYNKwZSDqBVSpCeBqGHRTAyIzE6JnT4AZt9 SuD8IaVQ26iOvbtgUhLJjcDW2CCN7rFULpFMFVOZ2QkQRveP9dmeA5SANiQSJVYeNbY38yvHSgQJWhID H4VVOcNv2IAJDhF4BloiOroUhebqXsGQJoNISBJD5XVVdvctTfdHSzqNuhCJ99jSlqKS9WUu8KJzNsGI 3jtr6OsVHfLk3GRRB5Bo1BREMzCHCxSIThUDF0UHOa QeSqBHroQTCjMEUdQTS8WIWySAKoAE3FDmIhOXPvFjI8LZUgBDTvWNEujy3VGBHmNOA3KTTbNDDdZIGz QWVnZLqzOYWnPGSyLEI3UAJnDVEsMR5XBmXoHLXqDFA9ITqqIFJuQZSgme3UTQJaQJKnQwjsXsClXQLv YKNtWHblBMZhDRH0JXSjNTEgZZLrBG0QMrEnCIGvQM P9FpVfKZDjAAQiaz3BPDWrNURmQSh1EtHbWCQzAYXwKXzpAGWrMHY5KVNfSSJgWSYlHZ6BIoCmJXRzSB P5VoBoHMDbBCVdmh4NAIByPTOrTIlqWQYsJQFsGHEsGRpmAOAaCRAwRMX4RHTrFMYiFA0VFyNaLMKeJZ CuKURkECSqWPQamk6TREEgAEAuIJY9CxGxAOUbOCJn VNwaPDLuOME7PMBjWQZmMVQyDW0FKpIpSUPwCWA0CHXcXFBiOJVfdb6MMFRpCCJuIdnoWNIkOIAwXYLc UDggNHWhNMP2RqltCVLoPGVpGL7CLkAfWUYfQIt7JhhsAJIjDDNrbd3ITZSoAQByTCY2LUGaVISpCUIx XKqlNQCcWTO3DNX6RHTpNKXiTR0YNkYsXHMhLMvxSP ZvXIXjSHIyou2JILZfVBCuSTB2HGWqIUSxOMWfVKdnLHSjERSpFjZ7LGThTSQcID1MQfYpKYUpXqJ8Aq QxMJEcCQHldq0OFESjTIOgNKq5DQPwQTUuMJZbBWokNFNdQHYxJdCpGVKmKFRuWY0CVsZcGITtQiK3TQ UoKQMrUMKyca7XWSHeUFKnLfG9QQWvXERlJUMpCFtj IJCnHLDdQQI9UGCsYDJyLP9KTzOyENYxHqVkAZzuDDNoZOLxvm7PWXZzZMZdWsJ5LbYpKROcSWAcKJbi TBUiUBN5JIQbPAXvNARwZB5WSsJnDHPjJnM6RPulHBLdUBZbkz5JZLVmTIYjYXfgEQHaULNuTIFaQYha SYHlXQL1WiyhSQIwEBDzIS9VIuCzWDOyQbAzFKSrAD ItQMNbkn6PJJIkXBI1Lxd6DTTqGCJlKFCbBIysZEFgJCN7FfC7PZQkTDCmUD8UFdNnWECoEmK1VGduZZ BpCMOdtd0KXUToUAO3VSA1JEAdKHJaCEZtAXx4ddGbhWHcNAm5AJ4OW4KyqzErOVCMXd0Lv005JCUyOT VvDg5TI2izBz9kFRVmNFXNBr8ESSh6UCCrKIK7FIb5 DBZ7SZG6RSIdLtsnIzDjRdCuPOZtQFR+DXgtTTIyGmTsUJA0Sfx0Jgx8VRDeSHDzQYVpFYKmLiB1Iy0e XSANCj4+JFbcwREjdVyxKZWMDaP5LRB4BInjOVFMZo3I ID Date Data Source [id number] 10/17/2020 10:40:35 AM EDT [facility] -REPORT:PROCEDURE: US ABDOMEN LIMITED LI VERDATE AND TIME: 10/17/2020 10:15 AM EDTHISTORY: Alcoholic pancreatitis, not improving. Evaluating forgallstone or choledocholithiasis..COMPARISON: NoneTechnique: Multiple real-time sonographic images were obtained usinggrayscale and color Doppler.FINDINGS: The hepatic echotexture is grossly homogeneous withoutevidence of intra or extrahepatic biliary ductal dilatation. Common bileduct is 5 mm which is within normal limits. Portal vein diameter 1.1 cmwith normal blood flow towards liver. Gallbladder is unremarkablewithout evidence of stones or wall thickening. Gallbladder wallthickness 2.6 mm which is within normal limits. No evidence ofpericholecystic fluid or pain with transducer pressure over thegallbladder. Pancreas poorly seen due to overlying bowel gas. What canbe seen looks heterogeneous suggesting underlying parenchymal disease.Abdominal aorta of normal caliber with a maximal diameter seenproximally measuring 1.9 cm. Inferior vena cava is grossly unremarkable.Right kidney in its expected location measuring 10.9 x 5.4 cm. Noevidence of hydronephrosis. Incidental note is made of bilateral pleuraleffusions.IMPRESSION:1. No evidence of intra or extrahepatic biliary ductal dilatation.2. Gallbladder grossly unremarkable.3. Pancreas poorly seen due to midline bowel gas, however, what can beseen is heterogeneous in appearance suggesting parenchymal disease.4. Bilateral pleural effusions are noted.5. See above for details.DWS: [id number] SIGNATURE: Jose Alberto Silva MD Name Value Range Interpretation Code Description Data [facility] rce(s) Supporting Document(s) ID Date Data Source [id number] 10/17/2020 06:15:53 AM EDT [facility] Name Value Range Interpretation Code Description Data Senait rce(s) Supporting Document(s) SODIUM (MMOL/L) IN SER/PLAS 135-146 [facility] POTASSIUM (MMOL/L) IN SER/PLAS 3.5-5.3 [facility] CHLORIDE (MMOL/L) IN SER/PLAS 98-107 [facility] CARBON DIOXIDE, TOTAL (MMOL/L) IN SER/PLAS 21-32 [facility] ANION GAP IN SER/PLAS 5-15 [facility] UREA NITROGEN (MG/DL) IN SER/PLAS 7-23 [facility] CREATININE (MG/DL) IN SER/PLAS 0.7-1.3 [facility] UREA NITROGEN/CREATININE (MASS RATIO) IN SER/PLAS [facility] GLUCOSE (MG/DL) IN SER/PLAS 65-99 [facility] CALCIUM (MG/DL) IN SER/PLAS 8.4-10.4 [facility] ASPARTATE AMINOTRANSFERASE (SGOT) (U/L) IN SER/PLAS <59 [facility] ALANINE AMINOTRANSFERASE (SGPT) (U/L) IN SER/PLAS <50 Above high normal [facility] ALKALINE PHOSPHATASE (U/L) IN SER/PLAS 38-126 Above hi gh normal [facility] PROTEIN (G/DL) IN SER/PLAS 6.3-8.2 Below low normal [facility] ALBUMIN (G/DL) IN SER/PLAS 3.5-5.0 Below low normal [facility] ALBUMIN/GLOBULIN (G/G RATIO) IN SER/PLAS [facility] BILIRUBIN TOTAL (MG/DL) IN SER/PLAS 0.1-1.3 [facility] GLOMERULAR FILTRATION RATE ML/MIN/1.73 SQ M.PREDICTED >60 [facility] ID Date Data Source [id number] 10/19/2020 10:25:00 AM EDT [facility] Name Value Range Interpretation Code Description Data Senait rce(s) Supporting Document(s) HEPATITIS A IGM AB, S Negative [facility] Result does not exclude the possibility of exposure tohepatitis A virus. Antibody level during early infectionstage may be below the limit of detection of the assay.Test Performed by:[facility] [place] [id number] Director: Harish De Los Santos M.D. Ph.D.; CLIA# [id number] ID Date Data Source [id number] 10/19/2020 11:47:00 AM EDT [facility] Name Value Range Interpretation Code Description Data Senait rce(s) Supporting Document(s) HBC IGM AB, S Negative [facility]ices Test Performed by:[facility] - [address] [id number] Director: Harish De Los Santos M.D. Ph.D.; CLIA# [id number] ID Date Data Source [id number] 10/17/2020 06:35:04 PM EDT [facility] Name Value Range Interpretation Code Description Data Senait rce(s) Supporting Document(s) HEPATITIS B VIRUS SURFACE AG PRESENCE IN SERUM Negative [facility] Reference Range:Negative: Negative for Hepatitis B Surface Antigen.Reactive: Preliminary results, specimen sent forconfirmatory testing. Results to follow.Positive: Positive for Hepatitis B Surface Antigen.Specimen sent for confirmatory testing.Results to follow.Hepatitis screening test results should only be usedand interpreted in the context of the overall clinicalpicture.Due to method variability, Hepatitis screening resultsobtained with this assay may not be usedinterchangeably with values obtained with differentmanufacturer's assay methods.Hepatitis testing was performed on the [employer] System using a chemiluminescentimmunometric assay. ID Date Data Source [id number] 10/17/2020 06:52:23 PM EDT [facility] Name Value Range Interpretation Code Description Data Senait rce(s) Supporting Document(s) HEPATITIS C VIRUS AB PRESENCE IN SERUM Negative [facility] Reference Range:Negative: Anti-HCV IgG not detected. Patient ispresumed not to be infected with HCV.Reactive: Anti-HCV IgG detected. Patient is presumedto be infected with HCV,state or associated disease not determined.Specimen sent for confirmatory testing.Results to follow.Hepatitis screening test results should only be usedand interpreted in the context of the overall clinicalpicture.Due to method variability, Hepatitis screening resultsobtained with this assay may not be usedinterchangeably with values obtained with differentmanufacturer's assay methods.Hepatitis testing was performed on the [employer] System using a chemiluminescentimmunometric assay. ID Date Data Source [id number] 10/17/2020 05:45:52 AM EDT [facility] Name Value Range Interpretation Code Description Data Senait rce(s) Supporting Document(s) LEUKOCYTES(10*3/UL) IN BLOOD BY AUTOMATED COUNT 4.0-10.5 [facility] ERYTHROCYTES (10*6/UL) IN BLOOD BY AUTOMATED COUNT 4.0 0-5.80 Below low normal [facility] HEMOGLOBIN (G/DL) IN BLOOD 13.0-18.0 Below low normal [facility] HEMATOCRIT (%) IN BLOOD BY AUTOMATED COUNT 37.0-50.0 Belo w low normal [facility] ERYTHROCYTE MEAN CORPUSCULAR VOLUME (FL) BY AUTOMATED COUNT 77.0-100.0 [facility] ERYTHROCYTE MEAN CORPUSCULAR HEMOGLOBIN (PG) BY AUTOMATED COUNT 26.0-33.0 [facility] ERYTHROCYTE MEAN CORPUSCULAR HEMOGLOBIN CONCENTRATION (G/DL) BY AUTOMATED 31.0-36.0 [facility] ERYTHROCYTE DISTRIBUTION WIDTH (RATIO) BY AUTOMATED COUNT 12.0-17.0 [facility] PLATELET MEAN VOLUME (FL) IN BLOOD BY AUTOMATED COUNT 8.0- 12.0 [facility] NEUTROPHILS/100 LEUKOCYTES IN BLOOD BY AUTOMATED COUNT 35. 0-78.0 [facility] LYMPHOCYTES/100 LEUKOCYTES IN BLOOD BY AUTOMATED COUNT 20.0-42.0 Below low normal [facility] MONOCYTES/100 LEUKOCYTES IN BLOOD BY AUTOMATED COUNT 0.0-1 5.0 [facility] EOSINOPHILS/100 LEUKOCYTES IN BLOOD BY AUTOMATED COUNT <=1 0.0 [facility] BASOPHILS/100 LEUKOCYTES IN BLOOD BY AUTOMATED COUNT <=2.0 [facility] NEUTROPHILS (10*3/UL) IN BLOOD BY AUTOMATED COUNT 1.40-8.4 0 [facility] LYMPHOCYTES (10*3/UL) IN BLOOD BY AUTOMATED COUNT 1.00-4.0 0 [facility] MONOCYTES (10*3/UL) IN BLOOD BY AUTOMATED COUNT 0.00-1.50 [facility] EOSINOPHILS (10*3/UL) IN BLOOD BY AUTOMATED COUNT <=0.70 [facility] BASOPHILS (10*3/UL) IN BLOOD BY AUTOMATED COUNT <=0.10 [facility] PLATELETS (10*3/UL) IN BLOOD AUTOMATED COUNT 125-425 [facility] IMMATURE NEUTROPHILS/100 LEUKOCYTES IN BLOOD BY AUTOMATED COUNT <=0.5 [facility] IMMATURE NEUTROPHILS (10*3/UL) IN BLOOD BY AUTOMATED COUNT <=0.40 [facility] ID Date Data Source [id number] 10/17/2020 03:32:28 AM EDT [facility] Name Value Range Interpretation Code Description Data Senait rce(s) Supporting Document(s) TRIGLYCERIDE (MG/DL) IN SER/PLAS <200 Above high nor mal [facility] ID Date Data Source [id number] 10/16/2020 07:32:26 PM EDT [facility] Name Value Range Interpretation Code Description Data Senait rce(s) Supporting Document(s) LIPASE (U/L) IN SER/PLAS <300 [facility] ID Date Data Source [id number] 10/16/2020 07:32:25 PM EDT [facility] Name Value Range Interpretation Code Description Data Senait rce(s) Supporting Document(s) SODIUM (MMOL/L) IN SER/PLAS 135-146 [facility] POTASSIUM (MMOL/L) IN SER/PLAS 3.5-5.3 [facility] CHLORIDE (MMOL/L) IN SER/PLAS 98-107 [facility] CARBON DIOXIDE, TOTAL (MMOL/L) IN SER/PLAS 21-32 [facility] ANION GAP IN SER/PLAS 5-15 [facility] UREA NITROGEN (MG/DL) IN SER/PLAS 7-23 [facility] CREATININE (MG/DL) IN SER/PLAS 0.7-1.3 [facility] UREA NITROGEN/CREATININE (MASS RATIO) IN SER/PLAS [facility] GLUCOSE (MG/DL) IN SER/PLAS 65-99 [facility] CALCIUM (MG/DL) IN SER/PLAS 8.4-10.4 Un [facility] ASPARTATE AMINOTRANSFERASE (SGOT) (U/L) IN SER/PLAS <59 Above high normal [facility] ALANINE AMINOTRANSFERASE (SGPT) (U/L) IN SER/PLAS <50 Above high normal [facility] ALKALINE PHOSPHATASE (U/L) IN SER/PLAS 38-126 Above hi gh normal [facility] PROTEIN (G/DL) IN SER/PLAS 6.3-8.2 [facility] ALBUMIN (G/DL) IN SER/PLAS 3.5-5.0 [facility] ALBUMIN/GLOBULIN (G/G RATIO) IN SER/PLAS [facility] BILIRUBIN TOTAL (MG/DL) IN SER/PLAS 0.1-1.3 [facility] GLOMERULAR FILTRATION RATE ML/MIN/1.73 SQ M.PREDICTED >60 [facility] ID Date Data Source [id number] 10/16/2020 07:43:26 PM EDT [facility] Name Value Range Interpretation Code Description Data Senait rce(s) Supporting Document(s) C REACTIVE PROTEIN (MG/L) IN SER/PLAS <=0.9 Above hig h normal [facility] ID Date Data Source [id number] 10/16/2020 07:10:21 PM EDT [facility] Name Value Range Interpretation Code Description Data Senait rce(s) Supporting Document(s) LEUKOCYTES(10*3/UL) IN BLOOD BY AUTOMATED COUNT 4.0-10.5 [facility] ERYTHROCYTES (10*6/UL) IN BLOOD BY AUTOMATED COUNT 4.0 0-5.80 Below low normal [facility] HEMOGLOBIN (G/DL) IN BLOOD 13.0-18.0 Below low normal [facility] HEMATOCRIT (%) IN BLOOD BY AUTOMATED COUNT 37.0-50.0 Belo w low normal [facility] ERYTHROCYTE MEAN CORPUSCULAR VOLUME (FL) BY AUTOMATED COUNT 77.0-100.0 [facility] ERYTHROCYTE MEAN CORPUSCULAR HEMOGLOBIN (PG) BY AUTOMATED COUNT 26.0-33.0 [facility] ERYTHROCYTE MEAN CORPUSCULAR HEMOGLOBIN CONCENTRATION (G/DL) BY AUTOMATED 31.0-36.0 [facility] ERYTHROCYTE DISTRIBUTION WIDTH (RATIO) BY AUTOMATED COUNT 12.0-17.0 [facility] PLATELET MEAN VOLUME (FL) IN BLOOD BY AUTOMATED COUNT 8.0- 12.0 [facility] NEUTROPHILS/100 LEUKOCYTES IN BLOOD BY AUTOMATED COUNT 35. 0-78.0 [facility] LYMPHOCYTES/100 LEUKOCYTES IN BLOOD BY AUTOMATED COUNT 20.0-42.0 Below low normal [facility] MONOCYTES/100 LEUKOCYTES IN BLOOD BY AUTOMATED COUNT 0.0-1 5.0 [facility] EOSINOPHILS/100 LEUKOCYTES IN BLOOD BY AUTOMATED COUNT <=1 0.0 [facility] BASOPHILS/100 LEUKOCYTES IN BLOOD BY AUTOMATED COUNT <=2.0 [facility] NEUTROPHILS (10*3/UL) IN BLOOD BY AUTOMATED COUNT 1.40-8.4 0 [facility] LYMPHOCYTES (10*3/UL) IN BLOOD BY AUTOMATED COUNT 1.00-4.0 0 [facility] MONOCYTES (10*3/UL) IN BLOOD BY AUTOMATED COUNT 0.00-1.50 [facility] EOSINOPHILS (10*3/UL) IN BLOOD BY AUTOMATED COUNT <=0.70 [facility] BASOPHILS (10*3/UL) IN BLOOD BY AUTOMATED COUNT <=0.10 [facility] PLATELETS (10*3/UL) IN BLOOD AUTOMATED COUNT 125-425 [facility] IMMATURE NEUTROPHILS/100 LEUKOCYTES IN BLOOD BY AUTOMATED COUNT <=0.5 Above high normal [facility] IMMATURE NEUTROPHILS (10*3/UL) IN BLOOD BY AUTOMATED COUNT <=0.40 [facility] ID Date Data Source [id number] 10/16/2020 09:30:00 AM EDT [facility] Name Value Range Interpretation Code Description Data Senait rce(s) Supporting Document(s) Lipase [Enzymatic activity/volume] in Serum or Plasma 36 U/L 13 - 60 [facility] ID Date Data Source [id number] 10/16/2020 08:11:00 AM EDT [facility] Name Value Range Interpretation Code Description Data Senait rce(s) Supporting Document(s) COMPREHENSIVE METABOLIC PANEL [facility] COMPREHENSIVE METABOLIC PANEL Sodium [Moles/volume] in Serum or Plasma 140 mEq/L 134 - 153 [facility] Potassium [Moles/volume] in Serum or Plasma 3.3 mEq/L 3.6 - 5.0 L [facility] Chloride [Moles/volume] in Serum or Plasma 100 mEq/L 98 - 107 [facility] Carbon dioxide, total [Moles/volume] in Serum or Plasma 28 MEQ/L 22 - 30 [facility] Glucose [Mass/volume] in Serum or Plasma 98 MG/DL 70 - 99 [facility] BUN 7 MG/DL 7 - 21 [facility] Creatinine [Mass/volume] in Serum or Plasma 0.8 MG/DL 0.7 - 1.5 [facility] BUN/CREAT 9 8 - 27 [facility] Protein [Mass/volume] in Serum or Plasma 5.5 G/DL 6.3 - 8.2 L [facility] Albumin [Mass/volume] in Serum or Plasma 3.2 G/DL 3.9 - 5.0 L [facility] Globulin [Mass/volume] in Serum by calculation 2.3 GM/DL 2.4 - 3.2 L [facility] A/G RATIO 1.4 0.8 - 2.0 [facility] Calcium [Mass/volume] in Serum or Plasma 8.4 MG/DL 8.4 - 10.2 [facility] Bilirubin.total [Mass/volume] in Serum or Plasma 1.1 MG/DL 0.2 - 1.3 [facility] Alkaline phosphatase [Enzymatic activity/volume] in Serum or Plasma 177 U/L 38 - 126 H [facility] Aspartate aminotransferase [Enzymatic activity/volume] in Serum or Plasma 185 U/L 5 - 40 H [facility] Alanine aminotransferase [Enzymatic activity/volume] in Seru m or Plasma 141 U/L 7 - 56 H [facility] Anion gap 3 in Serum or Plasma 12.0 mmol/L 8.0 - 16.0 [facility] AGE 30 yrs [facility] NON-AA GFR >60 mL/min [facility] AFR AMER GFR >60 mL/min [facility] Male GFR In terprentation 20-49 yrs >60 mL/min Normal 50-59 yrs >56 mL/min Normal 60-69 yrs >49 mL/min Normal 70-79yrs >42 mL/min Normal 80 and above >35 mL/min Normal Female GFR Interpretation 20-39 yrs >60 mL/min Normal 40-49 yrs >58 mL/min Normal 50-59 yrs >51 mL/min Normal 60-69 yrs >45 mL/min Normal 70-79 yrs >39 mL/min Normal 80 and above >32 mL/min Normal ID Date Data Source [id number] 10/16/2020 07:37:00 AM EDT [facility] Name Value Range Interpretation Code Description Data Senait rce(s) Supporting Document(s) CBC W/AUTOMATED DIFF [facility] COMPLETE BLOOD COUNT Leukocytes [#/volume] in Blood by Automated count 8.1 10^3/uL 4.2 - 1 1.0 [facility] Erythrocytes [#/volume] in Blood by Automated count 3.80 10^6/uL 4. 50 - 6.30 L [facility] Hemoglobin [Mass/volume] in Blood 11.7 g/dL 14.0 - 16.0 L [facility] Hematocrit [Volume Fraction] of Blood by Automated count 34.9 % 4 1.0 - 51.0 L [facility] Erythrocyte mean corpuscular volume [Entitic volume] by Auto mated count 91.8 fL 80.0 - 94.0 [facility] Erythrocyte mean corpuscular hemoglobin [Entitic mass] by Automated count 30.8 pg 27.0 - 34.0 [facility] Erythrocyte mean corpuscular hemoglobin concentration [Mass/volume] by Automated count 33.5 g/dL 31.0 - 36.0 [facility] Erythrocyte distribution width [Ratio] by Automated count 13.2 % 11.5 - 14.8 [facility] Platelets [#/volume] in Blood by Automated count 332 10^3/uL 150 - 45 0 [facility] Platelet mean volume [Entitic volume] in Blood by Automated count 8.9 fL 7.4 - 10.4 [facility] Neutrophils/100 leukocytes in Blood by Automated count 72.2 % 37. 0 - 80.0 [facility] Lymphocytes/100 leukocytes in Blood by Manual count 10.1 % 25.0 - 40.0 L [facility] Monocytes/100 leukocytes in Blood by Automated count 11.7 % 3.0 - 8.0 H [facility] Eosinophils/100 leukocytes in Blood by Automated count 5.2 % 0.0 - 7.0 [facility] Basophils/100 leukocytes in Blood by Automated count 0.4 % 0.0 - 2.0 [facility] %IG 0.4 % 0.0 - 0.0 H [facility] Hospit [facility] %NRBC 0.0 % 0.0 - 0.0 [facility] Neutrophils [#/volume] in Blood by Automated count 5.86 10^3/uL 2.00 - 6.90 [facility] Lymphocytes [#/volume] in Blood by Automated count 0.82 10^3/uL 0.60 - 3.40 [facility] Monocytes [#/volume] in Blood by Automated count 0.95 10^3/uL 0.00 - 0.90 H [facility] Eosinophils [#/volume] in Blood by Automated count 0.42 10^3/uL 0.00 - 0.70 [facility] Basophils [#/volume] in Blood by Automated count 0.03 10^3/uL 0.00 - 0.20 [facility] #IG 0.03 10^3/uL 0.00 - 0.10 [facility]ital #NRBC 0.00 10^3/uL 0.00 - 0.00 [facility] MANUAL DIFF NOT INDICATED [facility] RBC MORPH NOT INDICATED [facility] spital ID Date Data Source [id number] 10/15/2020 03:54:00 PM EDT [facility] [address] [place] [address] PHONE: [phone] FAX: [phone] Name .................. : SHERWIN Cortes Acct Number.................. : [id number] ROOM. ................. : 117-1 MR Number ................... : [id number] Stay type ............. : I/P Discharge Date......... ... : Admit Date ......... : 10/14/20 Admit Phys .................... : ARNIE-FERNANDO Date of ....... : 1990 Family Phys ................... : UNKNOWN Phone .................. : [phone] Age ................................ : 30 Film# .................. .:[id number] Sex ................................. : M Unsigned transcriptions are preliminary reports and do not represent a medical or legal document CT THORAX W/CONTRAST [id number] COMPLETE:10/14/20 17:07 [facility] [place] [place] [id number] (REASON FOR CHEST: EMBOLISM CT A BD & PELV W/ORAL/IV CONTR [id number] COMPLETE:10/14/20 17:06 [facility] [place] [id number] Reason for Exam: abd pain-left CT CHEST WITH IV CONTRAST INDICATION: Embolism, fluid. Pain on left side. COMPARISON: None CONTRAST: 75 cc Isovue-370 One or more of the following dose reduction techniques were utilized in effectively lowering the patient's radiation dose for this examination: Automated Exposure Control, Adjustment of the mA and/or kV according to patient size, or Iterative reconstruction. FINDINGS: VASCULAR: There is adequate enhancement of the central pulmonary arterial tree with no large central emboli. Smaller peripheral branches are less well visualized due to less optimal enhancement and respiratory motion. No peripheral emboli are identified. LUNGS: Confluent basilar opacities left greater than right likely compressive atelectasis. PLEURA AND PERICARDIUM: Mild to moderate bilateral pleural effusions. MEDIASTINUM AND JITENDRA: No mediastinal or hilar adenopathy or masses. CHEST WALL: No axillary adenopathy. Skeletal structures are within normal limits. IMPRESSION: No large central emboli are identified. Limited assessment on this exam for smaller peripheral branches with no confirmed peripheral emboli. Small to moderate pleural effusions left greater than right enlarged since prior abdomen CT. Page 1 of 3 [facility] [address] [place] [address] PHONE: [phone] FAX: [phone] Name .................. : SHERWIN Cortes [facility].................. : [id number] ROOM. ................. : 117- MR Number ................... : [id number] Stay type ............. : I/P Discharge Date......... ... : Admit Date ......... : 10/14/20 Admit Phys .................... : JERAD Date of ....... : 1990 Family Phys ................... : UNKNOWN Phone .................. : [phone] Age ................................ : 30 Film# .................. .:[id number] Sex ................................. : M Unsigned transcriptions are preliminary reports and do not represent a medical or legal document CT THORAX W/CONTRAST [id number] COMPLETE:10/14/20 17:07 [facility] [place] [id number] (REASON FOR CHEST: EMBOLISM CT ABD & PELV W/ORAL/IV CONTR [id number] COMPLETE:10/14/20 17:06 [facility] [place] [id number] Reason for Exam: abd pain-left CT ABDOMEN AND PELVIS WITH IV CONTRAST INDICATION: Left abdominal pain COMPARISON: 10/12/20 IV CONTRAST: As above One or more of the following dose reduction techniques were utilized in effectively lowering the radiation dose for this examination: Automated Exposure Control, Adjustment of the mA and/or kV according to patient size, or Iterative reconstruction. FINDINGS: LIVER/BILIARY: No liver lesions. Mildly distended gallbladder is again noted. No calculi or findings suggestive of acute cholecystitis. SPLEEN: Normal. PANCREAS: Widespread peripancreatic stranding extending into retroperitoneum and peritoneal space. No pancreatic ductal dilatation, indication of pancreatic necrosis, or demarcated pseudocyst. ADRENALS: Normal bilaterally. KIDNEYS/: Normal kidneys without hydronephrosis. Grossly normal bladder. No significant abnormalities seen in the reproductive organs. BOWEL/GI: Normal appendix. No diverticulitis or colitis. Mild reactive inflammatory changes in the duodenum are again noted. Mild ascites similar to prior NODES/RETROPERITONEUM: No adenopathy or AAA. Reactive edema from pancreatitis. Page 2 of 3 [facility] [address] [place] [address] PHONE: [phone] FAX: [phone] Name .................. : SHERWIN Cortes Acct Number.................. : [id number] ROOM. ................. : 117-1 MR Number ................... : [id number] Stay type ............. : I/P Discharge Date......... ... : Admit Date ......... : 10/14/20 Admit Phys .................... : JERAD Date of ....... : 1990 Family Phys ................... : UNKNOWN REBECCA Phone .................. : [phone] Age ................................ : 30 Film# .................. .:[id number] Sex ................................. : M Unsigned transcriptions are preliminary reports and do not represent a medical or legal document CT THORAX W/CONTRAST [id number] COMPLETE:10/14/20 17:07 [facility] [place] [id number] (REASON FOR CHEST: EMBOLISM CT ABD & PELV W/ORAL/IV CONTR [id number] COMPLETE:10/14/20 17:06 [facility] [place] [id number] Reason for Exam: abd pain-left SKELETAL: Within normal limits. IMPRESSION: Acute pancreatitis moderate severity without pseudocyst formation or pancreatic necrosis. Ascites similar in extent. Reactive edema in the adjacent duodenum. No demarcated abscess. No bowel perforation. No new abnormality with regard to left side pain. Pancreatitis can be the etiology for left-sided pain. Electronically Reviewed and Signed By Gray Jamil MD , 10/15/20 15:54, SCB Transcribe Initials: BLAKE , Transcribe Date: 10/14/20 19:18, Dictation Date: Copy for: [facility] Copy for: [facility] Page 3 of 3 Name Value Range Interpretation Code Description Data Senait rce(s) Supporting Document(s) ID Date Data Source [id number] 10/15/2020 03:54:00 PM EDT [facility] [address] [place] [address] PHONE: [phone] FAX: [phone] Name .................. : SHERWIN Cortes Acct Number.................. : [id number] ROOM. ................. : 117-1 MR Number ................... : [id number] Stay type ............. : I/P Discharge Date......... ... : Admit Date ......... : 10/14/20 Admit Phys .................... : JERAD Date of ....... : 1990 Family Phys ................... : UNKNOWN Phone .................. : [phone] Age ................................ : 30 Film# .................. .:[id number] Sex ................................. : M Unsigned transcriptions are preliminary reports and do not represent a medical or legal document CT THORAX W/CONTRAST [id number] COMPLETE:10/14/20 17:07 [facility] [place] [id number] (REASON FOR CHEST: EMBOLISM CT A BD & PELV W/ORAL/IV CONTR [id number] COMPLETE:10/14/20 17:06 [facility] [place] [id number] Reason for Exam: abd pain-left CT CHEST WITH IV CONTRAST INDICATION: Embolism, fluid. Pain on left side. COMPARISON: None CONTRAST: 75 cc Isovue-370 One or more of the following dose reduction techniques were utilized in effectively lowering the patient's radiation dose for this examination: Automated Exposure Control, Adjustment of the mA and/or kV according to patient size, or Iterative reconstruction. FINDINGS: VASCULAR: There is adequate enhancement of the central pulmonary arterial tree with no large central emboli. Smaller peripheral branches are less well visualized due to less optimal enhancement and respiratory motion. No peripheral emboli are identified. LUNGS: Confluent basilar opacities left greater than right likely compressive atelectasis. PLEURA AND PERICARDIUM: Mild to moderate bilateral pleural effusions. MEDIASTINUM AND JITENDRA: No mediastinal or hilar adenopathy or masses. CHEST WALL: No axillary adenopathy. Skeletal structures are within normal limits. IMPRESSION: No large central emboli are identified. Limited assessment on this exam for smaller peripheral branches with no confirmed peripheral emboli. Small to moderate pleural effusions left greater than right enlarged since prior abdomen CT. Page 1 of 3 [place] [address] PHONE: [phone] FAX: [phone] Name .................. : [facility].. : [id number] ROOM. ................. : 117-1 MR Number ................... : [id number] Stay type ............. : I/P Discharge Date......... ... : Admit Date ......... : 10/14/20 Admit Phys .................... : JERAD Date of ....... : 1990 Family Phys ................... : UNKNOWN Phone .................. : [phone] Age ................................ : 30 Film# .................. .:[id number] Sex ................................. : M Unsigned transcriptions are preliminary reports and do not represent a medical or legal document CT THORAX W/CONTRAST [id number] COMPLETE:10/14/20 17:07 [facility] [place] [id number] (REASON FOR CHEST: EMBOLISM CT ABD & PELV W/ORAL/IV CONTR [id number] COMPLETE:10/14/20 17:06 [facility] [place] [id number] Reason for Exam: abd pain-left CT ABDOMEN AND PELVIS WITH IV CONTRAST INDICATION: Left abdominal pain COMPARISON: 10/12/20 IV CONTRAST: As above One or more of the following dose reduction techniques were utilized in effectively lowering the radiation dose for this examination: Automated Exposure Control, Adjustment of the mA and/or kV according to patient size, or Iterative reconstruction. FINDINGS: LIVER/BILIARY: No liver lesions. Mildly distended gallbladder is again noted. No calculi or findings suggestive of acute cholecystitis. SPLEEN: Normal. PANCREAS: Widespread peripancreatic stranding extending into retroperitoneum and peritoneal space. No pancreatic ductal dilatation, indication of pancreatic necrosis, or demarcated pseudocyst. ADRENALS: Normal bilaterally. KIDNEYS/: Normal kidneys without hydronephrosis. Grossly normal bladder. No significant abnormalities seen in the reproductive organs. BOWEL/GI: Normal appendix. No diverticulitis or colitis. Mild reactive inflammatory changes in the duodenum are again noted. Mild ascites similar to prior NODES/RETROPERITONEUM: No adenopathy or AAA. Reactive edema from pancreatitis. Page 2 of 3 [facility] [address] [place] [address] PHONE: [phone] FAX: [phone] Name .................. : COURTNEY ROHAN Sebastian Acct Number.................. : [id number] ROOM. ................. : 117-1 Number ................... : [id number] Stay type ............. : I/P Discharge Date......... ... : Admit Date ......... : 10/14/20 Admit Phys .................... : JERAD Date of ....... : 1990 Family Phys ................... : UNKNOWN Phone .................. : [phone] Age ................................ : 30 Film# .................. .:[id number] Sex ................................. : M Unsigned transcriptions are preliminary reports and do not represent a medical or legal document CT THORAX W/CONTRAST [id number] COMPLETE:10/14/20 17:07 [facility] [place] [id number] (REASON FOR CHEST: EMBOLISM CT ABD & PELV W/ORAL/IV CONTR [id number] COMPLETE:10/14/20 17:06 [facility] [place] [id number] Reason for Exam: abd pain-left SKELETAL: Within normal limits. IMPRESSION: Acute pancreatitis moderate severity without pseudocyst formation or pancreatic necrosis. Ascites similar in extent. Reactive edema in the adjacent duodenum. No demarcated abscess. No bowel perforation. No new abnormality with regard to left side pain. Pancreatitis can be the etiology for left-sided pain. Electronically Reviewed and Signed By Gray Jamil MD , 10/15/20 15:54, SCB Transcribe Initials: BLAKE , Transcribe Date: 10/14/20 19:18, Dictation Date: Copy for: 002 [facility] Copy for: [facility] Page 3 of 3 Name Value Range Interpretation Code Description Data Senait rce(s) Supporting Document(s) ID Date Data Source [id number] 10/15/2020 12:13:00 PM EDT [facility] NOT DETECTEDNOT DETECTED{ PROC EDURAL CONTROL VALID KIT LOT # _[id number] 10/15/20. . KIT EXP DATE _12.06.20 10/15/20. . NORMAL RANGE IS NOT DETECTEDThe COVID-19 assay is a rapid molecular in vitro diagnostic testutilizing an isothermal nucleic acid amplification technology for thequalitative detection of nucleic acid from the SARS-CoV-2 viral RNA in directnasal or nasopharyngeal swabs. Testing should be performed within the first 7days of the onset of symptoms.NEGATIVE RESULTS SHOULD BE TREATED PRESUMPTIVE AND, IF INCONSISTENT WITHCLINICAL SIGNS AND SYMPTOMS OR NECESSARY FOR PATIENT MANAGEMENT, SHOULD BETESTED WITH DIFFERENT AUTHORIZED OR CLEARED MOLECULAR TESTS. NEGATIVE RESULTSDO NOT PRECLUDE SARS-CoV-2 INFECTION AND SHOULD NOT BE USED THE SOLE BASISFOR PATIENT MANAGEMENT DECISIONS. Name Value Range Interpretation Code Description Data Senait rce(s) Supporting Document(s) COVID-19 NOT DETECTED [facility] COVID-19 REENTER NOT DETECTED [facility] PROCEDURAL CONTROL VALID KIT LOT # _[id number] 10/15/20. . KIT EXP DATE _12.06.20 10/15/20. . NORMAL RANGE IS NOT DETECTEDThe COVID-19 assay is a rapid molecular in vitro diagnostic testutilizing an isothermal nucleic acid amplification technology for thequalitative detection of nucleic acid from the SARS-CoV-2 viral RNA in directnasal or nasopharyngeal swabs. Testing should be performed within the first 7days of the onset of symptoms.NEGATIVE RESULTS SHOULD BE TREATED PRESUMPTIVE AND, IF INCONSISTENT WITHCLINICAL SIGNS AND SYMPTOMS OR NECESSARY FOR PATIENT MANAGEMENT, SHOULD BETESTED WITH DIFFERENT AUTHORIZED OR CLEARED MOLECULAR TESTS. NEGATIVE RESULTSDO NOT PRECLUDE SARS-CoV-2 INFECTION AND SHOULD NOT BE USED THE SOLE BASISFOR PATIENT MANAGEMENT DECISIONS. 10/15/20. .COMPLETE ID Date Data Source [id number] 10/15/2020 09:06:00 AM EDT [facility] Name Value Range Interpretation Code Description Data Senait rce(s) Supporting Document(s) Magnesium [Mass/volume] in Serum or Plasma 2.0 MG/DL 1.7 - 2.2 [facility] ID Date Data Source [id number] 10/15/2020 08:12:00 AM EDT [facility] Name Value Range Interpretation Code Description Data Senait rce(s) Supporting Document(s) COMPREHENSIVE METABOLIC PANEL [facility] COMPREHENSIVE METABOLIC PANEL Sodium [Moles/volume] in Serum or Plasma 138 mEq/L 134 - 153 [facility] Potassium [Moles/volume] in Serum or Plasma 3.4 mEq/L 3.6 - 5.0 L [facility] Chloride [Moles/volume] in Serum or Plasma 101 mEq/L 98 - 107 [facility] Carbon dioxide, total [Moles/volume] in Serum or Plasma 25 MEQ/L 22 - 30 [facility] Glucose [Mass/volume] in Serum or Plasma 96 MG/DL 70 - 99 [facility] BUN <4 MG/DL 7 - 21 L [facility] al Creatinine [Mass/volume] in Serum or Plasma 0.8 MG/DL 0.7 - 1.5 [facility] BUN/CREAT 5 8 - 27 L [facility] al Protein [Mass/volume] in Serum or Plasma 5.7 G/DL 6.3 - 8.2 L [facility] Albumin [Mass/volume] in Serum or Plasma 3.3 G/DL 3.9 - 5.0 L [facility] Globulin [Mass/volume] in Serum by calculation 2.4 GM/DL 2.4 - 3.2 [facility] A/G RATIO 1.4 0.8 - 2.0 [facility] Calcium [Mass/volume] in Serum or Plasma 7.9 MG/DL 8.4 - 10.2 L [facility] Bilirubin.total [Mass/volume] in Serum or Plasma 0.9 MG/DL 0.2 - 1.3 [facility] Alkaline phosphatase [Enzymatic activity/volume] in Serum or Plasma 106 U/L 38 - 126 [facility] Aspartate aminotransferase [Enzymatic activity/volume] in Serum or Plasma 23 U/L 5 - 40 [facility] Alanine aminotransferase [Enzymatic activity/volume] in Seru m or Plasma 24 U/L 7 - 56 [facility] Anion gap 3 in Serum or Plasma 12.0 mmol/L 8.0 - 16.0 [facility] AGE 30 yrs [facility] Hospit al NON-AA GFR >60 mL/min [facility] Hosp ital AFR AMER GFR >60 mL/min [facility] Ho spital Male GFR In terprentation 20-49 yrs >60 mL/min Normal 50-59 yrs >56 mL/min Normal 60-69 yrs >49 mL/min Normal 70-79yrs >42 mL/min Normal 80 and above >35 mL/min Normal Female GFR Interpretation 20-39 yrs >60 mL/min Normal 40-49 yrs >58 mL/min Normal 50-59 yrs >51 mL/min Normal 60-69 yrs >45 mL/min Normal 70-79 yrs >39 mL/min Normal 80 and above >32 mL/min Normal ID Date Data Source [id number] 10/15/2020 08:00:00 AM EDT [facility] Name Value Range Interpretation Code Description Data Senait rce(s) Supporting Document(s) CBC W/AUTOMATED DIFF [facility] COMPLETE BLOOD COUNT Leukocytes [#/volume] in Blood by Automated count 9.5 10^3/uL 4.2 - 1 1.0 [facility] Erythrocytes [#/volume] in Blood by Automated count 3.94 10^6/uL 4. 50 - 6.30 L [facility] Hemoglobin [Mass/volume] in Blood 12.1 g/dL 14.0 - 16.0 L [facility] Hematocrit [Volume Fraction] of Blood by Automated count 36.7 % 4 1.0 - 51.0 L [facility] Erythrocyte mean corpuscular volume [Entitic volume] by Auto mated count 93.1 fL 80.0 - 94.0 [facility] Erythrocyte mean corpuscular hemoglobin [Entitic mass] by Automated count 30.7 pg 27.0 - 34.0 [facility] Erythrocyte mean corpuscular hemoglobin concentration [Mass/volume] by Automated count 33.0 g/dL 31.0 - 36.0 [facility] Erythrocyte distribution width [Ratio] by Automated count 13.1 % 11.5 - 14.8 [facility] Platelets [#/volume] in Blood by Automated count 307 10^3/uL 150 - 45 0 [facility] Platelet mean volume [Entitic volume] in Blood by Automated count 8.9 fL 7.4 - 10.4 [facility] Neutrophils/100 leukocytes in Blood by Automated count 76.2 % 37. 0 - 80.0 [facility] Lymphocytes/100 leukocytes in Blood by Manual count 10.2 % 25.0 - 40.0 L [facility] Monocytes/100 leukocytes in Blood by Automated count 9.9 % 3.0 - 8.0 H [facility] Eosinophils/100 leukocytes in Blood by Automated count 2.8 % 0.0 - 7.0 [facility] Basophils/100 leukocytes in Blood by Automated count 0.4 % 0.0 - 2.0 [facility] %IG 0.5 % 0.0 - 0.0 [facility] %NRBC 0.0 % 0.0 - 0.0 [facility] al Neutrophils [#/volume] in Blood by Automated count 7.26 10^3/uL 2.00 - 6.90 H [facility] Lymphocytes [#/volume] in Blood by Automated count 0.97 10^3/uL 0.60 - 3.40 [facility] Monocytes [#/volume] in Blood by Automated count 0.94 10^3/uL 0.00 - 0.90 H [facility] Eosinophils [#/volume] in Blood by Automated count 0.27 10^3/uL 0.00 - 0.70 [facility] Basophils [#/volume] in Blood by Automated count 0.04 10^3/uL 0.00 - 0.20 [facility] #IG 0.05 10^3/uL 0.00 - 0.10 [facility] ospital #NRBC 0.00 10^3/uL 0.00 - 0.00 [facility] ospital MANUAL DIFF NOT INDICATED [facility] RBC MORPH NOT INDICATED [facility] spital ID Date Data Source [id number] 10/14/2020 08:06:00 AM EDT [facility] Name Value Range Interpretation Code Description Data Senait rce(s) Supporting Document(s) Magnesium [Mass/volume] in Serum or Plasma 1.5 MG/DL 1.7 - 2.2 L [facility] ID Date Data Source [id number] 10/14/2020 07:55:00 AM EDT [facility] Name Value Range Interpretation Code Description Data Senait rce(s) Supporting Document(s) Lipase [Enzymatic activity/volume] in Serum or Plasma 51 U/L 13 - 60 [facility] ID Date Data Source [id number] 10/14/2020 06:49:00 AM EDT [facility] Name Value Range Interpretation Code Description Data Senait rce(s) Supporting Document(s) COMPREHENSIVE METABOLIC PANEL [facility] COMPREHENSIVE METABOLIC PANEL Sodium [Moles/volume] in Serum or Plasma 137 mEq/L 134 - 153 [facility] Potassium [Moles/volume] in Serum or Plasma 3.6 mEq/L 3.6 - 5.0 [facility] Chloride [Moles/volume] in Serum or Plasma 103 mEq/L 98 - 107 [facility] Carbon dioxide, total [Moles/volume] in Serum or Plasma 19 MEQ/L 22 - 30 L [facility] Glucose [Mass/volume] in Serum or Plasma 68 MG/DL 70 - 99 L [facility] BUN 9 MG/DL 7 - 21 [facility] al Creatinine [Mass/volume] in Serum or Plasma 0.8 MG/DL 0.7 - 1.5 [facility] BUN/CREAT 11 8 - 27 [facility] al Protein [Mass/volume] in Serum or Plasma 5.1 G/DL 6.3 - 8.2 L [facility] Albumin [Mass/volume] in Serum or Plasma 3.1 G/DL 3.9 - 5.0 L [facility] Globulin [Mass/volume] in Serum by calculation 2.0 GM/DL 2.4 - 3.2 L [facility] A/G RATIO 1.6 0.8 - 2.0 [facility] Calcium [Mass/volume] in Serum or Plasma 7.3 MG/DL 8.4 - 10.2 L [facility] Bilirubin.total [Mass/volume] in Serum or Plasma 1.0 MG/DL 0.2 - 1.3 [facility] Alkaline phosphatase [Enzymatic activity/volume] in Serum or Plasma 67 U/L 38 - 126 [facility] Aspartate aminotransferase [Enzymatic activity/volume] in Serum or Plasma 16 U/L 5 - 40 [facility] Alanine aminotransferase [Enzymatic activity/volume] in Seru m or Plasma 19 U/L 7 - 56 [facility] Anion gap 3 in Serum or Plasma 15.0 mmol/L 8.0 - 16.0 [facility] AGE 30 yrs [facility] Hospit al NON-AA GFR >60 mL/min [facility] Hosp ital AFR AMER GFR >60 mL/min [facility] Ho spital Male GFR In terprentation 20-49 yrs >60 mL/min Normal 50-59 yrs >56 mL/min Normal 60-69 yrs >49 mL/min Normal 70-79yrs >42 mL/min Normal 80 and above >35 mL/min Normal Female GFR Interpretation 20-39 yrs >60 mL/min Normal 40-49 yrs >58 mL/min Normal 50-59 yrs >51 mL/min Normal 60-69 yrs >45 mL/min Normal 70-79 yrs >39 mL/min Normal 80 and above >32 mL/min Normal ID Date Data Source [id number] 10/14/2020 06:45:00 AM EDT [facility] Name Value Range Interpretation Code Description Data Senait rce(s) Supporting Document(s) CBC W/AUTOMATED DIFF [facility] COMPLETE BLOOD COUNT Leukocytes [#/volume] in Blood by Automated count 8.9 10^3/uL 4.2 - 1 1.0 [facility] Erythrocytes [#/volume] in Blood by Automated count 3.68 10^6/uL 4. 50 - 6.30 L [facility] Hemoglobin [Mass/volume] in Blood 11.4 g/dL 14.0 - 16.0 L [facility] Hematocrit [Volume Fraction] of Blood by Automated count 34.7 % 4 1.0 - 51.0 L [facility] Erythrocyte mean corpuscular volume [Entitic volume] by Auto mated count 94.3 fL 80.0 - 94.0 H [facility] Erythrocyte mean corpuscular hemoglobin [Entitic mass] by Automated count 31.0 pg 27.0 - 34.0 [facility] Erythrocyte mean corpuscular hemoglobin concentration [Mass/volume] by Automated count 32.9 g/dL 31.0 - 36.0 [facility] Erythrocyte distribution width [Ratio] by Automated count 13.5 % 11.5 - 14.8 [facility] Platelets [#/volume] in Blood by Automated count 234 10^3/uL 150 - 45 0 [facility] Platelet mean volume [Entitic volume] in Blood by Automated count 9.2 fL 7.4 - 10.4 [facility] Neutrophils/100 leukocytes in Blood by Automated count 77.5 % 37. 0 - 80.0 [facility] Lymphocytes/100 leukocytes in Blood by Manual count 9.2 % 25.0 - 40.0 L [facility] Monocytes/100 leukocytes in Blood by Automated count 9.4 % 3.0 - 8.0 H [facility] Eosinophils/100 leukocytes in Blood by Automated count 3.4 % 0.0 - 7.0 [facility] Basophils/100 leukocytes in Blood by Automated count 0.3 % 0.0 - 2.0 [facility] %IG 0.2 % 0.0 - 0.0 [facility] %NRBC 0.0 % 0.0 - 0.0 [facility] al Neutrophils [#/volume] in Blood by Automated count 6.90 10^3/uL 2.00 - 6.90 [facility] Lymphocytes [#/volume] in Blood by Automated count 0.82 10^3/uL 0.60 - 3.40 [facility] Monocytes [#/volume] in Blood by Automated count 0.84 10^3/uL 0.00 - 0.90 [facility] Eosinophils [#/volume] in Blood by Automated count 0.30 10^3/uL 0.00 - 0.70 [facility] Basophils [#/volume] in Blood by Automated count 0.03 10^3/uL 0.00 - 0.20 [facility] #IG 0.02 10^3/uL 0.00 - 0.10 [facility] H ospital #NRBC 0.00 10^3/uL 0.00 - 0.00 [facility] ospital MANUAL DIFF NOT INDICATED [facility] RBC MORPH NOT INDICATED [facility] spital ID Date Data Source [id number] 10/12/2020 10:56:00 AM EDT [facility] 1 OrderSheet [facility] Emergency Department [address] [place] [address] Phone #: ext- [phone] 10/12/2020 10:54 Patient: ROHAN COURTNEY Sex: M : 1990 Age: 30yWEIGHT:79.3 kg (S) HEIGHT:66 inches (S) BMI:28.2ALLERGIES: No Known Drug AllergyCHIEF COMPLAINT: abdominal painDIAGNOSIS: PancreatitisLAB ORDERSOrder Description Priority Entered Acknowledged InitialedCBC w Diff STAT 11:10/12/2020 11:22 Elena Haddad RN P.A.-C;CMP STAT 11:10/12/2020 11:22 Elena Haddad RN P.A.-C;Lipase STAT 11:10/12/2020 11:22 Elena Haddad RN P.A.-C;Urinalysis (Clean STAT 11:10/12/2020atch) Steve ColemanA.-Sebastian;PT/PTT STAT 11:10/12/2020 11:35 Steve Mar R.N. P.A.-C;Troponin-T STAT 11:18 10/12/2020 11:22 Elena Haddad RN P.A.-C;Lactic Acid STAT 11:10/12/2020 11:22 Elena Haddad RN P.A.-C;DIAGNOSTIC STUDY ORDERSOrder Description Priority Entered Acknowledged InitialedChest 2 View STAT 11:18 10/12/2020 11:35 Isabela(Oxygen?(No)) Steve Valdez R.N. P.A.-C; Reason for Study: upper abd pain w/tachy. hx of pancreatitisCT Abd PEL W/ IV STAT 11:18 10/12/2020 11:35 Sorbmyla,Contrast Only Steve Valdez R.N.(Oxygen?(No)) P.A.-C; 2 OrderSheet [facility] Emergency Department [address] [place] [address] Phone #: ext- [phone] 10/12/2020 10:54 Patient: ROHAN COURTNEY Sex: M : 1990 Age: 30y(IV?(Yes)) Reason for Study: PENDING CMP: global abd pain; hx hx of pancreatitis (2019). Still has appy too.MEDICATION/IV/DRIP/FLUID ORDERSOrder Description Priority Entered Acknowledged InitialedNS IV : Bolus 500 11:18 10/12/2020 11:45 Sorbero,mL, then 100 mL/hr Steve Valdez R.N. P.A.-C;Zofran IVP 4 mg 11:18 10/12/2020 11:46 Sorbmyla, Steve Valdez R.N. P.A.-C;Morphine IVP 4 mg 11:18 10/12/2020 11:46 Sorbero,(HIGH ALERT Steve Valdez R.N.MEDICATION) P.A.-C;Morphine IVP 4 mg 13:54 10/12/2020 14:12 Sorbero,(HIGH ALERT Steve Valdez R.N.MEDICATION) P.A.-C;GENERAL ORDERSOrder Description Priority Entered Acknowledged InitialedNPO 11:18 10/12/2020 11:22 Elena Haddad RN P.A.-C;Saline Lock 11:18 10/12/2020 11:22 Elena Haddad RN P.A.-C;Blood Pressure 11:18 10/12/2020 11:22 DorisMonitor Steve Haddad RN P.A.-C;Warehouse Assembly Worker 11:18 10/12/2020 11:22 Elena(continuous) Steve Haddad RN P.AMatthew-C;EKG 11:18 10/12/2020 11:44 Steve Mar R.N., P.A.-C;Obtain Old EKG 11:18 10/12/2020 11:34 Steve Mar R.N., P.A.-C;Obtain Old Records 11:18 10/12/2020 11:34 Steve Mar R.N., P.A.-C;Pulse oximeter 11:18 10/12/2020 11:22 Elena 3 OrderSheet [facility] Emergency Department [address] [place] [address] Phone #: ext- [phone] 10/12/2020 10:54 Patient: ROHAN COURTNEY Sex: M : 1990 Age: 30y(Continuous) Steve Haddad RN P.A.-C;Vitals 11:18 10/12/2020 11:22 Elena Steve Haddad RN P.A.-C;[Electronically signed by José Miguel Mar R.N. (16:28 10/12/2020)][Electronically signed by Steve Coombs P.A.-C (23:43 10/13/2020)][Electronically locked by José Miguel Mar R.N. (16:10/12/2020)] Name Value Range Interpretation Code Description Data Senait rce(s) Supporting Document(s) ID Date Data Source [id number] 10/12/2020 10:56:00 AM EDT [facility] 1 Medication Reconciliation Report [facility] Emergency Department [address] [place] [address] Phone #: ext- [phone] 10/12/2020 10:54 Patient: ROHAN COURTNEY Sex: M : 1990 Age: 30yWeight: 79.3 kgHeight/Length: 66 in.BMI: 28.2ALLERGIES: No Known Drug AllergyThe patient's Home Medications are listed below:THE FOLLOWING MEDICATIONS NEED TO BE RECONCILED: traZODone HCl Oral (50 mg) 1 tablet, daily Venlafaxine HCl ER Oral (75 mg) 1 tablet, dailyThe source(s) of the original Home Medication information:Not obtained.The following Medications were given to the patient in the Emergency Department:NS [IV] IV Fluids bolus 500 mL over 30 minute(s), then 100 mL/hr, administered: 11:45 10/12/2020Zofran [IVP] IVP 4 mg, administered: 11:46 10/12/2020Morphine [IVP] IVP 4 mg, administered: 11:46 10/12/2020Morphine [IVP] IVP 4 mg, administered: 14:12 10/12/2020The following Medications were prescribed to the patient:None. Name Value Range Interpretation Code Description Data Senait rce(s) Supporting Document(s) ID Date Data Source [id number] 10/12/2020 10:56:00 AM EDT [facility] 1 Medication Administration Record [facility] Emergency Department [address] [place] [address] Phone #: ext- [phone] 10/12/2020 10:54 Patient: ROHAN COURTNEY Sex: M : 1990 Age: 30yWeight: 79.3 kgHeight/Length: 66 inBMI: 28.2ALLERGIES: No Known Drug Allergy Date/Time Medication Administered Medication OrderedStart NS [IV] NS IV : Bolus 500 mL, then 64748:45 0 10/12/2020 Dose: IV Fluids mL/hrSJosé Miguel galindo R.N. Rate: 100 mL/hr over 5 hour(s)---- Bolus: 500 mL over 30 minute(s)Stop Dispensed: 1000 mL bag15:02 10/12/2020 Site: #1 right ACSJosé Miguel galindo R.N.Given ZOFRAN [IVP] (ONDANSETRON HCL) Zofran IVP 4 mg11:46 10/12/2020 Dose: 4 mg IVPSJosé Miguel galindo R.N. Site: #1 right ACGiven MORPHINE [IVP] Morphine IVP 4 mg (HIGH ALERT11:46 10/12/2020 Dose: 4 mg IVP MEDICATION)José Miguel Mar R.N. Site: #1 right ACGiven MORPHINE [IVP] Morphine IVP 4 mg (HIGH ALERT14:12 10/12/2020 Dose: 4 mg IVP MEDICATION)José Miguel Mar R.N. Site: #1 right AC Name Value Range Interpretation Code Description Data Senait rce(s) Supporting Document(s) ID Date Data Source [id number] 10/12/2020 10:56:00 AM EDT [facility] 1 General Instructions [facility] Emergency Department [address] [place] [address] Phone #: ext- [phone] 10/12/2020 10:54 Patient: ROHAN COURTNEY Sex: M : 1990 Age: 30yAcute idiopathic pancreatitis.(Electronically signed by Steve Coombs P.A.-C 10/13/2020 23:43) Name Value Range Interpretation Code Description Data Senait rce(s) Supporting Document(s) ID Date Data Source [id number] 10/12/2020 10:56:00 AM EDT [facility] 1 Clinical Report - Nurses [facility] Emergency Department [address] [place] [address] Phone #: ext- [phone] 10/12/2020 10:54 Patient: ROHAN COURTNEY Sex: M : 1990 Age: 30yTRIAGEArrived by private vehicle. Historian: patient.Triage time: 10:58 10/12/2020. Acuity: LEVEL 3.Chief Complaint: ABDOMINAL PAIN, NAUSEA and VOMITING.10:58 10/12/20. Alert. No acute distress.Onset. (3 days ago). ( Started 10/09 1800 Epigastric, right left side, "hurts to breathe"). He has hadnausea. He has had vomiting (0800). The vomiting has occurred only once. Last oral intake by patientwas (10/08).SEPSIS SCREEN: SIRS SCREEN NEGATIVE. SEPSIS SCREEN NEGATIVE. No suspected or confirmedsigns of infection present. --11:10 10/12/20 Elena Haddad RN10:58 10/12/20. BP: 122/89. MAP: 100. HR: 144. RR: 18. O2 saturation: 97%. Temp: 99.1 F. Pain levelnow: 10. Describes the quality as aching, sharp and burning. It has been constant. Pain level atmaximum: 11/20. It is described as radiating to the abdomen. No provoking / relieving factors. --11:109 Elena Haddad RN.Weight: 79.3 kg stated. Height/Length: 66 inches Per Patient. BMI: 28.2. --10:57 10/12/20 lEena Haddad RN.MedicationstraZODone HCl Oral (Tablet 50 mg) 1 tablet, daily. --11:10/12/20 Elena Haddad RN Venlafaxine HCl ER Oral (Tablet Extended Release 24 Hour 75 mg) 1 tablet, daily. --11:10/12/20 KAIN Cotter.AllergiesNo Known Drug Allergy. --11:10/12/20 Elena Haddad RN.PROBLEMS:Pancreatitis.Insomnia.Anxiety Reaction.Cholecystitis. --11:10/12/20 Elena Haddad RN.ADDITIONAL SURGERIES:Mastectomy [2012]. (Bilateral).Testicular Cyst removed [2020]. --11:10/12/20 Elena Haddad RN. 2 Clinical Report - Nurses [facility] Emergency Department [address] [place] [address] Phone #: ext- [phone] 10/12/2020 10:54 Patient: ROHAN COURTNEY Sex: M : 1990 Age: 30y History 10:58 10/12/20. PAST MEDICAL HX: Immunizations: up-to-date. SOCIAL HX: Never smoker. Occasional alcohol use. Last drink was 5 days ago. No drug use. No recent travel. No known contact with a sick individual. He was offered HIV testing but declined. He has not traveled outside the [place] Infectious disease exposure: No infectious disease exposure. The patient was not exposed to Coronavirus. (Denies travel). Patient is not a known carrier of tuberculosis, hepatitis, HIV, MRSA or VRE. Patient is not a known carrier of CRE. SELF HARM ASSESSMENT: Self harm assessment was performed. The patient answered "no" to the question(s) "Do you have thoughts of harming or killing yourself?" and "Have you recently had thoughts about harming or killing others?". ABUSE ASSESSMENT: Abuse assessment. The patient had positive responses to the question(s) "Do you feel safe in your home?" (yes). Abuse denied. No report of abuse. NUTRITIONAL RISK ASSESSMENT: The nutritional risk assessment revealed no deficiencies. FUNCTIONAL ASSESSMENT: Functional assessment: no impairments noted. LEARNING NEEDS ASSESSMENT: The learning needs assessment revealed no barriers. FALL RISK ASSESSMENT: Fall risk assessment completed. No risk factors identified. SKIN INTEGRITY ASSESSMENT: Skin integrity risk assessment completed. No skin integrity risk identified. --11:10/12/20 Elena Haddad RN. Interventions 10:58 10/12/20. To treatment room. Ambulatory by hospital staff. to room 2. --11:10/12/20 Elena Haddad RN.PHYSICAL [id number]:10/12/20. Ambulatory to room. Patient gowned.GENERAL / NEURO / PSYCH: Alert. Oriented X 4. Appears in no acute distress.HEENT: Mucous membranes are pink.RESPIRATORY: Respirations not labored. Breath sounds within normal limits.CVS: Capillary refill less than 2 seconds.GI / : Abdomen soft. Abdominal tenderness in the upper and lower abdomen. Bowel sounds withinnormal limits.SKIN: Skin is warm and dry. --11:10/12/20 José Miguel Mar R.N.NURSING PROGRESS NOTES 3 Clinical Report - Nurses [facility] Emergency Department [address] [place] [address] Phone #: ext- [phone] 10/12/2020 10:54 [facility] COURTNEY [id number] Sex: M : 1990 Age: 30y10:58 10/12/20. pilot safety inspector, NIBP monitor and pulse oximeter placed on patient; sheet roller operator-Lead II; monitor alarms on. Patient gowned. Head of bed elevated. Two patient identifiers checked.Call light placed in reach. Side rails up x 1. Bed placed in lowest position. Brakes of bed on. Patientready for evaluation- ED physician and PA notified. --11:10/12/20 Elena Haddad RN11:10/12/20. EKG time: (11:17 10/12/2020). EKG was ordered, performed by a nurse and shown elder LOPEZ. --11:35 10/12/20 Elena Haddad RN11:18 10/12/2020 Site #1 started via IV in the right antecubital space with an 20g angiocath, with aseptictechnique and good blood return; one attempt. Blood drawn: rainbow set. Labeled in the presence of thepatient and sent to the lab. Saline lock flushed with 10 mL saline. --11:22 10/12/20 Elena Haddad RN11:45 10/12/2020 Started bag #1 1000 mL IV Fluids NS; bolus of 500 mL over 30 minute(s) then at 100mL/hr over 5 hour(s) via site #1 via IV pump. Allergies verified and confirmed 5 rights. IV patencyestablished. IV site checked: no pain, redness, or swelling. IV flushed thoroughly pre- and post-medicationadministration. Info rmation reviewed with patient including reason for taking this medication, signs ofallergic reaction and precautions. Verbalizes understanding. --11:45 10/12/20 José Miguel Mar, R.N.11:46 10/12/2020 Zofran (Ondansetron HCl) IVP 4 mg given over 2 minute(s) via site #1. Allergies verifiedand confirmed 5 rights. IV patency established. IV site checked: no pain, redness, or swelling. IV flushedthoroughly pre- and post-medication administration. IVP given by RN. Information reviewed with patientincluding reason for taking this medication, signs of allergic reaction and precautions. Verbalizesunderstanding. --11:46 10/12/20 José Miguel Mar, RMatthewN.11:46 10/12/2020 Morphine IVP 4 mg given over 2 minute(s) via site #1. Allergies verified and confirmed 5rights. IV patency established. IV site checked: no pain, redness, or swelling. IV flushed thoroughly pre-and post-medication administration. IVP given by RN. Information reviewed with patient including reasonfor taking this medication, signs of allergic reaction, precautions and sedative warning. Verbalizesunderstanding. --11:46 10/12/20 José Miguel Mar R.N.12:29 10/12/20. Patient transported to radiology and CT by wheelchair with clinical laboratory technologist. --12:449 José Miguel Mar R.N.12:44 10/12/20. Patient returned from radiology and CT by wheelchair with clinical laboratory technologist. --12:459 José Miguel Mar R.N.14:12 10/12/2020 Morphine IVP 4 mg given over 2 minute(s) via site #1. Allergies verified and confirmed 5rights. IV patency established. IV site checked: no pain, redness, or swelling. IV flushed thoroughly pre-and post-medication administration. IVP given by RN. Information reviewed with patient including reasonfor taking this medication, signs of allergic reaction, precautions and sedative warning. Verbalizesunderstanding. --14:12 10/12/20 José Miguel Mar R.N.15:02 10/12/2020 IV Fluids NS via IV site #1 Discontinued: bag #1 upon admission. Total amount infused:700 mL. IV patency established. IV site checked: no pain, redness, or swelling. IV flushed thoroughly. 4 Clinical Report - Nurses [facility] Emergency Department [address] [place] [address] Phone #: ext- [phone] 10/12/2020 10:54 [id number] Sex: M : 1990 Age: 30y --15:17 10/12/20 José Miguel Mar R.N.DISPOSITION / DISCHARGE 15:10/12/20. Departure time: 15:10/12/2020. Condition at departure: improved and stable. The goals identified in the patient's plan of care were met. Fall risk assessment completed. No risk factors identified. Admitted to the Acute Inpatient Unit. Transported via stretcher by nurse with monitor and mask. Report was given to a nurse via a phone call and in person. Report included information regarding patient's treatment, allergies and condition including: recent changes, current vital signs and abnormal labs. Report included treatment information regarding medications given or pending; type and amount of IV fluids total volume infused. All questions were answered. Report was acknowledged and care was transferred. Bed obtained and ready (117). Patient's personal items; items were transported with the patient. --15:16 10/12/20 José Miguel Mar R.N. 15:00 10/12/20. BP: 128/82. MAP: 97. HR: 109. RR: 16. O2 saturation: 98%. Temp: 101.1 F. Pain level now: 07/21. --15:16 10/12/20 José Miguel Mar R.N. 15:06 10/12/20. ( 650 mg po tylenol for fever given @1505). --15:17 10/12/20 José Miguel Mar R.N.Locked/Released at 10/12/2020 16:28 by José Miguel Mar R.N. Name Value Range Interpretation Code Description Data Senait rce(s) Supporting Document(s) ID Date Data Source [id number] 10/12/2020 10:56:00 AM EDT [facility] 1 Clinical Report - Physicians/Mid Levels [facility] Emergency Department [address] [place] [address] Phone #: ext- [phone] 10/12/2020 10:54 Patient: ROHAN COURTNEY Sex: M : 1990 Age: 30y Time Seen: 11:08 10/12/2020; initial patient contact, initial documentation. Arrived- By private vehicle. Historian- patient. Disposition decision: 13:20 10/12/2020.HISTORY OF PRESENT ILLNESS Chief Complaint: ABDOMINAL PAIN. It is described as "pain", sharp, stabbing and cramping and it is described as generalized in location and located in the upper abdomen. This started about 3 days ago and is still present. The patient has had nausea and loss of appetite. No vomiting or diarrhea. (Pt has a hx of pancreatitis (seen here in 2019 and transfered). Sts they did NOT remove his GB at that time as it was not GB related. Did have a hx of increased ETOH use prior to this and was infomred that it weakened his panc. Sts he recently ahd fast food and some ETOH nad pain started and has not resolved. Sts he has had flares inteh past, but quickly res olved; most recent was aobut 4mths ago. This hasn't and thus came tothe ER.). Similar symptoms previously. Patient has had similar symptoms occasionally. Recent medical care: Not recently seen/assessed.REVIEW OF SYSTEMSNo constipation, black stools, hematemesis, pain with urination or urinary frequency. No bloody stools,fever, headache, sore throat or blurred vision. No chest pain, cough, joint pain, skin rash or chills. Noback pain. The patient has not had weight loss. All other systems reviewed and are negative.PAST HISTORYSee nurses notes. Problems: Pancreatitis. Insomnia. Anxiety Reaction. Cholecystitis. Additional Surgeries: Mastectomy [2012]. (Bilateral) Testicular Cyst removed [2020]. Medications: Venlafaxine HCl ER Oral (Tablet Extended Release 24 Hour 75 mg) 1 tablet, daily. traZODone HCl Oral (Tablet 50 mg) 1 tablet, daily. 2 Clinical Report - Physicians/Mid Levels [facility] Emergency Department [address] [place] [address] Phone #: ext- [phone] 10/12/2020 10:54 Patient: ROHAN COURTNEY Sex: M : 1990 Age: 30y Allergies: No Known Drug Allergy.SOCIAL HISTORYNever smoker. Occasional alcohol use. No drug use.ADDITIONAL NOTESThe nursing notes have been reviewed.PHYSICAL EXAMVital Signs: 10/12/2020 10:58 BP: 122/89. MAP: 100. HR: 144. RR: 18. O2 saturation: 97%. Temp: 99.1F. Pain level now: 11/20. Have been reviewed. Oxygen saturation normal.Appearance: Alert. Oriented X3. No acute distress. Appears to be in pain. He appearsuncomfortable.ENT: Voice normal.CVS: Normal heart rate and rhythm. No JVD present. Pulses normal. Capillary refill normal. Strongperipheral pulses. Heart sounds normal. Pulses: right radial 2+; left radial 2+; right dorsalis pedis 2+; leftdorsalis pedis 2+; right posterior tibial 2+; left posterior tibial 2+.Respiratory: Chest normal on inspection. No respiratory distress. Unlabored respirations. Lungs clear.Good chest movement. Breath sounds normal and equal.Abdomen: Soft. Moderate tenderness in the upper abdomen. Bowel sounds normal. No distention.Back: Normal inspection. No CVA tenderness.Skin: Skin warm and dry.Extremities: Extremities exhibit normal ROM. No lower extremity edema. No calf tenderness. No lowerextremity edema.Neuro: Awake. Alert. Mood/affect normal. No motor deficit. No sensory deficit.Psych: Cognition normal. Thought process and content normal. Insight and judgement normal.LABS, X-RAYS, AND EKGEKG: Tachycardia (123). Sinus tachy; o/w nomral ecg. Reviewed by attending. Chest X-ray: (gabrielIsai anayaLc - 10/12/2020 12:48:18 PM neg). The X-rays were interpreted by the radiologist. CT Abdomen - Pelvis: [email or web address] carroll - 10/12/2020 12:55:39 PM Acute pancreatitis moderate severity. Moderate amount of ascites. No focal fluid collection or abscess. The study was interpreted by the radiologist. Laboratory Tests: CBC w Diff: (NHUNG: 10/12/2020 11:18) ( MsgRcvd 10/12/2020 11:42) Final results Test Result Flag Units (Reference) CBC W/AUTOMATED DIFF COMPLETE BLOOD COUNT WBC 10.2 10/uL (4.2 - 11.0) RBC 5.24 10/uL (4.50 - 6.30) HEMOGLOBIN 16.2 H g/dL (14.0 - 16.0) 3 Clinical Report - Physicians/Mid Levels [facility] Emergency Department [address] [place] [address] Phone #: ext- [phone] 10/12/2020 10:54 Patient: ROHAN COURTNEY Sex: M : 1990 Age: 30y HEMATOCRIT 47.7 % (41.0 - 51.0) MCV 91.0 fL (80.0 - 94.0) MCH 30.9 pg (27.0 - 34.0) MCHC 34.0 g/dL (31.0 - 36.0) RDW 13.3 % (11.5 - 14.8) PLATELETS 362 10/uL (150 - 450) MPV 8.9 fL (7.4 - 10.4) NEUT 73.3 % (37.0 - 80.0) LYMPH 14.6 L % (25.0 - 40.0) MONO 9.5 H % (3.0 - 8.0) EOS 1.7 % (0.0 - 7.0) BASO 0.4 % (0.0 - 2.0) %IG 0.5 H % (0.0 - 0.0) %NRBC 0.0 % (0.0 - 0.0) #NEUT 7.46 H 10/uL (2.00 - 6.90) #LYMPH 1.48 10/uL (0.60 - 3.40) #MONO 0.97 H 10/uL (0.00 - 0.90) #EOS 0.17 10/uL (0.00 - 0.70) #BASO 0.04 10/uL (0.00 - 0.20) #IG 0.05 10/uL (0.00 - 0.10) #NRBC 0.00 10/uL (0.00 - 0.00) MANUAL DIFF NOT INDICATED RBC MORPH NOT INDICATEDCMP: (NHUNG: 10/12/2020 11:18) ( MsgRcvd 10/12/2020 12:19) Final results Test Result Flag Units (Reference) COMPREHENSIVE METABOLIC PANEL COMPREHENSIVE METABOLIC PANEL SODIUM 139 mEq/L (134 - 153) POTASSIUM 3.6 mEq/L (3.6 - 5.0) CHLORIDE 95 L mEq/L (98 - 107) CO2 28 MEQ/L (22 - 30) GLUCOSE 114 H MG/DL (70 - 99) BUN 11 MG/DL (7 - 21) CREATININE 1.1 MG/DL (0.7 - 1.5) BUN/CREAT 10 (8 - 27) TOTAL PROTEIN 7.3 G/DL (6.3 - 8.2) ALBUMIN 4.7 G/DL (3.9 - 5.0) GLOBULIN 2.6 GM/DL (2.4 - 3.2) A/G RATIO 1.8 (0.8 - 2.0) CALCIUM 8.8 MG/DL (8.4 - 10.2) TOTAL BILI 1.3 MG/DL (0.2 - 1.3) ALKALINE PHOS 90 U/L (38 - 126) SGOT/AST 20 U/L (5 - 40) SGPT/ALT 44 U/L (7 - 56) ANION GAP 16.0 mmol/L (8.0 - 16.0) AGE 30 yrs NON- AA GFR >60 mL/min AFR AMER GFR >60 mL/min Male GFR Interprentation 20-49 yrs >60 mL/min Urvruy91-67 yrs >56 mL/min Normal 60- 69 yrs >49 mL/min Normal 70-79yrs>42 mL/min Normal 80 and above >35 mL/min Normal Female GFRInterpretation 20-39 yrs >60 mL/min Normal 40-49 yrs >58 mL/minNormal 50-59 yrs >51 mL/min Normal 60-69 yrs >45 mL/min Auicgo61-84 yrs >39 mL/min Normal 80 and above >32 mL/min NormalLipase: (NHUNG: 10/12/2020 11:18) ( MsgRcvd 10/12/2020 12:38) Final results Test Result Flag Units (Reference) 4 Clinical Report - Physicians/Mid Levels [facility] Emergency Department [address] [place] [address] Phone #: ext- [phone] 10/12/2020 10:54 Patient: ROHAN COURTNEY Sex: M : 1990 Age: 30y LIPASE 912 H U/L (13 - 60) PT/PTT: (NHUNG: 10/12/2020 11:18) ( [facility] 10/12/2020 11:42) Canceled Troponin-T: (NHUNG: 10/12/2020 11:18) ( [facility] 10/12/2020 12:03) Final results Test Result Flag Units (Reference) TROPONIN T <0.01 NG/ML (0.00 - 0.10) TROPONIN T0.1 ng/ml Rec ommended as the clinical threshold value forTroponin T. Lactic Acid: (NHUNG: 10/12/2020 11:18) [facility] 11[facility]46) Final results Test Result Flag Units (Reference) LACTIC ACID 2.0 MMOL/L (0.2 - 2.2).PROGRESS AND PROCEDURESCourse of Care: Enter room and pt lying peacefully in bed in NAD. Patient stable. Denies any newissues, concerns, or complaints. VSS, NAD, AOx3, interacting well and appropriately, no use of accessory muscle, able to speak full sentences, stable, non-toxic looking. Pt has a hx of pancreatitis. Still has GB. Sts that he did have fast food and some ETOH a few days ago. PE demos NV intact b/l UE and LE. Noted TTP of abd. Still has appy. ? panc vs appy vs other abd patho. Pending results. Reviewed results. Noted findings. Consulted with hospitalist and she will accept. Critical care performed (60 minutes). Time includes: direct patient care, patient reassessment, coordination of patient care, review of patient's medical records, medical consultation, family consultation regarding treatment decisions and documentation of patient care. Discussed case with health care provider (Maci). Disposition: Admitted to the Acute Inpatient Unit. UTI (catheter associated) was not present prior to admission. Pressure ulcer was not present prior to admission. Vascular infection (catheter associated) was not present prior to admission.CLINICAL IMPRESSION Acute idiopathic pancreatitis. 5 Clinical Report - Physicians/Mid Levels [facility] Emergency Department [address] [place] [address] Phone #: ext- [phone] 10/12/2020 10:54 Patient: ROHAN COURTNEY Sex: M : 1990 Age: 30y(Electronically signed by Steve Coombs P.A.-C 10/13/2020 23:43) Name Value Range Interpretation Code Description Data [facility](s) Supporting Document(s) ID Date Data Source [id number] 10/12/2020 10:56:00 AM EDT [facility] Addenda for ROHAN COURTNEY VisitID: [id number] Date: 13:38OVERVIEW FAXED TO [employer] AT 1338(Electronically signed by Griselda Red - 10/12/2020 13:38)10/12/2020 13:39OVERVIEW FAXED TO [facility] AT 1340(Electronically signed by Griselda Red - 10/12/2020 13:39) Name Value Range Interpretation Code Description Data Senait rce(s) Supporting Document(s) ID Date Data Source [id number] 10/13/2020 07:41:00 PM EDT [facility] Name Value Range Interpretation Code Description Data Senait rce(s) Supporting Document(s) BASIC METABOLIC PANEL [facility] BASIC METABOLIC PANEL Sodium [Moles/volume] in Serum or Plasma 138 mEq/L 134 - 153 [facility] Potassium [Moles/volume] in Serum or Plasma 3.2 mEq/L 3.6 - 5.0 L [facility] Chloride [Moles/volume] in Serum or Plasma 103 mEq/L 98 - 107 [facility] Carbon dioxide, total [Moles/volume] in Serum or Plasma 23 MEQ/L 22 - 30 [facility] Glucose [Mass/volume] in Serum or Plasma 76 MG/DL 70 - 99 [facility] BUN 12 MG/DL 7 - 21 [facility] Creatinine [Mass/volume] in Serum or Plasma 0.8 MG/DL 0.7 - 1.5 [facility] BUN/CREAT 15 8 - 27 [facility] al Calcium [Mass/volume] in Serum or Plasma 7.3 MG/DL 8.4 - 10.2 L [facility] Anion gap 3 in Serum or Plasma 12.0 mmol/L 8.0 - 16.0 [facility] AGE 30 yrs [facility] al AFR AMER GFR >60 mL/min [facility] Ho spital NON-AA GFR >60 mL/min [facility] ital Male GFR Inter prentation 20-49 yrs >60 mL/min Normal 50-59 yrs >56 mL/min Normal 60-69 yrs >49 mL/min Normal 70-79yrs >42 mL/min Normal 80 and above >35 mL/min Normal Female GFR Interpretation 20-39 yrs >60 mL/min Normal 40-49 yrs >58 mL/min Normal 50-59 yrs >51 mL/min Normal 60-69 yrs >45 mL/min Normal 70-79 yrs >39 mL/min Normal 80 and above >32 mL/min Normal ID Date Data Source [id number] 10/13/2020 12:54:00 PM EDT [facility] [address] [place] [address] PHONE: [phone] FAX: [phone] Name .................. : SHERWIN Cortes Acct Number.................. : [id number] ROOM. ................. : 117-1 MR Number ................... : [id number] Stay type ............. : O/P Discharge Date......... ... : Admit Date ......... : 10/12/20 Admit Phys .................... : JERAD Date of ....... : 1990 Family Phys ................... : UNKNOWN Phone .................. : [phone] Age ................................ : 30 Film# .................. .:[id number] Sex ................................. : M Unsigned transcriptions are preliminary reports and do not represent a medical or legal document GALLBLADDER [id number] COMPLETE:10/13/20 10:01 [facility] (REASON FOR ABDOMEN: ABDOMINAL PAIN ULTRASOUND RIGHT UPPER QUADRANT INDICATION: Right upper quadrant pain, pancreatitis COMPARISON: CT 10/12/2020 FINDINGS: LIVER: Normal echogenicity. No focal lesions identified. GALLBLADDER/BILIARY: No gallstones. No gallbladder wall thickening. Small amount of echogenic material in the gallbladder that does not shadow. This is consistent with sludge. The bile ducts are non-dilated. Common duct diameter 3.5 mm. PANCREAS: Not well-visualized due to overlying bowel gas. RIGHT KIDNEY: Length 11.8 cm per normal cortical thickness and echogenicity. No hydronephrosis, stones or masses. Small amount of free fluid around the liver. IMPRESSION: 1. No gallstones. Small amount of sludge in the gallbladder. No wall thickening. 2. Small amount of ascites. 3. Pancreas poorly visualized. Electronically Reviewed and Signed By Lc Alex MD , 10/13/20 12:54, JWS Page 1 of 2 [facility] [address] [place] [address] PHONE: [phone] FAX: [phone] Name .................. : SHERWIN MYLES Sebastian Acct Number.................. : [id number] ROOM. ................. : 117-1 Number ................... : [id number] Stay type ............. : O/P Discharge Date......... ... : Admit Date ......... : 10/12/20 Admit Phys .................... : JERAD Date of ....... : 1990 Family Phys ................... : UNKNOWN Phone .................. : [phone] Age ................................ : 30 Film# .................. .:[id number] Sex ................................. : M Unsigned transcriptions are preliminary reports and do not represent a medical or legal document GALLBLADDER [id number] COMPLETE:10/13/20 10:01 [facility] (REASON FOR ABDOMEN: ABDOMINAL PAIN Transcribe Initials: SSR, Transcribe Date: 10/13/20 11:41, Dictation Date: Copy for: ARNIEJAYDEN LYRIC Tucker via fax Copy for: EMERGENCY DEPT via modem Copy for: [address] [place] [address] REC Page 2 of 2 Name Value Range Interpretation Code Description Data Senait rce(s) Supporting Document(s) ID Date Data Source [id number] 10/13/2020 11:20:00 AM EDT [facility] Name Value Range Interpretation Code Description Data Senait rce(s) Supporting Document(s) URINALYSIS [facility] Hos[facility]ana URINALYSIS SOURCE R [facility] al COLOR orange NORMAL: Yellow [facility] CLARITY clear NORMAL: Clear [facility] sp[facility] Specific gravity of Urine by Test strip 1.020 1.001 - 1.030 [facility] pH 6 5 - 9 [facility] Glucose [Mass/volume] in Urine by Test strip NORM NORMAL: Negat [facility] Bilirubin.total [Presence] in Urine by Test strip 1 NORMAL: Negative [facility] Ketones [Presence] in Urine by Test strip 150 NORMAL: Negative [facility] Protein [Mass/volume] in Urine by Test strip 100 NORMAL: Negat [facility] Nitrite [Presence] in Urine by Test strip NEG NORMAL: Negative [facility] BLOOD 25 NORMAL: Negative [facility] LEUK EST NEG NORMAL: Negative [facility] Urobilinogen [Mass/volume] in Urine by Test strip 8 less monica n 1.0 mg/dL [facility] MICROSCOPIC See Below [facility] WBC 3 - 5 NORMAL: NONE SEEN [facility] Erythrocytes [#/volume] in Urine by Test strip 1 - 3 NORMAL: NON E SEEN [facility] EPITHELIAL FEW NORMAL: NONE SEEN [facility] Bacteria [Presence] in Urine sediment by Light microscopy Tr [place] NORMAL: NONE SEEN [facility] Mucus [Presence] in Urine sediment by Light microscopy Trace NORMAL: NONE SEEN [facility] Amorphous sediment [Presence] in Urine sediment by Light juan roscopy RARE NORMAL: NONE SEEN [facility] ID Date Data Source [id number] 10/12/2020 02:33:00 PM EDT [facility] [address] [place] [address] PHONE: [phone] FAX: [phone] Name .................. : SHERWIN Cortes Acct Number.................. : [id number] ROOM. ................. : VT-02 MR Number ................... : [id number] Stay type ............. : E/R Discharge Date......... ... : Admit Date ......... : 10/12/20 Admit Phys .................... : MACI MURPHY Date of ....... : 1990 Family Phys ................... : UNKNOWN Phone .................. : [phone] Age ................................ : 30 Film# .................. .:[id number] Sex ................................. : M Unsigned transcriptions are preliminary reports and do not represent a medical or legal document CT ABD & PELVIS W/ IV ONLY [id number] COMPLETE:10/12/20 11:18 Reason(s): PENDING CMP: global abd pain; hx hx of pancreatitis (2019). St CT ABDOMEN AND PELVIS WITH IV CONTRAST INDICATION: Global abdominal pain, history of pancreatitis COMPARISON: 07/17/2019 IV CONTRAST: 75 cc Isovue-370 One or more of the following dose reduction techniques were utilized in effectively lowering the radiation dose for this examination: Automated Exposure Control, Adjustment of the mA and/or kV according to patient size, or Iterative reconstruction. FINDINGS: LUNG BASES: Very small left pleural effusion LIVER/BILIARY: No lesion seen in the liver. No gallstones. Bile ducts are not dilated. SPLEEN: Normal. PANCREAS: Pancreas is mildly enlarged. Pancreatic head is mildly heterogeneous and the margin is indistinct. Moderate stranding is seen in the surrounding fat. Moderate peripancreatic fluid with no fluid collection. ADRENALS: Normal bilaterally. RIGHT KIDNEY: No hydronephrosis, stones or masses. LEFT KIDNEY: No hydronephrosis, stones or masses. OTHER : No abnormalities seen in the urinary bladder. No significant abnormalities seen in the reproductive organs. Page 1 of 2 [facility] [address] [place] [address] PHONE: [phone] FAX: [phone] Name .................. : SHERWIN Cortes Acct Number.................. : [id number] ROOM. ................. : VT-02 MR Number ................... : [id number] Stay type ............. : E/R Discharge Date......... ... : Admit Date ......... : 10/12/20 Admit Phys .................... : MACI MURPHY Date of ....... : 1990 Family Phys ................... : UNKNOWN Phone .................. : [phone] Age ................................ : 30 Film# .................. .:[id number] Sex ................................. : M Unsigned transcriptions are preliminary reports and do not represent a medical or legal document CT ABD & PELVIS W/ IV ONLY [id number] COMPLETE:10/12/20 11:18 Reason(s): PENDING CMP: global abd pain; hx hx of pancreatitis (2019). St BOWEL/GI: Mild wall thickening diffusely in the duodenum which is likely reactive edema due to the adjacent pancreatic inflammation. No dilated bowel or obstruction. PERITONEUM: Moderate amount of free fluid in the abdomen and pelvis. No focal fluid collection or abscess. No free air. NODES/RETROPERITONEUM: No adenopathy. No AAA. SKELETAL: Within normal limits. IMPRESSION: Acute pancreatitis moderate severity. Moderate amount of ascites. No focal fluid collection or abscess. Electronically Reviewed and Signed By Lc Alex MD , 10/12/20 14:33, BEATRICE Transcribe Initials: SSR, Transcribe Date: 10/12/20 13:51, Dictation Date: Copy for: CORIN LOBO via fax Copy for: EMERGENCY DEPT via mode Copy for: [address] [place] [address] REC Page 2 of 2 Name Value Range Interpretation Code Description Data Senait rce(s) Supporting Document(s) ID Date Data Source [id number] 10/13/2020 12:05:00 PM EDT [facility] Name Value Range Interpretation Code Description Data Senait rce(s) Supporting Document(s) Creatine kinase [Enzymatic activity/volume] in Serum or Plasma 1 37 U/L 30 - 170 [facility] ID Date Data Source [id number] 10/13/2020 06:54:00 AM EDT [facility] Name Value Range Interpretation Code Description Data Senait rce(s) Supporting Document(s) CBC W/AUTOMATED DIFF [facility] COMPLETE BLOOD COUNT Leukocytes [#/volume] in Blood by Automated count 7.3 10^3/uL 4.2 - 1 1.0 [facility] Erythrocytes [#/volume] in Blood by Automated count 3.96 10^6/uL 4. 50 - 6.30 L [facility] Hemoglobin [Mass/volume] in Blood 12.3 g/dL 14.0 - 16.0 L [facility] Hematocrit [Volume Fraction] of Blood by Automated count 37.7 % 4 1.0 - 51.0 L [facility] Erythrocyte mean corpuscular volume [Entitic volume] by Auto mated count 95.2 fL 80.0 - 94.0 H [facility] Erythrocyte mean corpuscular hemoglobin [Entitic mass] by Automated count 31.1 pg 27.0 - 34.0 [facility] Erythrocyte mean corpuscular hemoglobin concentration [Mass/volume] by Automated count 32.6 g/dL 31.0 - 36.0 [facility] Erythrocyte distribution width [Ratio] by Automated count 13.6 % 11.5 - 14.8 [facility] Platelets [#/volume] in Blood by Automated count 225 10^3/uL 150 - 45 0 [facility] Platelet mean volume [Entitic volume] in Blood by Automated count 8.9 fL 7.4 - 10.4 [facility] Neutrophils/100 leukocytes in Blood by Automated count 70.3 % 37. 0 - 80.0 [facility] Lymphocytes/100 leukocytes in Blood by Manual count 13.6 % 25.0 - 40.0 L [facility] Monocytes/100 leukocytes in Blood by Automated count 9.9 % 3.0 - 8.0 H [facility] Eosinophils/100 leukocytes in Blood by Automated count 5.2 % 0.0 - 7.0 [facility] 0.7 %IG 0.3 % 0.0 - 0.0 [facility] %NRBC 0.0 % 0.0 - 0.0 [facility] al Neutrophils [#/volume] in Blood by Automated count 5.13 10^3/uL 2.00 - 6.90 [facility] Lymphocytes [#/volume] in Blood by Automated count 0.99 10^3/uL 0.60 - 3.40 [facility] Monocytes [#/volume] in Blood by Automated count 0.72 10^3/uL 0.00 - 0.90 [facility] Eosinophils [#/volume] in Blood by Automated count 0.38 10^3/uL 0.00 - 0.70 [facility] Basophils [#/volume] in Blood by Automated count 0.05 10^3/uL 0.00 - 0.20 [facility] #IG 0.02 10^3/uL 0.00 - 0.10 [facility] H ospital #NRBC 0.00 10^3/uL 0.00 - 0.00 [facility] H [facility]spital MANUAL DIFF SEE BELOW [facility] Segmented neutrophils/100 leukocytes in Blood by Manual count 75 % 37 - 80 [facility] BAND 2 % 0 - 5 [facility] %LYMPH 13 % 25 - 40 L [facility] al %MONO 7 % 3 - 8 [facility] al %EOS 3 % 0 - 7 [facility] al 0 RBC MORPH NOT INDICATED [facility] Ho spital ID Date Data Source [id number] 10/13/2020 06:53:00 AM EDT [facility] Name Value Range Interpretation Code Description Data Senait rce(s) Supporting Document(s) COMPREHENSIVE METABOLIC PANEL [facility] COMPREHENSIVE METABOLIC PANEL Sodium [Moles/volume] in Serum or Plasma 137 mEq/L 134 - 153 [facility] Potassium [Moles/volume] in Serum or Plasma 3.4 mEq/L 3.6 - 5.0 L [facility] Chloride [Moles/volume] in Serum or Plasma 101 mEq/L 98 - 107 [facility] Carbon dioxide, total [Moles/volume] in Serum or Plasma 23 MEQ/L 22 - 30 [facility] Glucose [Mass/volume] in Serum or Plasma 77 MG/DL 70 - 99 [facility] BUN 13 MG/DL 7 - 21 [facility] al Creatinine [Mass/volume] in Serum or Plasma 0.9 MG/DL 0.7 - 1.5 [facility] BUN/CREAT 14 8 - 27 [facility] al Protein [Mass/volume] in Serum or Plasma 5.1 G/DL 6.3 - 8.2 L [facility] Albumin [Mass/volume] in Serum or Plasma 3.1 G/DL 3.9 - 5.0 L [facility] Globulin [Mass/volume] in Serum by calculation 2.0 GM/DL 2.4 - 3.2 L [facility] A/G RATIO 1.6 0.8 - 2.0 [facility] Calcium [Mass/volume] in Serum or Plasma 6.9 MG/DL 8.4 - 10.2 LL [facility] CHECKED IN DUPLICATE CALL/ READ BACK CALLED TO [facility] BY: ANGELITO [facility] al DATE/TIME 10/13/93 @ 0650 [facility] spital Bilirubin.total [Mass/volume] in Serum or Plasma 1.0 MG/DL 0.2 - 1.3 [facility] Alkaline phosphatase [Enzymatic activity/volume] in Serum or Plasma 60 U/L 38 - 126 [facility] Aspartate aminotransferase [Enzymatic activity/volume] in Serum or Plasma 15 U/L 5 - 40 [facility] Alanine aminotransferase [Enzymatic activity/volume] in Seru m or Plasma 24 U/L 7 - 56 [facility] Anion gap 3 in Serum or Plasma 13.0 mmol/L 8.0 - 16.0 [facility] AGE 30 yrs [facility] al NON-AA GFR 106 mL/min [facility] ital AFR AMER GFR 128 mL/min [facility] Ho spital Male GFR In terprentation 20-49 yrs >60 mL/min Normal 50-59 yrs >56 mL/min Normal 60-69 yrs >49 mL/min Normal 70-79yrs >42 mL/min Normal 80 and above >35 mL/min Normal Female GFR Interpretation 20-39 yrs >60 mL/min Normal 40-49 yrs >58 mL/min Normal 50-59 yrs >51 mL/min Normal 60-69 yrs >45 mL/min Normal 70-79 yrs >39 mL/min Normal 80 and above >32 mL/min Normal ID Date Data Source [id number] 10/13/2020 06:27:00 AM EDT [facility] Name Value Range Interpretation Code Description Data Senait rce(s) Supporting Document(s) Lipase [Enzymatic activity/volume] in Serum or Plasma 122 U/L 13 - 60 H [facility] ID Date Data Source [id number] 10/12/2020 08:27:00 [place] [address] RESPIRATORY CARE REPORT ==== ---------NAME------- NUMBER SEX AGE ADMIT DISC. XRAY# F/C KARLENE Cortes [id number] M 30 10/12/20018310 SB4 O/P DATE OF : 1990 M/R# [id number] PH#: [phone] LOCATION: EMERGENCY DEPT EKG [id number] COMPLE TE:10/12/20 14:59 ED 01604 PHYSICIAN: JERAD COOMBS [facility] Name Value Range Interpretation Code Description Data Senait rce(s) Supporting Document(s) ID Date Data Source [id number] 10/12/2020 02:32:00 [place] [address] PHONE: [phone] FAX: [phone] Name .................. : SHERWIN Cortes Acct Number.................. : [id number] ROOM. ................. : VT-02 Number ................... : [id number] Stay type ............. : E/R Discharge Date......... ... : Admit Date ......... : 0 10/12/20 Admit Phys .................... : TURRIN JEFFREY Date of ....... : 1990 Family Phys ................... : UNKNOWN Phone .................. : [phone] Age ................................ : 30 Film# .................. .:[id number] Sex ................................. : M Unsigned transcriptions are preliminary reports and do not represent a medical or legal document CHEST 2 VIEWS 17704 COMPLETE:10/12/20 11:18 Reason(s): upper abd pain w/tachy. hx of pancreatitis FRONTAL AND LATERAL CHEST 2 VIEWS INDICATION: Upper abdominal pain with tachycardia, history of pancreatitis COMPARISON: None FINDINGS: Mediastinal and hilar structures are normal. Cardiac silhouette is unremarkable. Lungs are clear. No pulmonary edema. No pleural effusions or pneumothorax. IMPRESSION: Normal exam. Electronically Reviewed and Signed By Lc Alex MD , 10/12/20 14:32, JWChelsi Transcribe Initials: SSR, Transcribe Date: 10/12/20 13:50, Dictation Date: Copy for: CORIN LOBO via fax Copy for: EMERGENCY DEPT [place] [facility] Copy for: [address] [place] [address] REC Page 1 of 1 Name Value Range Interpretation Code Description Data Senait rce(s) Supporting Document(s) ID Date Data Source [id number] 10/12/2020 12:38:00 PM EDT [facility] Name Value Range Interpretation Code Description Data Senait rce(s) Supporting Document(s) Lipase [Enzymatic activity/volume] in Serum or Plasma 912 U/L 13 - 60 H [facility] ID Date Data Source [id number] 10/12/2020 12:19:00 PM EDT [facility] Name Value Range Interpretation Code Description Data Senait rce(s) Supporting Document(s) COMPREHENSIVE METABOLIC PANEL [facility] COMPREHENSIVE METABOLIC PANEL Sodium [Moles/volume] in Serum or Plasma 139 mEq/L 134 - 153 [facility] Potassium [Moles/volume] in Serum or Plasma 3.6 mEq/L 3.6 - 5.0 [facility] Chloride [Moles/volume] in Serum or Plasma 95 mEq/L 98 - 107 L [facility] Carbon dioxide, total [Moles/volume] in Serum or Plasma 28 MEQ/L 22 - 30 [facility] Glucose [Mass/volume] in Serum or Plasma 114 MG/DL 70 - 99 H [facility] BUN 11 MG/DL 7 - 21 [facility] al Creatinine [Mass/volume] in Serum or Plasma 1.1 MG/DL 0.7 - 1.5 [facility] BUN/CREAT 10 8 - 27 [facility] al Protein [Mass/volume] in Serum or Plasma 7.3 G/DL 6.3 - 8.2 [facility] Albumin [Mass/volume] in Serum or Plasma 4.7 G/DL 3.9 - 5.0 [facility] Globulin [Mass/volume] in Serum by calculation 2.6 GM/DL 2.4 - 3.2 [facility] A/G RATIO 1.8 0.8 - 2.0 [facility] Calcium [Mass/volume] in Serum or Plasma 8.8 MG/DL 8.4 - 10.2 [facility] Bilirubin.total [Mass/volume] in Serum or Plasma 1.3 MG/DL 0.2 - 1.3 [facility] Alkaline phosphatase [Enzymatic activity/volume] in Serum or Plasma 90 U/L 38 - 126 [facility] Aspartate aminotransferase [Enzymatic activity/volume] in Serum or Plasma 20 U/L 5 - 40 [facility] Alanine aminotransferase [Enzymatic activity/volume] in Seru m or Plasma 44 U/L 7 - 56 [facility] Anion gap 3 in Serum or Plasma 16.0 mmol/L 8.0 - 16.0 [facility] AGE 30 yrs [facility] al NON-AA GFR >60 mL/min [facility] ital AFR AMER GFR >60 mL/min [facility] Ho spital Male GFR In terprentation 20-49 yrs >60 mL/min Normal 50-59 yrs >56 mL/min Normal 60-69 yrs >49 mL/min Normal 70-79yrs >42 mL/min Normal 80 and above >35 mL/min Normal Female GFR Interpretation 20-39 yrs >60 mL/min Normal 40-49 yrs >58 mL/min Normal 50-59 yrs >51 mL/min Normal 60-69 yrs >45 mL/min Normal 70-79 yrs >39 mL/min Normal 80 and above >32 mL/min Normal ID Date Data Source [id number] 10/12/2020 12:03:00 PM EDT [facility] Name Value Range Interpretation Code Description Data Senait rce(s) Supporting Document(s) TROPONIN T <0.01 NG/ML 0.00 - 0.10 [facility] ospital TROPONIN T0.1 ng/ml Recommended as the c linical threshold value forTroponin T. ID Date Data Source [id number] 10/12/2020 11:46:00 AM [facility] Value Range Interpretation Code Description Data Senait rce(s) Supporting Document(s) Lactate [Moles/volume] in Serum or Plasma 2.0 MMOL/L 0.2 - 2.2 [facility] ID Date Data Source [id number] 10/12/2020 11:42:00 AM T [facility] Value Range Interpretation Code Description Data Senait rce(s) Supporting Document(s) CBC W/AUTOMATED DIFF [facility] COMPLETE BLOOD COUNT Leukocytes [#/volume] in Blood by Automated count 10.2 10^3/uL 4.2 - 11.0 [facility] Erythrocytes [#/volume] in Blood by Automated count 5.24 10^6/uL 4. 50 - 6.30 [facility] Hemoglobin [Mass/volume] in Blood 16.2 g/dL 14.0 - 16.0 H [facility] Hematocrit [Volume Fraction] of Blood by Automated count 47.7 % 4 1.0 - 51.0 [facility] Erythrocyte mean corpuscular volume [Entitic volume] by Auto mated count 91.0 fL 80.0 - 94.0 [facility] Erythrocyte mean corpuscular hemoglobin [Entitic mass] by Automated count 30.9 pg 27.0 - 34.0 [facility] Erythrocyte mean corpuscular hemoglobin concentration [Mass/volume] by Automated count 34.0 g/dL 31.0 - 36.0 [facility] Erythrocyte distribution width [Ratio] by Automated count 13.3 % 11.5 - 14.8 [facility] Platelets [#/volume] in Blood by Automated count 362 10^3/uL 150 - 45 0 [facility] Platelet mean volume [Entitic volume] in Blood by Automated count 8.9 fL 7.4 - 10.4 [facility] Neutrophils/100 leukocytes in Blood by Automated count 73.3 % 37. 0 - 80.0 [facility] Lymphocytes/100 leukocytes in Blood by Manual count 14.6 % 25.0 - 40.0 L [facility] Monocytes/100 leukocytes in Blood by Automated count 9.5 % 3.0 - 8.0 H [facility] Eosinophils/100 leukocytes in Blood by Automated count 1.7 % 0.0 - 7.0 [facility] Basophils/100 leukocytes in Blood by Automated count 0.4 % 0.0 - 2.0 [facility] %IG 0.5 % 0.0 - 0.0 [facility] %NRBC 0.0 % 0.0 - 0.0 [facility] al Neutrophils [#/volume] in Blood by Automated count 7.46 10^3/uL 2.00 - 6.90 H [facility] Lymphocytes [#/volume] in Blood by Automated count 1.48 10^3/uL 0.60 - 3.40 [facility] Monocytes [#/volume] in Blood by Automated count 0.97 10^3/uL 0.00 - 0.90 H [facility] Eosinophils [#/volume] in Blood by Automated count 0.17 10^3/uL 0.00 - 0.70 [facility] Basophils [#/volume] in Blood by Automated count 0.04 10^3/uL 0.00 - 0.20 [facility] #IG 0.05 10^3/uL 0.00 - 0.10 [facility] #NRBC 0.00 10^3/uL 0.00 - 0.00 [facility] ospital MANUAL DIFF NOT INDICATED [facility] RBC MORPH NOT INDICATED [facility] spital ID Date Data Source [id number] 03/11/2020 08:50:00 [place] [id number] OPERATIVE SUMMARYNAME: SHERWIN Cortes DATE OF : 1990ATTENDING PHYS: MAXI NIEVES MD DATE: 03/04/20 MR#: [id number] OF PROCEDURE: 03/04/2020REOPERATIVE DIAGNOSIS: Right hydrocele.POST-OPERATIVE DIAGNOSIS: Right hydrocele.PROCEDURE PERFORMED: Right hydrocelectomy.ATTENDING SURGEON: Dr. Maxi Nieves.[facility] NURSE: JESSICA Mederos.ANESTHESIA: General.ESTIMATED BLOOD LOSS: 50 cc.COMPLICATIONS: None.DRAINS: " bunny drain.DISPOSITION: To the Ambulatory Surgical Unit.CONDITION: Stable.INTRAOPERATIVE FINDINGS:Normal testicle with a collection of old bloody fluid, multiseptated hemocele.INDICATIONS FOR PROCEDURE:Rohan Courtney is a 29-year-old gentleman who had previously undergone a right scrotalexploration with epididymal cyst removal in the recent past. He had presented with a largehemocele post-operatively, which was aspirated. The fluid collection had, however, resolved and anultrasound had revealed the presence of a multiseptated hydrocele/hemocele. At patient's insistence,he had declined a repeat aspiration and opted for scrotal exploration with drainage of the fluidcollection.DETAILS OF PROCEDURE:After a detailed informed consent was obtained from the patient, he was wheeled into the operatingroom and installed on the operating table in supine position. General anesthesia was then induced, [address] [place] [id number] OPERATIVE SUMMARYNAME: SHERWIN Cortes DATE OF : 1990ATTENDING PHYS: MAXI NIEVES MD DATE: 03/04/20 MR#: [id number] the penoscrotal area was then cleaned, prepped, and draped in the usual sterile fashion. Afterthe proper time-out procedures were carried out, a right mid scrotal incision was made. This wascarried down through the subcutaneous tissues and all the scar tissue that was encountered wasdissected. We then noted a large collection of fluid in a separate cavity surrounding the righttesticle, consistent with hydrocele. This was then opened with drainage of approximately 50 cc ofblood-tinged fluid. This was drained out completely. The testicle was noted to be normal. Thetourniquet was then completely opened and removed to prevent any fluid recurrence. Hemostasiswas ensured, after which the testicle was re-inserted into the scrotum. Due to the significant amountof fluid collection and prior surgery, the decision was made to place a Oxford drain. A " Penrosedrain was brought in, was inserted into the scrotum, and brought out through a separate stabincision. The incision was then closed in two layers, first using 3-0 Vicryl for the dartos layerfollowed by 3-0 chromic catgut in six interrupted points. With the operation at this point nowcompleted, anesthesia was reversed. The patient was transferred onto a stretcher, on which he wastransferred to the Ambulatory Surgical Unit in stable condition. The operation was well toleratedand there were no complications.DD: MAXI NIEVES MD 03/11/20 08:20DT: MARIA G 03/11/20 08:36DS: MAXI NIEVES MD 03/15/20 16:18 2 Name Value Range Interpretation Code Description Data Senait e(s) Supporting Document(s) ID Date Data Source [id number] 03/07/2020 12:26:00 [place] [address] PHONE: [phone] FAX: [phone] Name .................. : SHERWIN Cortes Acct Number.................. : [id number] ROOM. ................. : LUZ MR Number ................... : [id number] Stay type ............. : O/P Discharge Date......... ... : Admit Date ......... : 03/04/20 Admit Phys .................... : OBENFELIX Date of ....... : 1990 Family Phys ................... : UNKNOWN Phone .................. : [phone] Age ................................ : 29 Film# .................. .:[id number] Sex ................................. : M Unsigned transcriptions are preliminary reports and do not represent a medical or legal document SCROTAL [id number] COMPLETE:03/04/20 09:58 2710 (REASON FOR TESTING: eval h/o right hydrocele/testicular pain ULTRASOUND OF THE SCROTUM, 03/04/20: Examination compared to previous study of 02/15/20. FINDINGS: The right testicle measures 3.2 x 3.0 x 2.1 cm. Left testicle measures 3.9 x 3.0 x 2.4 cm. There is a prominent-sized septated hydrocele identified around the right testicle, not significantly changed compared to the prior study. It measures 3.9 x 2.9 cm. No signs of any intratesticular lesions noted with normal flow to the right and left testicles. IMPRESSION: Stable prominent-sized right septated hydrocele noted. Electronically Reviewed and Signed By DEON PERAZA MD , 03/07/20 12:26, [facility] Transcribe Initials: SSR, Transcribe Date: 03/04/20 12:34, Dictation Date: Copy for: ELLIOTTGEMA ORTIZ via fax Copy for: LIZBETH MCFADDEN via fax Copy for: [facility] REC DISCHARGED Page 1 of 1 Name Value Range Interpretation Code Description Data Senait rce(s) Supporting Document(s) ID Date Data Source [id number] 03/01/2020 11:28:00 AM EST [facility] Name Value Range Interpretation Code Description Data Senait rce(s) Supporting Document(s) SARS coronavirus 2 RNA Not Detected [facility] [place] This lab was ordered by [facility] Laboratory and reported by [facility]. ID Date Data Source [id number] 02/18/2020 10:42:00 AM EST [facility] [address] [place] [address] PHONE: [phone] FAX: [phone] Name .................. : SHERWIN Cortes Acct Number.................. : [id number] ROOM. ................. : MR Number ................... : [id number] Stay type ............. : O/P Discharge Date......... ... : 02/15/20 Admit Date ......... : 02/15/20 Admit Phys .................... : JOSÉ LUISWOODY Date of ....... : 1990 Family Phys ................... : UNKNOWN Phone .................. : [phone] Age ................................ : 29 Film# .................. .:[id number] Sex ................................. : M Unsigned transcriptions are preliminary reports and do not represent a medical or legal document SCROTAL [id number] COMPLETE:02/15/20 09:29 KNB 1389 (REASON FOR TESTING: R TESTICULAR SONOGRAM, 02/15/20: INDICATION: Right testicular pain and swelling status post cyst removal. FINDINGS: The right testicle measures 4.4 x 2.2 x 2.7 cm. Right epididymal head measures 0.8 cm. Left testicle measures 4.1 x 2.1 x 2.2 cm. Left epididymal head measures 7 mm. In the right scrotum, there is a complex, multiloculated, multicystic structure measuring 5.1 x 6.2 x 4.7 cm. Thi s could represent an infected hydrocele or may represent blood within the right scrotum. Clinical correlation is recommended. IMPRESSION: Multiseptated, multicystic complex structure in the right scrotum as discussed above. Underlying infected hydrocele is not excluded. Blood from prior surgery may also be present. Correlation with the patient's previous exam would be helpful. Examination dictated by JESSICA Boateng. Examination was reviewed with Ibrahima Mae MD, radiologist at the time of this dictation. Electronically Reviewed and Signed By Ibrahima Mae MD , 02/18/20 10:42, [facility] Transcribe Initials: MARIA G, Transcribe Date: 02/15/20 11:16, Dictation Date: Copy for: ISA ORTIZ via fax Copy for: 710 MED REC Page 1 of 1 Name Value Range Interpretation Code Description Data Senait rce(s) Supporting Document(s) ID Date Data Source [id number] 02/17/2020 02:19:00 PM EST [facility] ([facility]) Name Value Range Interpretation Code Description Data Senait rce(s) Supporting Document(s) Color of Urine Laboratory test result [facility] ([facility]) Appearance of Urine Laboratory test result [facility] ([facility]) Spec Biola 1.015 [facility] ([facility]) Leukocytes Laboratory test result [facility] ([facility]) pH of Urine by Test strip 6 [facility] NT ([facility]) Protein [Presence] in Urine by Test strip Laboratory test result [facility] ([facility]) Nitrate [Presence] in Urine Laboratory test result [facility] ([facility]) Inhouse Glucose Laboratory test result [facility] ([facility]) Ketones [Presence] in Urine by Test strip Laboratory test result [facility] ([facility]) Urobilinogen Laboratory test result [facility] ([facility]) Bilirubin.total [Presence] in Urine by Test strip Laboratory test res ult [facility] ([facility]) Blood type and Indirect antibody screen panel - Blood Laboratory test result [facility] ([facility]) ID Date Data Source [id number] 02/02/2020 02:48:00 PM EST [facility] ([facility]) Name Value Range Interpretation Code Description Data Senait rce(s) Supporting Document(s) US Scrotal Laboratory test result [facility] ([facility]) ID Date Data Source [id number] 01/15/2020 10:55:00 [place] [address] OPERATIVE SUMMARYNAME: SHERWIN Cortes DATE OF : 1990ATTENDING PHYS: MAXI NIEVES MD DATE: 01/15/20 MR#: [id number] OF PROCEDURE: 01/15/2020PREOPERATIVE DIAGNOSIS: Right epididymal cyst.POST-OPERATIVE DIAGNOSIS: Lipoma of the right epididymis.PROCEDURE PERFORMED: Removal of right epididymal lipoma.ATTENDING SURGEON: Dr. Maxi Nieves.[facility] NURSE: JESSICA Mederos.ANESTHESIA: General with LMA.ANESTHESIOLOGIST: Laci Kim CRNA.ESTIMATED BLOOD LOSS: Minimal.COMPLICATIONS: None.DRAINS: None.DISPOSITION: To the recovery room.CONDITION: Stable.INTRAOPERTATIVE FINDINGS:A 2.5 cm right epididymal lipoma.INDICATIONS FOR PROCEDURE:Rohan Courtney is a 29-year-old gen tleman previously seen and evaluated with a cystic-lookingmass of the right epididymis. After counseling, he had opted for right hemiscrotal exploration withremoval of the right epididymal cyst.DETAILS OF PROCEDURE:After a detailed informed consent was obtained from the patient, he was wheeled into the operatingroom and installed on the operating table in supine position. Monitoring devices were then placedon the patient, and general anesthesia with LMA was then induced. Next, the hemiscrotum was [address] [place] [address] OPERATIVE SUMMARYNAME: SHERWIN Cortes DATE OF : 1990ATTENDING PHYS: MAXI NIEVES MD DATE: 01/15/20 MR#: [id number], cleaned, prepped, and draped in the usual sterile fashion. After the proper time-outprocedures were carried out, the right hemiscrotal incision was made. This was carried downthrough the subcutaneous tissue, and the ductus layer was opened. The testicle and the rightepididymis were then delivered with the lipoma easily identified. The tunica vaginalis was thenopened with drainage of approximately 3 cc of hydrocele fluid. At this point, it was identified thatit was not an epididymal cyst, but a lipoma. This was then dissected off of the surroundingepididymal tissue. There was minimal bleeding noted. The area of attachment adjacent to the righttesticle was then closed with 3-0 Vicryl sutures. After removal of the lipoma of the rightepididymis, the testicle and epididymis were then re-inserted into the scrotum. The scrotum wasthen closed in two layers, first using 3-0 Vicryl for the ductus layer, followed by 3-0 chromic catgutthree horizontal oli ress stitches for the skin. A sterile dressing was then placed over the incisionsite, and with the operation at this point now completed, the anesthesia was reversed. The patientwas then transferred onto a stretcher, on which he was transferred to the Ambulatory Surgical Unitand recovery room in stable condition. The operation was well tolerated, and there were nocomplications.Copies of this report to the [facility].DD: MAXI NIEVES MD 12/04/20 10:13DT: SSR 01/15/20 10:43DS: MAXI NIEVES MD 01/15/20 14:08 2 Name Value Range Interpretation Code Description Data Senait rce(s) Supporting Document(s) ID Date Data Source [id number] 12/08/2019 08:00:00 AM EDT [facility] ([facility]) Name Value Range Interpretation Code Description Data Senait rce(s) Supporting Document(s) Color of Urine Laboratory test result [facility] ([facility]) Appearance of Urine Laboratory test result [facility] ([facility]) Leukocytes Laboratory test result [facility] ([facility]) Spec Biola 1.005 [facility] ([facility]) pH of Urine by Test strip 8 [facility] NT ([facility]) Protein [Presence] in Urine by Test strip Laboratory test result [facility] ([facility]) Inhouse Glucose Laboratory test result [facility] ([facility]) Nitrate [Presence] in Urine Laboratory test result [facility] ([facility]) Urobilinogen Laboratory test result [facility] ([facility]) Bilirubin.total [Presence] in Urine by Test strip Laboratory test res ult [facility] ([facility]) Ketones [Presence] in Urine by Test strip Laboratory test result [facility] ([facility]) Blood type and Indirect antibody screen panel - Blood Laboratory test result [facility] ([facility]) Procedure Social History Code Duration Value Status Description Data Source(s ) Tobacco use and exposure 10/17/2020 12:00:00 AM EDT Never used [facility] Tobacco smoking status NHIS 10/17/2020 12:00:00 AM EDT Never smoker [facility] Smoking 03/08/2020 12:00:00 AM EST Never Smoked A Pipe complet ed Never Smoked A Pipe [facility] ([facility]) Vital Signs ID Date Data Source UNK Name Value Range Interpretation Code Description Data Source(s) Body height 66 [in_i] 66 [in_i] [facility] ([facility]) 5'6" Body weight 162.00 [lb_av] 162.00 [lb_av] [facility] T ([facility]) Systolic blood pressure 134 mm[Hg] 134 mm[Hg] M [facility] ([facility]) Diastolic blood pressure 88 mm[Hg] 88 mm[Hg] [facility] ([facility]) Heart rate 81 /min 81 /min [facility] Body mass index (BMI) [Ratio] 26.1 kg/m2 26.1 k g/m2 [facility] ([facility]) Body weight 73.483 kg 73.483 kg [facility] Body temperature 97.0 [degF] 97.0 [degF] [facility] ([facility]) Oxygen saturation in Arterial blood by Pulse oximetry 92 % 92 % [facility] ([facility]) Heart rate 91 /min 91 /min [facility] ([facility]) Respiratory rate 18 /min 18 /min [facility] ( [facility]) Systolic blood pressure 119 mm[Hg] 119 mm[Hg] M EDENT ([facility]) Diastolic blood pressure 70 mm[Hg] 70 mm[Hg] [facility] ([facility]) Heart rate 118 /min 118 /min [facility] ([facility]) [facility] Oxygen saturation in Arterial blood by Pulse oximetry 96 % 96 % [facility] Systolic blood pressure 142 mm[Hg] 142 [facility] Diastolic blood pressure 88 mm[Hg] 88 mm[Hg] [facility] ([facility]) Systolic blood pressure 123 mm[Hg] 123 [facility]Hg[facility] Diastolic blood pressure 76 mm[Hg] 76 mm[Hg] [facility] ([facility]) Heart rate 94 /min 94 /[facility] Body temperature 98.0 [degF] 98.0 [degF] [facility] ([facility]) Oxygen saturation in Arterial blood by Pulse oximetry 97 % 97 % [facility] ([facility]) Body weight 172.00 [lb_av] 172.00 [lb_av] MED[facility] T ([facility]) Body weight 78.019 kg 78.019 kg [facility] ([facility]) Body weight 162.00 [lb_av] 162.00 [lb_av] [facility] T ([facility]) Diastolic blood pressure 88 mm[Hg] 88 mm[Hg] [facility] ([facility]) Heart rate 111 /min 111 /min [facility] ([facility]) Body temperature 98.7 [degF] 98.7 [degF] [facility] ([facility]) Oxygen saturation in Arterial blood by Pulse oximetry 98 % 98 % [facility] ([facility]) Body weight 73.483 kg 73.483 kg [facility] ([facility]) Systolic blood pressure 134 mm[Hg] 134 mm[Hg] M EDENT ([facility]) Body height 66 [in_i] 66 [in_i] [facility] ([facility]) 5'6" Body mass index (BMI) [Ratio] 26.1 kg/m2 26.1 k g/m2 [facility] ([facility]) Body surface area Derived from formula 1.83 m2 1.83 m2 [facility] ([facility]) Heart rate 122 /min 122 /min [facility] ([facility]) Systolic blood pressure 161 mm[Hg] 161 mm[Hg] M [facility] ([facility]) Diastolic blood pressure 93 mm[Hg] 93 mm[Hg] [facility] ([facility]) Respiratory rate 20 /min 20 /min [facility] ( [facility]) Oxygen saturation in Arterial blood by Pulse oximetry 97 % 97 % [facility] ([facility]) Body height 66 [in_i] 66 [in_i] [facility] ([facility]) 5'6" Systolic blood pressure 172 mm[Hg] 172 mm[Hg] M EDENT ([facility]) Diastolic blood pressure 99 mm[Hg] 99 mm[Hg] [facility] ([facility]) Body mass index (BMI) [Ratio] 26.3 kg/m2 26.3 k g/m2 [facility] ([facility]) Body weight 163.00 [lb_av] 163.00 [lb_av] [facility] T ([facility]) Body surface area Derived from formula 1.83 m2 1.83 m2 [facility] ([facility]) Body height 66 [in_i] 66 [in_i] [facility] ([facility]) 5'6" Heart rate 97 /min 97 /min [facility] ([facility]) Body temperature 97.8 [degF] 97.8 [degF] [facility] ([facility]) Oxygen saturation in Arterial blood by Pulse oximetry 100 % 100 % [facility] ([facility]) Body weight 73.937 kg 73.937 kg [facility] ([facility]) ID Date Data Source [id number] 10/25/2020 03:50:54 PM EDT [facility] Name Value Range Interpretation Code Description Data Source(s) WEIGHT 180.34 lb 180.34 lb [facility] HEIGHT 66 in 66 in [facility] ID Date Data Source [id number] 10/25/2020 12:44:14 PM EDT [facility] Name Value Range Interpretation Code Description Data Source(s) WEIGHT RECORDED 185.40 pounds 185.40 pounds [facility] Height 65 Inches 065 Inches [facility] WEIGHT RECORDED 175.00 pounds 175.00 pounds [facility] Height 65 Inches 065 Inches [facility] ID Date Data Source [id number] 03/22/2020 02:45:16 PM [facility] Name Value Range Interpretation Code Description Data Source(s) WEIGHT RECORDED 160.00 pounds 160.00 pounds [facility] Height 66 Inches 066 Inches [facility] ID Date Data Source [id number] 02/24/2020 03:10:03 PM [facility] Name Value Range Interpretation Code Description Data Source(s) WEIGHT RECORDED 160.00 pounds 160.00 pounds [facility] Height 66 Inches 066 Inches [facility]
[2021-01-16] MEDS ORDERED: fentaNYL 100 MCG/2 ML INJECTION (J3010) As Ordered ONE (12:43)
--- NOTE | 2021-01-16 13:07 | ROOR ---
Patient Name: Rohan Cyr Procedure Date: 01/16/2021 12:48 PM Date of : 1990 Age: 30 Room: [facility] Gender: Male Note Status: Finalized Procedure: Upper Endoscopy + Biopsies Indications: Epigastric abdominal pain, Exclusion of peptic ulcer Providers: Juaquin Peña MD Referring MD: KRISHNA KELLER MD Requesting Provider: Medicines: Monitored Anesthesia Care Complications: No immediate complications. Procedure: Pre-Anesthesia Assessment: - The heart rate, respiratory rate, oxygen saturations, blood pressure, adequacy of pulmonary ventilation, and response to care were monitored throughout the procedure. The Endoscope was introduced through the mouth, and advanced to the second part of duodenum. The upper GI endoscopy was accomplished without difficulty. The patient tolerated the procedure well. Findings: The Z-line was regular and was found 40 cm from the incisors. Localized mild inflammation characterized by congestion (edema) and erosions was found in the cardia, in the gastric fundus and in the gastric antrum. Localized moderate inflammation characterized by congestion (edema), erythema, friability and granularity was found in the duodenal bulb. Biopsies were taken with a cold forceps for histology. Biopsies were taken with a cold forceps for Helicobacter pylori testing. The exam of the duodenum was otherwise normal. Impression: - Z-line regular, 40 cm from the incisors. - Gastritis. - Mucosal changes suspicious for duodenitis. Biopsied. - The examination was otherwise normal. Recommendation: - Patient has a contact number available for emergencies. The signs and symptoms of potential delayed complications were discussed with the patient. Return to normal activities tomorrow. Written discharge instructions were provided to the patient. - Resume previous diet. - Discharge patient to home. - Follow an antireflux regimen. - Continue present medications. - Await pathology results. - Telephone GI clinic for pathology results in 1 week. - Repeat upper endoscopy for surveillance based on pathology results. - The findings and recommendations were discussed with the patient. Procedure Code(s): --- Professional --- 83508, Esophagogastroduodenoscopy, flexible, transoral; with biopsy, single or multiple Diagnosis Code(s): --- Professional --- K31.89, Other diseases of stomach and duodenum R10.13, Epigastric pain CPT copyright 2019 [employer]. All rights reserved. The codes documented in this report are preliminary and upon radial drill press operator review may be revised to meet current compliance requirements. Juaquin Peña MD Juaquin Peña MD 01/16/2021 1:07:10 PM Electronically signed by Juaquin Peña MD Number of Addenda: 0 Note Initiated On: 01/16/2021 12:48 PM Estimated Blood Loss: Estimated blood loss: none.
[2021-01-16 13:22] VITALS: BP 132/80
== END 2021-01-16 13:24 | disposition home or self-care (01) ==
LOC: M OPP 11:53
PROVIDERS: ATTEND Internal Medicine Gastroenterology
DX: K31.89 Other diseases of stomach and duodenum (principal); R10.13 Epigastric pain; K86.1 Other chronic pancreatitis; Z79.891 Long term (current) use of opiate analgesic; Z79.899 Other long term (current) drug therapy
CPT/HCPCS: 43239; 88305; J3010

== ENCOUNTER 2021-08-10 15:44 | Emergency (ER) | payer OTHER ==
[~2021-08-10] VITALS: Ht 167.6 cm; Wt 68.0 kg
[2021-08-10] MEDS: MULTIVITAMINS/MINERALS THERAP 1 TAB PO SCH (09:00)
[2021-08-10] MEDS: FOLIC ACID 1 MG TAB PO SCH (09:00)
[2021-08-10] MEDS ORDERED: NS 1,000 ML IV ONE (15:55)
[2021-08-10 16:19] LABS: HEMATOCRIT 41.4 % (42.0-52.0); MEAN CORPUSCULAR HEMOGLOBIN 31.2 pg (27.0-33.0); MEAN CORPUSCULAR HGB CONC 33.8 g/dl (32.0-36.5); MEAN CORPUSCULAR VOLUME 92.2 fl (80.0-96.0); PLATELET COUNT, AUTOMATED 289 10^3/uL (150-450); RED BLOOD COUNT 4.49 10^6/uL (4.30-6.10); WHITE BLOOD COUNT 6.2 10^3/uL (4.0-10.0)
[2021-08-10 16:53] LABS: ALBUMIN 4.2 GM/DL (3.2-5.2); ALT/SGPT 63 U/L (12-78); BILIRUBIN,DIRECT 0.2 MG/DL (0.0-0.2); BILIRUBIN,TOTAL 0.5 MG/DL (0.2-1.0); BLOOD UREA NITROGEN 11 MG/DL (7-18); CALCIUM LEVEL 8.7 MG/DL (8.5-10.1); CARBON DIOXIDE LEVEL 25 MEQ/L (21-32); CHLORIDE LEVEL 109 MEQ/L (98-107); CREATININE FOR GFR 1.17 MG/DL (0.70-1.30); GLOMERULAR FILTRATION RATE > 60.0 (>60); GLUCOSE, FASTING 99 MG/DL (70-100); LIPASE 112 U/L (73-393); POTASSIUM SERUM 3.5 MEQ/L (3.5-5.1); SALICYLATE LEVEL < 1.7 MG/DL (5.0-30.0); SODIUM LEVEL 146 MEQ/L (136-145); THYROID STIMULATING HORMONE 0.539 uIU/ML (0.358-3.740); TOTAL PROTEIN 7.5 GM/DL (6.4-8.2)
[2021-08-10 16:55] LABS: RSV AMPLIFICATION NEGATIVE (NEGATIVE)
[2021-08-10] MEDS ORDERED: LORazepam 2 MG TAB PO PRN (17:20)
[2021-08-10 18:09] LABS: AMPHETAMINES LEVEL URINE NEGATIVE (NEGATIVE); BARBITURATES URINE NEGATIVE (NEGATIVE); BENZODIAZEPINES URINE NEGATIVE (NEGATIVE); CANNABINOIDS URINE NEGATIVE (NEGATIVE); COCAINE METABOLITE URINE NEGATIVE (NEGATIVE); METHADONE URINE NEGATIVE (NEGATIVE); OPIATES URINE NEGATIVE (NEGATIVE); PHENCYCLIDINE URINE NEGATIVE (NEGATIVE)
[2021-08-10 19:39] LABS: ACETAMINOPHEN LEVEL < 2.0 UG/ML (0.0-30.0)
[2021-08-10] MEDS: THIAMINE 100 MG TAB PO SCH (23:03)
[2021-08-11] MEDS ORDERED: OXAZEPAM 15MG CAP PO ONE (09:45)
[2021-08-11] MEDS: THIAMINE 100 MG TAB PO SCH (09:55)
[2021-08-11] MEDS: MULTIVITAMINS/MINERALS THERAP 1 TAB PO SCH (09:55)
[2021-08-11] MEDS: FOLIC ACID 1 MG TAB PO SCH (09:55)
[2021-08-11 11:06] VITALS: BP 144/75
== END 2021-08-11 11:09 | disposition home or self-care (01) ==
LOC: M ED 15:44
DX: F10.129 Alcohol abuse with intoxication, unspecified (principal); Y90.1 Blood alcohol level of 20-39 mg/100 ml; Z79.899 Other long term (current) drug therapy

== ENCOUNTER → 2021-08-10 | Outpatient (REF) ==
[~2021-08-10] MED LIST changes: -NS 1,000 ML IV ONE
== END ==
LOC: M PLAIMG 09:51
PROVIDERS: ATTEND Internal Medicine
DX: R07.9 Chest pain, unspecified (principal); R06.02 Shortness of breath